=== PATIENT | female | born 1950 | race Caucasian/White ===

== ENCOUNTER 2023-04-21 10:52 | Outpatient (OUT) | payer MEDICARE, SELFPAY ==
[2023-04-21 11:40] LABS: Basophils Absolute Auto 0.1 10^3/uL (0.0-0.1); Basophils Percent Auto 0.9 % (0.2-2.0); Eosinophils Percent Auto 0.3 % (0.9-7.0); Hematocrit 45.6 % (36.0-48.0); Hemoglobin 14.9 g/dL (12.0-16.0); Immature Granulocytes Abs Auto 0.01 10^3/uL (0.00-0.03); Immature Granulocytes Pct Auto 0.2 % (0.0-0.5); Lymphocytes Absolute Auto 1.1 10^3/uL (1.2-3.8); Lymphocytes Percent Auto 16.6 % (20.5-60.0); Mean Corpuscular HGB Conc 32.7 g/dL (29.9-35.2); Mean Corpuscular Hemoglobin 32.7 pg (26.7-34.0); Mean Platelet Volume 10.1 fL (9.5-13.5); Monocytes Absolute Auto 0.4 10^3/uL (0.3-0.8); Monocytes Percent Auto 5.9 % (1.7-12.0); Neutrophils Absolute Auto 4.9 10^3/uL (1.4-6.5); Neutrophils Percent Auto 76.1 % (43.0-75.0); Platelet Count 236 10^3/uL (150-450); Red Blood Count 4.56 10^6/uL (4.20-5.40); Red Cell Distribution Width 12.4 % (11.0-15.0); White Blood Count 6.4 10^3/uL (4.0-11.0)
[2023-04-21 12:18] LABS: Alanine Aminotransferase 53 U/L (14-59); Albumin Globulin Ratio 0.9; Albumin Level 3.9 g/dL (3.4-5.0); Alkaline Phosphatase 296 U/L (46-116); Anion Gap 13.8; Aspartate Amino Transferase 33 U/L (15-37); Bilirubin Direct 0.2 mg/dL (0.0-0.2); Bilirubin Total 0.5 mg/dL (0.2-1.0); Carbon Dioxide 27.6 mmol/L (21.0-32.0); Chloride 101 mmol/L (98-107); Chol HDL Ratio 2.3; Cholesterol 239 mg/dL (<=200); Estimated GFR (African America >60 (>=60); Estimated GFR (Non-African Ame >60 (>=60); Globulin 4.5 g/dL; Glucose 111 mg/dL (74-106); HDL Cholesterol 105 mg/dL (40-60); Magnesium 1.8 mg/dL (1.8-2.4); Potassium 4.4 mmol/L (3.5-5.1); Sodium 138 mmol/L (136-145); Thyroid Stimulating Hormone 2.859 uIU/mL (0.358-3.740); Total Protein 8.4 g/dL (6.4-8.2); Triglycerides 101 mg/dL (<=150); VLDL CHOLESTEROL 20.2 mg/dL
== END 2023-04-21 10:53 | disposition home or self-care (01) ==
PROVIDERS: PCP Internal Medicine; Visit Provider Internal Medicine
DX: I50.32 Chronic diastolic (congestive) heart failure (principal); K76.9 Liver disease, unspecified; E78.5 Hyperlipidemia, unspecified; E55.9 Vitamin D deficiency, unspecified; Z79.899 Other long term (current) drug therapy
CPT/HCPCS: 36415; 80051; 80061; 80076; 82306; 82565; 82947; 83735; 83880; 84443; 84520; 85025

== ENCOUNTER 2023-09-14 03:42 | Emergency (ER) | payer MEDICARE, SELFPAY ==
[2023-09-14 03:46] VITALS: BP 238/140; PULSE 81; TEMP 36.6; O2SAT 97; BMI 15.5
--- OUTSIDE RECORDS SUMMARY | 2023-09-14 03:55 | XMS_ITS | CCD ---
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 Name Role Phone VIRAL ., DR HALEY Mallory Attending Unavailable VIRAL ., DR HALEY Mallory Admitting Unavailable VALONE, DR WILLIAM Primary Care Unavailable DAYANNA, DR MERRITT Carroll Consulting Unavailable STRATTON ., DR HALEY Mallory Consulting Unavailable ZIEBER, DR ANDREI Carroll Consulting Unavailable GUADALUPE, JERSEY Consulting Unavailable MORA, CARI Consulting Unavailable VALONE, DR WILLIAM Primary Care Unavailable VALONE, DR WILLIAM Admitting Unavailable VALONE, DR WILLIAM Attending Unavailable VALONE, DR WILLIAM Consulting Unavailable DAYANNA, DR MERRITT Carroll Consulting Unavailable DAYANNA, DR MERRITT Carroll Admitting Unavailable BRAYDON, DR WILLIAM Primary Care Unavailable DAYANNA, DR MERRITT Carroll Attending Unavailable Allergies Allergy Classification Reported Allergen(s) Allergy Type Date of Onset Reaction(s) Facility (1 source) Adhesive bandage Drug allergy (disorder) 5 [facility] Repository (1 source) Codeine Drug Allergy 5 [facility] (1 source) Dextroamphetamine Drug Allergy 5 [facility] Rep[facility] (1 source) Penicillins Drug allergy (disorder) 5 [facility] Problems Active Problems Problem Classification Problem Date Documented Date Episodic/Chronic Abdominal pain (4 sources) Unspecified abdominal pain; Translations: [UNSPECIFIED ABDOMINAL PAIN] Onset: 11-22-19 Episodic Anxiety disorders (1 source) Generalized anxiety disorder; Translations: [GENERALIZED ANXIETY DISORDER] Onset: 11-27-19 Chronic Chronic obstructive pulmonary disease and bronchiectasis (1 source) Chronic obstructive pulmonary disease, unspecified; Translations: [COPD UNSPECIFIED] Onset: 11-27-19 Chronic Disorders of lipid metabolism (1 source) Pure hypercholesterolemia, unspecified; Translations: [PURE HYPERCHOLESTEROLEMIA UNSPEC] Onset: 09-13-19 Chronic Esophageal disorders (1 source) Gastro-esophageal reflux disease without esophagitis; Translations: [GERD WITHOUT ESOPHAGITIS] Onset: 11-27-19 Chronic Nutritional deficiencies (1 source) Moderate protein-calorie malnutrition; Translations: [MODERATE PROTEIN-CALORIE MLNUTRIT] Onset: 11-27-19 Chronic Other aftercare (1 source) Other retirement (current) drug therapy; Translations: [OTH SHELTER CURRENT DRUG THERAPY] Onset: 09-13-19 Episodic Other gastrointestinal disorders (1 source) Irritable bowel syndrome without diarrhea; Translations: [IRRITABLE BOWEL SYND W/O DIARRHEA] Onset: 11-26-19 Chronic Other gastrointestinal disorders (1 source) Irritable bowel syndrome with constipation; Translations: [IRRITABLE BOWEL SYND W/CONSTIPATION] Onset: 11-27-19 Chronic Other lower respiratory disease (4 sources) Shortness of breath; Translations: [SHORTNESS OF BREATH] Onset: 09-10-19 Episodic Other nutritional; endocrine; and metabolic disorders (1 source) Abnormal weight loss; Translations: [ABNORMAL WEIGHT LOSS] Onset: 09-13-19 Episodic Substance-related disorders (1 source) Nicotine dependence, cigarettes, uncomplicated; Translations: [NICOTINE DEPEND CIGARETTES UNCOMP] Onset: 11-27-19 Chronic Unclassified (1 source) CONTACT W/AND (SUSP) EXPOS COVID-19; Translations: [CONTACT W/AND (SUSP) EXPOS COVID-19] Onset: 11-27-19 Past or Other Problems Problem Classification Problem Date Documented Da te Episodic/Chronic Nausea and vomiting (5 sources) Nausea with vomiting, unspecified; Translations: [NAUSEA WITH VOMITING UNSPECIFIED] Onset: 11-21-2021 Episodic Other nutritional; endocrine; and metabolic disorders (1 source) Anorexia; Translations: [ANOREXIA] Onset: 11-26-2021 Episodic Other nutritional; endocrine; and metabolic disorders (1 source) Body mass index (BMI) 19.9 or less, adult; Translations: [BODY MASS INDEX 19.9 OR LESS ADULT] Onset: 11-26-2021 Episodic Results Test Name Value Interpretation Reference Range Facility BNPon 09-09-2022 Natriuretic peptide B (Bld) [Mass/Vol] 87.0 pg/mL Normal <=900.0 [facility] Comment on above: Performed By: #### L IVER, BNP, CREA, ELEC, LIPID, GLUC, BUN, TSH #### [facility] [address] [place] [address] Dr. Reece Grover BUNon 09-09-2022 Urea nitrogen [Mass/Vol] 20.0 mg/dL Critically high 7.0-18.0 [facility] Comment on above: Performed By: #### L IVER, BNP, CREA, ELEC, LIPID, GLUC, BUN, TSH ####[facility] [address] [place], [place] [address]Dr. Reece Grover CBC AUTO DIFFon 09-09-2022 BASO # 0.1 103/ul Normal 0.0-0.1 [facility] Comment on above: Performed By: #### C BC #### [facility] [address] [address] [address] Reece Grvoer Basophils/100 WBC (Bld) 1.0 % Normal 0.2-2.0 [facility] Comment on above: Performed By: #### C BC #### [facility] [address] [address] [address] Reece Grover EO # 0.0 103/ul Normal 0.0-0.7 [facility] Comment on above: Performed By: #### C BC #### [facility] [address] [address] [address] Reece Grover Eosinophils/100 WBC (Bld) 0.8 % Critically low 0.9-7.0 [facility] Comment on above: Performed By: #### C BC #### [facility] [address] [address] [address] Reece Grover Erythrocyte distribution width (RBC) [Ratio] 13.0 % Normal 11.0-15.0 [facility] Comment on above: Performed By: #### C BC #### [facility] [address] [address] [address] Reece Grover Hematocrit (Bld) [Volume fraction] 42.9 % Normal 36.0-48.0 [facility] Comment on above: Performed By: #### C BC #### [facility] [address] [address] [address] Reece Grover Hemoglobin (Bld) [Mass/Vol] 13.9 g/dL Normal 12.0-16.0 [facility] Comment on above: Performed By: #### C BC #### [facility] [address] [place] [address] Dr. Reece Grover IG # 0.01 10e3/ul Normal 0.00-0.03 [facility] Comment on above: Performed By: #### C BC #### [facility] [address] [address] [address] Reece Grover IG % 0.2 % Normal 0.0-0.5 [facility] Comment on above: Performed By: #### C BC #### [facility] [address] [place] [address] Dr. Reece Grover LYMPH # 1.1 103/ul Critically low 1.2-3.8 [facility] Comment on above: Performed By: #### C BC #### [facility] [address] [place] [address] Dr. Reece Grover Lymphocytes/100 WBC (Bld) 22.1 % Normal 20.5-60.0 [facility] Comment on above: Performed By: #### C BC #### [facility] [address] [place] [address] Dr. Reece Grover MANUAL DIFF REQ NO Normal [facility] Comment on above: Performed By: #### C BC #### [facility] [address] [place] [address] Dr. Reece Grover MCH (RBC) [Entitic mass] 32.4 pg Normal 26.7-34.0 [facility] Comment on above: Performed By: #### C BC #### [facility] [address] [place] [address] Dr. Reece Grover MCHC (RBC) [Mass/Vol] 32.4 g/dL Normal 29.9-35.2 [facility] Comment on above: Performed By: #### C BC #### [facility] [address] [place] [address] Dr. Reece Grover MCV (RBC) [Entitic vol] 100.0 fL Critically high 81.0-99.0 [facility] Comment on above: Performed By: #### C BC #### [facility] [address] [address] [address] Reece Grover MONO # 0.3 103/ul Normal 0.3-0.8 [facility] Comment on above: Performed By: #### C BC #### [facility] [address] [address] [address] Reece Grover Monocytes/100 WBC (Bld) 5.6 % Normal 1.7-12.0 [facility] Comment on above: Performed By: #### C BC #### [facility] [address] [place] [address] Dr. Reece Grover NEUT # 3.5 103/ul Normal 1.4-6.5 [facility] Comment on above: Performed By: #### C BC #### [facility] [address] [place] [address] Dr. Reece Grover Neutrophils/100 WBC (Bld) 70.3 % Normal 43.0-75.0 [facility] Comment on above: Performed By: #### C BC #### [facility] [address] [place] [address] Dr. Reece Grover Platelet mean volume (Bld) [Entitic vol] 9.7 fL Normal 9.5-13.5 [facility] Comment on above: Performed By: #### C BC #### [facility] [address] [place] [address] Dr. Reece Grover PLT 190 103/ul Normal 150-450 [facility] Comment on above: Performed By: #### C BC #### [facility] [address] [place] [address] Dr. Reece Grover RBC 4.29 106/ul Normal 4.20-5.40 [facility] Comment on above: Performed By: #### C BC #### [facility] [address] [place] [address] Dr. Reece Grover WBC 5.0 103/ul Normal 4.0-11.0 [facility] Comment on above: Performed By: #### C BC #### [facility] [address] [address] [address] Reece Grover CREATININEon 09-09-2022 Creatinine [Mass/Vol] 0.81 mg/dL Normal 0.55-1.02 [facility] Comment on above: Performed By: #### L IVER, BNP, CREA, ELEC, LIPID, GLUC, BUN, TSH #### [facility] [address] [address] [address] Reece Grover EGFR-AF TRISTANIAN >60 Normal >=60 [facility] Comment on above: Performed By: #### L IVER, BNP, CREA, ELEC, LIPID, GLUC, BUN, TSH #### [facility] [address] [address] [address] Reece Grover EGFR-NON AF TRISTANIAN >60 Normal >=60 [facility] Comment on above: Performed By: #### L IVER, BNP, CREA, ELEC, LIPID, GLUC, BUN, TSH #### [facility] [address] [place] [address] Dr. Reece Grover ELECTROLYTESon 09-09-2022 Anion gap [Moles/Vol] 12.6 mmol/L Normal [facility] Comment on above: Performed By: #### L IVER, BNP, CREA, ELEC, LIPID, GLUC, BUN, TSH #### [facility] [address] [place] [address] Dr. Reece Grover Chloride [Moles/Vol] 105 mmol/L Normal 98-107 [facility] Comment on above: Performed By: #### L IVER, BNP, CREA, ELEC, LIPID, GLUC, BUN, TSH #### [facility] [address] [place] [address] Dr. Reece Grover CO2 [Moles/Vol] 28.6 mmol/L Normal 21.0-32.0 [facility] Comment on above: Performed By: #### L IVER, BNP, CREA, ELEC, LIPID, GLUC, BUN, TSH #### [facility] [address] [place] [address] Dr. Reece Grover Potassium [Moles/Vol] 4.2 mmol/L Normal 3.5-5.1 [facility] Comment on above: Performed By: #### L IVER, BNP, CREA, ELEC, LIPID, GLUC, BUN, TSH #### [facility] [address] [address] [address] Reece Grover Sodium [Moles/Vol] 142 mmol/L Normal 136-145 [facility] Comment on above: Performed By: #### L IVER, BNP, CREA, ELEC, LIPID, GLUC, BUN, TSH #### [facility] [address] [address] [address] Reece Grover GLUCOSE BLOODon 09-09-2022 Glucose [Mass/Vol] 105 mg/dL Normal 74-106 [facility] Comment on above: Performed By: #### L IVER, BNP, CREA, ELEC, LIPID, GLUC, BUN, TSH #### [facility] [address] [place] [address] Dr. Reece Grover LIPID PROFILEon 09-09-2022 CHOL-HDL RATIO NORM SEE BELOW Normal [facility] Comment on above: Result Comment: 3.3 - 4.4 LOW RISK 4.4 - 7.1 AVERAGE RISK 7.1 - 11.0 MODERATE RISK >11.0 HIGH RISK Performed By: #### L IVER, BNP, CREA, ELEC, LIPID, GLUC, BUN, TSH #### [facility] [address] [place] [address] Dr. Reece Grover Cholesterol [Mass/Vol] 249 mg/dL Critically high <=200 [facility] Comment on above: Performed By: #### L IVER, BNP, CREA, ELEC, LIPID, GLUC, BUN, TSH #### [facility] [address] [address] [address] Reece Grover Cholesterol in HDL [Mass/Vol] 93 mg/dL Critically high 40-60 [facility] Comment on above: Performed By: #### L IVER, BNP, CREA, ELEC, LIPID, GLUC, BUN, TSH #### [facility] [address] [address] [address] Reece Grover Cholesterol in LDL [Mass/Vol] 142.0 mg/dL Normal [facility] Comment on above: Performed By: #### L IVER, BNP, CREA, ELEC, LIPID, GLUC, BUN, TSH #### [facility] [address] [address] [address] Reece Grover Cholesterol.total/C holesterol in HDL [Mass ratio] 2.7 {ratio} Normal [facility] Comment on above: Performed By: #### L IVER, BNP, CREA, ELEC, LIPID, GLUC, BUN, TSH #### [facility] [address] [address] [address] Reece Grover HDL NORMAL > or = 60 mg/dl - LO W CARDIOVASCULAR RISK <40 mg/dl - HIGH CARDIOVASCULAR RISK Normal [facility] Comment on above: Performed By: #### L IVER, BNP, CREA, ELEC, LIPID, GLUC, BUN, TSH #### [facility] [address] [place] [address] Dr. Reece Grover LDL CALC NORMAL SEE BELOW Normal [facility] Comment on above: Result Comment: <100 mg/dl OPTIMAL 100 - 129 mg/dl NEAR OR ABOVE OPTIMAL 130 - 159 mg/dl BORDERLINE HIGH 160 - 189 mg/dl HIGH >190 mg/dl VERY HIGH Performed By: #### L IVER, BNP, CREA, ELEC, LIPID, GLUC, BUN, TSH #### [facility] [address] [address] [address] Reece Grover Triglyceride [Mass/Vol] 70 mg/dL Normal <=150 [facility] Comment on above: Performed By: #### L IVER, BNP, CREA, ELEC, LIPID, GLUC, BUN, TSH #### [facility] [address] [address] [address] Reece Grover VLDL CALC 14.0 mg/dL Normal [facility] Comment on above: Performed By: #### L IVER, BNP, CREA, ELEC, LIPID, GLUC, BUN, TSH #### [facility] [address] [address] [address] Reece Grover LIVER PROFILEon 09-09-2022 Albumin [Mass/Vol] 3.6 g/dL Normal 3.4-5.0 [facility] Comment on above: Performed By: #### L IVER, BNP, CREA, ELEC, LIPID, GLUC, BUN, TSH #### [facility] [address] [place] [address] Dr. Reece Grover Albumin/Globulin [Mass ratio] 0.8 {ratio} Normal [facility] Comment on above: Performed By: #### L IVER, BNP, CREA, ELEC, LIPID, GLUC, BUN, TSH #### [facility] [address] [place] [address] Dr. Reece Grover ALP [Catalytic activity/Vol] 324 U/L Critically high 46-116 [facility] Comment on above: Performed By: #### L IVER, BNP, CREA, ELEC, LIPID, GLUC, BUN, TSH #### [facility] [address] [place] [address] Dr. Reece Grover ALT [Catalytic activity/Vol] 61 U/L Critically high 14-59 [facility] Comment on above: Performed By: #### L IVER, BNP, CREA, ELEC, LIPID, GLUC, BUN, TSH #### [facility] [address] [place] [address] Dr. Reece Grover AST [Catalytic activity/Vol] 50 U/L Critically high 15-37 [facility] Comment on above: Performed By: #### L IVER, BNP, CREA, ELEC, LIPID, GLUC, BUN, TSH #### [facility] [address] [place] [address] Dr. Reece Grover BILI, CONJUGATED 0.1 mg/dL Normal 0.0-0.2 [facility] Comment on above: Performed By: #### L IVER, BNP, CREA, ELEC, LIPID, GLUC, BUN, TSH #### [facility] [address] [place] [address] Dr. Reece Grover Bilirubin [Mass/Vol] 0.3 mg/dL Normal 0.2-1.0 [facility] Comment on above: Performed By: #### L IVER, BNP, CREA, ELEC, LIPID, GLUC, BUN, TSH #### [facility] [address] [place] [address] Dr. Reece Grover Globulin (S) [Mass/Vol] 4.8 g/dL Normal [facility] Comment on above: Performed By: #### L IVER, BNP, CREA, ELEC, LIPID, GLUC, BUN, TSH #### [facility] [address] [address] [address] Reece Grover Protein [Mass/Vol] 8.4 g/dL Critically high 6.4-8.2 [facility] Comment on above: Performed By: #### L IVER, BNP, CREA, ELEC, LIPID, GLUC, BUN, TSH #### [facility] [address] [address] [address] Reece Grover TSHon 09-09-2022 TSH 1.698 uIU/mL Normal 0.358-3.740 [facility] Comment on above: Performed By: #### L IVER, BNP, CREA, ELEC, LIPID, GLUC, BUN, TSH ####[facility] [address] [address]Dr. Reece Grover AMYLASEon 11-21-2021 Amylase [Catalytic activity/Vol] 93 U/L Normal 25-115 [facility] Comment on above: Performed By: #### A MY, CMP, LIPA ####[facility] [address] [address]Dr. Reece Grover CBC AUTO DIFFon 11-21-2021 BASO # 0.0 103/ul Normal 0.0-0.1 [facility] Comment on above: Performed By: #### C BC ####[facility] [address] [address]Dr. Reece Grover Basophils/100 WBC (Bld) 0.4 % Normal 0.2-2.0 [facility] Comment on above: Performed By: #### C BC ####[facility] [address] [address]Dr. Reece Grover EO # 0.0 103/ul Normal 0.0-0.7 [facility] Comment on above: Performed By: #### C BC ####[facility] [address] [address]Dr. Reece Grover Eosinophils/100 WBC (Bld) 0.4 % Critically low 0.9-7.0 [facility] Comment on above: Performed By: #### C BC ####[facility] [address] [place], [place] [address]Dr. Reece Grover Erythrocyte distribution width (RBC) [Ratio] 12.7 % Normal 11.0-15.0 [facility] Comment on above: Performed By: #### C BC ####[facility] [address] [place], [place] [address]Dr. Reece Grover Hematocrit (Bld) [Volume fraction] 40.1 % Normal 36.0-48.0 [facility] Comment on above: Performed By: #### C BC ####[facility] [address] [place], [place] [address]Dr. Reece Grover Hemoglobin (Bld) [Mass/Vol] 13.7 g/dL Normal 12.0-16.0 [facility] Comment on above: Performed By: #### C BC ####[facility] [address] [place], [place] [address]Dr. Reece Grover IG # 0.03 10e3/ul Normal 0.00-0.03 [facility] Comment on above: Performed By: #### C BC ####[facility] [address] [place], [place] [address]Dr. Reece Grover IG % 0.4 % Normal 0.0-0.5 [facility] Comment on above: Performed By: #### C BC ####[facility] [address] [place], [place] [address]Dr. Reece Grover LYMPH # 0.9 103/ul Critically low 1.2-3.8 [facility] Comment on above: Performed By: #### C BC ####[facility] [address] [place], [place] [address]Dr. Reece Grover Lymphocytes/100 WBC (Bld) 10.9 % Critically low 20.5-60.0 [facility] Comment on above: Performed By: #### C BC ####[facility] [address] [id number]. Reece Grover MANUAL DIFF REQ NO Normal [facility] Comment on above: Performed By: #### C BC ####[facility] [address] [id number]. Reece Grover MCH (RBC) [Entitic mass] 33.4 pg Normal 26.7-34.0 [facility] Comment on above: Performed By: #### C BC ####[facility] [address] [id number]. Reece Grover MCHC (RBC) [Mass/Vol] 34.2 g/dL Normal 29.9-35.2 [facility] Comment on above: Performed By: #### C BC ####[facility] [address] [id number]. Reece Grover MCV (RBC) [Entitic vol] 97.8 fL Normal 81.0-99.0 [facility] Comment on above: Performed By: #### C BC ####[facility] [address] [address]Dr. Reece Grover MONO # 0.4 103/ul Normal 0.3-0.8 [facility] Comment on above: Performed By: #### C BC ####[facility] [address] [place], [place] [address]Dr. Reece Reilly Monocytes/100 WBC (Bld) 4.6 % Normal 1.7-12.0 [facility] Comment on above: Performed By: #### C BC ####[facility] [address] [address]Dr. Reece Grover NEUT # 7.0 103/ul Critically high 1.4-6.5 [facility] Comment on above: Performed By: #### C BC ####[facility] [address] [id number]. Darlingrich Grover Neutrophils/100 WBC (Bld) 83.3 % Critically high 43.0-75.0 [facility] Comment on above: Performed By: #### C BC ####[facility] [address] [id number]. Reece Grover Platelet mean volume (Bld) [Entitic vol] 10.0 fL Normal 9.5-13.5 [facility] Comment on above: Performed By: #### C BC ####[facility] [address] [id number]. Reece Grover PLT 236 103/ul Normal 150-450 [facility] Comment on above: Performed By: #### C BC ####[facility] [address] [id number]. Reece Grover RBC 4.10 106/ul Critically low 4.20-5.40 [facility] Comment on above: Performed By: #### C BC ####[facility] [address] [place], [place] [address]Dr. Reece Grover WBC 8.4 103/ul Normal 4.0-11.0 [facility] Comment on above: Performed By: #### C BC ####[facility] [address] [place], [place] [address]Dr. Reece Grover BASO # 0.1 103/ul Normal 0.0-0.1 [facility] Comment on above: Performed By: #### C BC ####[facility] [address] [place], [place] [address]Dr. Reece Grover Basophils/100 WBC (Bld) 1.0 % Normal 0.2-2.0 [facility] Comment on above: Performed By: #### C BC ####[facility] [address] [address]Dr. Reece Grover EO # 0.1 103/ul Normal 0.0-0.7 [facility] Comment on above: Performed By: #### C BC ####[facility] [address] [place], [place] [address]Dr. Reece Grover Eosinophils/100 WBC (Bld) 2.1 % Normal 0.9-7.0 [facility] Comment on above: Performed By: #### C BC ####[facility] [address] [place], [place] [address]Dr. Reece Grover Erythrocyte distribution width (RBC) [Ratio] 12.8 % Normal 11.0-15.0 [facility] Comment on above: Performed By: #### C BC ####[facility] [address] [place], [place] [address]Dr. Reece Grover Hematocrit (Bld) [Volume fraction] 40.6 % Normal 36.0-48.0 [facility] Comment on above: Performed By: #### C BC ####[facility] [address] [place], [place] [address]Dr. Reece Grover Hemoglobin (Bld) [Mass/Vol] 13.3 g/dL Normal 12.0-16.0 [facility] Comment on above: Performed By: #### C BC ####[facility] [address] [place], [place] [address]Dr. Reece Grover IG # 0.02 10e3/ul Normal 0.00-0.03 [facility] Comment on above: Performed By: #### C BC ####[facility] St[address] [place], [place] [address]Dr. Reece Grover IG % 0.4 % Normal 0.0-0.5 [facility] Comment on above: Performed By: #### C BC ####[facility] Fujnkopykc[address] [place], [place] [address]Dr. Darlingrich Grover LYMPH # 1.6 103/ul Normal 1.2-3.8 [facility] Comment on above: Performed By: #### C BC ####[facility] Jqkltolize[address] [place], [place] [address]Dr. Darlingrich Grover Lymphocytes/100 WBC (Bld) 31.6 % Normal 20.5-60.0 [facility] Comment on above: Performed By: #### C BC ####[facility] Tlccocamne[address] [place], [place] [address]Dr. Darlingrich Grover MANUAL DIFF REQ NO Normal The [facility] Comment on above: Performed By: #### C BC ####[facility] [address]eibqvhw[address] [place], [place] [address]Dr. Reece Grover MCH (RBC) [Entitic mass] 33.0 pg Normal 26.7-34.0 [facility] Comment on above: Performed By: #### C BC ####[facility] [address] [place] [address]Dr. Reece Grover MCHC (RBC) [Mass/Vol] 32.8 g/dL Normal 29.9-35.2 [facility] Comment on above: Performed By: #### C BC ####[facility] [address]ygmds[address] [place] [address]Dr. Reece Reilly MCV (RBC) [Entitic vol] 100.7 fL Critically high 81.0-99.0 [facility] Comment on above: Performed By: #### C BC ####[facility] Sdilfreqrj28[address] [place] [address]Dr. Reece Reilly MONO # 0.4 103/ul Normal 0.3-0.8 [facility] Comment on above: Performed By: #### C BC ####[facility] Xokhqiihec99[address] [place] [address]Dr. Reece Reilly Monocytes/100 WBC (Bld) 7.1 % Normal 1.7-12.0 [facility] Comment on above: Performed By: #### C BC ####[facility] [address] [place], [place] [address]Dr. Reece Grover NEUT # 3.0 103/ul Normal 1.4-6.5 [facility] Comment on above: Performed By: #### C BC ####[facility] [address]zzcxbf[address] [place] [address]Dr. Reece Reilly Neutrophils/100 WBC (Bld) 57.8 % Normal 43.0-75.0 [facility] Comment on above: Performed By: #### C BC ####[facility] Wxjayyllnv9[address] [place] [address]Dr. Reece Reilly Platelet mean volume (Bld) [Entitic vol] 9.7 fL Normal 9.5-13.5 [facility] Comment on above: Performed By: #### C BC ####[facility] Qylqktthys6093 [place], [place] [address]Pb. Reece Grover PLT 239 103/ul Normal 150-450 [facility] Comment on above: Performed By: #### C BC ####[facility] Plcpdklfxw3095 [place], [place] [address]Jl. Reece Grover RBC 4.03 106/ul Critically low 4.20-5.40 The [facility] Comment on above: Performed By: #### C BC ####[facility] F[address]zdcoqrq0665 [place], [place] [address]Qr. Reece Grover WBC 5.2 103/ul Normal 4.0-11.0 [facility] Comment on above: Performed By: #### C BC ####[facility] Rsiyeylkxz1687 [place], [place] [address]Ri. Reece Grover CT ABD/PELV W CONon 11-22-19 CT ABD/PELV W CON EXAMINATION: CT ABD/PELV W CON HISTORY: ABDOMINAL DISTENSION (GASEOUS) COMPARISON: 04/18/2018 TECHNIQUE: Helical CT of the abdomen and pelvis with intravenous contrast. Dose reduction techniques were achieved by using automated exposure control and/or adjustment of mA and/or kV according to patient size and/or use of iterative reconstruction technique. FINDINGS: TUBES AND IMPLANTS: None. LOWER CHEST: Unremarkable ABDOMEN and PELVIS ABDOMINAL WALL AND SOFT TISSUES: Unremarkable. BONES: No suspicious lesions. Osteopenia. Multilevel degenerative changes of the spine. ARTERIES: Moderate aortoiliac calcifications without aneurysm. VEINS: Unremarkable. LYMPH NODES: Unremarkable. PERITONEUM/ RETROPERITONEUM: Unremarkable. BOWEL: No obstruction. APPENDIX: Not identified. No inflammatory changes in its expected location. LIVER: Prominent periportal edema. GALLBLADDER: Unremarkable. BILE DUCTS: Not dilated SPLEEN: Unremarkable. PANCREAS: Unremarkable. ADRENALS: Unremarkable. KIDNEYS/ URETERS: Unremarkable. REPRODUCTIVE ORGANS: Uterus appears surgically absent URINARY BLADDER: Unremarkable. IMPRESSION: Prominent periportal edema. Nonspecific but can be seen in the setting of hepatitis. Electronically authenticated by: CARI MORA Date: 2021-11-21 02:42 Normal [facility]on SARS-CoV-2 (COVID-19) RNA THOM+probe Ql (Unsp spec) Not detected Normal NOT DETECTED [facility] Comment on above: Result Comment: When diagnostic testing is negative, the possibility of a false negative should be considered in the context of a patient's recent exposures and the presence of clinical signs and symptoms consistent with SARS-CoV-2. This test is not yet approved or cleared by the [place] FDA. When there are no FDA-approved or cleared tests available, and other criteria are met, FDA can make tests available under an emergency access mechanism called an Emergency Use Authorization (EUA). The EUA for this test is supported by the [place] of Health and Human Service's declaration that circumstances exist to justify the emergency use of in vitro diagnostics for the detection and/or diagnosis of the virus that causes COVID-19. This EUA will remain in effect for the duration of the COVID-19 declaration justifying emergency of IVDs, unless it is terminated or revoked by the FDA (after which the test may no longer be used). Performed By: #### C VDTBH ####[facility] S[address] [place], [place] [address]Dr. Reece Grover LIPASEon 11-21-2021 Lipase [Catalytic activity/Vol] 106.0 U/L Normal 73.0-393.0 [facility] Comment on above: Performed By: #### A MY, CMP, LIPA ####[facility] X[address]wqyi[address] [place], [place] [address]Dr. Reece Grover PROF 14(COMP METB)on 022 Albumin [Mass/Vol] 3.6 g/dL Normal 3.4-5.0 The [facility] Comment on above: Performed By: #### C MP ####[facility] Ncduvhgznl[address] [place], [place] [address]Dr. Reece Grover Albumin/Globulin [Mass ratio] 0.9 {ratio} Normal [facility] Comment on above: Performed By: #### C MP ####[facility] Lbqdrvedkk[address] [place], [place] [address]Dr. Reece Grover ALP [Catalytic activity/Vol] 299 U/L Critically high 46-116 [facility] Comment on above: Performed By: #### C MP ####[facility] Itfflchsmf[address] [place] [id number]. Reece Grover ALT [Catalytic activity/Vol] 53 U/L Normal 14-59 [facility] Comment on above: Performed By: #### C MP ####[facility] Haztdxrbkh5190 [place] [address]Dr. Reece Grover Anion gap [Moles/Vol] 12.2 mmol/L Normal [facility] Comment on above: Performed By: #### C MP ####[facility] Wtbkeyusop3236 [place] [address]Dr. Reece Grover AST [Catalytic activity/Vol] 41 U/L Critically high 15-37 [facility] Comment on above: Performed By: #### C MP ####[facility] Iwatiobauy[address] [place], [place] [address]Dr. Reece Grover Bilirubin [Mass/Vol] 0.8 mg/dL Normal 0.2-1.0 [facility] Comment on above: Performed By: #### C MP ####[facility] Ejhaixguxt[address] [place], [place] [address]Dr. Reece Grover Calcium [Mass/Vol] 9.6 mg/dL Normal 8.5-10.1 The [facility] Comment on above: Performed By: #### C MP ####[facility] Qmfvdzdnfx[address] [place], [place] [address]Dr. Reece Grover Chloride [Moles/Vol] 101 mmol/L Normal 98-107 [facility] Comment on above: Performed By: #### C MP ####[facility] Nhjhoydloj5276 [place] [address]Dr. Reece Grover CO2 [Moles/Vol] 26.3 mmol/L Normal 21.0-32.0 The [facility] Comment on above: Performed By: #### C MP ####[facility] Gytjyonzng[address] [place], [place] [address]Dr. Reece Grover Creatinine [Mass/Vol] 0.63 mg/dL Normal 0.55-1.02 [facility] Comment on above: Performed By: #### C MP ####[facility] Gfuqmanikd4[address] [place] [id number]. Reece Grover EGFR-AF TRISTANIAN >60 Normal >=60 [facility] Comment on above: Performed By: #### C MP ####[facility] Tw[address]mipwkp488[address] [place] [id number]. Reece Grover EGFR-NON AF TRISTANIAN >60 Normal >=60 [facility] Comment on above: Performed By: #### C MP ####[facility] Yp[address] [place], [place] [address]Dr. Reece Reilly Globulin (S) [Mass/Vol] 4.2 g/dL Normal [facility] Comment on above: Performed By: #### C MP ####[facility] In[address]jgw[address] [place], [place] [address]Dr. Reece Reilly Glucose [Mass/Vol] 120 mg/dL Critically high 74-106 T [facility] Comment on above: Performed By: #### C MP ####[facility] [address]qrlqkxlzq[address] [place], [place] [address]Dr. Reece Reilly Potassium [Moles/Vol] 4.5 mmol/L Normal 3.5-5.1 [facility] Comment on above: Performed By: #### C MP ####[facility] I[address]fpewzvi[address] [place], [place] [address]Dr. Reece Reilly Protein [Mass/Vol] 7.8 g/dL Normal 6.4-8.2 [facility] Comment on above: Performed By: #### C MP ####[facility] Wohblbgyed[address] [place], [place] [address]Dr. Reece Reilly Sodium [Moles/Vol] 135 mmol/L Critically low 136-145 Th [facility] Comment on above: Performed By: #### C MP ####[facility] St[address]zdcs[address] [place], [place] [address]Dr. Reece Grover Urea nitrogen [Mass/Vol] 19.0 mg/dL Critically high 7.0-18.0 [facility] Comment on above: Performed By: #### C MP ####[facility] Voprfewgek2[address] [place], [place] [address]Dr. Reece Grover Urea nitrogen/Creatinine [Mass ratio] 30.2 mg/mg Normal [facility] Comment on above: Performed By: #### C MP ####[facility] Og[address]twzal[address] [place] [address]Dr. Reece Grover Albumin [Mass/Vol] 3.2 g/dL Critically low 3.4-5.0 Th e [facility] Comment on above: Performed By: #### A MY, CMP, LIPA ####[facility] Bceeqxodlp[address] [place] [address]Dr. Reece Reilly Albumin/Globulin [Mass ratio] 0.8 {ratio} Normal [facility] Comment on above: Performed By: #### A MY, CMP, LIPA ####[facility] Cuguqbksss34[address] [place] [address]Dr. Darlingrich Grover ALP [Catalytic activity/Vol] 296 U/L Critically high 46-116 [facility] Comment on above: Performed By: #### A MY, CMP, LIPA ####[facility] Qp[address]omwly[address] [place], [place] [address]Dr. Reece Reilly ALT [Catalytic activity/Vol] 49 U/L Normal 14-59 [facility] Comment on above: Performed By: #### A MY, CMP, LIPA ####[facility] Pvebckdtmi5391 [place] [address]Dr. Reece Reilly Anion gap [Moles/Vol] 8.7 mmol/L Normal [facility] Comment on above: Performed By: #### A MY, CMP, LIPA ####[facility] Cqmamcucey75[address] [place] [address]Dr. Reece Reilly AST [Catalytic activity/Vol] 34 U/L Normal 15-37 [facility] Comment on above: Performed By: #### A MY, CMP, LIPA ####[facility] Itgtgffwew9257 [place] [address]Dr. Darlingrich Grover Bilirubin [Mass/Vol] 0.3 mg/dL Normal 0.2-1.0 [facility] Comment on above: Performed By: #### A MY, CMP, LIPA ####[facility] Huagixvqqt5240 [place] [address]Dr. Reece Grover Calcium [Mass/Vol] 9.2 mg/dL Normal 8.5-10.1 The [facility] Comment on above: Performed By: #### A MY, CMP, LIPA ####[facility] Sdkhvcidzl7422 [place] [address]Dr. Reece Grover Chloride [Moles/Vol] 105 mmol/L Normal 98-107 [facility] Comment on above: Performed By: #### A MY, CMP, LIPA ####[facility] Afs[address]laqpaf[address] [place], [place] [address]Dr. Reece Grover CO2 [Moles/Vol] 29.2 mmol/L Normal 21.0-32.0 The [facility] Comment on above: Performed By: #### A MY, CMP, LIPA ####[facility] [address]omrbttlk[address] [place], [place] [address]Dr. Reece Grover Creatinine [Mass/Vol] 0.84 mg/dL Normal 0.55-1.02 [facility] Comment on above: Performed By: #### A MY, CMP, LIPA ####[facility] Hzulaeueyn[address] [place], [place] [address]Dr. Reece Grover EGFR-AF TRISTANIAN >60 Normal >=60 The [facility] Comment on above: Performed By: #### A MY, CMP, LIPA ####[facility] [address]rrw[address]hd[address] [place], [place] [address]Dr. Reece Grover EGFR-NON AF TRISTANIAN >60 Normal >=60 [facility] Comment on above: Performed By: #### A MY, CMP, LIPA ####[facility] [address]ybgnw[address] [place], [place] [address]Dr. Reece Grover Globulin (S) [Mass/Vol] 4.0 g/dL Normal [facility] Comment on above: Performed By: #### A MY, CMP, LIPA ####[facility] [address]llogfqwr[address] [place], [place] [address]Dr. Reece Grover Glucose [Mass/Vol] 98 mg/dL Normal 74-106 The [facility] Comment on above: Performed By: #### A MY, CMP, LIPA ####[facility] B[address]juwvfln18[address] [place] [address]Dr. Reece Grover Potassium [Moles/Vol] 3.9 mmol/L Normal 3.5-5.1 [facility] Comment on above: Performed By: #### A MY, CMP, LIPA ####[facility] Rerlqmfcgp7852 [place] [address]Dr. Reece Grover Protein [Mass/Vol] 7.2 g/dL Normal 6.4-8.2 The [facility] Comment on above: Performed By: #### A MY, CMP, LIPA ####[facility] [address]slctiqnzx30[address] [place] [address]Dr. Reece Grover Sodium [Moles/Vol] 139 mmol/L Normal 136-145 The [facility] Comment on above: Performed By: #### A MY, CMP, LIPA ####[facility] Osuvpqtnrd3246 [place] [address]Dr. Reece Grover Urea nitrogen [Mass/Vol] 25.0 mg/dL Critically high 7.0-18.0 [facility] Comment on above: Performed By: #### A MY, CMP, LIPA ####[facility] F[address]qw[address] [place] [address]Dr. Reece Grover Urea nitrogen/Creatinine [Mass ratio] 29.8 mg/mg Normal [facility] Comment on above: Performed By: #### A MY, CMP, LIPA ####[facility] [address]xp[address] [place] [address]Dr. Reece Grover US SINGLE QUAD RT UPPERon US SINGLE QUAD RT UPPER EXAMINATION: US SINGLE QUAD RT UPPER HISTORY: ABDOMINAL DISTENSION (GASEOUS) ; disease of liver COMPARISON: CT abdomen pelvis 11/21/2021 TECHNIQUE: Transabdominal evaluation of the right upper quadrant. FINDINGS: LIVER: Normal size and echotexture. Color Doppler demonstrates patent hepatic veins. PORTAL VEIN: Duplex Doppler demonstrates normal hepatopetal flow pattern with flow velocity averaging 33 cm/s. GALLBLADDER: No visible gallstones, wall thickening, or pericholecystic free fluid. Negative sonographic Irizarry's sign. BILIARY: No abnormal dilation or stones. Common bile duct diameter is within normal limits. PANCREASE: No visible mass, abnormal atrophy, or duct dilation. KIDNEY: No hydronephrosis. No visible mass or stones. Size: 9.6 x 4.5 to 4.4 cm IMPRESSION: 1. Unremarkable liver on today's ultrasound study; no appreciable periportal edema or ascites. Normal liver echotexture and margins. Electronically authenticated by: ANDREI ESCOBAR Date: 2021-11-21 07:26 Normal [facility] XR ABD FLAT UP_PA Bautista 11-21 XR ABD FLAT UP_PA CH EXAM: XR ABD FLAT UP_PA CH HISTORY: ABDOMINAL DISTENSION (GASEOUS) COMPARISON: CT abdomen 11/21/2021 TECHNIQUE: Single frontal view chest x-ray, single frontal view, 2 images of abdominal x-rays FINDINGS: Well-expanded bilateral lungs with paraseptal emphysematous changes. No lobar lung consolidation, large pleural effusions, pneumothorax, or acute bony abnormality. Cardiac size unremarkable. Moderate amount of stool within the large bowel with air to seen to the sigmoid/rectal region. Overall nonobstructive bowel gas pattern. No dilated small bowel silhouettes seen. Renal and urinary collecting system demonstrating contrast material. No acute bony abnormality. No large free air underneath the diaphragm. No acute bony abnormality. IMPRESSION: Moderate amount of stool within the large bowel with air to seen to the sigmoid/rectal region. Overall nonobstructive bowel gas pattern. Well-expanded bilateral lungs, COPD. Electronically authenticated by: JERSEY GUADALUPE Date: 2021-11-21 04:56 Normal [facility] [place] 07-16-2020 L -- ---- Specimen: [id number] Received: 07/16/20 Status: BERNICE Bajwa Num: [id number] Spec Type: Surgical Subm Dr: Rayo Farmer Jr, DO Tissues: A Colon Biopsy (RANDOM COLON BX) Procedures: HE Stain/2, Gross/Micro L4 ---- Patient Age/Sex Location Account Attending Physician ---- Lay Wayne 70/F [id number] Rayo Farmer Jr, DO ---- SPEC NUM: [id number] RECD: 07/16/20-1235 STATUS: BERNICE BAJWA NUM: [id number] JUDITH: 07/16/20- SUBM DR: Rayo Farmer Jr, DO ENTERED: 07/16/20-[address] [facility] [address]: PARAM TYPE: Surgical DEPT: S ORDERED: HE Stain/2, Gross/Micro L4 ORDERED: HE Stain/2, Gross/Micro L4 Pathological Diagnosis Colon, random biopsy: - Colonic mucosa showing mild active colitis with ischemic-type injury - Detached necroinflammatory material, suggestive of ulcer bed Clinical Information Constipation, rectal pain, colitis Gross Description Received in formalin labeled with the patient's name, number and random colon rule out colitis are multiple bergeron tissue fragments aggregating 0.5 x 0.4 x 0.1 cm. Entirely submitted in one cassette labeled A1. (SM/JS) Microscopic Description Two glass slides with H E stained material have been examined. The microscopic findings support the above pathologic diagnosis. [id number] ---- ---- Specimen: [id number] Received: 07/16/20 Status: BERNICE Bajwa Num: [id number] Spec Type: Surgical Subm Dr: Rayo Farmer Jr, DO Tissues: A Colon Biopsy (RANDOM COLON BX) Procedures: HE Stain/2, Gross/Micro L4 ---- Patient: DongbretnellieHariniy Shady [id number] (Continued) ---- Signed (signature on file) Amy Allen MD 07/17/20 1604 [facility] COVID-19 Antigenon 1 COVID-19 Antigen Healthcare Worker?: N Karen Reference Karen Reference Negative SARS-CoV+SARS-CoV-2 (COVID-19) Ag [Presence] in Respiratory specimen by Rapid immunoassay Negative for SARS Antigen by THANIA COVID19 Blank Space Karen Disclaimer Negative results, from patients with symptom Karen Disclaimer onset beyond five days, should be treated as Karen Disclaimer presumptive and confirmation with a molecular Karen Disclaimer assay, if necessary, for patient management, Karen Disclaimer may be performed. Negative results do not rule Karen Disclaimer out COVID-19 and should not be used as the sole Karen Disclaimer basis for treatment or patient management Karen Disclaimer decisions, including infection control decisions. Karen Disclaimer Negative results should be considered in the Karen Disclaimer context of a patient's recent exposures, history Karen Disclaimer and the presence of clinical signs and symptoms Karen Disclaimer consistent with COVID-19. COVID19 Blank Space Karen Disclaimer The Karen SARS Antigen THANIA does not differentiate Karen Disclaimer between SARS-CoV and SARS-CoV-2. COVID19 Blank Space Karen Disclaimer This test was developed and its performance Karen Disclaimer characteristic determined by [employer] and Karen Disclaimer validated at [facility]. This Karen Disclaimer test has not been FDA cleared or approved. This Karen Disclaimer test has been authorized by FDA under an Emergency Use Karen Disclaimer Authorization (EUA). This test has been validated Karen Disclaimer in accordance with the FDA's Guidance Document (Policy Karen Disclaimer for Diagnostics Testing in Laboratories Certified to Karen Disclaimer Perform High Complexity Testing under CLIA prior to Karen Disclaimer Emergency Use Authorization for Coronavirus Karen Disclaimer iseas during the Public Health Emergency) Karen Disclaimer issued on August 17, 2019. This test is only authorized Karen Disclaimer for the duration of time the declaration that Karen Disclaimer circumstances exist justifying the authorization of Karen Disclaimer the emergency use of in vitro diagnostic tests for Karen Disclaimer detection of SARS-CoV-2 virus and/or diagnosis of Karen Disclaimer COVID-19 infection under section 564(b)(1) of the Karen Disclaimer Act, 21 U.S.C. 360bbb-3(b)(1), unless the Karen Disclaimer authorization is terminated or revoked sooner. PERFORMED BY: [place] [address] PATHOLOGIST MANAGER ACQUISITION AMY ALLEN M.D. Normal [facility] Comment on above: Performed By: #### S OFJOAQUINA COVID-19 KAREN #### [facility] [address] [place] [address] Karen Ag Negativeon 07-16-19 21 Karen Ag Negative Negative Normal Negative [facility] Comment on above: Result Comment: This is a duplicate test result based off of the Karen SARS Antigen (THANIA) test performed within the Microbiology department. PERFORMED BY: [place] [address] PATHOLOGIST MANAGER ACQUISITION AMY ALLEN M.D. Performed By: #### S OFIANEG, COVID-19 KAREN #### [facility] [address] [place] [address] [place] C-Reactive Proteinon 021 C-Reactive Protein 1.2 mg/dL High 0.0-1.0 [facility] Comment on above: Result Comment: PERF ORMED BY: [place] [address] PATHOLOGIST MANAGER ACQUISITION AMY ALLEN M.D. Performed By: #### C RP #### [address] abdomen pelvis w conon CT abdomen pelvis w con [facility] [place] [address] [place] [address] CT Scan Report Signed Patient: Lay Wayne MR#: [id number] : 1950 Acct:[id number] Age/Sex: 69 / F ADM Date: 06/10/20 Loc: ER Room: Type: [facility] ER Attending Dr: Ordering Provider: Clayton Wiggins MD Date of Service: 06/10/20 CT/CT abdomen pelvis w con: LLQ abd pain, hx of diverticulosis Copies to: Clayton Wiggins MD CT abdomen and pelvis withcontrast TECHNIQUE: Axial imaging with 2-D reconstruction.90 cc of Isovue-300.. The CT exam was performed using one or more the following dose reduction techniques: Automated exposure control, adjustment of the MA and/or Kv according to patient size, or use of the iterative reconstruction technique. COMPARISON:None History: LEFT lower quadrant pain worsening today. Nausea and vomiting. Lung bases are unremarkable. No hepatic mass or intrahepatic biliary ductal dilatation identified. Normal density of the liver parenchyma identified. No gallbladder abnormality identified. No extrahepatic biliary ductal dilatation identified. There is no splenomegaly or splenic mass identified. No pancreatic mass or ductal dilatation identified. The adrenal glands are unremarkable. No nephrolithiasis or obstructive uropathy is identified. No abdominal aortic aneurysm identified. No significant retroperitoneal abnormalities identified. Atherosclerosis identified. Small bowel loops are mildly distended and may represent mild ileus. There is no transition point to suggest obstruction. The appendix is normal. There is wall thickening involving the distal portion sigmoid colon portion of the rectum. This may represent underdistention. May consider infectious or inflammatory changes. No abscess identif ied. Urinary bladder is unremarkable. The uterus is absent. No free intraperitoneal air or fluid is identified. The bony structures are unremarkable. No subcutaneous soft tissue abnormality identified. CT/CT abdomen pelvis w con IMPRESSION: There is wall thickening of the distal portion of sigmoid colon and proximal portion of the rectum. This may be mill representative of inflammatory or infectious etiology. This also may represent component of underdistention. No abscess. Impression dictated by: Antoine Dutta M.D.06/10/2020 6:40 PM Dictation Location: [place] [address] Transcribed By: [facility] 06/10/201839 Dictated By: Antoine Dutta DO 06/10/20 183 Signed By: 06/10/201839 Normal [facility] Complete Blood Count Auto Di ffon 06-10-2020 Basophils (Bld) [#/Vol] 0.0 10*3/uL Normal 0.0-0.2 [facility] Comment on above: Result Comment: PERF ORMED BY: [place] [address] PATHOLOGIST MANAGER ACQUISITION AMY ALLEN M.D. Performed By: #### C MP, LIPASE, TROP, CBC #### [address] Basophils/100 WBC (Bld) 0.8 % Normal . [facility] Comment on above: Performed By: #### C MP, LIPASE, TROP, CBC #### [facility] [address] [place] [address] Eosinophils (Bld) [#/Vol] 0.0 10*3/uL Normal 0.0-0.45 [facility] Comment on above: Performed By: #### C MP, LIPASE, TROP, CBC #### [facility] [address] [place] [address] [place] Eosinophils/100 WBC (Bld) 0.2 % Normal . [facility] Comment on above: Performed By: #### C MP, LIPASE, TROP, CBC #### [address] Erythrocyte distribution width (RBC) [Ratio] 12.8 % Normal 11.9-15.3 [facility] Comment on above: Performed By: #### C MP, LIPASE, TROP, CBC #### [address] Hematocrit (Bld) [Volume fraction] 45.1 % Normal 34.0-46.4 [facility] Comment on above: Performed By: #### C MP, LIPASE, TROP, CBC #### [address] Hemoglobin (Bld) [Mass/Vol] 15.7 g/dL High 11.8-15.4 [facility] Comment on above: Performed By: #### C MP, LIPASE, TROP, CBC #### [address] Lymphocytes (Bld) [#/Vol] 1.5 10*3/uL Normal 1.00-4.8 [facility] Comment on above: Performed By: #### C MP, LIPASE, TROP, CBC #### [address] Lymphocytes/100 WBC (Bld) 25.2 % Normal . [facility] Comment on above: Performed By: #### C MP, LIPASE, TROP, CBC #### [address] MCH (RBC) [Entitic mass] 33.5 pg Normal 24.7-34.3 [facility] Comment on above: Performed By: #### C MP, LIPASE, TROP, CBC #### [address] MCV (RBC) [Entitic vol] 96.6 fL Normal 80-100 [facility] Comment on above: Performed By: #### C MP, LIPASE, TROP, CBC #### [address] Mean Corpuscular HGB Conc 34.7 g/dL Normal 32.0-35.0 [facility] Comment on above: Performed By: #### C MP, LIPASE, TROP, CBC #### [place] [id number] [place] Monocytes (Bld) [#/Vol] 0.3 10*3/uL Normal 0.0-0.8 [facility] Comment on above: Performed By: #### C MP, LIPASE, TROP, CBC #### [facility] [address] Monocytes/100 WBC (Bld) 5.6 % Normal . [facility] Comment on above: Performed By: #### C MP, LIPASE, TROP, CBC #### [address] Neutrophils (Bld) [#/Vol] 4.2 10*3/uL Normal 1.8-7.7 [facility] Comment on above: Performed By: #### C MP, LIPASE, TROP, CBC #### [address] Neutrophils/100 WBC (Bld) 68.2 % Normal . [facility] Comment on above: Performed By: #### C MP, LIPASE, TROP, CBC #### [address] Nucleated RBC/100 WBC (Bld) [Ratio] 0.1 % Normal 0-0.5 [facility] Comment on above: Performed By: #### C MP, LIPASE, TROP, CBC #### [address] Platelet mean volume (Bld) [Entitic vol] 7.8 fL Normal 6.3-10.7 [facility] Comment on above: Performed By: #### C MP, LIPASE, TROP, CBC #### [place] [address] [place] Platelets (Bld) [#/Vol] 268 10*3/uL Normal 150-450 [facility] Comment on above: Performed By: #### C MP, LIPASE, TROP, CBC #### [address] RBC (Bld) [#/Vol] 4.67 10*6/uL Normal 3.60-5.00 [facility] Comment on above: Performed By: #### C MP, LIPASE, TROP, CBC #### [address] WBC (Bld) [#/Vol] 6.1 10*3/uL Normal 4.5-11.0 [facility] Comment on above: Performed By: #### C MP, LIPASE, TROP, CBC #### [address] Comprehensive Metabolic Pane duane 06-10-2020 Albumin [Mass/Vol] 3.9 g/dL Normal 3.2-5.5 [facility] Comment on above: Performed By: #### C MP, LIPASE, TROP, CBC #### [address] Albumin/Globulin [Mass ratio] 1.0 {ratio} Normal [facility] Comment on above: Performed By: #### C MP, LIPASE, TROP, CBC #### [address] ALP [Catalytic activity/Vol] 302 U/L High 32-92 [facility] Comment on above: Performed By: #### C MP, LIPASE, TROP, CBC #### [address] ALT [Catalytic activity/Vol] 43 U/L Normal 10-60 [facility] Comment on above: Performed By: #### C MP, LIPASE, TROP, CBC #### [address] AST [Catalytic activity/Vol] 36 U/L Normal 10-42 [facility] Comment on above: Performed By: #### C MP, LIPASE, TROP, CBC #### [address] Bilirubin [Mass/Vol] 0.8 mg/dL Normal 0.3-1.2 [facility] Comment on above: Performed By: #### C MP, LIPASE, TROP, CBC #### [address] Calcium [Mass/Vol] 9.5 mg/dL Normal 8.2-10.2 [facility] Comment on above: Performed By: #### C MP, LIPASE, TROP, CBC #### [address] Chloride [Moles/Vol] 103 mmol/L Normal 95-114 [facility] Comment on above: Performed By: #### C MP, LIPASE, TROP, CBC #### [address] CO2 [Moles/Vol] 22.4 mmol/L Normal 22.0-30.0 [facility] Comment on above: Performed By: #### C MP, LIPASE, TROP, CBC #### [address] Creatinine [Mass/Vol] 0.77 mg/dL Normal 0.44-1.03 [facility] Comment on above: Performed By: #### C MP, LIPASE, TROP, CBC #### [address] Creatinine Clr Calc Pharmacy 44.82 [facility] Comment on above: Performed By: #### C MP, LIPASE, TROP, CBC #### [address] Estimated GFR ( Xochitl > 60 [facility] Comment on above: Result Comment: GFR estimated reference range: According to KDOQI guidelines, <60 ml/min/1.73m2 is sufficient to diagnose a patient with chronic kidney disease. Performed By: #### C MP, LIPASE, TROP, CBC #### [address] Estimated GFR (Non- Am > 60 [facility] Comment on above: Performed By: #### C MP, LIPASE, TROP, CBC #### [address] Globulin (S) [Mass/Vol] 4.1 g/dL [facility] Comment on above: Performed By: #### C MP, LIPASE, TROP, CBC #### [address] [place] [address] [place] Glucose [Mass/Vol] 99 mg/dL Normal 70-100 [facility] Comment on above: Result Comment: [place] Glucose Reference Range is dependent on time and content of last meal. Glucose of more than 200 mg/dL in a nonstressed, ambulatory subject supports the diagnosis of Diabetes Mellitus. ADA recommended reference range Performed By: #### C MP, LIPASE, TROP, CBC #### [address] Potassium [Moles/Vol] 3.7 mmol/L Normal 3.5-5.1 [facility] Comment on above: Performed By: #### C MP, LIPASE, TROP, CBC #### [address] Protein [Mass/Vol] 8.0 g/dL High 6.1-7.9 [facility] Comment on above: Performed By: #### C MP, LIPASE, TROP, CBC #### [address] Sodium [Moles/Vol] 137 mmol/L Normal 136-146 [facility] Comment on above: Performed By: #### C MP, LIPASE, TROP, CBC #### [address] Urea nitrogen [Mass/Vol] 13 mg/dL Normal 9-23 [facility] Comment on above: Performed By: #### C MP, LIPASE, TROP, CBC #### [address] Dipstick and Microscopicon 0 06-10-2020 Appearance (U) Clear Normal Clear [facility] Comment on above: Order Comment: Name Collection Type:: Clean-Voided Midstream Performed By: #### A DDONUAPLUS #### [address] Bacteria,Urine Rare High None Seen [facility] Comment on above: Order Comment: Name Collection Type:: Clean-Voided Midstream Performed By: #### A DDONUAPLUS #### [address] [place] [address] [place] Bilirubin,Urine Negative Normal Negative [facility] Comment on above: Order Comment: Name Collection Type:: Clean-Voided Midstream Performed By: #### A DDONUAPLUS #### [address] Color (U) Yellow Normal Yellow [facility] Comment on above: Order Comment: Name Collection Type:: Clean-Voided Midstream Performed By: #### A DDONUAPLUS #### [place] [address] [place] Glucose Ql (U) Normal Normal Normal [facility] Comment on above: Order Comment: Name Collection Type:: Clean-Voided Midstream Performed By: #### A DDONUAPLUS #### [place] [address] [place] Ketones Ql (U) 2+ High Negative [facility] Comment on above: Order Comment: Name Collection Type:: Clean-Voided Midstream Performed By: #### A DDONUAPLUS #### [place] [address] [place] Leukocyte esterase Test strip Ql (U) 1+ High Negative [facility] Comment on above: Order Comment: Name Collection Type:: Clean-Voided Midstream Performed By: #### A DDONUAPLUS #### [facility] [address] [place] [address] [place] Mucus,Urine 3+ Critically abnormal [facility] Comment on above: Order Comment: Name Collection Type:: Clean-Voided Midstream Result Comment: PERF ORMED BY: [place] [address] PATHOLOGIST MANAGER ACQUISITION AMY ALLEN M.D. Performed By: #### A DDONUAPLUS #### [facility] [address] [place] [address] [place] Nitrite,Urine Negative Normal Negative [facility] Comment on above: Order Comment: Name Collection Type:: Clean-Voided Midstream Performed By: #### A DDONUAPLUS #### [place] [address] [place] Occult Blood,Urine Trace High Negative [facility] Comment on above: Order Comment: Name Collection Type:: Clean-Voided Midstream Result Comment: PERF ORMED BY: [place] [address] PATHOLOGIST MANAGER ACQUISITION AMY ALLEN M.D. Performed By: #### A DDONUAPLUS #### [address] pH (U) 5.5 [pH] Normal 5.0-9.0 [facility] Comment on above: Order Comment: Name Collection Type:: Clean-Voided Midstream Performed By: #### A DDONUAPLUS #### [address] Protein (U) [Mass/Vol] 30 mg/dL High Negative [facility] Comment on above: Order Comment: Name Collection Type:: Clean-Voided Midstream Performed By: #### A DDONUAPLUS #### [address] RBC LM.HPF (Urine sed) [#/Area] 0 /[HPF] Normal 0-4 [facility] Comment on above: Order Comment: Name Collection Type:: Clean-Voided Midstream Performed By: #### A DDONUAPLUS #### [address] Specificy [place],Urine 1.021 Normal 1.001-1.030 [facility] Comment on above: Order Comment: Name Collection Type:: Clean-Voided Midstream Performed By: #### A DDONUAPLUS #### [place] [address] [place] Squamous Epithelial Cell,Urine 0-1 Normal 0-2 [facility] Comment on above: Order Comment: Name Collection Type:: Clean-Voided Midstream Performed By: #### A DDONUAPLUS #### [address] Urobilinogen,Urine Normal Normal Normal [facility] Comment on above: Order Comment: Name Collection Type:: Clean-Voided Midstream Performed By: #### A DDONUAPLUS #### [address] WBC,Urine 3-4 Normal 0-4 [facility] Comment on above: Order Comment: Name Collection Type:: Clean-Voided Midstream Performed By: #### A DDONUAPLUS #### [address] Lipaseon 06-10-2020 Lipase [Catalytic activity/Vol] 30.0 U/L Normal 22-51 [facility] Comment on above: Result Comment: PERF ORMED BY: [place] [address] PATHOLOGIST MANAGER ACQUISITION AMY ALLEN M.D. Performed By: #### C MP, LIPASE, TROP, CBC #### [address] Troponin I(TnI)on 06-10-2020 Troponin I.cardiac [Mass/Vol] 0.02 ng/mL Normal 0-0.02 [facility] Comment on above: Result Comment: [place] Cut off value > or equal to 0.03 ng/mL in conjunction with clinical conditions of myocardial infarction. (www.escardio.org/guidelines) PERFORMED BY: [place] [address] PATHOLOGIST MANAGER ACQUISITION AMY ALLEN M.D. Performed By: #### C MP, LIPASE, TROP, CBC #### [address] Urine Cultureon 06-10-2020 Bacteria identified Cx Nom (U) 25,000 colonies/ml mixed bacterial skin contaminants 2 Days PERFORMED BY: [place] [address] PATHOLOGIST MANAGER ACQUISITION AMY ALLEN M.D. Normal [facility] Comment on above: Performed By: #### C UU #### [address] Encounters Encounter Date Encounter Type Care Provider Facility Start: 09-09-2022 End: 09-10-[address] NATALIIA BRYSON Facility:[facility] Start: 11-21-2021 End: 11-21-[address] MERRITT ALAN Facility:[facility] Start: 11-21-2021 End: 11-21-[address] HALEY STRATTON . Facility:[facility] Payers Date Payer Category Payer Unknown [id number] 1950 Unknown [id number] 1950 Unknown [id number] 1950 Unknown [id number] Summary Purpose Family History No Family History Records FoundNo Family History Records Found Advance Directives No Advanced Directives Records FoundNo Advanced Directives Records Found Additional Source Comments INFORMATION SOURCE (unrecogn ized section and content) DATE CREATED AUTHOR 06/10/2021 [facility] DATE CREATED AUTHOR AUTHOR'S MICHAELIZ ATION 09/12/2022 [facility] FOR RECORDS PERTAINING TO PATIENTS WHO ARE OR HAVE BEEN ENROLLED IN A CHEMICAL DEPENDENCY/SUBSTANCEABUSE PROGRAM, SOME INFORMATION MAY BE OMITTED. This clinical summary was aggregated from multiple sources. Caution should be exercised in using it in the provision of clinical care. This summary normalizes information from multiple sources, and as a consequence, information in this document may materially change the coding, format and clinical context of patient data. In addition, data may be omitted in some cases. CLINICAL DECISIONS SHOULD BE BASED ON THE PRIMARY CLINICAL RECORDS. [facility] [employer] provides no warranty or guarantee of the accuracy or completeness of information in this document.
--- NOTE | 2023-09-14 04:11 | CT_ITS ---
The [address] [address] Patient Name: LAY WAYNE MRN: [id number] date: 1950 Sex: F Assigned Patient Location: ER Current Patient Location: Accession/Order Number: [id number] Exam Date: 09/14/2023 05:50 Report Date: 09/14/2023 06:30 At the request of: STEVIE GOODMAN Procedure: CT abdomen pelvis w con EXAM: CT abdomen pelvis w con HISTORY: Acute lower abdominal pain with urinary frequency for one day. COMPARISON: CT abdomen pelvis, 12/03/2021. TECHNIQUE: IV contrast enhanced CT imaging the abdomen and pelvis was performed using 100 mL of Omnipaque 300 intravenous contrast. Sagittal and coronal reconstructions are provided. Dose reduction techniques were achieved by using automated exposure control and/or adjustment of mA and/or kV according to patient size and/or use of iterative reconstruction technique. FINDINGS: CT ABDOMEN: The lung bases are clear. The imaged heart is unremarkable. The liver, gallbladder, pancreas, spleen, adrenal glands, and kidneys are unremarkable. There is nonspecific wall thickening in the distal gastric body and antrum. The stomach and small bowel are otherwise unremarkable. There are prominent aortic calcifications without aneurysm. The IVC appears normal. CT PELVIS: Prior hysterectomy is noted. The ovaries and appendix are not seen and may have been removed as well. The pelvic small bowel loops and urinary bladder appear normal. There is moderate stool throughout the colon. No inflammatory fat stranding, free fluid, loculated fluid or free air is seen in the abdomen or pelvis. No acute osseous abnormality or suspicious bony lesion is seen. CT/CT abdomen pelvis w con IMPRESSION: Nonspecific wall thickening in the distal gastric body and antrum is new since the prior exam. This could reflect muscular contraction versus focal gastritis, peptic ulcer disease, or possible mass. No discrete ulcer is identified. If indicated, EGD could further evaluate. No other potential acute findings are seen in the abdomen or pelvis. Electronically authenticated by: OJ TALBOT Date: 09/14/2023 06:30
[2023-09-14 04:12] LABS: Bilirubin Urine NEGATIVE (NEGATIVE); Blood Urine NEGATIVE (NEGATIVE); Clarity Urine CLEAR (CLEAR); Color Urine YELLOW (YELLOW); Glucose Urine UA NEGATIVE (NEGATIVE); Ketones Urine NEGATIVE (NEGATIVE); Leukocyte Esterase Urine NEGATIVE (NEGATIVE); Nitrite Urine NEGATIVE (NEGATIVE); Protein Urine NEGATIVE (NEG/TRACE); Urobilinogen Urine 0.2 EU/dL (0.2-1.0); pH Urine 7.5 (5.0-9.0)
[2023-09-14 04:13] LABS: Urine Microscopic Indicated NO
[2023-09-14 04:26] LABS: Basophils Absolute Auto 0.1 10^3/uL (0.0-0.1); Basophils Percent Auto 1.2 % (0.2-2.0); Eosinophils Absolute Auto 0.1 10^3/uL (0.0-0.7); Hematocrit 43.1 % (36.0-48.0); Hemoglobin 14.5 g/dL (12.0-16.0); Immature Granulocytes Abs Auto 0.01 10^3/uL (0.00-0.03); Immature Granulocytes Pct Auto 0.2 % (0.0-0.5); Lymphocytes Absolute Auto 1.4 10^3/uL (1.2-3.8); Lymphocytes Percent Auto 26.8 % (20.5-60.0); Mean Corpuscular HGB Conc 33.6 g/dL (29.9-35.2); Mean Corpuscular Hemoglobin 33.5 pg (26.7-34.0); Mean Corpuscular Volume 99.5 fL (81.0-99.0); Mean Platelet Volume 9.6 fL (9.5-13.5); Monocytes Absolute Auto 0.3 10^3/uL (0.3-0.8); Monocytes Percent Auto 6.7 % (1.7-12.0); Neutrophils Absolute Auto 3.2 10^3/uL (1.4-6.5); Neutrophils Percent Auto 63.1 % (43.0-75.0); Platelet Count 243 10^3/uL (150-450); Red Blood Count 4.33 10^6/uL (4.20-5.40); Red Cell Distribution Width 12.1 % (11.0-15.0); White Blood Count 5.1 10^3/uL (4.0-11.0)
[2023-09-14 04:35] LABS: BUN Creatinine Ratio 23.9; Calcium 9.9 mg/dL (8.5-10.1); Carbon Dioxide 28.5 mmol/L (21.0-32.0); Chloride 101 mmol/L (98-107); Estimated GFR (African America >60 (>=60); Estimated GFR (Non-African Ame >60 (>=60); Glucose 97 mg/dL (74-106); Potassium 3.5 mmol/L (3.5-5.1); Sodium 139 mmol/L (136-145)
[2023-09-14] MEDS: HYDROMORPHONE HCL 0.5 MG/0.5 ML SYRINGE IV (04:43)
[2023-09-14] MEDS: ONDANSETRON PF 4 MG/2 ML VIAL IV (04:43)
--- NOTE | 2023-09-14 05:33 | ED_ITS ---
HPI HPI - General Adult General Chief complaint: Urogenital-Female Stated complaint: POSS UTI Time Seen by Provider: 09/14/23 03:43 Source: patient Mode of arrival: walk-in Limitations: no limitations History of Present Illness HPI narrative: 73-year-old female to the emergency department with chief complaint abdominal pain. Patient reports that she feels like she has urinary tract infection. She reports lower abdominal pain. She reports nausea without vomiting. She denies any fever, sweats, chills. Her reports she complains of this all the time and is nothing new. She denies any chest pain or shortness of breath. Related Data Allergies Allergy/AdvReac Type Severity Reaction Status Date / Time morphine Allergy Unknown Verified 09/14/23 03:58 Penicillins Allergy Unknown Verified 09/14/23 03:58 Opioid HPI Opioid Management Most Recent Opioid Data: No Data to Display Review of Systems ROS Status of ROS 10 or more systems reviewed and unremark able except as noted in history and below Exam Narrative Exam Narrative: VITALS: I have reviewed the triage vital signs. GENERAL: Thin elderly female holding left lower quadrant, crying NEURO: Alert and oriented. Moves all extremities. Face is symmetric and expr essive. EYES: PERRL. No scleral icterus or conjunctival injection. No discharge. HENT: Normocephalic, atraumatic. Hearing is grossly intact. Nares grossly patent and without discharge. Mucous membranes moist. NECK: No JVD. Patient moves neck without restriction. CARDIO: Rhythm regular. Normal rate. No murmur, rub, or gallop. Pulses equal bilaterally in the upper and lower extremity. No lower extremity edema. PULM: Lungs clear to auscultation in all charles. No wheezes, rales, or rhonchi. No conversational dyspnea. No splinting, stridor, or accessory muscle use. GI/: Abdomen is soft. Left lower quadrant tenderness. Normoactive bowel sounds. EXTREMITIES: Symmetric muscle bulk. No joint swelling. No clubbing, cyanosis, or deformity. SKIN: Warm and dry. Normal turgor. No rash or lesions appreciated. PSYCH: Flat affect Constitutional Vital Signs, click to edit/add: Last Vital Signs Temp 97.9 F 09/14/23 03:46 Pulse 81 09/14/23 03:46 Resp 24 H 09/14/23 03:46 BP 198/110 H 09/14/23 05:44 Pulse Ox 97 09/14/23 03:46 O2 Del Method Room Air 09/14/23 03:46 Course Vital Signs Vital signs: Vital Signs Temperature 97.9 F 09/14/23 03:46 Pulse Rate 81 09/14/23 03:46 Respiratory Rate 24 H 09/14/23 03:46 Blood Pressure 238/140 H 09/14/23 03:46 Pulse Oximetry 97 09/14/23 03:46 Oxygen Delivery Method Room Air 09/14/23 03:46 Temperature 97.9 F 09/14/23 03:46 Pulse Rate 81 09/14/23 03:46 Respiratory Rate 24 H 09/14/23 03:46 Blood Pressure 198/110 H 09/14/23 05:44 Pulse Oximetry 97 09/14/23 03:46 Oxygen Delivery Method Room Air 09/14/23 03:46 Medical Decision Making MDM Narrative Medical decision making narrative: 73-year-old female to the emergency department with chief complaint of abdominal pain. Vital stable, the patient is afebrile. She is hypertensive. Pain and nausea medicine is ordered for her symptoms. CT scan is ordered to Evaluate for potential causes of her severe pain. Urinalysis ordered. The patient and her Agree with this plan. Lab work is unremarkable. Urinalysis without evidence of infection. Her blood pressure did decrease throughout her stay. CT scan is without evidence of acute process in the abdomen. By my review there is some constipation. Discussed findings with the patient and her . Continues to look like she is in discomfort. reports this is baseline for her. He reports that they are ready to be discharged. He should agrees. They'll follow up with PCP. They will get her back on her blood pressure medication. Return precautions were discussed. All questions were answered. The patient was discharged home. Medical Records Medical records reviewed: Yes I reviewed the patient's medical records Lab Data Lab results reviewed: Yes I reviewed the patient's lab results Labs: Lab Results 09/14/23 09/14/23 Range/Units 03:50 04:15 WBC 5.1 (4.0-11.0) 10^3/uL RBC 4.33 (4.20-5.40) 10^6/uL Hgb 14.5 (12.0-16.0) g/dL Hct 43.1 (36.0-48.0) % MCV 99.5 H (81.0-99.0) fL MCH 33.5 (26.7-34.0) pg MCHC 33.6 (29.9-35.2) g/dL RDW 12.1 (11.0-15.0) % Plt Count 243 (150-450) 10^3/uL MPV 9.6 (9.5-13.5) fL Neut % (Auto) 63.1 (43.0-75.0) % Lymph % (Auto) 26.8 (20.5-60.0) % [place] % (Auto) 6.7 (1.7-12.0) % Eos % (Auto) 2.0 (0.9-7.0) % Baso % (Auto) 1.2 (0.2-2.0) % Neut # (Auto) 3.2 (1.4-6.5) 10^3/uL Lymph # (Auto) 1.4 (1.2-3.8) 10^3/uL [place] # (Auto) 0.3 (0.3-0.8) 10^3/uL Eos # (Auto) 0.1 (0.0-0.7) 10^3/uL Baso # (Auto) 0.1 (0.0-0.1) 10^3/uL Abs Immat Gran (auto) 0.01 (0.00-0.03) 10^3/uL Imm/Tot Granulo (auto) 0.2 (0.0-0.5) % Sodium 139 (136-145) mmol/L Potassium 3.5 (3.5-5.1) mmol/L Chloride 101 (98-107) mmol/L Carbon Dioxide 28.5 (21.0-32.0) mmol/L Anion Gap 13.0 BUN 16.0 (7.0-18.0) mg/dL Creatinine 0.67 (0.55-1.02) mg/dL Est GFR ( Amer) >60 (>=60) Est GFR (Non-Af Amer) >60 (>=60) BUN/Creatinine Ratio 23.9 Glucose 97 (74-106) mg/dL Lactate 1.0 (0.4-2.0) mmol/L Calcium 9.9 (8.5-10.1) mg/dL Urine Color Yellow (YELLOW) Urine Clarity Clear (CLEAR) Urine pH 7.5 (5.0-9.0) Ur Specific [place] 1.020 (1.005-1.025) Urine Protein Negative (NEG/TRACE) mg/dL Urine Glucose (UA) Negative (NEGATIVE) mg/dL Urine Ketones Negative (NEGATIVE) mg/dL Urine Occult Blood Negative (NEGATIVE) Urine Nitrite Negative (NEGATIVE) Urine Bilirubin Negative (NEGATIVE) Urine Urobilinogen 0.2 (0.2-1.0) EU/dL Ur Leukocyte Esterase Negative (NEGATIVE) Imaging Data CT scan - abdomen: Radiologist's impression: ITS Impressions Abdomen/Pelvis CT 09/14/23 04:11 IMPRESSION: Nonspecific wall thickening in the distal gastric body and antrum is new since the prior exam. This could reflect muscular contraction versus focal gastritis, peptic ulcer disease, or possible mass. No discrete ulcer is identified. If indicated, EGD could further evaluate. No other potential acute findings are seen in the abdomen or pelvis. Electronically authenticated by: OJ TALBOT Date: 09/14/2023 06:30 Discharge Plan Discharge Stand Alone Forms: Portal Instructions Chief Complaint: Urogenital-Female Clinical Impression: Asymptomatic hypertension, Abdominal pain, Constipation Patient Disposition: Home, Self-Care Time of Disposition Decision: 06:53 Condition: Good Mode of Transportation: Private Vehicle Print Language: Latvian Instructions: Constipation (ED), Abdominal Pain (ED), Hypertension (ED) Additional Instructions: Call the office with her primary care doctor to arrange for follow-up today. Take a half capful of MiraLAX every day for the next three days. Talked her primary care doctor about your elevated blood pressure. Return to the emergency department with new or worsening symptoms. Referrals: NATALIIA BRYSON MD [Primary Care Provider] - 1 week
[2023-09-14 05:44] VITALS: BP 198/110
[2023-09-14 07:13] VITALS: BP 180/110; PULSE 85; O2SAT 96
== END 2023-09-14 07:14 | disposition home or self-care (01) ==
PROVIDERS: Emergency Provider Student in an Organized Health Care Education/Training Program; PCP Internal Medicine
DX: R10.9 Unspecified abdominal pain (principal); K59.00 Constipation, unspecified; I10 Essential (primary) hypertension
CPT/HCPCS: 36415; 74177; 80048; 81003; 83605; 85025; 96374; 96375; 99284; J1170; Q9967

== ENCOUNTER 2024-04-14 01:29 | Observation (INO) | payer MEDICARE, SELFPAY ==
[2024-04-14] VITALS (46 sets, daily range): BP systolic 150–192; BP diastolic 53–82; PULSE 61–90; TEMP 36.7–36.8; O2SAT 93–99; BMI 17.0; BMI 18.3
--- OUTSIDE RECORDS SUMMARY | 2024-04-14 01:43 | XMS_ITS | CCD ---
Author Organization [facility] Care Team Providers Care Affiliate Marketing Manager Name Role Phone VIRAL ., DR HALEY Mallory Attending Unavailable STRATTON ., DR HALEY Mallory Admitting Unavailable VALONE, [...] Unavailable DAYANNA, DR MERRITT Carroll Admitting Unavailable VALONE, DR WILLIAM Primary Care Unavailable DAYANNA, DR MERRITT Carroll Attending Unavailable Allergies Allergy Classification Reported Allergen(s) Allergy Type Date of Onset Reaction(s) Facility (1 source) Adhesive bandage Drug allergy (disorder) 5 [facility] (1 source) Codeine Drug Allergy 5 [facility] (1 source) Dextroamphetamine Drug Allergy 5 [facility] (1 source) Penicillins Drug allergy (disorder) 5 [facility] Problems Active Problems Problem Classification [...] 11-27-19 Chronic Other aftercare (1 source) 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 Reece Grover BUNon 09-09-2022 Urea nitrogen [Mass/Vol] 20.0 mg/dL Critically high 7.0-18.0 [facility] Comment on above: Performed By: #### L IVER, BNP, CREA, ELEC, LIPID, GLUC, BUN, TSH ####[facility] [address] [address]Dr. Reece Grover CBC AUTO DIFFon 09-09-2022 BASO # 0.1 103/ul Normal 0.0-0.1 [facility] Comment on above: Performed By: #### C BC #### [facility] [address] [place] [address] Dr. Reece Grover Basophils/100 WBC (Bld) 1.0 % Normal 0.2-2.0 [facility] Comment on above: Performed By: #### C BC #### [facility] [address] [place] [address] Dr. Reece Grover EO # 0.0 103/ul Normal 0.0-0.7 [facility] Comment on above: Performed By: #### C BC #### [facility] [address] [place] [address] Dr. Reece Grover Eosinophils/100 WBC (Bld) 0.8 % Critically low 0.9-7.0 [facility] Comment on above: Performed By: #### C BC #### [facility] [address] [place] [address] Dr. Reece Grover Erythrocyte distribution width (RBC) [Ratio] 13.0 % Normal 11.0-15.0 [facility] Comment on above: Performed By: #### C BC #### [facility] [address] [place] [address] Dr. Reece Grover Hematocrit (Bld) [Volume fraction] 42.9 % Normal 36.0-48.0 [facility] Comment on above: Performed By: #### C BC #### [facility] [address] [place] [address] Dr. Reece Grover Hemoglobin (Bld) [Mass/Vol] 13.9 g/dL Normal 12.0-16.0 [facility] Comment on above: Performed By: #### C BC #### [facility] [address] [place] [address] Dr. Reece Grover IG # 0.01 10e3/ul Normal 0.00-0.03 [facility] Comment on above: Performed By: #### C BC #### [facility] [address] [place] [address] Dr. Reece Grover IG % 0.2 % Normal 0.0-0.5 [facility] Comment on above: Performed By: #### C BC #### [facility] [address] [place] [address] Dr. Reece Grover LYMPH # 1.1 103/ul Critically low 1.2-3.8 [facility] Comment on above: Performed By: #### C BC #### [facility] [address] [place] [address] Dr. Reece Grover Lymphocytes/100 WBC (Bld) 22.1 % Normal 20.5-60.0 [facility] Comment on above: Performed By: #### C BC #### [facility] [address] [place] [address] Dr. Reece Grover MANUAL DIFF REQ NO Normal [facility] Comment on above: Performed By: #### C BC #### [facility] [address] [place] [address] Dr. Reece Grover MCH (RBC) [Entitic mass] 32.4 pg Normal 26.7-34.0 [facility] Comment on above: Performed By: #### C BC #### [facility] [address] [place] [address] Dr. Reece Grover MCHC (RBC) [Mass/Vol] 32.4 g/dL Normal 29.9-35.2 [facility] Comment on above: Performed By: #### C BC #### [facility] [address] [place] [address] Dr. Reece Grover MCV (RBC) [Entitic vol] 100.0 fL Critically high 81.0-99.0 [facility] Comment on above: Performed By: #### C BC #### [facility] [address] [place] [address] Dr. Reece Grover MONO # 0.3 103/ul Normal 0.3-0.8 [facility] Comment on above: Performed By: #### C BC #### [facility] [address] [place] [address] Dr. Reece Grover Monocytes/100 WBC (Bld) 5.6 % Normal 1.7-12.0 [facility] Comment on above: Performed By: #### C BC #### [facility] [address] [place] [address] Dr. Reece Grover NEUT # 3.5 103/ul Normal 1.4-6.5 [facility] Comment on above: Performed By: #### C BC #### [facility] [address] [place] [address] Dr. Reece Grover Neutrophils/100 WBC (Bld) 70.3 % Normal 43.0-75.0 [facility] Comment on above: Performed By: #### C BC #### [facility] [address] [place] [address] Dr. Reece Grover Platelet mean volume (Bld) [Entitic vol] 9.7 fL Normal 9.5-13.5 [facility] Comment on above: Performed By: #### C BC #### [facility] [address] [place] [address] Dr. Reece Grover PLT 190 103/ul Normal 150-450 [facility] Comment on above: Performed By: #### C BC #### [facility] [address] [place] [address] Dr. Reece Grover RBC 4.29 106/ul Normal 4.20-5.40 [facility] Comment on above: Performed By: #### C BC #### [facility] [address] [place] [address] Dr. Reece Grover WBC 5.0 103/ul Normal 4.0-11.0 [facility] Comment on above: Performed By: #### C BC #### [facility] [address] [place] [address] Dr. Reece Grover CREATININEon 09-09-2022 Creatinine [Mass/Vol] 0.81 mg/dL Normal 0.55-1.02 [facility] Comment on above: Performed By: #### L IVER, BNP, CREA, ELEC, LIPID, GLUC, BUN, TSH #### [facility] [address] [place] [address] Dr. Reece Grover EGFR-AF AUSTRALIAN >60 Normal >=60 [facility] Comment on above: Performed By: #### L IVER, BNP, CREA, ELEC, LIPID, GLUC, BUN, TSH #### [facility] [address] [place] [address] Dr. Reece Grover EGFR-NON AF AUSTRALIAN >60 Normal >=60 [facility] Comment on above: Performed By: #### L IVER, BNP, CREA, ELEC, LIPID, GLUC, BUN, TSH #### [facility] [address] [place] [address] Dr. Reece Grover ELECTROLYTESon 09-09-2022 Anion gap [Moles/Vol] 12.6 mmol/L Normal [facility] Comment on above: Performed By: #### L IVER, BNP, CREA, ELEC, LIPID, GLUC, BUN, TSH #### [facility] [address] [place] [address] Dr. Reece Grover Chloride [Moles/Vol] 105 mmol/L Normal 98-107 [facility] Comment on above: Performed By: #### L IVER, BNP, CREA, ELEC, LIPID, GLUC, BUN, TSH #### [facility] [address] [place] [address] Dr. Reece Grover CO2 [Moles/Vol] 28.6 mmol/L Normal 21.0-32.0 [facility] Comment on above: Performed By: #### L IVER, BNP, CREA, ELEC, LIPID, GLUC, BUN, TSH #### [facility] [address] [place] [address] Dr. Reece Grover Potassium [Moles/Vol] 4.2 mmol/L Normal 3.5-5.1 [facility] Comment on above: Performed By: #### L IVER, BNP, CREA, ELEC, LIPID, GLUC, BUN, TSH #### [facility] [address] [address] [address] Reece Grover Sodium [Moles/Vol] 142 mmol/L Normal 136-145 [facility] Comment on above: Performed By: #### L IVER, BNP, CREA, ELEC, LIPID, GLUC, BUN, TSH #### [facility] [address] [address] [address] Reece Grover GLUCOSE BLOODon 09-09-2022 Glucose [Mass/Vol] 105 mg/dL Normal 74-106 [facility] Comment on above: Performed By: #### L IVER, BNP, CREA, ELEC, LIPID, GLUC, BUN, TSH #### [facility] [address] [place] [address] Dr. Reece Grover LIPID PROFILEon 09-09-2022 CHOL-HDL RATIO NORM SEE BELOW Normal [facility] Comment on above: Result Comment: 3.3 - 4.4 LOW RISK 4.4 - 7.1 AVERAGE RISK 7.1 - 11.0 MODERATE RISK >11.0 HIGH RISK Performed By: #### L IVER, BNP, CREA, ELEC, LIPID, GLUC, BUN, TSH #### [facility] [address] [place] [address] Dr. Reece Grover Cholesterol [Mass/Vol] 249 mg/dL Critically high <=200 [facility] Comment on above: Performed By: #### L IVER, BNP, CREA, ELEC, LIPID, GLUC, BUN, TSH #### [facility] [address] [address] [address] Reece Grover Cholesterol in HDL [Mass/Vol] 93 mg/dL Critically high 40-60 [facility] Comment on above: Performed By: #### L IVER, BNP, CREA, ELEC, LIPID, GLUC, BUN, TSH #### [facility] [address] [address] [address] Reece Grover Cholesterol in LDL [Mass/Vol] 142.0 mg/dL Normal [facility] Comment on above: Performed By: #### L IVER, BNP, CREA, ELEC, LIPID, GLUC, BUN, TSH #### [facility] [address] [address] [address] Reece Grover Cholesterol.total/C holesterol in HDL [Mass ratio] 2.7 {ratio} Normal [facility] Comment on above: Performed By: #### L IVER, BNP, CREA, ELEC, LIPID, GLUC, BUN, TSH #### [facility] [address] [address] [address] Reece Grover HDL NORMAL > or = 60 mg/dl - LO W CARDIOVASCULAR RISK <40 mg/dl - HIGH CARDIOVASCULAR RISK Normal [facility] Comment on above: Performed By: #### L IVER, BNP, CREA, ELEC, LIPID, GLUC, BUN, TSH #### [facility] [address] [place] [address] Dr. Reece Grover LDL CALC NORMAL SEE BELOW Normal [facility] Comment on above: Result Comment: <100 mg/dl OPTIMAL 100 - 129 mg/dl NEAR OR ABOVE OPTIMAL 130 - 159 mg/dl BORDERLINE HIGH 160 - 189 mg/dl HIGH >190 mg/dl VERY HIGH Performed By: #### L IVER, BNP, CREA, ELEC, LIPID, GLUC, BUN, TSH #### [facility] [address] [place] [address] Dr. Reece Grover Triglyceride [Mass/Vol] 70 mg/dL Normal <=150 [facility] Comment on above: Performed By: #### L IVER, BNP, CREA, ELEC, LIPID, GLUC, BUN, TSH #### [facility] [address] [address] [address] Reece Grover VLDL CALC 14.0 mg/dL Normal [facility] Comment on above: Performed By: #### L IVER, BNP, CREA, ELEC, LIPID, GLUC, BUN, TSH #### [facility] [address] [address] [address] Reece Grover LIVER PROFILEon 09-09-2022 Albumin [Mass/Vol] 3.6 g/dL Normal 3.4-5.0 [facility] Comment on above: Performed By: #### L IVER, BNP, CREA, ELEC, LIPID, GLUC, BUN, TSH #### [facility] [address] [place] [address] Dr. Reece Grover Albumin/Globulin [Mass ratio] 0.8 {ratio} Normal [facility] Comment on above: Performed By: #### L IVER, BNP, CREA, ELEC, LIPID, GLUC, BUN, TSH #### [facility] [address] [place] [address] Dr. Reece Grover ALP [Catalytic activity/Vol] 324 U/L Critically high 46-116 [facility] Comment on above: Performed By: #### L IVER, BNP, CREA, ELEC, LIPID, GLUC, BUN, TSH #### [facility] [address] [place] [address] Dr. Reece Grover ALT [Catalytic activity/Vol] 61 U/L Critically high 14-59 [facility] Comment on above: Performed By: #### L IVER, BNP, CREA, ELEC, LIPID, GLUC, BUN, TSH #### [facility] [address] [place] [address] Dr. Reece Grover AST [Catalytic activity/Vol] 50 U/L Critically high 15-37 [facility] Comment on above: Performed By: #### L IVER, BNP, CREA, ELEC, LIPID, GLUC, BUN, TSH #### [facility] [address] [place] [address] Dr. Reece Grover BILI, CONJUGATED 0.1 mg/dL Normal 0.0-0.[address] [facility] Comment on above: Performed By: #### L IVER, BNP, CREA, ELEC, LIPID, GLUC, BUN, TSH #### [facility] [address] [place] [address] Dr. Reece Grover Bilirubin [Mass/Vol] 0.3 mg/dL Normal 0.2-1.0 [facility] Comment on above: Performed By: #### L IVER, BNP, CREA, ELEC, LIPID, GLUC, BUN, TSH #### [facility] [address] [address] [address] Reece Grover Globulin (S) [Mass/Vol] 4.8 g/dL Normal [facility] Comment on above: Performed By: #### L IVER, BNP, CREA, ELEC, LIPID, GLUC, BUN, TSH #### [facility] [address] [address] [address] Reece Grover Protein [Mass/Vol] 8.4 g/dL Critically high 6.4-8.2 [facility] Comment on above: Performed By: #### L IVER, BNP, CREA, ELEC, LIPID, GLUC, BUN, TSH #### [facility] [address] [address] [address] Reece Grover TSHon 09-09-2022 TSH 1.698 uIU/mL Normal 0.358-3.740 [facility] Comment on above: Performed By: #### L IVER, BNP, CREA, ELEC, LIPID, GLUC, BUN, TSH ####[facility] [address] [address]Dr. Reece Grover AMYLASEon 11-21-2021 Amylase [Catalytic activity/Vol] 93 U/L Normal 25-115 [facility] Comment on above: Performed By: #### A MY, CMP, LIPA ####[facility] [address] [address]Dr. Reece Grover CBC AUTO DIFFon 11-21-2021 BASO # 0.0 103/ul Normal 0.0-0.1 [facility] Comment on above: Performed By: #### C BC ####[facility] [address] [address]Dr. Reece Grover Basophils/100 WBC (Bld) 0.4 % Normal 0.2-2.0 [facility] Comment on above: Performed By: #### C BC ####[facility] [address] [address]Dr. Reece Grover EO # 0.0 103/ul Normal 0.0-0.7 [facility] Comment on above: Performed By: #### C BC ####[facility] [address] [id number]. Reece Grover Eosinophils/100 WBC (Bld) 0.4 % Critically low 0.9-7.0 [facility] Comment on above: Performed By: #### C BC ####[facility] [address] [id number]. Reece Grover Erythrocyte distribution width (RBC) [Ratio] 12.7 % Normal 11.0-15.0 [facility] Comment on above: Performed By: #### C BC ####[facility] [address] [id number]. Reece Grover Hematocrit (Bld) [Volume fraction] 40.1 % Normal 36.0-48.0 [facility] Comment on above: Performed By: #### C BC ####[facility] [address] [place], [place] [address]Dr. Reece Grover Hemoglobin (Bld) [Mass/Vol] 13.7 g/dL Normal 12.0-16.0 [facility] Comment on above: Performed By: #### C BC ####[facility] [address] [place], [place] [address]Dr. Reece Grover IG # 0.03 10e3/ul Normal 0.00-0.03 [facility] Comment on above: Performed By: #### C BC ####[facility] [address] [place], [place] [address]Dr. Reece Grover IG % 0.4 % Normal 0.0-0.5 [facility] Comment on above: Performed By: #### C BC ####[facility] [address] [address]Dr. eRece Grover LYMPH # 0.9 103/ul Critically low 1.2-3.8 [facility] Comment on above: Performed By: #### C BC ####[facility] [address] [id number]. Reece Grover Lymphocytes/100 WBC (Bld) 10.9 % Critically low 20.5-60.0 [facility] Comment on above: Performed By: #### C BC ####[facility] [address] [id number]. Reece Grover MANUAL DIFF REQ NO Normal [facility] Comment on above: Performed By: #### C BC ####[facility] [address] [id number]. Reece Grover MCH (RBC) [Entitic mass] 33.4 pg Normal 26.7-34.0 [facility] Comment on above: Performed By: #### C BC ####[facility] [address] [place], [place] [id number]. Reece Grover MCHC (RBC) [Mass/Vol] 34.2 g/dL Normal 29.9-35.2 [facility] Comment on above: Performed By: #### C BC ####[facility] [address] [place], [place] [address]Dr. Reece Grover MCV (RBC) [Entitic vol] 97.8 fL Normal 81.0-99.0 [facility] Comment on above: Performed By: #### C BC ####[facility] [address] [place], [place] [address]Dr. Reece Reilly MONO # 0.4 103/ul Normal 0.3-0.8 [facility] Comment on above: Performed By: #### C BC ####[facility] [address] [place], [place] [address]Dr. Reece Grover Monocytes/100 WBC (Bld) 4.6 % Normal 1.7-12.0 [facility] Comment on above: Performed By: #### C BC ####[facility] [address] [place], [place] [address]Dr. Darlingrich Grover NEUT # 7.0 103/ul Critically high 1.4-6.5 [facility] Comment on above: Performed By: #### C BC ####[facility] [address] [place], [place] [address]Dr. Reece Grover Neutrophils/100 WBC (Bld) 83.3 % Critically high 43.0-75.0 [facility] Comment on above: Performed By: #### C BC ####[facility] [address] [address]Dr. Reece Grover Platelet mean volume (Bld) [Entitic vol] 10.0 fL Normal 9.5-13.5 [facility] Comment on above: Performed By: #### C BC ####[facility] [address] [address]Dr. Reece Grover PLT 236 103/ul Normal 150-450 [facility] Comment on above: Performed By: #### C BC ####[facility] [address] [place], [place] [address]Dr. Reece Grover RBC 4.10 106/ul Critically low 4.20-5.40 [facility] Comment on above: Performed By: #### C BC ####[facility] [address] [place], [place] [address]Dr. Reece Grover WBC 8.4 103/ul Normal 4.0-11.0 [facility] Comment on above: Performed By: #### C BC ####[facility] [address] [place], [place] [address]Dr. Reece Grover BASO # 0.1 103/ul Normal 0.0-0.1 [facility] Comment on above: Performed By: #### C BC ####[facility] [address] [place], [place] [address]Dr. Reece Grover Basophils/100 WBC (Bld) 1.0 % Normal 0.2-2.0 [facility] Comment on above: Performed By: #### C BC ####[facility] [address] [place], [place] [address]Dr. Reece Grover EO # 0.1 103/ul Normal 0.0-0.7 [facility] Comment on above: Performed By: #### C BC ####[facility] [address] [place], [place] [address]Dr. Reece Grover Eosinophils/100 WBC (Bld) 2.1 % Normal 0.9-7.0 [facility] Comment on above: Performed By: #### C BC ####[facility] [address] [id number]. Reece Grover Erythrocyte distribution width (RBC) [Ratio] 12.8 % Normal 11.0-15.0 [facility] Comment on above: Performed By: #### C BC ####[facility] [address] [address]Dr. Reece Grover Hematocrit (Bld) [Volume fraction] 40.6 % Normal 36.0-48.0 [facility] Comment on above: Performed By: #### C BC ####[facility] [address] [place], [place] [address]Dr. Reece Grover Hemoglobin (Bld) [Mass/Vol] 13.3 g/dL Normal 12.0-16.0 [facility] Comment on above: Performed By: #### C BC ####[facility] [address] [place], [place] [address]Dr. Reece Grover IG # 0.02 10e3/ul Normal 0.00-0.03 [facility] Comment on above: Performed By: #### C BC ####[facility] [address] [place], [place] [address]Dr. Reece Grover IG % 0.4 % Normal 0.0-0.5 [facility] Comment on above: Performed By: #### C BC ####[facility] [address] [place], [place] [address]Dr. Reece Grover LYMPH # 1.6 103/ul Normal 1.2-3.8 [facility] Comment on above: Performed By: #### C BC ####[facility] [address] [place], [place] [address]Dr. Reece Grover Lymphocytes/100 WBC (Bld) 31.6 % Normal 20.5-60.0 [facility] Comment on above: Performed By: #### C BC ####[facility] [address] [place], [place] [address]Dr. Reece Grover MANUAL DIFF REQ NO Normal [facility] Comment on above: Performed By: #### C BC ####[facility] [address] [address]Dr. Reece Grover MCH (RBC) [Entitic mass] 33.0 pg Normal 26.7-34.0 [facility] Comment on above: Performed By: #### C BC ####[facility] [address] [address]Dr. Reece Grover MCHC (RBC) [Mass/Vol] 32.8 g/dL Normal 29.9-35.2 [facility] Comment on above: Performed By: #### C BC ####[facility] [address] [place], [place] [address]Dr. Reece Grover MCV (RBC) [Entitic vol] 100.7 fL Critically high 81.0-99.0 [facility] Comment on above: Performed By: #### C BC ####[facility] [address] [place], [place] [address]Dr. Reece Reilly MONO # 0.4 103/ul Normal 0.3-0.8 [facility] Comment on above: Performed By: #### C BC ####[facility] [address] [place], [place] [address]Dr. Reece Reilly Monocytes/100 WBC (Bld) 7.1 % Normal 1.7-12.0 [facility] Comment on above: Performed By: #### C BC ####[facility] [address] [place], [place] [address]Dr. Reece Grover NEUT # 3.0 103/ul Normal 1.4-6.5 [facility] Comment on above: Performed By: #### C BC ####[facility] [address] [place], [place] [address]Dr. Reece Reilly Neutrophils/100 WBC (Bld) 57.8 % Normal 43.0-75.0 [facility] Comment on above: Performed By: #### C BC ####[facility] [address] [place], [place] [address]Dr. Reece Reilly Platelet mean volume (Bld) [Entitic vol] 9.7 fL Normal 9.5-13.5 [facility] Comment on above: Performed By: #### C BC ####[facility] [address] [place], [place] [address]Jw. Reece Grover PLT 239 103/ul Normal 150-450 [facility] Comment on above: Performed By: #### C BC ####[facility] [address] [place], [place] [address]Js. Reece Grover RBC 4.03 106/ul Critically low 4.20-5.40 [facility] Comment on above: Performed By: #### C BC ####[facility] [address] [place], [place] [address]Ay. Reece Grover WBC 5.2 103/ul Normal 4.0-11.0 [facility] Comment on above: Performed By: #### C BC ####[facility] [address] [place], [place] [address]Iy. Reece Grover CT ABD/PELV W CONon 11-22-19 [...] CARI MORA Date: 2021-11-21 02:42 Normal [facility] SARS-CoV-2 (COVID-19) RNA THOM+probe Ql (Unsp spec) Not detected Normal NOT DETECTED [facility] Comment on above: Result Comment: When [...] for this test is supported by the [employer] of Health and Human Service's declaration that [...] be used). Performed By: #### C VDTBH ####[facility] Espbhtht[address] [place], [place] [address]Dr. Reece Grover LIPASEon 11-21-2021 Lipase [Catalytic activity/Vol] 106.0 U/L Normal 73.0-393.0 [facility] Comment on above: Performed By: #### A MY, CMP, LIPA ####[facility] Atgflsj[address] [place], [place] [address]DrDari Grover PROF 14(COMP METB)on 022 Albumin [Mass/Vol] 3.6 g/dL Normal 3.4-5.0 [facility] Comment on above: Performed By: #### C MP ####[facility] Tccriffbix[address] [place], [place] [address]Dr. Reece Grover Albumin/Globulin [Mass ratio] 0.9 {ratio} Normal [facility] Comment on above: Performed By: #### C MP ####[facility] [address] [place], [place] [address]DrDari Grover ALP [Catalytic activity/Vol] 299 U/L Critically high 46-116 [facility] Comment on above: Performed By: #### C MP ####[facility] Prjjknprxp4[address] [place], [place] [address]Hz. Reece Grover ALT [Catalytic activity/Vol] 53 U/L Normal 14-59 [facility] Comment on above: Performed By: #### C MP ####[facility] Cztv[address]yg[address]xe1457 [place], [place] [address]Yl. Reece Grover Anion gap [Moles/Vol] 12.2 mmol/L Normal [facility] Comment on above: Performed By: #### C MP ####[facility] Keoypzfsav37[address] [place] [id number]. Reece Grover AST [Catalytic activity/Vol] 41 U/L Critically high 15-37 [facility] Comment on above: Performed By: #### C MP ####[facility] Ropzicyxxd8352 [place] [address]Dr. Reece Grover Bilirubin [Mass/Vol] 0.8 mg/dL Normal 0.2-1.0 [facility] Comment on above: Performed By: #### C MP ####[facility] Ocwsxsyqcb5207 [place] [address]Dr. Reece Grover Calcium [Mass/Vol] 9.6 mg/dL Normal 8.5-10.1 [facility] Comment on above: Performed By: #### C MP ####[facility] Rwqhtdusiv0343 [place] [address]Dr. Reece Grover Chloride [Moles/Vol] 101 mmol/L Normal 98-107 [facility] Comment on above: Performed By: #### C MP ####[facility] Wvdnbmpmqk0205 [place] [address]Dr. Reece Grover CO2 [Moles/Vol] 26.3 mmol/L Normal 21.0-32.0 [facility] Comment on above: Performed By: #### C MP ####[facility] Jbjiqvddyu[address] [place] [id number]. Reece Grover Creatinine [Mass/Vol] 0.63 mg/dL Normal 0.55-1.02 [facility] Comment on above: Performed By: #### C MP ####[facility] Bfwiqjvmpx[address] [place] [id number]. Reece Grover EGFR-AF AUSTRALIAN >60 Normal >=[address] [facility] Comment on above: Performed By: #### C MP ####[facility] [address] [place] [address]Dr. Reece Grover EGFR-NON AF AUSTRALIAN >60 Normal >=60 [facility] Comment on above: Performed By: #### C MP ####[facility] Xozuopcqyr[address] [place] [address]Dr. Reece Reilly Globulin (S) [Mass/Vol] 4.2 g/dL Normal [facility] Comment on above: Performed By: #### C MP ####[facility] Pq[address]nc[address]qv[address] [place] [address]Dr. Reece Reilly Glucose [Mass/Vol] 120 mg/dL Critically high 74-106 [facility] Comment on above: Performed By: #### C MP ####[facility] Wcsqxxcwup9[address] [place] [address]Dr. Reece Reilly Potassium [Moles/Vol] 4.5 mmol/L Normal 3.5-5.1 [facility] Comment on above: Performed By: #### C MP ####[facility] Nxj[address]stcux[address] [place], [place] [address]Dr. Reece Reilly Protein [Mass/Vol] 7.8 g/dL Normal 6.4-8.2 [facility] Comment on above: Performed By: #### C MP ####[facility] F[address]izcgindl4[address] [place] [address]Dr. Reece Reilly Sodium [Moles/Vol] 135 mmol/L Critically low 136-145 Th [facility] Comment on above: Performed By: #### C MP ####[facility] Royrdhmmyj[address] [place], [place] [address]Dr. Darlingrich Reilly Urea nitrogen [Mass/Vol] 19.0 mg/dL Critically high 7.0-18.0 [facility] Comment on above: Performed By: #### C MP ####[facility] Dtmomozpbc[address] [place], [place] [address]Dr. Reece Grover Urea nitrogen/Creatinine [Mass ratio] 30.2 mg/mg Normal [facility] Comment on above: Performed By: #### C MP ####[facility] Sndekptokd[address] [place] [address]Dr. Reece Grover Albumin [Mass/Vol] 3.2 g/dL Critically low 3.4-5.0 Th [facility] Comment on above: Performed By: #### A MY, CMP, LIPA ####[facility] V[address]bxrbqeq[address] [place] [address]Dr. Reece Grover Albumin/Globulin [Mass ratio] 0.8 {ratio} Normal [facility] Comment on above: Performed By: #### A MY, CMP, LIPA ####[facility] Etxsqlmesu60[address] [place] [address]Dr. Reece Grover ALP [Catalytic activity/Vol] 296 U/L Critically high 46-116 [facility] Comment on above: Performed By: #### A MY, CMP, LIPA ####[facility] Qtewaewyat[address] [place], [place] [address]Dr. Reece Grover ALT [Catalytic activity/Vol] 49 U/L Normal 14-59 [facility] Comment on above: Performed By: #### A MY, CMP, LIPA ####[facility] Fnueyzlpri260[address] [place] [address]Dr. Reece Grover Anion gap [Moles/Vol] 8.7 mmol/L Normal [facility] Comment on above: Performed By: #### A MY, CMP, LIPA ####[facility] Sv[address]pefjnu[address] [place] [address]Dr. Reece Grover AST [Catalytic activity/Vol] 34 U/L Normal 15-37 [facility] Comment on above: Performed By: #### A MY, CMP, LIPA ####[facility] Zswfdloxrr15[address] [place] [address]Dr. Reece Grover Bilirubin [Mass/Vol] 0.3 mg/dL Normal 0.2-1.0 [facility] Comment on above: Performed By: #### A MY, CMP, LIPA ####[facility] Qlbckzlgye4268 [place] [phone]. Reece Grover Calcium [Mass/Vol] 9.2 mg/dL Normal 8.5-10.1 [facility] Comment on above: Performed By: #### A MY, CMP, LIPA ####[facility] Ssiamnfiwx[address] [place] [address]Dr. Reece Grover Chloride [Moles/Vol] 105 mmol/L Normal 98-107 [facility] Comment on above: Performed By: #### A MY, CMP, LIPA ####[facility] Hhmvpnrmma[address] [place] [address]Dr. Reece Grover CO2 [Moles/Vol] 29.2 mmol/L Normal 21.0-32.0 [facility] Comment on above: Performed By: #### A MY, CMP, LIPA ####[facility] [address]vhojoafxj[address] [place], [place] [address]Dr. Reece Grover Creatinine [Mass/Vol] 0.84 mg/dL Normal 0.55-1.02 [facility] Comment on above: Performed By: #### A MY, CMP, LIPA ####[facility] Tmflyexoyb[address] [place], [place] [address]Dr. Reece Grover EGFR-AF AUSTRALIAN >60 Normal >=60 [facility] Comment on above: Performed By: #### A MY, CMP, LIPA ####[facility] [address]ee[address]ijwn[address] [place], [place] [address]Dr. Reece Grover EGFR-NON AF AUSTRALIAN >60 Normal >=60 [facility] Comment on above: Performed By: #### A MY, CMP, LIPA ####[facility] Xqexzvitvo[address] [place] [address]Dr. Reece Grover Globulin (S) [Mass/Vol] 4.0 g/dL Normal [facility] Comment on above: Performed By: #### A MY, CMP, LIPA ####[facility] Potijymlck2772 [place] [address]Dr. Reece Grover Glucose [Mass/Vol] 98 mg/dL Normal 74-106 [facility] Comment on above: Performed By: #### A MY, CMP, LIPA ####[facility] Ytdaqdhqls[address] [place] [address]Dr. Reece Grover Potassium [Moles/Vol] 3.9 mmol/L Normal 3.5-5.1 [facility] Comment on above: Performed By: #### A MY, CMP, LIPA ####[facility] Oh[address]uoazew[address] [place] [address]Dr. Reece Grover Protein [Mass/Vol] 7.2 g/dL Normal 6.4-8.2 [facility] Comment on above: Performed By: #### A MY, CMP, LIPA ####[facility] Zevrmdxbxj[address] [place] [address]Dr. Reece Grover Sodium [Moles/Vol] 139 mmol/L Normal 136-145 [facility] Comment on above: Performed By: #### A MY, CMP, LIPA ####[facility] [address]cchpsfbsd78[address] [place] [address]Dr. Reece Grover Urea nitrogen [Mass/Vol] 25.0 mg/dL Critically high 7.0-18.0 [facility] Comment on above: Performed By: #### A MY, CMP, LIPA ####[facility] Gtxckvtwoo34[address] [place] [address]Dr. Reece Grover Urea nitrogen/Creatinine [Mass ratio] 29.8 mg/mg Normal [facility] Comment on above: Performed By: #### A MY, CMP, LIPA ####[facility] Yorjfmtckj[address] [place] [address]Dr. Reece Grover US SINGLE QUAD RT UPPERon [...] by: ANDREI ESCOBAR Date: 2021-11-21 07:26 Normal [facility] XR ABD FLAT UP_PA Bautista 11-21 XR [...] by: JERSEY GUADALUPE Date: 2021-11-21 04:56 Normal [facility] [place] 07-16-2020 L -- ---- Specimen: [id number] Received: 07/16/20 Status: BERNICE Bajwa Num: [id number] Spec Type: Surgical Subm Dr: Rayo Farmer Jr, DO Tissues: A Colon Biopsy (RANDOM COLON BX) Procedures: HE Stain/2, Gross/Micro L4 ---- Patient Age/Sex Location Account Attending Physician ---- Lay Wayne 70/F [id number] Rayo Farmer Jr DO ---- SPEC NUM: [id number] RECD: 07/16/20-1235 STATUS: BERNICE BAJWA NUM: [id number] JUDITH: 07/16/20- SUBM DR: Rayo Farmer Jr, DO ENTERED: 07/16/20-1252 [facility] DR: PARAM TYPE: Surgical DEPT: S ORDERED: [...] Entirely submitted in one cassette labeled A1. (LATOYA/JS) Microscopic Description Two glass slides with H E stained material have been examined. The microscopic findings support the above pathologic diagnosis. [id number] ---- ---- Specimen: [id number] Received: 07/16/20 Status: BERNICE Patelbladimir Num: [id number] Spec Type: Surgical Subm Dr: Rayo Farmer Jr, DO Tissues: A Colon Biopsy (RANDOM COLON BX) Procedures: HE Stain/2, Gross/Micro L4 ---- Patient: DongbretnellieLay [id number] (Continued) ---- Signed (signature on file) Amy Allen MD 07/17/20 1604 [facility] COVID-19 Antigenon 1 COVID-19 Antigen Healthcare Worker?: [...] its performance Karen Disclaimer characteristic determined by [employer] and Karen Disclaimer validated at [facility]. This Karen Disclaimer test has not [...] is terminated or revoked sooner. PERFORMED BY: [place] [address] PATHOLOGIST RIDING TEACHER AMY ALLEN M.D. Normal [facility] Comment on above: Performed By: #### S LUCY COVID-19 KAREN #### [facility] [address] [place] [address] Karen Ag Negativeon 07-16-19 21 Karen Ag Negative Negative Normal Negative [facility] Comment on above: Result Comment: This is a duplicate test result based off of the Karen SARS Antigen (THANIA) test performed within the Microbiology department. PERFORMED BY: [place] [address] PATHOLOGIST RIDING TEACHER AMY ALLEN M.D. Performed By: #### S OFJOAQUINA COVID-19 KAREN #### [facility] [address] [place], [place] [id number] [facility] C-Reactive Proteinon 021 C-Reactive Protein 1.2 mg/dL High 0.0-1.0 [facility] Comment on above: Result Comment: PERF ORMED BY: [place] [address] PATHOLOGIST RIDING TEACHER AMY ALLEN M.D. Performed By: #### C RP #### [address] abdomen pelvis w conon CT abdomen pelvis w con [facility] [place] [address] [place] [address] CT Scan Report Signed Patient: Lay Wayne MR#: [id number] : 1950 Acct:[id number] Age/Sex: 69 / F ADM Date: 06/10/20 Loc: ER Room: Type: [facility] ER Attending Dr: Ordering Provider: Clayton Wiggins [...] portion of the rectum. This may be sales solutions representative of inflammatory or infectious etiology. This also may represent component of underdistention. No abscess. Impression dictated by: Antoine Dutta M.D.06/10/2020 6:40 PM Dictation Location: [place] [address] Transcribed By: [facility] 06/10/201839 Dictated By: Antoine Dutta DO 06/10/201831 Signed By: 06/10/201839 Normal [facility] Complete Blood Count Auto Di ffon 06-10-2020 Basophils (Bld) [#/Vol] 0.0 10*3/uL Normal 0.0-0.2 [facility] Comment on above: Result Comment: PERF ORMED BY: [place] [address] PATHOLOGIST RIDING TEACHER AMY ALLEN M.D. Performed By: #### C MP, LIPASE, TROP, CBC #### [address] Basophils/100 WBC (Bld) 0.8 % Normal . [facility] Comment on above: Performed By: #### C MP, LIPASE, TROP, CBC #### [address] Eosinophils (Bld) [#/Vol] 0.0 10*3/uL Normal 0.0-0.45 [facility] Comment on above: Performed By: #### C MP, LIPASE, TROP, CBC #### [address] Eosinophils/100 WBC (Bld) 0.2 % Normal . [facility] Comment on above: Performed By: #### C MP, LIPASE, TROP, CBC #### [address] Erythrocyte distribution width (RBC) [Ratio] 12.8 % Normal 11.9-15.3 [facility] Comment on above: Performed By: #### C MP, LIPASE, TROP, CBC #### [address] Hematocrit (Bld) [Volume fraction] 45.1 % Normal 34.0-46.4 [facility] Comment on above: Performed By: #### C MP, LIPASE, TROP, CBC #### [address] Hemoglobin (Bld) [Mass/Vol] 15.7 g/dL High 11.8-15.4 [facility] Comment on above: Performed By: #### C MP, LIPASE, TROP, CBC #### [address] Lymphocytes (Bld) [#/Vol] 1.5 10*3/uL Normal 1.00-4.8 [facility] Comment on above: Performed By: #### C MP, LIPASE, TROP, CBC #### [address] Lymphocytes/100 WBC (Bld) 25.2 % Normal . [facility] Comment on above: Performed By: #### C MP, LIPASE, TROP, CBC #### [address] MCH (RBC) [Entitic mass] 33.5 pg Normal 24.7-34.3 [facility] Comment on above: Performed By: #### C MP, LIPASE, TROP, CBC #### [address] MCV (RBC) [Entitic vol] 96.6 fL Normal 80-100 [facility] Comment on above: Performed By: #### C MP, LIPASE, TROP, CBC #### [address] Mean Corpuscular HGB Conc 34.7 g/dL Normal 32.0-35.0 [facility] Comment on above: Performed By: #### C MP, LIPASE, TROP, CBC #### [address] [place] [address] [place] Monocytes (Bld) [#/Vol] 0.3 10*3/uL Normal 0.0-0.8 [facility] Comment on above: Performed By: #### C MP, LIPASE, TROP, CBC #### [facility] [address] Monocytes/100 WBC (Bld) 5.6 % Normal . [facility] Comment on above: Performed By: #### C MP, LIPASE, TROP, CBC #### [address] Neutrophils (Bld) [#/Vol] 4.2 10*3/uL Normal 1.8-7.7 [facility] Comment on above: Performed By: #### C MP, LIPASE, TROP, CBC #### [address] Neutrophils/100 WBC (Bld) 68.2 % Normal . [facility] Comment on above: Performed By: #### C MP, LIPASE, TROP, CBC #### [place] [address] [place] Nucleated RBC/100 WBC (Bld) [Ratio] 0.1 % Normal 0-0.5 [facility] Comment on above: Performed By: #### C MP, LIPASE, TROP, CBC #### [place] [address] [place] Platelet mean volume (Bld) [Entitic vol] 7.8 fL Normal 6.3-10.7 [facility] Comment on above: Performed By: #### C MP, LIPASE, TROP, CBC #### [place] [address] [place] Platelets (Bld) [#/Vol] 268 10*3/uL Normal 150-450 [facility] Comment on above: Performed By: #### C MP, LIPASE, TROP, CBC #### [place] [address] [place] RBC (Bld) [#/Vol] 4.67 10*6/uL Normal 3.60-5.00 [facility] Comment on above: Performed By: #### C MP, LIPASE, TROP, CBC #### [address] WBC (Bld) [#/Vol] 6.1 10*3/uL Normal 4.5-11.0 [facility] Comment on above: Performed By: #### C MP, LIPASE, TROP, CBC #### [address] Comprehensive Metabolic Pane duane 06-10-2020 Albumin [Mass/Vol] 3.9 g/dL Normal 3.2-5.5 [facility] Comment on above: Performed By: #### C MP, LIPASE, TROP, CBC #### [address] Albumin/Globulin [Mass ratio] 1.0 {ratio} Normal [facility] Comment on above: Performed By: #### C MP, LIPASE, TROP, CBC #### [address] ALP [Catalytic activity/Vol] 302 U/L High 32-92 [facility] Comment on above: Performed By: #### C MP, LIPASE, TROP, CBC #### [address] ALT [Catalytic activity/Vol] 43 U/L Normal 10-60 [facility] Comment on above: Performed By: #### C MP, LIPASE, TROP, CBC #### [address] AST [Catalytic activity/Vol] 36 U/L Normal 10-42 [facility] Comment on above: Performed By: #### C MP, LIPASE, TROP, CBC #### [address] Bilirubin [Mass/Vol] 0.8 mg/dL Normal 0.3-1.2 [facility] Comment on above: Performed By: #### C MP, LIPASE, TROP, CBC #### [address] Calcium [Mass/Vol] 9.5 mg/dL Normal 8.2-10.2 [facility] Comment on above: Performed By: #### C MP, LIPASE, TROP, CBC #### [facility] [address] Chloride [Moles/Vol] 103 mmol/L Normal 95-114 [facility] Comment on above: Performed By: #### C MP, LIPASE, TROP, CBC #### [address] CO2 [Moles/Vol] 22.4 mmol/L Normal 22.0-30.0 [facility] Comment on above: Performed By: #### C MP, LIPASE, TROP, CBC #### [address] Creatinine [Mass/Vol] 0.77 mg/dL Normal 0.44-1.03 [facility] Comment on above: Performed By: #### C MP, LIPASE, TROP, CBC #### [address] Creatinine Clr Calc Pharmacy 44.82 [facility] Comment on above: Performed By: #### C MP, LIPASE, TROP, CBC #### [address] Estimated GFR ( Xochitl > 60 [facility] Comment on above: Result Comment: GFR estimated reference range: According to KDOQI guidelines, <60 ml/min/1.73m2 is sufficient to diagnose a patient with chronic kidney disease. Performed By: #### C MP, LIPASE, TROP, CBC #### [address] Estimated GFR (Non- Am > 60 [facility] Comment on above: Performed By: #### C MP, LIPASE, TROP, CBC #### [address] Globulin (S) [Mass/Vol] 4.1 g/dL [facility] Comment on above: Performed By: #### C MP, LIPASE, TROP, CBC #### [address] Glucose [Mass/Vol] 99 mg/dL Normal 70-100 [facility] Comment on above: Result Comment: [facility] Glucose Reference Range is dependent on time and content of last meal. Glucose of more than 200 mg/dL in a nonstressed, ambulatory subject supports the diagnosis of Diabetes Mellitus. ADA recommended reference range Performed By: #### C MP, LIPASE, TROP, CBC #### [address] Potassium [Moles/Vol] 3.7 mmol/L Normal 3.5-5.1 [facility] Comment on above: Performed By: #### C MP, LIPASE, TROP, CBC #### [address] Protein [Mass/Vol] 8.0 g/dL High 6.1-7.9 [facility] Comment on above: Performed By: #### C MP, LIPASE, TROP, CBC #### [address] Sodium [Moles/Vol] 137 mmol/L Normal 136-146 [facility] Comment on above: Performed By: #### C MP, LIPASE, TROP, CBC #### [address] Urea nitrogen [Mass/Vol] 13 mg/dL Normal 9-23 [facility] Comment on above: Performed By: #### C MP, LIPASE, TROP, CBC #### [place] [address] [place] Dipstick and Microscopicon 0 06-10-2020 Appearance (U) Clear Normal Clear [facility] Comment on above: Order Comment: Name Collection Type:: Clean-Voided Midstream Performed By: #### A DDONUAPLUS #### [place] [address] [place] Bacteria,Urine Rare High None Seen [facility] Comment on above: Order Comment: Name Collection Type:: Clean-Voided Midstream Performed By: #### A DDONUAPLUS #### [facility] [address] [place] [address] [place] Bilirubin,Urine Negative Normal Negative [facility] Comment on above: Order Comment: Name Collection Type:: Clean-Voided Midstream Performed By: #### A DDONUAPLUS #### [facility] [address] [place] [address] [place] Color (U) Yellow Normal Yellow [facility] Comment on above: Order Comment: Name Collection Type:: Clean-Voided Midstream Performed By: #### A DDONUAPLUS #### [place] [address] [place] Glucose Ql (U) Normal Normal Normal [facility] Comment on above: Order Comment: Name Collection Type:: Clean-Voided Midstream Performed By: #### A DDONUAPLUS #### [place] [address] [place] Ketones Ql (U) 2+ High Negative [facility] Comment on above: Order Comment: Name Collection Type:: Clean-Voided Midstream Performed By: #### A DDONUAPLUS #### [facility] [address] [place] [address] [place] Leukocyte esterase Test strip Ql (U) 1+ High Negative [facility] Comment on above: Order Comment: Name Collection Type:: Clean-Voided Midstream Performed By: #### A DDONUAPLUS #### [facility] [address] [place] [address] [place] Mucus,Urine 3+ Critically abnormal [facility] Comment on above: Order Comment: Name Collection Type:: Clean-Voided Midstream Result Comment: PERF ORMED BY: [place] [address] PATHOLOGIST RIDING TEACHER AMY ALLEN M.D. Performed By: #### A DDONUAPLUS #### [facility] [address] [place] [address] [place] Nitrite,Urine Negative Normal Negative [facility] Comment on above: Order Comment: Name Collection Type:: Clean-Voided Midstream Performed By: #### A DDONUAPLUS #### [address] Occult Blood,Urine Trace High Negative [facility] Comment on above: Order Comment: Name Collection Type:: Clean-Voided Midstream Result Comment: PERF ORMED BY: [place] [address] PATHOLOGIST RIDING TEACHER AMY ALLEN M.D. Performed By: #### A DDONUAPLUS #### [address] pH (U) 5.5 [pH] Normal 5.0-9.0 [facility] Comment on above: Order Comment: Name Collection Type:: Clean-Voided Midstream Performed By: #### A DDONUAPLUS #### [address] Protein (U) [Mass/Vol] 30 mg/dL High Negative [facility] Comment on above: Order Comment: Name Collection Type:: Clean-Voided Midstream Performed By: #### A DDONUAPLUS #### [address] RBC LM.HPF (Urine sed) [#/Area] 0 /[HPF] Normal 0-4 [facility] Comment on above: Order Comment: Name Collection Type:: Clean-Voided Midstream Performed By: #### A DDONUAPLUS #### [address] Specificy [place],Urine 1.021 Normal 1.001-1.030 [facility] Comment on above: Order Comment: Name Collection Type:: Clean-Voided Midstream Performed By: #### A DDONUAPLUS #### [address] Squamous Epithelial Cell,Urine 0-1 Normal 0-2 [facility] Comment on above: Order Comment: Name Collection Type:: Clean-Voided Midstream Performed By: #### A DDONUAPLUS #### [address] Urobilinogen,Urine Normal Normal Normal [facility] Comment on above: Order Comment: Name Collection Type:: Clean-Voided Midstream Performed By: #### A DDONUAPLUS #### [address] WBC,Urine 3-4 Normal 0-4 [facility] Comment on above: Order Comment: Name Collection Type:: Clean-Voided Midstream Performed By: #### A DDONUAPLUS #### [address] Lipaseon 06-10-2020 Lipase [Catalytic activity/Vol] 30.0 U/L Normal 22-51 [facility] Comment on above: Result Comment: PERF ORMED BY: [place] [address] PATHOLOGIST RIDING TEACHER AMY ALLEN M.D. Performed By: #### C MP, LIPASE, TROP, CBC #### [address] Troponin I(TnI)on 06-10-2020 Troponin I.cardiac [Mass/Vol] 0.02 ng/mL Normal 0-0.02 [facility] Comment on above: Result Comment: TYLER AL Cut off value > or equal to 0.03 ng/mL in conjunction with clinical conditions of myocardial infarction. (www.escardio.org/guidelines) PERFORMED BY: [place] [address] PATHOLOGIST RIDING TEACHER AMY ALLEN M.D. Performed By: #### C MP, LIPASE, TROP, CBC #### [address] Urine Cultureon 06-10-2020 Bacteria identified Cx Nom (U) 25,000 colonies/ml mixed bacterial skin contaminants 2 Days PERFORMED BY: [place] [address] PATHOLOGIST RIDING TEACHER AMY ALLEN M.D. Normal [facility] Comment on above: Performed By: #### C UU #### [facility] [address] [place] [address] [place] Encounters Encounter Date Encounter Type Care Provider Facility Start: 09-09-2022 End: 09-10-[address] NATALIIA BRYSON Facility:[facility] Start: 11-21-2021 End: 11-21-[address] MERRITT ALAN Facility:[facility] Start: 11-21-2021 End: 11-21-[address] HALEY STRATTON . Facility:[facility] Payers Date Payer Category Payer Unknown [id number] 1950 Unknown [id number] 1950 Unknown [id number] [id number] 1950 Unknown [id number] [id number] Summary Purpose Family History No Family History Records FoundNo Family History Records Found Advance Directives No Advanced Directives Records FoundNo Advanced Directives Records Found Additional Source Comments INFORMATION SOURCE (unrecogn ized section and content) DATE CREATED AUTHOR 06/10/2021 [facility] DATE CREATED AUTHOR AUTHOR'S ORGANIZ ATION 09/12/2022 [facility] FOR RECORDS PERTAINING TO PATIENTS WHO [...] BE BASED ON THE PRIMARY CLINICAL RECORDS. [facility] [employer] provides no warranty or guarantee of the accuracy or completeness of information in this document.
[2024-04-14 01:57] LABS: Basophils Absolute Auto 0.1 10^3/uL (0.0-0.1); Basophils Percent Auto 1.1 % (0.2-2.0); Eosinophils Absolute Auto 0.1 10^3/uL (0.0-0.7); Eosinophils Percent Auto 2.2 % (0.9-7.0); Hemoglobin 11.6 g/dL (12.0-16.0); Immature Granulocytes Abs Auto 0.01 10^3/uL (0.00-0.03); Immature Granulocytes Pct Auto 0.2 % (0.0-0.5); Lymphocytes Absolute Auto 1.5 10^3/uL (1.2-3.8); Lymphocytes Percent Auto 32.2 % (20.5-60.0); Mean Corpuscular HGB Conc 32.2 g/dL (29.9-35.2); Mean Corpuscular Hemoglobin 32.9 pg (26.7-34.0); Mean Platelet Volume 10.2 fL (9.5-13.5); Monocytes Absolute Auto 0.5 10^3/uL (0.3-0.8); Monocytes Percent Auto 10.4 % (1.7-12.0); Neutrophils Absolute Auto 2.5 10^3/uL (1.4-6.5); Neutrophils Percent Auto 53.9 % (43.0-75.0); Platelet Count 215 10^3/uL (150-450); Red Blood Count 3.53 10^6/uL (4.20-5.40); White Blood Count 4.5 10^3/uL (4.0-11.0)
--- NOTE | 2024-04-14 02:00 | ED_ITS ---
HPI - Chest Pain General Chief Complaint: Chest Pain Stated Complaint: CHEST PAIN Time Seen by Provider: 04/14/24 01:34 Mode of arrival: walk-in Limitations: no limitations History of Present Illness HPI narrative: This 73-year-old female, former smoker with a history of hypertension presents for evaluation of burning chest pain and heaviness in both arms. The patient also has some nausea. She denies any shortness of breath dizziness or diaphoresis. The symptoms started several hours ago. She took a Nexium without significant improvement. The patient and her had Thanksgiving dinner at the [facility] earlier today. She has not had any vomiting but is nauseated. She has no cr abdominal pain or back pain. She has no lower extremity pain or swelling. She has a history of tobacco use and states she quit smoking last July. Related Data Home Medications ?Medication ?Instructions ?Recorded ?Confirmed aripiprazole 10 mg tablet 10 mg PO .HS 04/14/24 04/14/24 doxazosin 1 mg tablet 1 mg PO BID 04/14/24 04/14/24 ezetimibe 10 mg tablet 10 mg PO DAILY 04/14/24 04/14/24 hydralazine 25 mg tablet 50 mg PO DAILY 04/14/24 04/14/24 losartan 50 mg tablet 50 mg PO BID 04/14/24 04/14/24 olmesartan 40 mg tablet 40 mg PO DAILY 04/14/24 04/14/24 rosuvastatin 20 mg tablet 20 mg PO .hS 04/14/24 04/14/24 trazodone 50 mg tablet 50 mg PO .HS 04/14/24 04/14/24 Allergies Allergy/AdvReac Type Severity Reaction Status Date / Time Penicillins Allergy Unknown Hives Verified 04/14/24 01:39 morphine AdvReac Unknown Nausea Verified 04/14/24 01:39 Review of Systems ROS Status of ROS 10 or more systems reviewed and unremark able except as noted in history and below [facility] Medical History (Updated 04/14/24 @ 06:32 by Bekah Dobbins MD) High cholesterol ?E78.00 - Pure hypercholesterolemia, unspecified (ICD-10) Social History Little interest or pleasure in doing things: not at all Feeling down, depressed, or hopeless: not at all Exam Narrative Exam Narrative: Vital signs and Nursing Notes reviewed: Patient is afebrile with a normal pulse, blood pressure is elevated at 192/80, she is not hypoxic with pulse ox of 99% on room air General: Awake, alert, oriented, no acute distress, lying comfortably on the stretcher HEENT: Normocephalic atraumatic, mucous membranes are moist and pink, eyes are clear, normal conjunctiva, vision is grossly intact Neck: Supple, no JVD Chest: Lungs are clear to auscultation with good air entry, there is no wheezing rhonchi or rales appreciated no accessory muscle use, patient is speaking in complete sentences-no chest wall tenderness to palpation CVS: Regular rate and rhythm S1-S2, no murmurs rubs or gallops, pulses are brisk and equal bilaterally ABD: Soft, nondistended, nontender, no rebound guarding or rigidity, bowel sounds are normal, no pulsatile masses appreciated Extremities: Moving all extremities, no lower extremity tenderness or swelling noted, negative Homans' sign, pulses are brisk and equal bilaterally Skin: Normal in appearance without rash,pallor, petechiae or purpura Neuro: No focal deficits Constitutional Vital Signs, click to edit/add: Last Vital Signs Temp 98.1 F 04/14/24 01:33 Pulse 77 04/14/24 02:44 Resp 21 H 04/14/24 02:44 BP 152/68 H 04/14/24 02:44 Pulse Ox 97 04/14/24 02:44 O2 Del Method Room Air 04/14/24 01:33 Course Vital Signs Vital signs: Vital Signs Temperature 98.1 F 04/14/24 01:33 Pulse Rate 82 04/14/24 01:33 Respiratory Rate 22 H 04/14/24 01:33 Blood Pressure 192/80 H 04/14/24 01:33 Pulse Oximetry 99 04/14/24 01:33 Oxygen Delivery Method Room Air 04/14/24 01:33 Temperature 98.1 F 04/14/24 01:33 Pulse Rate 77 04/14/24 02:44 Respiratory Rate 21 H 04/14/24 02:44 Blood Pressure 152/68 H 04/14/24 02:44 Pulse Oximetry 97 04/14/24 02:44 Oxygen Delivery Method Room Air 04/14/24 01:33 MDM - Chest Pain MDM Narrative Medical decision making narrative: This 73-year-old female with a history of COPD and who states she is a former smoker presents for evaluation of burning in her chest and arm weakness associated with nausea. The symptoms started after she went to bed. She did not vomit. She admits that she and her had a Thanksgiving buffet at [facility] for Thanksgiving dinner earlier in the night. She denies any radiation of her pain into her arm, back or jaw. She denies any increase in her difficulty breathing. She denies any dizziness or diaphoresis. An EKG done upon arrival was a sinus rhythm at 77 bpm. She was medicated with aspirin, Pepcid and Zofran but had ongoing complaints of discomfort in her chest and abdomen and was given 4 mg of morphine. Cardiac workup was ordered. She has a normal troponin and delta troponin. Her D-dimer was mildly elevated. She has an elevated AST, ALT and alkaline phosphatase. She has a normal bilirubin. Her alkaline phosphatase has been elevated in the past but in 2022 her AST and ALT were normal. Due to the elevated D-dimer and elevation in her LFTs a CTA of the chest and CT scan of the abdomen pelvis was ordered. CTA of the chest shows no pulmonary embolism with apical pleural scarring and scattered calcified granulomas with emphysematous changes and a few new small patchy nodular opacities scattered within the lungs. There was a 2.4 cm mass noted within the posterior inferior aspect of the right thyroid gland. The liver was normal. Gallbladder showed a 3 mm stone within the noninflamed gallbladder. Pancreas spleen adrenal glands kidneys bowels retroperitoneum lymph nodes bladder and pelvic organs were all normal. While awaiting her CT scan results she became nauseated and had an additional episode of vomiting. The results of the CT scan were discussed with the patient and her . I suggested to her that she be admitted for further evaluation and treatment. She and her are considering this at this time. I explained to her that I do not think her symptoms are likely cardiac in nature but more likely GI related. She may benefit from a right upper quadrant ultrasound and surgical consultation. The patient flatly refused admission initially but then after becoming nauseated and having an additional episode of vomiting she was agreeable to admission. She will be remedicated with Reglan and Benadryl and I will speak to the hospitalist about admission. Case was discussed with the hospitalist and patient is excepted for admission to [facility], observation status Medical Records Data Medical records narrative: The [address] [address] [address] Scan Report Signed Patient: LAY WAYNE MR#: [id number] : 1950 Acct:[id number] Age/Sex: 73 / F ADM Date: 04/14/24 Loc: ER Attending Dr: Ordering Physician: Bekah Dobbins Date of Service: 04/14/24 Procedure(s): CT abdomen pelvis w con Accession Number(s): [id number] cc: NATALIIA BRYSON D.O.~ The [address] [address] Patient Name: LAY WAYNE MRN: [id number] date: 1950 Sex: F Assigned Patient Location: ER Current Patient Location: ER Accession/Order Number: [id number] Exam Date: 04/14/2024 02:52 Report Date: 04/14/2024 05:18 At the request of: BEKAH DOBBINS Procedure: CT abdomen pelvis w con EXAMINATION: CT angio chest, CT abdomen pelvis w con HISTORY: CP, elevated ddimer COMPARISON: CT chest 11/08/2018, CT abdomen pelvis 09/14/2023 TECHNIQUE: After obtaining the patient's consent, CT images of the chest, abdomen and pelvis were obtained with non-ionic intravenous contrast material. Axial, Coronal, and Sagittal images. Multi-planar reformatted/3-D images were created to optimize visualization of vascular anatomy. Dose reduction techniques were achieved by using automated exposure control and/or adjustment of mA and/or kV according to patient size and/or use of iterative reconstruction technique. FINDINGS: PULM VASC: No pulmonary embolism or abnormal opacity. LUNGS: Stable right apical pleural scarring and a few scattered calcified granulomas. Minimal emphysematous changes. A few new small patchy says nodular opacities scattered within the lungs. PLEURA: No mass, effusion, or pneumothorax. ZAINAB: No mass or adenopathy. MEDIASTINUM: No mass or adenopathy. CARDIAC: Trace amount of pericardial fluid. CHEST WALL: 2.4 cm mass within posterior inferior aspect of right thyroid lobe. LIVER: No enlargement, atrophy, abnormal density, or significant focal lesion. BILIARY: 3 mm stone within noninflamed gallbladder. PANCREAS: No lesion, fluid collection, ductal dilatation, or atrophy. SPLEEN: No enlargement or focal lesion. ADRENALS: No mass or enlargement. KIDNEYS: No mass, obstruction, or calcification. BOWEL/MESENTERY: No visible mass, obstruction, or bowel wall thickening. AORTA: Moderate-marked atherosclerotic disease of distal abdominal aorta. No aneurysm or dissection. RETROPERITONEUM: No mass or adenopathy. LYMPHNODES: No pelvic lymphadenopathy. BLADDER: No stones or focal wall thickening. PELVIC ORGANS: Appropriate for age. ABDOMINAL WALL: No mass or hernia. BONES: No bony lesion or fracture. OTHER: Negative. CT/CT abdomen pelvis w con IMPRESSION: 1. No pulmonary embolism. 2. A few new scattered small patchy and nodular opacities; possibly mild infiltrates. 3. Tiny pericardial effusion. 4. New 2.4 cm right thyroid lobe mass. Consider nonemergent follow-up ultrasound of the thyroid gland. 5. Cholelithiasis. 6. No acute abdominal or pelvic findings. Electronically authenticated by: ANDREI ESCOBAR Date: 04/14/2024 05:18 Lab Data Attestation: I reviewed the patient's lab results. Labs: Lab Results 04/14/24 04/14/24 Range/Units 01:45 04:30 WBC 4.5 (4.0-11.0) 10^3/uL RBC 3.53 L (4.20-5.40) 10^6/uL Hgb 11.6 L (12.0-16.0) g/dL Hct 36.0 (36.0-48.0) % MCV 102.0 H (81.0-99.0) fL MCH 32.9 (26.7-34.0) pg MCHC 32.2 (29.9-35.2) g/dL RDW 13.0 (11.0-15.0) % Plt Count 215 (150-450) 10^3/uL MPV 10.2 (9.5-13.5) fL Neut % (Auto) 53.9 (43.0-75.0) % Lymph % (Auto) 32.2 (20.5-60.0) % Lagrange % (Auto) 10.4 (1.7-12.0) % Eos % (Auto) 2.2 (0.9-7.0) % Baso % (Auto) 1.1 (0.2-2.0) % Neut # (Auto) 2.5 (1.4-6.5) 10^3/uL Lymph # (Auto) 1.5 (1.2-3.8) 10^3/uL Lagrange # (Auto) 0.5 (0.3-0.8) 10^3/uL Eos # (Auto) 0.1 (0.0-0.7) 10^3/uL Baso # (Auto) 0.1 (0.0-0.1) 10^3/uL Abs Immat Gran (auto) 0.01 (0.00-0.03) 10^3/uL Imm/Tot Granulo (auto) 0.2 (0.0-0.5) % D-Dimer 0.60 H (<=0.59) mg/L FEU Sodium 143 (136-145) mmol/L Potassium 3.6 (3.5-5.1) mmol/L Chloride 108 H (98-107) mmol/L Carbon Dioxide 26.7 (21.0-32.0) mmol/L Anion Gap 11.9 BUN 19.0 H (7.0-18.0) mg/dL Creatinine 0.86 (0.55-1.02) mg/dL Est GFR ( Amer) >60 (>=60 mL/min/1.73m^2) Est GFR (Non-Af Amer) >60 (>=60 mL/min/1.73m^2) BUN/Creatinine Ratio 22.1 Glucose 102 (74-106) mg/dL Calcium 8.3 L (8.5-10.1) mg/dL Total Bilirubin 0.4 (0.2-1.0) mg/dL AST 156 H (15-37) U/L ALT 218 H (14-59) U/L Alkaline Phosphatase 841 H (46-116) U/L Troponin I High Sens 9.4 8.4 (4.0-51.3) pg/mL Total Protein 7.2 (6.4-8.2) g/dL Albumin 2.8 L (3.4-5.0) g/dL Globulin 4.4 g/dL Albumin/Globulin Ratio 0.6 Lipase 30.0 (16.0-77.0) U/L ECG Data Attestation: I personally reviewed and interpreted this ECG as follows: (Sinus rhythm at 77 bpm, normal axis, normal intervals, no acute ST segment elevation or T wave inversion) Heart Score History: Slightly/Non-Suspicious ECG: Normal Age: >65 years Risk Factors: 1 or 2 Risk Factors Troponin: <Normal Limit Total Heart Score Recommendations & Risks:: 3 Discharge Plan Discharge Chief Complaint: Chest Pain Clinical Impression: Atypical chest pain, Cholelithiasis, Elevated liver function tests, Nausea & vomiting Patient Disposition: Admitted as Observation Time of Disposition Decision: 06:04 Condition: Good
--- NOTE | 2024-04-14 02:01 | ECG_ITS ---
The [facility] Test Date: 2024-04-14 Pat Name: LAY WAYNE Department: Room: - Gender: Female [employer]: : 1950 Requested By: NATALIIA BRYSON Order Number: [id number] Reading MD: BRADEN ROUSSEAU Measurements Intervals Lindsay Rate: 77 P: 90 MO: 170 QRS: 87 QRSD: 78 T: 81 QT: 406 QTc: 438 Interpretive Statements 1100 Sinus rhythm 9110 normal ECG No previous ECG available for comparison Electronically Signed On 04-14-2024 7:00:05 EST by BRADEN ROUSSEAU
[2024-04-14] MEDS: ASPIRIN 81 MG TAB.CHEW 324 MG PO (02:04)
[2024-04-14] MEDS: FAMOTIDINE/PF 20 MG/2 ML VIAL IV (02:05)
[2024-04-14] MEDS: ONDANSETRON PF 4 MG/2 ML VIAL IV ×3 (02:05→19:43)
[2024-04-14 02:13] LABS: Alanine Aminotransferase 218 U/L (14-59); Albumin Globulin Ratio 0.6; Albumin Level 2.8 g/dL (3.4-5.0); Alkaline Phosphatase 841 U/L (46-116); Anion Gap 11.9; Aspartate Amino Transferase 156 U/L (15-37); BUN Creatinine Ratio 22.1; Bilirubin Total 0.4 mg/dL (0.2-1.0); Calcium 8.3 mg/dL (8.5-10.1); Carbon Dioxide 26.7 mmol/L (21.0-32.0); Chloride 108 mmol/L (98-107); Estimated GFR (African America >60 (>=60 mL/min/1.73m^2); Estimated GFR (Non-African Ame >60 (>=60 mL/min/1.73m^2); Globulin 4.4 g/dL; Glucose 102 mg/dL (74-106); Potassium 3.6 mmol/L (3.5-5.1); Sodium 143 mmol/L (136-145); Total Protein 7.2 g/dL (6.4-8.2)
[2024-04-14 02:16] LABS: Troponin I High Sensitivity 9.4 pg/mL (4.0-51.3)
--- NOTE | 2024-04-14 02:34 | CT_ITS ---
[address] [address] Patient Name: LAY WAYNE MRN: [id number] date: 1950 Sex: F Assigned Patient Location: ER Current Patient Location: Accession/Order Number: [id number] Exam Date: 04/14/2024 02:55 Report Date: 04/14/2024 05:18 At the request of: UMA MARKER Procedure: CT angio chest EXAMINATION: CT angio chest, CT abdomen pelvis w con HISTORY: CP, elevated ddimer COMPARISON: CT chest 11/08/2018, CT abdomen pelvis 09/14/2023 TECHNIQUE: After obtaining the patient's consent, CT images of the chest, abdomen and pelvis were obtained with non-ionic intravenous contrast material. Axial, Coronal, and Sagittal images. Multi-planar reformatted/3-D images were created to optimize visualization of vascular anatomy. Dose reduction techniques were achieved by using automated exposure control and/or adjustment of mA and/or kV according to patient size and/or use of iterative reconstruction technique. FINDINGS: PULM VASC: No pulmonary embolism or abnormal opacity. LUNGS: Stable right apical pleural scarring and a few scattered calcified granulomas. Minimal emphysematous changes. A few new small patchy says nodular opacities scattered within the lungs. PLEURA: No mass, effusion, or pneumothorax. ZAINAB: No mass or adenopathy. MEDIASTINUM: No mass or adenopathy. CARDIAC: Trace amount of pericardial fluid. CHEST WALL: 2.4 cm mass within posterior inferior aspect of right thyroid lobe. LIVER: No enlargement, atrophy, abnormal density, or significant focal lesion. BILIARY: 3 mm stone within noninflamed gallbladder. PANCREAS: No lesion, fluid collection, ductal dilatation, or atrophy. SPLEEN: No enlargement or focal lesion. ADRENALS: No mass or enlargement. KIDNEYS: No mass, obstruction, or calcification. BOWEL/MESENTERY: No visible mass, obstruction, or bowel wall thickening. AORTA: Moderate-marked atherosclerotic disease of distal abdominal aorta. No aneurysm or dissection. RETROPERITONEUM: No mass or adenopathy. LYMPHNODES: No pelvic lymphadenopathy. BLADDER: No stones or focal wall thickening. PELVIC ORGANS: Appropriate for age. ABDOMINAL WALL: No mass or hernia. BONES: No bony lesion or fracture. OTHER: Negative. CT/CT angio chest IMPRESSION: 1. No pulmonary embolism. 2. A few new scattered small patchy and nodular opacities; possibly mild infiltrates. 3. Tiny pericardial effusion. 4. New 2.4 cm right thyroid lobe mass. Consider nonemergent follow-up ultrasound of the thyroid gland. 5. Cholelithiasis. 6. No acute abdominal or pelvic findings. Electronically authenticated by: ANDREI ESCOBAR Date: 04/14/2024 05:18
--- NOTE | 2024-04-14 02:34 | CT_ITS ---
[address] [address] Patient Name: LAY WAYNE MRN: [id number] date: 1950 Sex: F Assigned Patient Location: ER Current Patient Location: Accession/Order Number: [id number] Exam Date: 04/14/2024 02:52 Report Date: 04/14/2024 05:18 At the request of: UMA MARKER Procedure: CT abdomen pelvis w con EXAMINATION: CT angio chest, CT abdomen pelvis w con HISTORY: CP, elevated ddimer COMPARISON: CT chest 11/08/2018, CT abdomen pelvis 09/14/2023 TECHNIQUE: After obtaining the patient's consent, CT images of the chest, abdomen and pelvis were obtained with non-ionic intravenous contrast material. Axial, Coronal, and Sagittal images. Multi-planar reformatted/3-D images were created to optimize visualization of vascular anatomy. Dose reduction techniques were achieved by using automated exposure control and/or adjustment of mA and/or kV according to patient size and/or use of iterative reconstruction technique. FINDINGS: PULM VASC: No pulmonary embolism or abnormal opacity. LUNGS: Stable right apical pleural scarring and a few scattered calcified granulomas. Minimal emphysematous changes. A few new small patchy says nodular opacities scattered within the lungs. PLEURA: No mass, effusion, or pneumothorax. ZAINAB: No mass or adenopathy. MEDIASTINUM: No mass or adenopathy. CARDIAC: Trace amount of pericardial fluid. CHEST WALL: 2.4 cm mass within posterior inferior aspect of right thyroid lobe. LIVER: No enlargement, atrophy, abnormal density, or significant focal lesion. BILIARY: 3 mm stone within noninflamed gallbladder. PANCREAS: No lesion, fluid collection, ductal dilatation, or atrophy. SPLEEN: No enlargement or focal lesion. ADRENALS: No mass or enlargement. KIDNEYS: No mass, obstruction, or calcification. BOWEL/MESENTERY: No visible mass, obstruction, or bowel wall thickening. AORTA: Moderate-marked atherosclerotic disease of distal abdominal aorta. No aneurysm or dissection. RETROPERITONEUM: No mass or adenopathy. LYMPHNODES: No pelvic lymphadenopathy. BLADDER: No stones or focal wall thickening. PELVIC ORGANS: Appropriate for age. ABDOMINAL WALL: No mass or hernia. BONES: No bony lesion or fracture. OTHER: Negative. CT/CT abdomen pelvis w con IMPRESSION: 1. No pulmonary embolism. 2. A few new scattered small patchy and nodular opacities; possibly mild infiltrates. 3. Tiny pericardial effusion. 4. New 2.4 cm right thyroid lobe mass. Consider nonemergent follow-up ultrasound of the thyroid gland. 5. Cholelithiasis. 6. No acute abdominal or pelvic findings. Electronically authenticated by: ANDREI ESCOBAR Date: 04/14/2024 05:18
[2024-04-14] MEDS: MORPHINE SULFATE 4 MG/ML VIAL IV (02:40)
[2024-04-14 04:53] LABS: Troponin I High Sensitivity 8.4 pg/mL (4.0-51.3)
[2024-04-14] MEDS: DIPHENHYDRAMINE HCL 50 MG/ML VIAL 12.5 MG IV (06:33)
[2024-04-14] MEDS: METOCLOPRAMIDE HCL 10 MG/2 ML VIAL IVP (06:34)
--- NOTE | 2024-04-14 07:52 | US_ITS ---
The [address] [address] Patient Name: LAY WAYNE MRN: [id number] date: 1950 Sex: F Assigned Patient Location: Current Patient Location: Accession/Order Number: [id number] Exam Date: 04/14/2024 11:30 Report Date: 04/14/2024 12:47 At the request of: SHAIKH DUANE Procedure: US right upper quadrant EXAMINATION: US right upper quadrant HISTORY: Abnormal liver enzymes, cholelithiasis ; right upper quadrant pain COMPARISON: CT abdomen pelvis 04/14/2024 TECHNIQUE: Transabdominal evaluation of the right upper quadrant. FINDINGS: LIVER: Normal size and echotexture. Color Doppler demonstrates patent hepatic veins. PORTAL VEIN: Duplex Doppler demonstrates normal hepatopetal flow pattern with flow velocity averaging 36 cm/s. GALLBLADDER: A few tiny echogenic foci within the hernandez, likely cholesterol crystals. The tiny calcification seen within the gallbladder on the CT study from earlier today could not be identified, and may have passed. BILIARY: No abnormal dilation or stones. Common bile duct diameter is within normal limits. PANCREAS: No visible mass, abnormal atrophy, or duct dilation. KIDNEY: No hydronephrosis. No visible mass or stones. Size: 10.1 x 5.7 x 5.8 cm US/US right upper quadrant IMPRESSION: 1. No appreciable stones within the gallbladder or evidence of acute cholecystitis. Previously seen tiny stone may have passed. 2. No abnormal duct dilation. Electronically authenticated by: ANDREI ESCOBAR Date: 04/14/2024 12:47
--- OUTSIDE RECORDS SUMMARY | 2024-04-14 08:29 | XMS_ITS | CCD ---
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 Reece Grover BUNon 09-09-2022 Urea nitrogen [Mass/Vol] 20.0 mg/dL Critically high 7.0-18.0 [facility] Comment on above: Performed By: #### L IVER, BNP, CREA, ELEC, LIPID, GLUC, BUN, TSH ####[facility] [address] [address]Dr. Reece Grover CBC AUTO DIFFon 09-09-2022 BASO # 0.1 103/ul Normal 0.0-0.1 [facility] Comment on above: Performed By: #### C BC #### [facility] [address] [place] [address] Dr. Reece Grover Basophils/100 WBC (Bld) 1.0 % Normal 0.2-2.0 [facility] Comment on above: Performed By: #### C BC #### [facility] [address] [place] [address] Dr. Reece Grover EO # 0.0 103/ul Normal 0.0-0.7 [facility] Comment on above: Performed By: #### C BC #### [facility] [address] [place] [address] Dr. Reece Grover Eosinophils/100 WBC (Bld) 0.8 % Critically low 0.9-7.0 [facility] Comment on above: Performed By: #### C BC #### [facility] [address] [place] [address] Dr. Reece Grover Erythrocyte distribution width (RBC) [Ratio] 13.0 % Normal 11.0-15.0 [facility] Comment on above: Performed By: #### C BC #### [facility] [address] [place] [address] Dr. Reece Grover Hematocrit (Bld) [Volume fraction] 42.9 % Normal 36.0-48.0 [facility] Comment on above: Performed By: #### C BC #### [facility] [address] [place] [address] Dr. Reece Grover Hemoglobin (Bld) [Mass/Vol] 13.9 g/dL Normal 12.0-16.0 [facility] Comment on above: Performed By: #### C BC #### [facility] [address] [place] [address] Dr. Reece Grover IG # 0.01 10e3/ul Normal 0.00-0.03 [facility] Comment on above: Performed By: #### C BC #### [facility] [address] [place] [address] Dr. Reece Grover IG % 0.2 % Normal 0.0-0.5 [facility] Comment on above: Performed By: #### C BC #### [facility] [address] [place] [address] Dr. Reece Grover LYMPH # 1.1 103/ul Critically low 1.2-3.8 [facility] Comment on above: Performed By: #### C BC #### [facility] [address] [place] [address] Dr. Reece Grover Lymphocytes/100 WBC (Bld) 22.1 % Normal 20.5-60.0 [facility] Comment on above: Performed By: #### C BC #### [facility] [address] [place] [address] Dr. Reece Grover MANUAL DIFF REQ NO Normal [facility] Comment on above: Performed By: #### C BC #### [facility] [address] [place] [address] Dr. Reece Grover MCH (RBC) [Entitic mass] 32.4 pg Normal 26.7-34.0 [facility] Comment on above: Performed By: #### C BC #### [facility] [address] [place] [address] Dr. Reece Grover MCHC (RBC) [Mass/Vol] 32.4 g/dL Normal 29.9-35.2 [facility] Comment on above: Performed By: #### C BC #### [facility] [address] [place] [address] Dr. Reece Grover MCV (RBC) [Entitic vol] 100.0 fL Critically high 81.0-99.0 [facility] Comment on above: Performed By: #### C BC #### [facility] [address] [place] [address] Dr. Reece Grover MONO # 0.3 103/ul Normal 0.3-0.8 [facility] Comment on above: Performed By: #### C BC #### [facility] [address] [place] [address] Dr. Reece Grover Monocytes/100 WBC (Bld) 5.6 % Normal 1.7-12.0 [facility] Comment on above: Performed By: #### C BC #### [facility] [address] [place] [address] Dr. Reece Grover NEUT # 3.5 103/ul Normal 1.4-6.5 [facility] Comment on above: Performed By: #### C BC #### [facility] [address] [place] [address] Dr. Reece Grover Neutrophils/100 WBC (Bld) 70.3 % Normal 43.0-75.0 [facility] Comment on above: Performed By: #### C BC #### [facility] [address] [place] [address] Dr. Reece Grover Platelet mean volume (Bld) [Entitic vol] 9.7 fL Normal 9.5-13.5 [facility] Comment on above: Performed By: #### C BC #### [facility] [address] [place] [address] Dr. Reece Grover PLT 190 103/ul Normal 150-450 [facility] Comment on above: Performed By: #### C BC #### [facility] [address] [place] [address] Dr. Reece Grover RBC 4.29 106/ul Normal 4.20-5.40 [facility] Comment on above: Performed By: #### C BC #### [facility] [address] [place] [address] Dr. Reece Grover WBC 5.0 103/ul Normal 4.0-11.0 [facility] Comment on above: Performed By: #### C BC #### [facility] [address] [place] [address] Dr. Reece Grover CREATININEon 09-09-2022 Creatinine [Mass/Vol] 0.81 mg/dL Normal 0.55-1.02 [facility] Comment on above: Performed By: #### L IVER, BNP, CREA, ELEC, LIPID, GLUC, BUN, TSH #### [facility] [address] [place] [address] Dr. Reece Grover EGFR-AF HAITIAN >60 Normal >=60 [facility] Comment on above: Performed By: #### L IVER, BNP, CREA, ELEC, LIPID, GLUC, BUN, TSH #### [facility] [address] [place] [address] Dr. Reece Grover EGFR-NON AF HAITIAN >60 Normal >=60 [facility] Comment on above: Performed By: #### L IVER, BNP, CREA, ELEC, LIPID, GLUC, BUN, TSH #### [facility] [address] [place] [address] Dr. eRece Grover ELECTROLYTESon 09-09-2022 Anion gap [Moles/Vol] 12.6 mmol/L Normal [facility] Comment on above: Performed By: #### L IVER, BNP, CREA, ELEC, LIPID, GLUC, BUN, TSH #### [facility] [address] [place] [address] Dr. Reece Grover Chloride [Moles/Vol] 105 mmol/L Normal 98-107 [facility] Comment on above: Performed By: #### L IVER, BNP, CREA, ELEC, LIPID, GLUC, BUN, TSH #### [facility] [address] [place] [address] Dr. Reece Grover CO2 [Moles/Vol] 28.6 mmol/L Normal 21.0-32.0 [facility] Comment on above: Performed By: #### L IVER, BNP, CREA, ELEC, LIPID, GLUC, BUN, TSH #### [facility] [address] [place] [address] Dr. Reece Grover Potassium [Moles/Vol] 4.2 mmol/L Normal 3.5-5.1 [facility] Comment on above: Performed By: #### L IVER, BNP, CREA, ELEC, LIPID, GLUC, BUN, TSH #### [facility] [address] [address] [address] Reece Grover Sodium [Moles/Vol] 142 mmol/L Normal 136-145 [facility] Comment on above: Performed By: #### L IVER, BNP, CREA, ELEC, LIPID, GLUC, BUN, TSH #### [facility] [address] [address] [address] Reece Grover GLUCOSE BLOODon 09-09-2022 Glucose [Mass/Vol] 105 mg/dL Normal 74-106 [facility] Comment on above: Performed By: #### L IVER, BNP, CREA, ELEC, LIPID, GLUC, BUN, TSH #### [facility] [address] [place] [address] Dr. Reece Grover LIPID PROFILEon 09-09-2022 CHOL-HDL RATIO NORM SEE BELOW Normal [facility] Comment on above: Result Comment: 3.3 - 4.4 LOW RISK 4.4 - 7.1 AVERAGE RISK 7.1 - 11.0 MODERATE RISK >11.0 HIGH RISK Performed By: #### L IVER, BNP, CREA, ELEC, LIPID, GLUC, BUN, TSH #### [facility] [address] [place] [address] Dr. Reece Grover Cholesterol [Mass/Vol] 249 mg/dL Critically high <=200 [facility] Comment on above: Performed By: #### L IVER, BNP, CREA, ELEC, LIPID, GLUC, BUN, TSH #### [facility] [address] [address] [address] Reece Grover Cholesterol in HDL [Mass/Vol] 93 mg/dL Critically high 40-60 [facility] Comment on above: Performed By: #### L IVER, BNP, CREA, ELEC, LIPID, GLUC, BUN, TSH #### [facility] [address] [address] [address] Reece Grover Cholesterol in LDL [Mass/Vol] 142.0 mg/dL Normal [facility] Comment on above: Performed By: #### L IVER, BNP, CREA, ELEC, LIPID, GLUC, BUN, TSH #### [facility] [address] [address] [address] Reece Grover Cholesterol.total/C holesterol in HDL [Mass ratio] 2.7 {ratio} Normal [facility] Comment on above: Performed By: #### L IVER, BNP, CREA, ELEC, LIPID, GLUC, BUN, TSH #### [facility] [address] [address] [address] Reece Grover HDL NORMAL > or = 60 mg/dl - LO W CARDIOVASCULAR RISK <40 mg/dl - HIGH CARDIOVASCULAR RISK Normal [facility] Comment on above: Performed By: #### L IVER, BNP, CREA, ELEC, LIPID, GLUC, BUN, TSH #### [facility] [address] [place] [address] Dr. Reece Grover LDL CALC NORMAL SEE BELOW Normal [facility] Comment on above: Result Comment: <100 mg/dl OPTIMAL 100 - 129 mg/dl NEAR OR ABOVE OPTIMAL 130 - 159 mg/dl BORDERLINE HIGH 160 - 189 mg/dl HIGH >190 mg/dl VERY HIGH Performed By: #### L IVER, BNP, CREA, ELEC, LIPID, GLUC, BUN, TSH #### [facility] [address] [place] [address] Dr. Reece Grover Triglyceride [Mass/Vol] 70 mg/dL Normal <=150 [facility] Comment on above: Performed By: #### L IVER, BNP, CREA, ELEC, LIPID, GLUC, BUN, TSH #### [facility] [address] [address] [address] Reece Grover VLDL CALC 14.0 mg/dL Normal [facility] Comment on above: Performed By: #### L IVER, BNP, CREA, ELEC, LIPID, GLUC, BUN, TSH #### [facility] [address] [address] [address] Reece Grover LIVER PROFILEon 09-09-2022 Albumin [Mass/Vol] 3.6 g/dL Normal 3.4-5.0 [facility] Comment on above: Performed By: #### L IVER, BNP, CREA, ELEC, LIPID, GLUC, BUN, TSH #### [facility] [address] [place] [address] Dr. Reece Grover Albumin/Globulin [Mass ratio] 0.8 {ratio} Normal [facility] Comment on above: Performed By: #### L IVER, BNP, CREA, ELEC, LIPID, GLUC, BUN, TSH #### [facility] [address] [place] [address] Dr. Reece Grover ALP [Catalytic activity/Vol] 324 U/L Critically high 46-116 [facility] Comment on above: Performed By: #### L IVER, BNP, CREA, ELEC, LIPID, GLUC, BUN, TSH #### [facility] [address] [place] [address] Dr. Reece Grover ALT [Catalytic activity/Vol] 61 U/L Critically high 14-59 [facility] Comment on above: Performed By: #### L IVER, BNP, CREA, ELEC, LIPID, GLUC, BUN, TSH #### [facility] [address] [place] [address] Dr. Reece Grover AST [Catalytic activity/Vol] 50 U/L Critically high 15-37 [facility] Comment on above: Performed By: #### L IVER, BNP, CREA, ELEC, LIPID, GLUC, BUN, TSH #### [facility] [address] [place] [address] Dr. Reece Grover BILI, CONJUGATED 0.1 mg/dL Normal 0.0-0.2 [facility] Comment on above: Performed By: #### L IVER, BNP, CREA, ELEC, LIPID, GLUC, BUN, TSH #### [facility] [address] [place] [address] Dr. Reece Grover Bilirubin [Mass/Vol] 0.3 mg/dL Normal 0.2-1.0 [facility] Comment on above: Performed By: #### L IVER, BNP, CREA, ELEC, LIPID, GLUC, BUN, TSH #### [facility] [address] [address] [address] Reece Grover Globulin (S) [Mass/Vol] 4.8 g/dL Normal [facility] Comment on above: Performed By: #### L IVER, BNP, CREA, ELEC, LIPID, GLUC, BUN, TSH #### [facility] [address] [address] [address] Reece Grover Protein [Mass/Vol] 8.4 g/dL Critically high 6.4-8.2 [facility] Comment on above: Performed By: #### L IVER, BNP, CREA, ELEC, LIPID, GLUC, BUN, TSH #### [facility] [address] [address] [address] Reece Grover TSHon 09-09-2022 TSH 1.698 uIU/mL Normal 0.358-3.740 [facility] Comment on above: Performed By: #### L IVER, BNP, CREA, ELEC, LIPID, GLUC, BUN, TSH ####[facility] [address] [address]Dr. Reece Grover AMYLASEon 11-21-2021 Amylase [Catalytic activity/Vol] 93 U/L Normal 25-115 [facility] Comment on above: Performed By: #### A MY, CMP, LIPA ####[facility] [address] [address]Dr. Reece Grover CBC AUTO DIFFon 11-21-2021 BASO # 0.0 103/ul Normal 0.0-0.1 [facility] Comment on above: Performed By: #### C BC ####[facility] [address] [address]Dr. Reece Grover Basophils/100 WBC (Bld) 0.4 % Normal 0.2-2.0 [facility] Comment on above: Performed By: #### C BC ####[facility] [address] [address]Dr. Reece Grover EO # 0.0 103/ul Normal 0.0-0.7 [facility] Comment on above: Performed By: #### C BC ####[facility] [address] [id number]. Reece Grover Eosinophils/100 WBC (Bld) 0.4 % Critically low 0.9-7.0 [facility] Comment on above: Performed By: #### C BC ####[facility] [address] [id number]. Reece Grover Erythrocyte distribution width (RBC) [Ratio] 12.7 % Normal 11.0-15.0 [facility] Comment on above: Performed By: #### C BC ####[facility] [address] [id number]. Reece Grover Hematocrit (Bld) [Volume fraction] 40.1 % Normal 36.0-48.0 [facility] Comment on above: Performed By: #### C BC ####[facility] [address] [place], [place] [address]Dr. Reece Grover Hemoglobin (Bld) [Mass/Vol] 13.7 g/dL Normal 12.0-16.0 [facility] Comment on above: Performed By: #### C BC ####[facility] [address] [place], [place] [address]Dr. Reece Grover IG # 0.03 10e3/ul Normal 0.00-0.03 [facility] Comment on above: Performed By: #### C BC ####[facility] [address] [place], [place] [address]Dr. Reece Grover IG % 0.4 % Normal 0.0-0.5 [facility] Comment on above: Performed By: #### C BC ####[facility] [address] [id number]. Reece Grover LYMPH # 0.9 103/ul Critically low 1.2-3.[address] [facility] Comment on above: Performed By: #### C BC ####[facility] [address] [id number]. Reece Grover Lymphocytes/100 WBC (Bld) 10.9 % Critically low 20.5-60.0 [facility] Comment on above: Performed By: #### C BC ####[facility] [address] [id number]. Reece Grover MANUAL DIFF REQ NO Normal [facility] Comment on above: Performed By: #### C BC ####[facility] [address] [id number]. Reece Grover MCH (RBC) [Entitic mass] 33.4 pg Normal 26.7-34.0 [facility] Comment on above: Performed By: #### C BC ####[facility] [address] [place], [place] [address]Dr. Reece Grover MCHC (RBC) [Mass/Vol] 34.2 g/dL Normal 29.9-35.2 [facility] Comment on above: Performed By: #### C BC ####[facility] [address] [place], [place] [address]Dr. Reece Grover MCV (RBC) [Entitic vol] 97.8 fL Normal 81.0-99.0 [facility] Comment on above: Performed By: #### C BC ####[facility] [address] [place], [place] [address]Dr. Reece Reilly MONO # 0.4 103/ul Normal 0.3-0.8 [facility] Comment on above: Performed By: #### C BC ####[facility] [address] [place], [place] [address]Dr. Reece Grover Monocytes/100 WBC (Bld) 4.6 % Normal 1.7-12.0 [facility] Comment on above: Performed By: #### C BC ####[facility] [address] [place], [place] [address]Dr. Darlingrich Grover NEUT # 7.0 103/ul Critically high 1.4-6.5 [facility] Comment on above: Performed By: #### C BC ####[facility] [address] [place], [place] [address]Dr. Reece Grover Neutrophils/100 WBC (Bld) 83.3 % Critically high 43.0-75.0 [facility] Comment on above: Performed By: #### C BC ####[facility] [address] [address]Dr. Reece Grover Platelet mean volume (Bld) [Entitic vol] 10.0 fL Normal 9.5-13.5 [facility] Comment on above: Performed By: #### C BC ####[facility] [address] [address]Dr. Reece Grover PLT 236 103/ul Normal 150-450 [facility] Comment on above: Performed By: #### C BC ####[facility] [address] [place], [place] [address]Dr. Reece Grover RBC 4.10 106/ul Critically low 4.20-5.40 [facility] Comment on above: Performed By: #### C BC ####[facility] [address] [place], [place] [address]Dr. Reece Grover WBC 8.4 103/ul Normal 4.0-11.0 [facility] Comment on above: Performed By: #### C BC ####[facility] [address] [place], [place] [address]Dr. Reece Grover BASO # 0.1 103/ul Normal 0.0-0.1 [facility] Comment on above: Performed By: #### C BC ####[facility] [address] [place], [place] [address]Dr. Reece Grover Basophils/100 WBC (Bld) 1.0 % Normal 0.2-2.0 [facility] Comment on above: Performed By: #### C BC ####[facility] [address] [place], [place] [address]Dr. Reece Grover EO # 0.1 103/ul Normal 0.0-0.7 [facility] Comment on above: Performed By: #### C BC ####[facility] [address] [place], [place] [address]Dr. Reece Grover Eosinophils/100 WBC (Bld) 2.1 % Normal 0.9-7.0 [facility] Comment on above: Performed By: #### C BC ####[facility] [address] [id number]. Reece Grover Erythrocyte distribution width (RBC) [Ratio] 12.8 % Normal 11.0-15.0 [facility] Comment on above: Performed By: #### C BC ####[facility] [address] [address]Dr. Reece Grover Hematocrit (Bld) [Volume fraction] 40.6 % Normal 36.0-48.0 [facility] Comment on above: Performed By: #### C BC ####[facility] [address] [place], [place] [address]Dr. Reece Grover Hemoglobin (Bld) [Mass/Vol] 13.3 g/dL Normal 12.0-16.0 [facility] Comment on above: Performed By: #### C BC ####[facility] [address] [place], [place] [address]Dr. Reece Grover IG # 0.02 10e3/ul Normal 0.00-0.03 [facility] Comment on above: Performed By: #### C BC ####[facility] [address] [place], [place] [address]Dr. Reece Grover IG % 0.4 % Normal 0.0-0.5 [facility] Comment on above: Performed By: #### C BC ####[facility] [address] [place], [place] [address]Dr. Reece Grover LYMPH # 1.6 103/ul Normal 1.2-3.8 [facility] Comment on above: Performed By: #### C BC ####[facility] [address] [place], [place] [address]Dr. Reece Grover Lymphocytes/100 WBC (Bld) 31.6 % Normal 20.5-60.0 [facility] Comment on above: Performed By: #### C BC ####[facility] [address] [place], [place] [address]Dr. Reece Grover MANUAL DIFF REQ NO Normal [facility] Comment on above: Performed By: #### C BC ####[facility] [address] [address]Dr. Reece Grover MCH (RBC) [Entitic mass] 33.0 pg Normal 26.7-34.0 [facility] Comment on above: Performed By: #### C BC ####[facility] [address] [address]Dr. Reece Grover MCHC (RBC) [Mass/Vol] 32.8 g/dL Normal 29.9-35.2 [facility] Comment on above: Performed By: #### C BC ####[facility] [address] [place], [place] [address]Dr. Reece Grover MCV (RBC) [Entitic vol] 100.7 fL Critically high 81.0-99.0 [facility] Comment on above: Performed By: #### C BC ####[facility] [address] [place], [place] [address]Dr. Reece Reilly MONO # 0.4 103/ul Normal 0.3-0.8 [facility] Comment on above: Performed By: #### C BC ####[facility] [address] [place], [place] [address]Dr. Reece Reilly Monocytes/100 WBC (Bld) 7.1 % Normal 1.7-12.0 [facility] Comment on above: Performed By: #### C BC ####[facility] [address] [place], [place] [address]Dr. Reece Grover NEUT # 3.0 103/ul Normal 1.4-6.5 [facility] Comment on above: Performed By: #### C BC ####[facility] [address] [place], [place] [address]Dr. Reece Reilly Neutrophils/100 WBC (Bld) 57.8 % Normal 43.0-75.0 [facility] Comment on above: Performed By: #### C BC ####[facility] [address] [place], [place] [address]Dr. Reece Reilly Platelet mean volume (Bld) [Entitic vol] 9.7 fL Normal 9.5-13.5 [facility] Comment on above: Performed By: #### C BC ####[facility] [address] [place], [place] [address]Ae. Reece Grover PLT 239 103/ul Normal 150-450 [facility] Comment on above: Performed By: #### C BC ####[facility] [address] [place], [place] [address]Hb. Reece Grover RBC 4.03 106/ul Critically low 4.20-5.40 [facility] Comment on above: Performed By: #### C BC ####[facility] [address] [place], [place] [address]Yn. Reece Grover WBC 5.2 103/ul Normal 4.0-11.0 [facility] Comment on above: Performed By: #### C BC ####[facility] [address] [place], [place] [address]Vs. Reece Grover CT ABD/PELV W CONon 11-22-19 [...] CARI MORA Date: 2021-11-21 02:42 Normal [facility]on SARS-CoV-2 (COVID-19) RNA THOM+probe Ql (Unsp spec) Not detected Normal NOT DETECTED [facility] Comment on above: Result Comment: When diagnostic [...] for this test is supported by the [employer] of Health and Human Service's declaration that [...] be used). Performed By: #### C VDTBH ####[facility] [address] [place], [place] [address]Dr. Reece Grover LIPASEon 11-21-2021 Lipase [Catalytic activity/Vol] 106.0 U/L Normal 73.0-393.0 [facility] Comment on above: Performed By: #### A MY, CMP, LIPA ####[facility] [address] [place], [place] [address]DrDari Grover PROF 14(COMP METB)on 022 Albumin [Mass/Vol] 3.6 g/dL Normal 3.4-5.0 [facility] Comment on above: Performed By: #### C MP ####[facility] [address] [place], [place] [address]Dr. Reece Grover Albumin/Globulin [Mass ratio] 0.9 {ratio} Normal [facility] Comment on above: Performed By: #### C MP ####[facility] [address] [place], [place] [address]DrDari Grover ALP [Catalytic activity/Vol] 299 U/L Critically high 46-116 [facility] Comment on above: Performed By: #### C MP ####[facility] [address] [place], [place] [address]Uu. Reece Grover ALT [Catalytic activity/Vol] 53 U/L Normal 14-59 [facility] Comment on above: Performed By: #### C MP ####[facility] [address] [place], [place] [address]Tv. Reece Grover Anion gap [Moles/Vol] 12.2 mmol/L Normal [facility] Comment on above: Performed By: #### C MP ####[facility] [address] [place] [id number]. Reece Grover AST [Catalytic activity/Vol] 41 U/L Critically high 15-37 [facility] Comment on above: Performed By: #### C MP ####[facility] [address] [place] [id number]. Reece Grover Bilirubin [Mass/Vol] 0.8 mg/dL Normal 0.2-1.0 [facility] Comment on above: Performed By: #### C MP ####[facility] [address] [place] [id number]. Reece Grover Calcium [Mass/Vol] 9.6 mg/dL Normal 8.5-10.1 [facility] Comment on above: Performed By: #### C MP ####[facility] Mtlaxvmicg8784 [place] [id number]. Reece Grover Chloride [Moles/Vol] 101 mmol/L Normal 98-107 [facility] Comment on above: Performed By: #### C MP ####[facility] Pibhtnnymy[address]175 [place] [id number]. Reece Grover CO2 [Moles/Vol] 26.3 mmol/L Normal 21.0-32.0 [facility] Comment on above: Performed By: #### C MP ####[facility] Rmtmevdcpo4308 [place] [id number]. Reece Grover Creatinine [Mass/Vol] 0.63 mg/dL Normal 0.55-1.02 [facility] Comment on above: Performed By: #### C MP ####[facility] Taodxjmrch0846 [place] [id number]. Reece Grover EGFR-AF HAITIAN >60 Normal >=60 [facility] Comment on above: Performed By: #### C MP ####[facility] Oewxipuwnf[address] [place] [address]Dr. Reece Grover EGFR-NON AF HAITIAN >60 Normal >=60 [facility] Comment on above: Performed By: #### C MP ####[facility] Dylnnkolcd8[address] [place] [address]Dr. Reece Reilly Globulin (S) [Mass/Vol] 4.2 g/dL Normal [facility] Comment on above: Performed By: #### C MP ####[facility] Yyshmoymdp0679 [place] [address]Dr. Reece Reilly Glucose [Mass/Vol] 120 mg/dL Critically high 74-106 T [facility] Comment on above: Performed By: #### C MP ####[facility] Rwlsdfbuon7856 [place] [address]Dr. Reece Reilly Potassium [Moles/Vol] 4.5 mmol/L Normal 3.5-5.1 [facility] Comment on above: Performed By: #### C MP ####[facility] [address]wdydalqw[address] [place], [place] [address]Dr. Reece Reilly Protein [Mass/Vol] 7.8 g/dL Normal 6.4-8.2 [facility] Comment on above: Performed By: #### C MP ####[facility] Adrepnkaoe39[address] [place] [address]Dr. Reece Reilly Sodium [Moles/Vol] 135 mmol/L Critically low 136-145 Th [facility] Comment on above: Performed By: #### C MP ####[facility] Kqwlbydmne[address] [place], [place] [address]Dr. Darlingrich Reilly Urea nitrogen [Mass/Vol] 19.0 mg/dL Critically high 7.0-18.0 [facility] Comment on above: Performed By: #### C MP ####[facility] Ossc[address]vnb[address] [place], [place] [address]Dr. Reece Grover Urea nitrogen/Creatinine [Mass ratio] 30.2 mg/mg Normal [facility] Comment on above: Performed By: #### C MP ####[facility] Nzcllkedql2505 [place] [address]Dr. Reece Grover Albumin [Mass/Vol] 3.2 g/dL Critically low 3.4-5.0 [facility] Comment on above: Performed By: #### A MY, CMP, LIPA ####[facility] Scqkmqwzpm64[address] [place] [address]Dr. Reece Grover Albumin/Globulin [Mass ratio] 0.8 {ratio} Normal [facility] Comment on above: Performed By: #### A MY, CMP, LIPA ####[facility] Bxquritmhi20[address] [place] [address]Dr. Reece Grover ALP [Catalytic activity/Vol] 296 U/L Critically high 46-116 [facility] Comment on above: Performed By: #### A MY, CMP, LIPA ####[facility] Dxvkgxlxsj[address] [place], [place] [address]Dr. Reece Grover ALT [Catalytic activity/Vol] 49 U/L Normal 14-59 [facility] Comment on above: Performed By: #### A MY, CMP, LIPA ####[facility] Abyguzoydp8689 [place] [address]Dr. Reece Grover Anion gap [Moles/Vol] 8.7 mmol/L Normal [facility] Comment on above: Performed By: #### A MY, CMP, LIPA ####[facility] Aeaygblfck6353 [place] [address]Dr. Reece Grover AST [Catalytic activity/Vol] 34 U/L Normal 15-37 [facility] Comment on above: Performed By: #### A MY, CMP, LIPA ####[facility] Mpfzdujunj6363 [place] [address]Dr. Reece Grover Bilirubin [Mass/Vol] 0.3 mg/dL Normal 0.2-1.0 [facility] Comment on above: Performed By: #### A MY, CMP, LIPA ####[facility] Nsduuxmkno4037 [place] [id number]. Reece Grover Calcium [Mass/Vol] 9.2 mg/dL Normal 8.5-10.1 The [facility] Comment on above: Performed By: #### A MY, CMP, LIPA ####[facility] Zsmtsenjze1493 [place] [address]Dr. Reece Grover Chloride [Moles/Vol] 105 mmol/L Normal 98-107 [facility] Comment on above: Performed By: #### A MY, CMP, LIPA ####[facility] Robpiligwq9[address] [place] [address]Dr. Reece Grover CO2 [Moles/Vol] 29.2 mmol/L Normal 21.0-32.0 [facility] Comment on above: Performed By: #### A MY, CMP, LIPA ####[facility] [address]yemscgut[address] [place], [place] [address]Dr. Reece Grover Creatinine [Mass/Vol] 0.84 mg/dL Normal 0.55-1.02 [facility] Comment on above: Performed By: #### A MY, CMP, LIPA ####[facility] [address]uxwdvktmd[address] [place], [place] [address]Dr. Reece Grover EGFR-AF HAITIAN >60 Normal >=60 [facility] Comment on above: Performed By: #### A MY, CMP, LIPA ####[facility] Ynfovhysfl[address] [place], [place] [address]Dr. Reece Grover EGFR-NON AF HAITIAN >60 Normal >=60 [facility] Comment on above: Performed By: #### A MY, CMP, LIPA ####[facility] Fjqvfcjlzk6567 [place] [address]Dr. Reece Grover Globulin (S) [Mass/Vol] 4.0 g/dL Normal [facility] Comment on above: Performed By: #### A MY, CMP, LIPA ####[facility] Lpiujauonp1649 [place] [address]Dr. Reece Grover Glucose [Mass/Vol] 98 mg/dL Normal 74-106 [facility] Comment on above: Performed By: #### A MY, CMP, LIPA ####[facility] Fnnffpasqx8434 [place] [address]Dr. Reece Grover Potassium [Moles/Vol] 3.9 mmol/L Normal 3.5-5.1 [facility] Comment on above: Performed By: #### A MY, CMP, LIPA ####[facility] Mjedibhdbm7256 [place] [address]Dr. Reece Grover Protein [Mass/Vol] 7.2 g/dL Normal 6.4-8.2 [facility] Comment on above: Performed By: #### A MY, CMP, LIPA ####[facility] Byrhyexuup5132 [place] [address]Dr. Reece Grover Sodium [Moles/Vol] 139 mmol/L Normal 136-145 [facility] Comment on above: Performed By: #### A MY, CMP, LIPA ####[facility] Ptuctmttmq0085 [place] [address]Dr. Reece Grover Urea nitrogen [Mass/Vol] 25.0 mg/dL Critically high 7.0-18.0 [facility] Comment on above: Performed By: #### A MY, CMP, LIPA ####[facility] Hdsyqohary0095 [place] [address]Dr. Reece Grover Urea nitrogen/Creatinine [Mass ratio] 29.8 mg/mg Normal [facility] Comment on above: Performed By: #### A MY, CMP, LIPA ####[facility] Okkhcuinxt84[address] [place] [address]Dr. Reece Grover US SINGLE QUAD RT UPPERon [...] by: ANDREI ESCOBAR Date: 2021-11-21 07:26 Normal [facility] XR ABD FLAT UP_PA Bautista 11-21 XR [...] by: JERSEY GUADALUPE Date: 2021-11-21 04:56 Normal [facility] [place] 07-16-2020 L -- ---- Specimen: [id number] Received: 07/16/20 Status: BERNICE Bajwa Num: [id number] Spec Type: Surgical Subm Dr: Rayo Farmer Jr, DO Tissues: A Colon Biopsy (RANDOM COLON BX) Procedures: HE Stain/2, Gross/Micro L4 ---- Patient Age/Sex Location Account Attending Physician ---- Lay Wayne 70/F [id number] Rayo Farmer Jr DO ---- SPEC NUM: [id number] RECD: 07/16/20-1235 STATUS: BERNICE BAJWA NUM: [id number] JUDITH: 07/16/20- SUBM DR: Rayo Farmer Jr, DO ENTERED: 07/16/20-1252 [facility] DR: PARAM TYPE: Surgical DEPT: S ORDERED: [...] microscopic findings support the above pathologic diagnosis. [id number] ---- ---- Specimen: [id number] Received: 07/16/20 Status: BERNICE Patelbladimir Num: [id number] Spec Type: Surgical Subm Dr: Rayo Farmer Jr, DO Tissues: A Colon Biopsy (RANDOM COLON BX) Procedures: HE Stain/2, Gross/Micro L4 ---- Patient: DongbretnellieLay [id number] (Continued) ---- Signed (signature on file) Amy Allen MD 07/17/20 1604 [facility] COVID-19 Antigenon 1 COVID-19 Antigen Healthcare Worker?: [...] its performance Karen Disclaimer characteristic determined by [employer] and Karen Disclaimer validated at [facility]. This Karen Disclaimer test has not [...] is terminated or revoked sooner. PERFORMED BY: [place] [address] PATHOLOGIST INSOLE ROUNDER AMY ALLEN M.D. Normal [facility] Comment on above: Performed By: #### S LUCY COVID-19 KAREN #### [facility] [address] [place] [address] Karen Ag Negativeon 07-16-19 21 Karen Ag Negative Negative Normal Negative [facility] Comment on above: Result Comment: This is a duplicate test result based off of the Karen SARS Antigen (THANIA) test performed within the Microbiology department. PERFORMED BY: [place] [address] PATHOLOGIST INSOLE ROUNDER AMY ALLEN M.D. Performed By: #### S OFJOAQUINA COVID-19 KAREN #### [facility] [address] [place], [place] [id number] [facility] C-Reactive Proteinon 021 C-Reactive Protein 1.2 mg/dL High 0.0-1.0 [facility] Comment on above: Result Comment: PERF ORMED BY: [place] [address] PATHOLOGIST INSOLE ROUNDER AMY ALLEN M.D. Performed By: #### C RP #### [address] abdomen pelvis w conon CT abdomen pelvis w con [facility] Main [place] [address] [place] [address] CT Scan Report Signed Patient: Lay Wayne MR#: [id number] : 1950 Acct:[id number] Age/Sex: 69 / F ADM Date: 06/10/20 Loc: ER Room: Type: [facility] ER Attending Dr: Ordering Provider: Clayton Wiggins [...] portion of the rectum. This may be passenger service representative of inflammatory or infectious etiology. This also may represent component of underdistention. No abscess. Impression dictated by: Antoine Dutta M.D.06/10/2020 6:40 PM Dictation Location: [place] [address] Transcribed By: [facility] 06/10/201839 Dictated By: Antoine Dutta DO 06/10/201831 Signed By: 06/10/201839 Normal [facility] Complete Blood Count Auto Di ffon 06-10-2020 Basophils (Bld) [#/Vol] 0.0 10*3/uL Normal 0.0-0.2 [facility] Comment on above: Result Comment: PERF ORMED BY: [place] [address] PATHOLOGIST INSOLE ROUNDER AMY ALLEN M.D. Performed By: #### C MP, LIPASE, TROP, CBC #### [address] Basophils/100 WBC (Bld) 0.8 % Normal . [facility] Comment on above: Performed By: #### C MP, LIPASE, TROP, CBC #### [address] Eosinophils (Bld) [#/Vol] 0.0 10*3/uL Normal 0.0-0.45 [facility] Comment on above: Performed By: #### C MP, LIPASE, TROP, CBC #### [address] Eosinophils/100 WBC (Bld) 0.2 % Normal . [facility] Comment on above: Performed By: #### C MP, LIPASE, TROP, CBC #### [address] Erythrocyte distribution width (RBC) [Ratio] 12.8 % Normal 11.9-15.3 [facility] Comment on above: Performed By: #### C MP, LIPASE, TROP, CBC #### [address] Hematocrit (Bld) [Volume fraction] 45.1 % Normal 34.0-46.4 [facility] Comment on above: Performed By: #### C MP, LIPASE, TROP, CBC #### [address] Hemoglobin (Bld) [Mass/Vol] 15.7 g/dL High 11.8-15.4 [facility] Comment on above: Performed By: #### C MP, LIPASE, TROP, CBC #### [address] Lymphocytes (Bld) [#/Vol] 1.5 10*3/uL Normal 1.00-4.8 [facility] Comment on above: Performed By: #### C MP, LIPASE, TROP, CBC #### [address] Lymphocytes/100 WBC (Bld) 25.2 % Normal . [facility] Comment on above: Performed By: #### C MP, LIPASE, TROP, CBC #### [address] MCH (RBC) [Entitic mass] 33.5 pg Normal 24.7-34.3 [facility] Comment on above: Performed By: #### C MP, LIPASE, TROP, CBC #### [address] MCV (RBC) [Entitic vol] 96.6 fL Normal 80-100 [facility] Comment on above: Performed By: #### C MP, LIPASE, TROP, CBC #### [address] Mean Corpuscular HGB Conc 34.7 g/dL Normal 32.0-35.0 [facility] Comment on above: Performed By: #### C MP, LIPASE, TROP, CBC #### [address] [place] [address] [place] Monocytes (Bld) [#/Vol] 0.3 10*3/uL Normal 0.0-0.8 [facility] Comment on above: Performed By: #### C MP, LIPASE, TROP, CBC #### [facility] [address] Monocytes/100 WBC (Bld) 5.6 % Normal . [facility] Comment on above: Performed By: #### C MP, LIPASE, TROP, CBC #### [address] Neutrophils (Bld) [#/Vol] 4.2 10*3/uL Normal 1.8-7.7 [facility] Comment on above: Performed By: #### C MP, LIPASE, TROP, CBC #### [address] Neutrophils/100 WBC (Bld) 68.2 % Normal . [facility] Comment on above: Performed By: #### C MP, LIPASE, TROP, CBC #### [place] [address] [place] Nucleated RBC/100 WBC (Bld) [Ratio] 0.1 % Normal 0-0.5 [facility] Comment on above: Performed By: #### C MP, LIPASE, TROP, CBC #### [place] [address] [place] Platelet mean volume (Bld) [Entitic vol] 7.8 fL Normal 6.3-10.7 [facility] Comment on above: Performed By: #### C MP, LIPASE, TROP, CBC #### [place] [address] [place] Platelets (Bld) [#/Vol] 268 10*3/uL Normal 150-450 [facility] Comment on above: Performed By: #### C MP, LIPASE, TROP, CBC #### [place] [address] [place] RBC (Bld) [#/Vol] 4.67 10*6/uL Normal 3.60-5.00 [facility] Comment on above: Performed By: #### C MP, LIPASE, TROP, CBC #### [address] WBC (Bld) [#/Vol] 6.1 10*3/uL Normal 4.5-11.0 [facility] Comment on above: Performed By: #### C MP, LIPASE, TROP, CBC #### [address] Comprehensive Metabolic Pane [place] 06-10-2020 Albumin [Mass/Vol] 3.9 g/dL Normal 3.2-5.5 [facility] Comment on above: Performed By: #### C MP, LIPASE, TROP, CBC #### [address] Albumin/Globulin [Mass ratio] 1.0 {ratio} Normal [facility] Comment on above: Performed By: #### C MP, LIPASE, TROP, CBC #### [address] ALP [Catalytic activity/Vol] 302 U/L High 32-92 [facility] Comment on above: Performed By: #### C MP, LIPASE, TROP, CBC #### [address] ALT [Catalytic activity/Vol] 43 U/L Normal 10-60 [facility] Comment on above: Performed By: #### C MP, LIPASE, TROP, CBC #### [address] AST [Catalytic activity/Vol] 36 U/L Normal 10-42 [facility] Comment on above: Performed By: #### C MP, LIPASE, TROP, CBC #### [address] Bilirubin [Mass/Vol] 0.8 mg/dL Normal 0.3-1.2 [facility] Comment on above: Performed By: #### C MP, LIPASE, TROP, CBC #### [address] Calcium [Mass/Vol] 9.5 mg/dL Normal 8.2-10.2 [facility] Comment on above: Performed By: #### C MP, LIPASE, TROP, CBC #### [facility] [address] Chloride [Moles/Vol] 103 mmol/L Normal 95-114 [facility] Comment on above: Performed By: #### C MP, LIPASE, TROP, CBC #### [address] CO2 [Moles/Vol] 22.4 mmol/L Normal 22.0-30.0 [facility] Comment on above: Performed By: #### C MP, LIPASE, TROP, CBC #### [address] Creatinine [Mass/Vol] 0.77 mg/dL Normal 0.44-1.03 [facility] Comment on above: Performed By: #### C MP, LIPASE, TROP, CBC #### [address] Creatinine Clr Calc Pharmacy 44.82 [facility] Comment on above: Performed By: #### C MP, LIPASE, TROP, CBC #### [address] Estimated GFR ( Xochitl > 60 [facility] Comment on above: Result Comment: GFR estimated reference range: According to KDOQI guidelines, <60 ml/min/1.73m2 is sufficient to diagnose a patient with chronic kidney disease. Performed By: #### C MP, LIPASE, TROP, CBC #### [address] Estimated GFR (Non- Am > 60 [facility] Comment on above: Performed By: #### C MP, LIPASE, TROP, CBC #### [address] Globulin (S) [Mass/Vol] 4.1 g/dL [facility] Comment on above: Performed By: #### C MP, LIPASE, TROP, CBC #### [address] Glucose [Mass/Vol] 99 mg/dL Normal 70-100 [facility] Comment on above: Result Comment: [facility] Glucose Reference Range is dependent on time and content of last meal. Glucose of more than 200 mg/dL in a nonstressed, ambulatory subject supports the diagnosis of Diabetes Mellitus. ADA recommended reference range Performed By: #### C MP, LIPASE, TROP, CBC #### [address] Potassium [Moles/Vol] 3.7 mmol/L Normal 3.5-5.1 [facility] Comment on above: Performed By: #### C MP, LIPASE, TROP, CBC #### [address] Protein [Mass/Vol] 8.0 g/dL High 6.1-7.9 [facility] Comment on above: Performed By: #### C MP, LIPASE, TROP, CBC #### [address] Sodium [Moles/Vol] 137 mmol/L Normal 136-146 [facility] Comment on above: Performed By: #### C MP, LIPASE, TROP, CBC #### [address] Urea nitrogen [Mass/Vol] 13 mg/dL Normal 9-23 [facility] Comment on above: Performed By: #### C MP, LIPASE, TROP, CBC #### [place] [address] [place] Dipstick and Microscopicon 0 06-10-2020 Appearance (U) Clear Normal Clear [facility] Comment on above: Order Comment: Name Collection Type:: Clean-Voided Midstream Performed By: #### A DDONUAPLUS #### [place] [address] [place] Bacteria,Urine Rare High None Seen [facility] Comment on above: Order Comment: Name Collection Type:: Clean-Voided Midstream Performed By: #### A DDONUAPLUS #### [facility] [address] [place] [address] [place] Bilirubin,Urine Negative Normal Negative [facility] Comment on above: Order Comment: Name Collection Type:: Clean-Voided Midstream Performed By: #### A DDONUAPLUS #### [facility] [address] [place] [address] [place] Color (U) Yellow Normal Yellow [facility] Comment on above: Order Comment: Name Collection Type:: Clean-Voided Midstream Performed By: #### A DDONUAPLUS #### [place] [address] [place] Glucose Ql (U) Normal Normal Normal [facility] Comment on above: Order Comment: Name Collection Type:: Clean-Voided Midstream Performed By: #### A DDONUAPLUS #### [place] [address] [place] Ketones Ql (U) 2+ High Negative [facility] Comment on above: Order Comment: Name Collection Type:: Clean-Voided Midstream Performed By: #### A DDONUAPLUS #### [facility] [address] [place] [address] [place] Leukocyte esterase Test strip Ql (U) 1+ High Negative [facility] Comment on above: Order Comment: Name Collection Type:: Clean-Voided Midstream Performed By: #### A DDONUAPLUS #### [facility] [address] [place] [address] [place] Mucus,Urine 3+ Critically abnormal [facility] Comment on above: Order Comment: Name Collection Type:: Clean-Voided Midstream Result Comment: PERF ORMED BY: [place] [address] PATHOLOGIST INSOLE ROUNDER AMY ALLEN M.D. Performed By: #### A DDONUAPLUS #### [facility] [address] [place] [address] [place] Nitrite,Urine Negative Normal Negative [facility] Comment on above: Order Comment: Name Collection Type:: Clean-Voided Midstream Performed By: #### A DDONUAPLUS #### [address] Occult Blood,Urine Trace High Negative [facility] Comment on above: Order Comment: Name Collection Type:: Clean-Voided Midstream Result Comment: PERF ORMED BY: [place] [address] PATHOLOGIST INSOLE ROUNDER AMY ALLEN M.D. Performed By: #### A DDONUAPLUS #### [address] pH (U) 5.5 [pH] Normal 5.0-9.0 [facility] Comment on above: Order Comment: Name Collection Type:: Clean-Voided Midstream Performed By: #### A DDONUAPLUS #### [address] Protein (U) [Mass/Vol] 30 mg/dL High Negative [facility] Comment on above: Order Comment: Name Collection Type:: Clean-Voided Midstream Performed By: #### A DDONUAPLUS #### [address] RBC LM.HPF (Urine sed) [#/Area] 0 /[HPF] Normal 0-4 [facility] Comment on above: Order Comment: Name Collection Type:: Clean-Voided Midstream Performed By: #### A DDONUAPLUS #### [address] Specificy [place],Urine 1.021 Normal 1.001-1.030 [facility] Comment on above: Order Comment: Name Collection Type:: Clean-Voided Midstream Performed By: #### A DDONUAPLUS #### [address] Squamous Epithelial Cell,Urine 0-1 Normal 0-2 [facility] Comment on above: Order Comment: Name Collection Type:: Clean-Voided Midstream Performed By: #### A DDONUAPLUS #### [address] Urobilinogen,Urine Normal Normal Normal [facility] Comment on above: Order Comment: Name Collection Type:: Clean-Voided Midstream Performed By: #### A DDONUAPLUS #### [address] WBC,Urine 3-4 Normal 0-4 [facility] Comment on above: Order Comment: Name Collection Type:: Clean-Voided Midstream Performed By: #### A DDONUAPLUS #### [address] Lipaseon 06-10-2020 Lipase [Catalytic activity/Vol] 30.0 U/L Normal 22-51 [facility] Comment on above: Result Comment: PERF ORMED BY: [place] [address] PATHOLOGIST INSOLE ROUNDER AMY ALLEN M.D. Performed By: #### C MP, LIPASE, TROP, CBC #### [address] Troponin I(TnI)on 06-10-2020 Troponin I.cardiac [Mass/Vol] 0.02 ng/mL Normal 0-0.02 [facility] Comment on above: Result Comment: [place] Cut off value > or equal to 0.03 ng/mL in conjunction with clinical conditions of myocardial infarction. (www.escardio.org/guidelines) PERFORMED BY: [place] [address] PATHOLOGIST INSOLE ROUNDER AMY ALLEN M.D. Performed By: #### C MP, LIPASE, TROP, CBC #### [address] Urine Cultureon 06-10-2020 Bacteria identified Cx Nom (U) 25,000 colonies/ml mixed bacterial skin contaminants 2 Days PERFORMED BY: [place] [address] PATHOLOGIST INSOLE ROUNDER AMY ALLEN M.D. Normal [facility] Comment on above: Performed By: #### C UU #### [facility] [address] [place] [address] [place] Encounters Encounter Date Encounter Type Care Provider Facility Start: 09-09-2022 End: 09-10-[address] NATALIIA BRYSON Facility:[facility] Start: 11-21-2021 End: 11-21-[address] MERRITT ALAN Facility:[facility] Start: 11-21-2021 End: 11-21-[address] HALEY STRATTON . Facility:[facility] Payers Date Payer Category Payer Unknown [id number] 1950 Unknown [id number] [id number] [id number] 1950 Unknown [id number] [id number] [id number] 1950 Unknown [id number] [id number] [id number] Summary Purpose Family History No Family History Records FoundNo Family History Records Found Advance Directives No Advanced Directives Records FoundNo Advanced Directives Records Found Additional Source Comments INFORMATION SOURCE (unrecogn ized section and content) DATE CREATED AUTHOR 06/10/2021 [facility] DATE CREATED AUTHOR AUTHOR'S ORGANIZ ATION 09/12/2022 [facility] FOR RECORDS PERTAINING TO PATIENTS WHO [...] BE BASED ON THE PRIMARY CLINICAL RECORDS. [facility] [email or web address] provides no warranty or guarantee of the accuracy or completeness of information in this document.
--- NOTE | 2024-04-14 08:36 | P.GSCN_ITS ---
History of Present Illness Consult details Consult date: 04/14/24 Reason for consult: gallstones Requesting physician: Shaikh Diana Narrative: Janiya Dupree is a 73-year-old female presented to the ED early this morning with complaints of chest pain and was worked up by the ED physician with a CTA showing no evidence of a pulmonary embolism and a CT of the abdomen and pelvis due to elevated LFTs. Alkaline phosphatase was elevated at 841 but total bilirubin was normal and other LFTs were elevated as well. Patient states that she has a burning pain in the mid abdomen but denies any back pain jaundice abe colored stools fever chills. She was eating at the [facility] for Thanksgiving dinner yesterday at noon. She became ill with nausea and vomiting and pain at 11 PM last night. She had nausea and vomiting in the ED. Her pain is better. She denies any history of indigestion or GERD. She has an ex tobacco user. She smokes tobacco up until July of this year when she quit on her own after smoking tobacco for 40 years. She has a history of hypertension. CT scan of the abdomen showed a 3 mm gallstone without evidence of cholecystitis in the gallbladder. She is also found to have a mass on her thyroid 2.4 cm for which the recommended outpatient workup. She also has changes compatible with COPD in the lungs. She denies any hematochezia melena or unusual weight loss. She is constantly rubbing her left lower abdominal wall because it hurts there as well. Denies any history of diverticular disease and states that she has had several colonoscopies. She denies any alcohol use. Review of Systems ROS Status of ROS 10 or more systems reviewed and unremark able except as noted in history and below [facility] Medical History (Updated 04/14/24 @ 06:50 by Brielle Resendiz RN) Depression ?F32.A - Depression, unspecified (ICD-10) Chronic obstructive pulmonary disease ?J44.9 - Chronic obstructive pulmonary disease, unspecified (ICD-10) Hypertension ?I10 - Essential (primary) hypertension (ICD-10) High cholesterol ?E78.00 - Pure hypercholesterolemia, unspecified (ICD-10) Surgical History History of hysterectomy ?Z90.710 - Acquired absence of both cervix and uterus (ICD-10) Family History (Updated 04/14/24 @ 08:38 by Carmen José) Father Family history of COPD (chronic obstructive pulmonary disease) Family history of hypertension Family history of myocardial infarction Mother Family history of COPD (chronic obstructive pulmonary disease) Family history of hypertension Family history of stroke Social History (Updated 04/14/24 @ 08:41 by Carmen José) Within the past year, how often did you have a drink containing alcohol: never Score interpretation: A score less than 3 is consistent with normal alcohol consumption. Smoking status: Former smoker Non-prescribed substance use: denies use Previous occupational history: retired Highest level of school completed/degree received: 10th grade Are you now , , , , never or living with a partner: In a typical week, how many times do you talk on the telephone with family, friends, or neighbors: 3 or more times per week How often do you get together with friends or relatives: 3 or more times per week How often do you attend denominational or temple services: never Do you belong to any clubs or organizations such as denominational groups unions, [employer] or athletic groups, or school groups: no Total score: 2 Score interpretation: A score of greater than or equal to 2 indicates the lowest level of social isolation. Little interest or pleasure in doing things: not at all Feeling down, depressed, or hopeless: not at all Feel stressed/tense/nervous/anxious/difficulty sleeping: not at all Meds Home Medications and Allergies Home Medications ?Medication ?Instructions ?Recorded ?Confirmed ?Type aripiprazole 10 mg tablet 10 mg PO . 04/14/24 04/14/24 History doxazosin 1 mg tablet 1 mg PO BID 04/14/24 04/14/24 History ezetimibe 10 mg tablet 10 mg PO DAILY 04/14/24 04/14/24 History hydralazine 25 mg tablet 50 mg PO DAILY 04/14/24 04/14/24 History losartan 50 mg tablet 50 mg PO BID 04/14/24 04/14/24 History olmesartan 40 mg tablet 40 mg PO DAILY 04/14/24 04/14/24 History rosuvastatin 20 mg tablet 20 mg PO . 04/14/24 04/14/24 History trazodone 50 mg tablet 50 mg PO .HS 04/14/24 04/14/24 History Allergies Allergy/AdvReac Type Severity Reaction Status Date / Time codeine Allergy Severe Hives Verified 04/14/24 06:49 Penicillins Allergy Unknown Hives Verified 04/14/24 01:39 Exam Constitutional Vital Signs, click to edit/add: Last Vital Signs Temp 98.1 F 04/14/24 01:33 Pulse 71 04/14/24 07:00 Resp 18 04/14/24 07:00 BP 161/53 H 04/14/24 06:39 Pulse Ox 96 04/14/24 07:00 O2 Del Method Room Air 04/14/24 01:33 Documenting provider has reviewed patient's vital signs: yes Common normals: no apparent distress, oriented x3 and alert General appearance: frail appearing and appears older than stated age Nutritional appearance: cachectic Eye Common normals: no scleral icterus GI Common normals: Normal to inspection, nondistended, normoactive bowel sounds present and soft to palpation Palpation: soft and tender Details: LLQ and RUQ Neuro Common normals: oriented x3, CN's II-XII intact bilaterally, moves all extremities, no focal motor deficits and no sensory deficits noted Results Labs Labs: Abnormal lab results 04/14/24 Range/Units 01:45 RBC 3.53 L (4.20-5.40) 10^6/uL Hgb 11.6 L (12.0-16.0) g/dL MCV 102.0 H (81.0-99.0) fL D-Dimer 0.60 H (<=0.59) mg/L FEU Chloride 108 H (98-107) mmol/L BUN 19.0 H (7.0-18.0) mg/dL Calcium 8.3 L (8.5-10.1) mg/dL AST 156 H (15-37) U/L ALT 218 H (14-59) U/L Alkaline Phosphatase 841 H (46-116) U/L Albumin 2.8 L (3.4-5.0) g/dL Diabetes panel 04/14/24 Range/Units 01:45 Sodium 143 (136-145) mmol/L Potassium 3.6 (3.5-5.1) mmol/L Chloride 108 H (98-107) mmol/L Carbon Dioxide 26.7 (21.0-32.0) mmol/L BUN 19.0 H (7.0-18.0) mg/dL Creatinine 0.86 (0.55-1.02) mg/dL Glucose 102 (74-106) mg/dL Calcium 8.3 L (8.5-10.1) mg/dL AST 156 H (15-37) U/L ALT 218 H (14-59) U/L Alkaline Phosphatase 841 H (46-116) U/L Total Protein 7.2 (6.4-8.2) g/dL Albumin 2.8 L (3.4-5.0) g/dL Calcium panel 04/14/24 Range/Units 01:45 Calcium 8.3 L (8.5-10.1) mg/dL Albumin 2.8 L (3.4-5.0) g/dL Pituitary panel 04/14/24 Range/Units 01:45 Sodium 143 (136-145) mmol/L Potassium 3.6 (3.5-5.1) mmol/L Chloride 108 H (98-107) mmol/L Carbon Dioxide 26.7 (21.0-32.0) mmol/L BUN 19.0 H (7.0-18.0) mg/dL Creatinine 0.86 (0.55-1.02) mg/dL Glucose 102 (74-106) mg/dL Calcium 8.3 L (8.5-10.1) mg/dL Adrenal panel 04/14/24 Range/Units 01:45 Sodium 143 (136-145) mmol/L Potassium 3.6 (3.5-5.1) mmol/L Chloride 108 H (98-107) mmol/L Carbon Dioxide 26.7 (21.0-32.0) mmol/L BUN 19.0 H (7.0-18.0) mg/dL Creatinine 0.86 (0.55-1.02) mg/dL Glucose 102 (74-106) mg/dL Calcium 8.3 L (8.5-10.1) mg/dL Total Bilirubin 0.4 (0.2-1.0) mg/dL AST 156 H (15-37) U/L ALT 218 H (14-59) U/L Alkaline Phosphatase 841 H (46-116) U/L Total Protein 7.2 (6.4-8.2) g/dL Albumin 2.8 L (3.4-5.0) g/dL All other labs normal. Imaging Abdomen CT scan report/results: report reviewed CT scan - chest: report reviewed CT scan - pelvis: report reviewed Abdominal ultrasound report/results: report reviewed Assessment and Plan Assessment and Plan (1) Nausea & vomiting: (2) Elevated liver function tests: (3) Cholelithiasis: (4) Atypical chest pain: (5) Abdominal pain: (6) Hypertension: (7) Chronic obstructive pulmonary disease: (8) Depression: (9) High cholesterol: (10) History of hysterectomy: Plan Would recommend intravenous antibiotics until ultrasound of the gallbladder was obtained; she could have cholecystitis since she is slightly tender in the right upper quadrant and has nausea and vomiting with [address] shows no evidence of cholecystitis therefore we will await results of ultrasound of the gallbladder prior to making any decisions about possible surgical intervention if needed. If ultrasound is negative then would recommend hepatitis profile. She denies any history of IV drug abuse needlesticks or blood transfusions or travel outside the country recently.
[2024-04-14] MEDS: LACTATED RINGER'S SOLUTION 1,000 ML 100 ML IV ×2 (08:53→19:37)
[2024-04-14] MEDS: DOXAZOSIN MESYLATE 2 MG TABLET 1 MG PO ×2 (08:53→21:40)
[2024-04-14] MEDS: HYDRALAZINE HCL 25 MG TABLET 50 MG PO ×2 (08:53→21:39)
[2024-04-14] MEDS: PANTOPRAZOLE SODIUM 40 MG VIAL IV (08:53)
[2024-04-14] MEDS: LOSARTAN POTASSIUM 25 MG TABLET 75 MG PO (08:55)
[2024-04-14] MEDS: CEFTRIAXONE 1,000 MG in 0.9 % SODIUM CHLORIDE 50 ML 100 MG IV (11:02)
[2024-04-14] MEDS: METRONIDAZOLE/SODIUM CHLORIDE 500 MG/100 ML PREMIX 100 MG IV ×2 (11:02→19:33)
--- NOTE | 2024-04-14 11:17 | CM.NOTE ---
Rounds made with Dr. Ortzi. Dr. Ortiz discussed lab and CT scan results and need for GB US and surgery consult. Janiya verbalized understanding. No plan for discharge today.
--- NOTE | 2024-04-14 13:08 | SWNOTE1 ---
Medicare Outpatient Observation Notice reviewed and discussed with patient. Pt. verbalized understanding and signed the form. Original given to patient and copy placed in patient?s chart.
--- NOTE | 2024-04-14 13:08 | SWNOTE1 ---
SW met with pt to discuss dc needs. Pt lives at home with her . She did not use any DME at home. Pt and help care for each other and still do the grocery shopping, cleaning, cooking, laundry, etc. Pt does have any services coming in at this time. Pt denies having any discharge needs. SW to follow as needed.
--- NOTE | 2024-04-14 13:16 | P.HP_ITS ---
HPI H&P: HPI History of Present Illness Chief complaint: CHEST PAIN, ELEVATED LIVER ENZYMES Narrative: 73-year-old female presented to ER with burning chest discomfort, epigastric pain along with nausea and vomiting. According to the patient, she was in her usual state of health until yesterday when she thinks that she over ate at lunch buffet. She did not eat her dinner last night and then around 11 at night, she started to experience burning chest discomfort, nausea and epigastric and right upper quadrant abdominal pain. Patient came to ER earlier this morning for evaluation. Patient had no acute finding on EKG and her troponin x 2 were negative. Patient had 2-3 episodes of vomiting in ER also and at the time of my evaluation, she was still quite nauseous and was complaining of epigastric abdominal discomfort. Workup in ER revealed transaminitis with considerable elevation in alk phos along with cholelithiasis without evidence of biliary obstruction or cholecystitis. Patient also had an elevated D-dimer for which a CTA chest was performed that did not reveal evidence of pulmonary embolism. Patient was evaluated by general surgery who recommended IV antibiotics for suspected cholecystitis, monitoring of her liver enzymes and ultrasound of right upper quadrant. Right upper quadrant ultrasound revealed that the previously noted gallstone is not visible now and there was no evidence of cholecystitis. It is quite possible that patient passed the stone resulting in her symptoms and abnormal liver enzymes. I have reassessed her after ultrasound and initial treatment with IV antibiotics. She is still feeling nauseous but has not thrown up since this mor sebastian. Her pain is 5 out of 10 and has improved a little bit Opioid HPI Opioid Management Most Recent Pain and Opioid Data: Last Pain Scale 8 04/14/24 02:40 04/14/24 Last Pain Assessment 04/14/24 12:21 Last MAR Pain Assessment 04/14/24 02:40 Last ORT Total Score 1 04/14/24 08:42 04/14/24 Last ORT Risk Category Low Risk 04/14/24 08:42 04/14/24 Review of Systems ROS Status of ROS 10 or more systems reviewed and unremark able except as noted in history and below [facility] Medical History (Updated 04/14/24 @ 13:18 by Shaikh Diana MD) Bipolar depression ?F31.9 - Bipolar disorder, unspecified (ICD-10) HLD (hyperlipidemia) ?E78.5 - Hyperlipidemia, unspecified (ICD-10) Depression ?F32.A - Depression, unspecified (ICD-10) Chronic obstructive pulmonary disease ?J44.9 - Chronic obstructive pulmonary disease, unspecified (ICD-10) Hypertension ?I10 - Essential (primary) hypertension (ICD-10) High cholesterol ?E78.00 - Pure hypercholesterolemia, unspecified (ICD-10) Surgical History History of hysterectomy ?Z90.710 - Acquired absence of both cervix and uterus (ICD-10) Family History (Updated 04/14/24 @ 08:38 by Carmen José) Father Family history of COPD (chronic obstructive pulmonary disease) Family history of hypertension Family history of myocardial infarction Mother Family history of COPD (chronic obstructive pulmonary disease) Family history of hypertension Family history of stroke Social History (Updated 04/14/24 @ 08:41 by Carmen José) Within the past year, how often did you have a drink containing alcohol: never Score interpretation: A score less than 3 is consistent with normal alcohol consumption. Smoking status: Former smoker Non-prescribed substance use: denies use Previous occupational history: retired Highest level of school completed/degree received: 10th grade Are you now , , , , never or living with a partner: In a typical week, how many times do you talk on the telephone with family, friends, or neighbors: 3 or more times per week How often do you get together with friends or relatives: 3 or more times per w [place] How often do you attend mu-ism or gnosticism services: never Do you belong to any clubs or organizations such as mu-ism groups unions, [employer] or athletic groups, or school groups: no Total score: 2 Score interpretation: A score of greater than or equal to 2 indicates the lowest level of social isolation. Little interest or pleasure in doing things: not at all Feeling down, depressed, or hopeless: not at all Feel stressed/tense/nervous/anxious/difficulty sleeping: not at all Meds Home Medications and Allergies Home Medications ?Medication ?Instructions ?Recorded ?Confirmed ?Type aripiprazole 10 mg tablet 10 mg PO .HS 04/14/24 04/14/24 History doxazosin 1 mg tablet 1 mg PO BID 04/14/24 04/14/24 History ezetimibe 10 mg tablet 10 mg PO DAILY 04/14/24 04/14/24 History hydralazine 25 mg tablet 50 mg PO DAILY 04/14/24 04/14/24 History losartan 50 mg tablet 50 mg PO BID 04/14/24 04/14/24 History olmesartan 40 mg tablet 40 mg PO DAILY 04/14/24 04/14/24 History rosuvastatin 20 mg tablet 20 mg PO .hS 04/14/24 04/14/24 History trazodone 50 mg tablet 50 mg PO .HS 04/14/24 04/14/24 History Allergies Allergy/AdvReac Type Severity Reaction Status Date / Time codeine Allergy Severe Hives Verified 04/14/24 06:49 Penicillins Allergy Unknown Hives Verified 04/14/24 01:39 Exam Constitutional Vital Signs, click to edit/add: Last Vital Signs Temp 98.2 F 04/14/24 08:42 Pulse 70 04/14/24 08:42 Resp 18 04/14/24 08:42 BP 176/78 H 04/14/24 08:42 Pulse Ox 97 04/14/24 11:01 O2 Del Method Room Air 04/14/24 11:01 Documenting provider has reviewed patient's vital signs: yes Common normals: oriented x3 General appearance: cooperative, ill appearing and frail appearing Nutritional appearance: underweight HENMT Common normals: normocephalic and head/scalp atraumatic Head and scalp: normocephalic and atraumatic Eye Common normals: conjunctivae normal and no scleral icterus Conjunctiva: conjunctiva(e) normal Respiratory Common normals: normal respiratory effort and clear to auscultation bilaterally Effort & inspection: able to speak in complete sentences Auscultation: clear to auscultation bilaterally Cardio Common normals: regular rate, S1 normal heart sound and S2 normal heart sound Rate: regular rate Heart sounds: S1 normal and S2 normal GI Common normals: Normal to inspection, nondistended, normoactive bowel sounds present, soft to palpation and no hepatosplenomegaly Palpation: soft, tender Details: epigastric and RUQ and no hepatosplenomegaly Extremity Common normals: no clubbing, cyanosis or edema Neuro Common normals: oriented x3, moves all extremities and no focal motor deficits Psych Common normals: mental status grossly normal, denies hallucinations, denies homicidal ideation and denies suicidal ideation Results Labs Labs: Short CBC 04/14/24 Range/Units 01:45 WBC 4.5 (4.0-11.0) 10^3/uL Hgb 11.6 L (12.0-16.0) g/dL Hct 36.0 (36.0-48.0) % Plt Count 215 (150-450) 10^3/uL BMP 04/14/24 01:45 Sodium 143 Potassium 3.6 Chloride 108 H Carbon Dioxide 26.7 BUN 19.0 H Creatinine 0.86 Glucose 102 Calcium 8.3 L Liver Function 04/14/24 Range/Units 01:45 Total Bilirubin 0.4 (0.2-1.0) mg/dL AST 156 H (15-37) U/L ALT 218 H (14-59) U/L Alkaline Phosphatase 841 H (46-116) U/L Albumin 2.8 L (3.4-5.0) g/dL Assessment and Plan Assessment and Plan (1) Cholelithiasis: Assessment and Plan: No evidence of cholecystitis on ultrasound. Patient was being empirically treated with IV Rocephin and Flagyl. It is quite possible that patient passed the stone resulting in acute symptoms/elevation in AST ALT and alk phos. Continue with supportive care with IV fluids, antiemetics and pain control. Continue with IV antibiotic for now. Started on clear liquid diet. Advance diet as tolerated. Observe overnight to follow-up on her liver enzymes and ensure clinical improvement with resolution/improvement in her nausea and abdominal pain Qualifiers: Cholelithiasis location: gallbladder Cholecystitis presence: without cholecystitis Biliary obstruction: without biliary obstruction Qualified Code(s): K80.20 - Calculus of gallbladder without cholecystitis without obstruction (2) Nausea & vomiting: Assessment and Plan: Likely due to biliary colic. Still nauseous but no vomiting. Zofran as needed. Started on clear liquid diet. Qualifiers: Vomiting type: unspecified Qualified Code(s): R11.2 - Nausea with vomiting, unspecified (3) Elevated liver function tests: Assessment and Plan: Likely due to cholelithiasis with stone passing through CBD. Monitor liver enzymes. Hold Crestor and ezetimibe. (4) Atypical chest pain: Assessment and Plan: Patient initially presented with chest pain. Her symptoms were likely of GI etiology. Cardiac enzymes x 2 negative. Monitor. (5) Abdominal pain: Assessment and Plan: Epigastric and right upper quadrant pain. Likely due to symptomatic cholelithiasis and possibly GERD. On IV Protonix. Empirically treated for cholecystitis with IV Rocephin and Flagyl Qualifiers: Abdominal location: epigastric Qualified Code(s): R10.13 - Epigastric pain (6) Hypertension: Assessment and Plan: Continue with home medication. IV hydralazine as needed. Qualifiers: Hypertension type: primary hypertension Qualified Code(s): I10 - Essential (primary) hypertension (7) Chronic obstructive pulmonary disease: Assessment and Plan: No active wheezing. Albuterol as needed. Qualifiers: COPD type: unspecified COPD Qualified Code(s): J44.9 - Chronic obstr uctive pulmonary disease, unspecified (8) Bipolar depression: Assessment and Plan: no Suicidal ideation or homicidal ideation. Continue home medications. (9) HLD (hyperlipidemia): Assessment and Plan: Crestor and ezetimibe due to abnormal liver function. Qualifiers: Hyperlipidemia type: unspecified Qualified Code(s): E78.5 - Hyperlipidemia, unspecified
[2024-04-14] MEDS: ENOXAPARIN SODIUM 30 MG/0.3 ML SYRINGE SUBQ (13:53)
[2024-04-14] MEDS: IBUPROFEN 600 MG TABLET PO (18:23)
[2024-04-14] MEDS: ARIPIPRAZOLE 5 MG TABLET 10 MG PO (21:40)
[2024-04-14] MEDS: TRAZODONE HCL 50 MG TABLET PO (21:40)
[2024-04-15] MEDS: METRONIDAZOLE/SODIUM CHLORIDE 500 MG/100 ML PREMIX 100 MG IV (03:43)
[2024-04-15 03:47] VITALS: BP 156/70; PULSE 74; TEMP 36.8; O2SAT 92
[2024-04-15] MEDS: ONDANSETRON PF 4 MG/2 ML VIAL IV ×2 (03:52→09:40)
[2024-04-15] MEDS: OXYCODONE HCL 5 MG TABLET PO (03:56)
[2024-04-15 04:49] VITALS: O2SAT 92
[2024-04-15 06:08] LABS: Basophils Absolute Auto 0.1 10^3/uL (0.0-0.1); Basophils Percent Auto 1.4 % (0.2-2.0); Eosinophils Percent Auto 1.1 % (0.9-7.0); Hematocrit 31.6 % (36.0-48.0); Hemoglobin 10.1 g/dL (12.0-16.0); Immature Granulocytes Abs Auto 0.01 10^3/uL (0.00-0.03); Immature Granulocytes Pct Auto 0.3 % (0.0-0.5); Lymphocytes Absolute Auto 0.7 10^3/uL (1.2-3.8); Lymphocytes Percent Auto 20.4 % (20.5-60.0); Mean Corpuscular Hemoglobin 32.6 pg (26.7-34.0); Mean Corpuscular Volume 101.9 fL (81.0-99.0); Mean Platelet Volume 10.3 fL (9.5-13.5); Monocytes Absolute Auto 0.3 10^3/uL (0.3-0.8); Neutrophils Absolute Auto 2.4 10^3/uL (1.4-6.5); Neutrophils Percent Auto 67.8 % (43.0-75.0); Platelet Count 165 10^3/uL (150-450); Red Cell Distribution Width 13.1 % (11.0-15.0); White Blood Count 3.6 10^3/uL (4.0-11.0)
[2024-04-15 06:33] LABS: Alanine Aminotransferase 129 U/L (14-59); Albumin Globulin Ratio 0.6; Albumin Level 2.3 g/dL (3.4-5.0); Alkaline Phosphatase 629 U/L (46-116); Anion Gap 12.5; Aspartate Amino Transferase 55 U/L (15-37); BUN Creatinine Ratio 12.9; Bilirubin Total 0.5 mg/dL (0.2-1.0); Calcium 7.5 mg/dL (8.5-10.1); Chloride 107 mmol/L (98-107); Estimated GFR (African America >60 (>=60 mL/min/1.73m^2); Estimated GFR (Non-African Ame >60 (>=60 mL/min/1.73m^2); Globulin 3.7 g/dL; Glucose 90 mg/dL (74-106); Potassium 3.5 mmol/L (3.5-5.1); Sodium 140 mmol/L (136-145)
[2024-04-15] MEDS: LACTATED RINGER'S SOLUTION 1,000 ML 100 ML IV (07:45)
[2024-04-15] MEDS: MORPHINE SULFATE 2 MG/ML SYRINGE IV (07:53)
[2024-04-15] MEDS: PANTOPRAZOLE SODIUM 40 MG VIAL IV (08:56)
[2024-04-15] MEDS: HYDRALAZINE HCL 25 MG TABLET 50 MG PO (08:56)
[2024-04-15] MEDS: DOXAZOSIN MESYLATE 2 MG TABLET 1 MG PO (08:56)
[2024-04-15] MEDS: LOSARTAN POTASSIUM 25 MG TABLET 75 MG PO (08:56)
[2024-04-15 11:00] VITALS: BP 147/68; PULSE 80; TEMP 36.7; O2SAT 96
[2024-04-15] MEDS: CEFTRIAXONE 1,000 MG in 0.9 % SODIUM CHLORIDE 50 ML 100 MG IV (11:20)
[2024-04-15 11:36] VITALS: O2SAT 95
--- NOTE | 2024-04-15 13:34 | PM.DS1 ---
DS: Providers Provider Date of admission: 04/14/24 08:18 Primary care physician: NATALIIA BRYSON DO Admitting clinician: Shaikh Diana Attending physician on admission: Shaikh Diana Consults: 04/14/24 07:52 Consult to General Surgeon Routine Consulting Provider: Neftaly Mack Reason for consultation: Cholelithiasis Attending physician on discharge: Shaikh Diana Discharging clinician: Shaikh Diana Anticipated date of discharge: 04/15/24 DS: Diagnosis Discharge Diagnosis (1) Cholelithiasis: Qualifiers: Biliary obstruction: without biliary obstruction Cholecystitis presence: without cholecystitis Cholelithiasis location: gallbladder Qualified Code(s): K80.20 - Calculus of gallbladder without cholecystitis without obstruction (2) Nausea & vomiting: Qualifiers: Vomiting type: unspecified Qualified Code(s): R11.2 - Nausea with vomiting, unspecified (3) Elevated liver function tests: (4) Atypical chest pain: (5) Abdominal pain: Qualifiers: Abdominal location: epigastric Qualified Code(s): R10.13 - Epigastric pain (6) Hypertension: Qualifiers: Hypertension type: primary hypertension Qualified Code(s): I10 - Essential (primary) hypertension (7) Chronic obstructive pulmonary disease: Qualifiers: COPD type: unspecified COPD Qualified Code(s): J44.9 - Chronic obstructive pulmonary disease, unspecified (8) Bipolar depression: (9) HLD (hyperlipidemia): Qualifiers: Hyperlipidemia type: unspecified Qualified Code(s): E78.5 - Hyperlipidemia, unspecified DS: Summary Hospital Course Hospital Course: 73-year-old female presented to ER with burning chest discomfort, epigastric pain along with nausea and vomiting. According to the patient, she was in her usual state of health until 11 pm the night before admission. She thinks that she over ate at lunch buffet. She did not eat her dinner that night and then around 11 pm , she started to experience burning chest discomfort, nausea and epigastric and right upper quadrant abdominal pain. Patient came to ER in the morning for evaluation. Patient had no acute finding on EKG and her troponin x 2 were negative. Patient had 2-3 episodes of vomiting in ER also. Workup in ER revealed transaminitis with considerable elevation in alk phos along with cholelithiasis without evidence of biliary obstruction or cholecystitis. Patient also had an elevated D-dimer for which a CTA chest was performed that did not reveal evidence of pulmonary embolism. Patient was evaluated by general surgery who recommended IV antibiotics for suspected cholecystitis, monitoring of her liver enzymes and ultrasound of right upper quadrant. Right upper quadrant ultrasound revealed that the previously noted gallstone was not visible there was no evidence of cholecystitis. It is quite possible that patient passed the stone. She was started on clear liquid. She received IVF overnight and was also treated with rocephin/flagyl. Patient's liver enzymes improved on morning labs but still not normal. She is subjectively feeling well. She is medically stable for discharge on oral Levaquin/flagyl along with zofran as needed. Patient was instructed to hold crestor and have her LFTs rechecked in 3-4 days and f/u with her PCP in one week. She will also benefit from outpatient eval by General surgery. Status at Discharge Functional status at discharge: independent ambulation Overall status at discharge: patient is back to baseline Time Spent with Patient Time attestation: Total time spent providing and/or coordinating discharge services: Time spent: greater than 30 minutes Exam Constitutional Vital Signs, click to edit/add: Last Vital Signs Temp 98.0 F 04/15/24 11:00 Pulse 80 04/15/24 11:00 Resp 18 04/15/24 11:00 BP 147/68 H 04/15/24 11:00 Pulse Ox 95 04/15/24 11:36 O2 Del Method Room Air 04/15/24 11:36 Documenting provider has reviewed patient's vital signs: yes Common normals: oriented x3 General appearance: cooperative and frail appearing Nutritional appearance: underweight Respiratory Common normals: normal respiratory effort and clear to auscultation bilaterally Effort & inspection: able to speak in complete sentences Auscultation: clear to auscultation bilaterally Cardio Common normals: regular rate, S1 normal heart sound and S2 normal heart sound Rate: regular rate Heart sounds: S1 normal and S2 normal GI Common normals: Normal to inspection, nondistended, normoactive bowel sounds present, soft to palpation and no hepatosplenomegaly Palpation: soft, tender Details: epigastric and RUQ and no hepatosplenomegaly Extremity Common normals: no clubbing, cyanosis or edema Neuro Common normals: oriented x3, moves all extremities and no focal motor deficits Psych Common normals: mental status grossly normal, denies hallucinations, denies homicidal ideation and denies suicidal ideation DS: Data Data Completed and Pending Labs on day of discharge: Labs from last 24 hours 04/15/24 05:46 WBC 3.6 L RBC 3.10 L Hgb 10.1 L Hct 31.6 L MCV 101.9 H MCH 32.6 MCHC 32.0 RDW 13.1 Plt Count 165 MPV 10.3 Neut % (Auto) 67.8 Lymph % (Auto) 20.4 L [place] % (Auto) 9.0 Eos % (Auto) 1.1 Baso % (Auto) 1.4 Neut # (Auto) 2.4 Lymph # (Auto) 0.7 L [place] # (Auto) 0.3 Eos # (Auto) 0.0 Baso # (Auto) 0.1 Abs Immat Gran (auto) 0.01 Imm/Tot Granulo (auto) 0.3 Sodium 140 Potassium 3.5 Chloride 107 Carbon Dioxide 24.0 Anion Gap 12.5 BUN 9.0 Creatinine 0.70 Est GFR ( Amer) >60 Est GFR (Non-Af Amer) >60 BUN/Creatinine Ratio 12.9 Glucose 90 Calcium 7.5 L Total Bilirubin 0.5 AST 55 H ALT 129 H Alkaline Phosphatase 629 H Total Protein 6.0 L Albumin 2.3 L Globulin 3.7 Albumin/Globulin Ratio 0.6 Discharge Plan Discharge Disposition: Home, Self-Care Condition: Good Discharge Medications: New ondansetron 4 mg tablet,disintegrating 4 mg PO Q8H 3 Days Qty: 9 0RF levofloxacin 500 mg tablet 500 mg PO DAILY 5 Days Qty: 5 0RF metronidazole 500 mg tablet 500 mg PO Q12H Qty: 10 0RF Continued aripiprazole 10 mg tablet 10 mg PO .HS doxazosin 1 mg tablet 1 mg PO BID hydralazine 25 mg tablet 50 mg PO DAILY losartan 50 mg tablet 50 mg PO BID Rx Instructions: Hold if B/P is below 110 trazodone 50 mg tablet 50 mg PO .HS Held ezetimibe 10 mg tablet 10 mg PO DAILY Hold Instructions: Resume on 04/22/24. until seen by PCP rosuvastatin 20 mg tablet 20 mg PO .hS Hold Instructions: Resume on 04/22/24. UNTIL SEEN BY PCP Discontinued olmesartan 40 mg tablet 40 mg PO DAILY Rx Instructions: Before meal Activity: increase activity as tolerated Diet: low fat, low cholesterol Print Language: Frisian Forms: Portal Instructions Follow Up Appointments: f/u with PCP in one week Fu with Dr Mack in 2 weeks
== END 2024-04-15 14:08 | disposition home or self-care (01) ==
LOC: ER 06:06 → MS 08:27
PROVIDERS: Admitting Provider Internal Medicine; Emergency Provider Emergency Medicine; PCP Internal Medicine; Visit Provider Internal Medicine
DX: K80.20 Calculus of gallbladder without cholecystitis without obstruction (principal); R79.89 Other specified abnormal findings of blood chemistry; R07.89 Other chest pain; R10.13 Epigastric pain; I10 Essential (primary) hypertension; J44.9 Chronic obstructive pulmonary disease, unspecified; F31.9 Bipolar disorder, unspecified; E78.5 Hyperlipidemia, unspecified; E07.9 Disorder of thyroid, unspecified; R11.2 Nausea with vomiting, unspecified; R79.1 Abnormal coagulation profile; Z87.891 Personal history of nicotine dependence; Z79.899 Other long term (current) drug therapy; Z90.710 Acquired absence of both cervix and uterus
CPT/HCPCS: 36415; 71275; 74177; 76705; 80053; 83690; 84484; 85025; 85378; 93005; 94761; 96361; 96365; 96366; 96367; 96368; 96372; 96375; 96376; 99285; G0378; J0696; J1200; J1650; J1836; J2270; J2405; J2765; Q9967

== ENCOUNTER 2024-07-26 21:32 | Emergency (ER) | payer MEDICARE, SELFPAY ==
[2024-07-26 21:38] VITALS: BP 177/84; PULSE 72; TEMP 37.1; O2SAT 98; BMI 17.6
--- OUTSIDE RECORDS SUMMARY | 2024-07-26 21:40 | XMS_ITS | CCD ---
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 Reece Grover BUNon 09-09-2022 Urea nitrogen [Mass/Vol] 20.0 mg/dL Critically high 7.0-18.0 [facility] Comment on above: Performed By: #### L IVER, BNP, CREA, ELEC, LIPID, GLUC, BUN, TSH ####[facility] [address] [address]Dr. Reece Grover CBC AUTO DIFFon 09-09-2022 BASO # 0.1 103/ul Normal 0.0-0.1 [facility] Comment on above: Performed By: #### C BC #### [facility] [address] [place] [address] Dr. Reece Grover Basophils/100 WBC (Bld) 1.0 % Normal 0.2-2.0 [facility] Comment on above: Performed By: #### C BC #### [facility] [address] [place] [address] Dr. Reece Grover EO # 0.0 103/ul Normal 0.0-0.7 [facility] Comment on above: Performed By: #### C BC #### [facility] [address] [place] [address] Dr. Reece Grover Eosinophils/100 WBC (Bld) 0.8 % Critically low 0.9-7.0 [facility] Comment on above: Performed By: #### C BC #### [facility] [address] [place] [address] Dr. Reece Grover Erythrocyte distribution width (RBC) [Ratio] 13.0 % Normal 11.0-15.0 [facility] Comment on above: Performed By: #### C BC #### [facility] [address] [place] [address] Dr. Reece Grover Hematocrit (Bld) [Volume fraction] 42.9 % Normal 36.0-48.0 [facility] Comment on above: Performed By: #### C BC #### [facility] [address] [place] [address] Dr. Reece Grover Hemoglobin (Bld) [Mass/Vol] 13.9 g/dL Normal 12.0-16.0 [facility] Comment on above: Performed By: #### C BC #### [facility] [address] [place] [address] Dr. Reece Grover IG # 0.01 10e3/ul Normal 0.00-0.03 [facility] Comment on above: Performed By: #### C BC #### [facility] [address] [place] [address] Dr. Reece Grover IG % 0.2 % Normal 0.0-0.5 [facility] Comment on above: Performed By: #### C BC #### [facility] [address] [place] [address] Dr. Reece Grover LYMPH # 1.1 103/ul Critically low 1.2-3.8 [facility] Comment on above: Performed By: #### C BC #### [facility] [address] [place] [address] Dr. Reece Grover Lymphocytes/100 WBC (Bld) 22.1 % Normal 20.5-60.0 [facility] Comment on above: Performed By: #### C BC #### [facility] [address] [place] [address] Dr. Reece Grover MANUAL DIFF REQ NO Normal [facility] Comment on above: Performed By: #### C BC #### [facility] [address] [place] [address] Dr. Reece Grover MCH (RBC) [Entitic mass] 32.4 pg Normal 26.7-34.0 [facility] Comment on above: Performed By: #### C BC #### [facility] [address] [place] [address] Dr. Reece Grover MCHC (RBC) [Mass/Vol] 32.4 g/dL Normal 29.9-35.2 [facility] Comment on above: Performed By: #### C BC #### [facility] [address] [place] [address] Dr. Reece Grover MCV (RBC) [Entitic vol] 100.0 fL Critically high 81.0-99.0 [facility] Comment on above: Performed By: #### C BC #### [facility] [address] [place] [address] Dr. Reece Grover MONO # 0.3 103/ul Normal 0.3-0.8 [facility] Comment on above: Performed By: #### C BC #### [facility] [address] [place] [address] Dr. Reece Grover Monocytes/100 WBC (Bld) 5.6 % Normal 1.7-12.0 [facility] Comment on above: Performed By: #### C BC #### [facility] [address] [place] [address] Dr. Reece Grover NEUT # 3.5 103/ul Normal 1.4-6.5 [facility] Comment on above: Performed By: #### C BC #### [facility] [address] [place] [address] Dr. Reece Grover Neutrophils/100 WBC (Bld) 70.3 % Normal 43.0-75.0 [facility] Comment on above: Performed By: #### C BC #### [facility] [address] [place] [address] Dr. Reece Grover Platelet mean volume (Bld) [Entitic vol] 9.7 fL Normal 9.5-13.5 [facility] Comment on above: Performed By: #### C BC #### [facility] [address] [place] [address] Dr. Reece Grover PLT 190 103/ul Normal 150-450 [facility] Comment on above: Performed By: #### C BC #### [facility] [address] [place] [address] Dr. Reece Grover RBC 4.29 106/ul Normal 4.20-5.40 [facility] Comment on above: Performed By: #### C BC #### [facility] [address] [place] [address] Dr. Reece Grover WBC 5.0 103/ul Normal 4.0-11.0 [facility] Comment on above: Performed By: #### C BC #### [facility] [address] [place] [address] Dr. Reece Grover CREATININEon 09-09-2022 Creatinine [Mass/Vol] 0.81 mg/dL Normal 0.55-1.02 [facility] Comment on above: Performed By: #### L IVER, BNP, CREA, ELEC, LIPID, GLUC, BUN, TSH #### [facility] [address] [place] [address] Dr. Reece Grover EGFR-AF GUATEMALAN >60 Normal >=60 [facility] Comment on above: Performed By: #### L IVER, BNP, CREA, ELEC, LIPID, GLUC, BUN, TSH #### [facility] [address] [place] [address] Dr. Reece Grover EGFR-NON AF GUATEMALAN >60 Normal >=60 [facility] Comment on above: Performed By: #### L IVER, BNP, CREA, ELEC, LIPID, GLUC, BUN, TSH #### [facility] [address] [place] [address] Dr. Reece Grover ELECTROLYTESon 09-09-2022 Anion gap [Moles/Vol] 12.6 mmol/L Normal [facility] Comment on above: Performed By: #### L IVER, BNP, CREA, ELEC, LIPID, GLUC, BUN, TSH #### [facility] [address] [place] [address] Dr. Reece Grover Chloride [Moles/Vol] 105 mmol/L Normal 98-107 [facility] Comment on above: Performed By: #### L IVER, BNP, CREA, ELEC, LIPID, GLUC, BUN, TSH #### [facility] [address] [place] [address] Dr. Reece Grover CO2 [Moles/Vol] 28.6 mmol/L Normal 21.0-32.0 [facility] Comment on above: Performed By: #### L IVER, BNP, CREA, ELEC, LIPID, GLUC, BUN, TSH #### [facility] [address] [place] [address] Dr. Reece Grover Potassium [Moles/Vol] 4.2 mmol/L Normal 3.5-5.1 [facility] Comment on above: Performed By: #### L IVER, BNP, CREA, ELEC, LIPID, GLUC, BUN, TSH #### [facility] [address] [address] [address] Reece Grover Sodium [Moles/Vol] 142 mmol/L Normal 136-145 [facility] Comment on above: Performed By: #### L IVER, BNP, CREA, ELEC, LIPID, GLUC, BUN, TSH #### [facility] [address] [address] [address] Reece Grover GLUCOSE BLOODon 09-09-2022 Glucose [Mass/Vol] 105 mg/dL Normal 74-106 [facility] Comment on above: Performed By: #### L IVER, BNP, CREA, ELEC, LIPID, GLUC, BUN, TSH #### [facility] [address] [place] [address] Dr. Reece Grover LIPID PROFILEon 09-09-2022 CHOL-HDL RATIO NORM SEE BELOW Normal [facility] Comment on above: Result Comment: 3.3 - 4.4 LOW RISK 4.4 - 7.1 AVERAGE RISK 7.1 - 11.0 MODERATE RISK >11.0 HIGH RISK Performed By: #### L IVER, BNP, CREA, ELEC, LIPID, GLUC, BUN, TSH #### [facility] [address] [place] [address] Dr. Reece Grover Cholesterol [Mass/Vol] 249 mg/dL Critically high <=200 [facility] Comment on above: Performed By: #### L IVER, BNP, CREA, ELEC, LIPID, GLUC, BUN, TSH #### [facility] [address] [address] [address] Reece Grover Cholesterol in HDL [Mass/Vol] 93 mg/dL Critically high 40-60 [facility] Comment on above: Performed By: #### L IVER, BNP, CREA, ELEC, LIPID, GLUC, BUN, TSH #### [facility] [address] [address] [address] Reece Grover Cholesterol in LDL [Mass/Vol] 142.0 mg/dL Normal [facility] Comment on above: Performed By: #### L IVER, BNP, CREA, ELEC, LIPID, GLUC, BUN, TSH #### [facility] [address] [address] [address] Reece Grover Cholesterol.total/C holesterol in HDL [Mass ratio] 2.7 {ratio} Normal [facility] Comment on above: Performed By: #### L IVER, BNP, CREA, ELEC, LIPID, GLUC, BUN, TSH #### [facility] [address] [address] [address] Reece Grover HDL NORMAL > or = 60 mg/dl - LO W CARDIOVASCULAR RISK <40 mg/dl - HIGH CARDIOVASCULAR RISK Normal [facility] Comment on above: Performed By: #### L IVER, BNP, CREA, ELEC, LIPID, GLUC, BUN, TSH #### [facility] [address] [place] [address] Dr. Reece Grover LDL CALC NORMAL SEE BELOW Normal [facility] Comment on above: Result Comment: <100 mg/dl OPTIMAL 100 - 129 mg/dl NEAR OR ABOVE OPTIMAL 130 - 159 mg/dl BORDERLINE HIGH 160 - 189 mg/dl HIGH >190 mg/dl VERY HIGH Performed By: #### L IVER, BNP, CREA, ELEC, LIPID, GLUC, BUN, TSH #### [facility] [address] [place] [address] Dr. Reece Grover Triglyceride [Mass/Vol] 70 mg/dL Normal <=150 [facility] Comment on above: Performed By: #### L IVER, BNP, CREA, ELEC, LIPID, GLUC, BUN, TSH #### [facility] [address] [address] [address] Reece Grover VLDL CALC 14.0 mg/dL Normal [facility] Comment on above: Performed By: #### L IVER, BNP, CREA, ELEC, LIPID, GLUC, BUN, TSH #### [facility] [address] [address] [address] Reece Grover LIVER PROFILEon 09-09-2022 Albumin [Mass/Vol] 3.6 g/dL Normal 3.4-5.0 [facility] Comment on above: Performed By: #### L IVER, BNP, CREA, ELEC, LIPID, GLUC, BUN, TSH #### [facility] [address] [place] [address] Dr. Reece Grover Albumin/Globulin [Mass ratio] 0.8 {ratio} Normal [facility] Comment on above: Performed By: #### L IVER, BNP, CREA, ELEC, LIPID, GLUC, BUN, TSH #### [facility] [address] [place] [address] Dr. Reece Grover ALP [Catalytic activity/Vol] 324 U/L Critically high 46-116 [facility] Comment on above: Performed By: #### L IVER, BNP, CREA, ELEC, LIPID, GLUC, BUN, TSH #### [facility] [address] [place] [address] Dr. Reece Grover ALT [Catalytic activity/Vol] 61 U/L Critically high 14-59 [facility] Comment on above: Performed By: #### L IVER, BNP, CREA, ELEC, LIPID, GLUC, BUN, TSH #### [facility] [address] [place] [address] Dr. Reece Grover AST [Catalytic activity/Vol] 50 U/L Critically high 15-37 [facility] Comment on above: Performed By: #### L IVER, BNP, CREA, ELEC, LIPID, GLUC, BUN, TSH #### [facility] [address] [place] [address] Dr. Reece Grover BILI, CONJUGATED 0.1 mg/dL Normal 0.0-0.[address] [facility] Comment on above: Performed By: #### L IVER, BNP, CREA, ELEC, LIPID, GLUC, BUN, TSH #### [facility] [address] [place] [address] Dr. Reece Grover Bilirubin [Mass/Vol] 0.3 mg/dL Normal 0.2-1.0 [facility] Comment on above: Performed By: #### L IVER, BNP, CREA, ELEC, LIPID, GLUC, BUN, TSH #### [facility] [address] [address] [address] Reece Grover Globulin (S) [Mass/Vol] 4.8 g/dL Normal [facility] Comment on above: Performed By: #### L IVER, BNP, CREA, ELEC, LIPID, GLUC, BUN, TSH #### [facility] [address] [address] [address] Reece Grover Protein [Mass/Vol] 8.4 g/dL Critically high 6.4-8.2 [facility] Comment on above: Performed By: #### L IVER, BNP, CREA, ELEC, LIPID, GLUC, BUN, TSH #### [facility] [address] [address] [address] Reece Grover TSHon 09-09-2022 TSH 1.698 uIU/mL Normal 0.358-3.740 [facility] Comment on above: Performed By: #### L IVER, BNP, CREA, ELEC, LIPID, GLUC, BUN, TSH ####[facility] [address] [address]Dr. Reece Grover AMYLASEon 11-21-2021 Amylase [Catalytic activity/Vol] 93 U/L Normal 25-115 [facility] Comment on above: Performed By: #### A MY, CMP, LIPA ####[facility] [address] [address]Dr. Reece Grover CBC AUTO DIFFon 11-21-2021 BASO # 0.0 103/ul Normal 0.0-0.1 [facility] Comment on above: Performed By: #### C BC ####[facility] [address] [address]Dr. Reece Grover Basophils/100 WBC (Bld) 0.4 % Normal 0.2-2.0 [facility] Comment on above: Performed By: #### C BC ####[facility] [address] [address]Dr. Reece Grover EO # 0.0 103/ul Normal 0.0-0.7 [facility] Comment on above: Performed By: #### C BC ####[facility] [address] [address]Dr. Reece Grover Eosinophils/100 WBC (Bld) 0.4 % Critically low 0.9-7.0 [facility] Comment on above: Performed By: #### C BC ####[facility] [address] [address]Dr. Reece Grover Erythrocyte distribution width (RBC) [Ratio] 12.7 % Normal 11.0-15.0 [facility] Comment on above: Performed By: #### C BC ####[facility] [address] [address]Dr. Reece Grover Hematocrit (Bld) [Volume fraction] 40.1 % Normal 36.0-48.0 [facility] Comment on above: Performed By: #### C BC ####[facility] [address] [place], [place] [address]Dr. Reece Grover Hemoglobin (Bld) [Mass/Vol] 13.7 g/dL Normal 12.0-16.0 [facility] Comment on above: Performed By: #### C BC ####[facility] [address] [place], [place] [address]Dr. Reece Grover IG # 0.03 10e3/ul Normal 0.00-0.03 [facility] Comment on above: Performed By: #### C BC ####[facility] [address] [place], [place] [address]Dr. Reece Grover IG % 0.4 % Normal 0.0-0.5 [facility] Comment on above: Performed By: #### C BC ####[facility] [address] [address]Dr. Reece Grover LYMPH # 0.9 103/ul Critically low 1.2-3.8 [facility] Comment on above: Performed By: #### C BC ####[facility] [address] [address]Dr. Reece Grover Lymphocytes/100 WBC (Bld) 10.9 % Critically low 20.5-60.0 [facility] Comment on above: Performed By: #### C BC ####[facility] [address] [address]Dr. Reece Grover MANUAL DIFF REQ NO Normal [facility] Comment on above: Performed By: #### C BC ####[facility] [address] [address]Dr. Reece Grover MCH (RBC) [Entitic mass] 33.4 pg Normal 26.7-34.0 [facility] Comment on above: Performed By: #### C BC ####[facility] [address] [place], [place] [address]Dr. Reece Grover MCHC (RBC) [Mass/Vol] 34.2 g/dL Normal 29.9-35.2 [facility] Comment on above: Performed By: #### C BC ####[facility] [address] [place], [place] [address]Dr. Reece Grover MCV (RBC) [Entitic vol] 97.8 fL Normal 81.0-99.0 [facility] Comment on above: Performed By: #### C BC ####[facility] [address] [place], [place] [address]Dr. Reece Reilly MONO # 0.4 103/ul Normal 0.3-0.8 [facility] Comment on above: Performed By: #### C BC ####[facility] [address] [place], [place] [address]Dr. Reece Grover Monocytes/100 WBC (Bld) 4.6 % Normal 1.7-12.0 [facility] Comment on above: Performed By: #### C BC ####[facility] [address] [place], [place] [address]Dr. Darlingrich Grover NEUT # 7.0 103/ul Critically high 1.4-6.5 [facility] Comment on above: Performed By: #### C BC ####[facility] [address] [place], [place] [address]Dr. Reece Grover Neutrophils/100 WBC (Bld) 83.3 % Critically high 43.0-75.0 [facility] Comment on above: Performed By: #### C BC ####[facility] [address] [address]Dr. Reece Grover Platelet mean volume (Bld) [Entitic vol] 10.0 fL Normal 9.5-13.5 [facility] Comment on above: Performed By: #### C BC ####[facility] [address] [address]Dr. Reece Grover PLT 236 103/ul Normal 150-450 [facility] Comment on above: Performed By: #### C BC ####[facility] [address] [place], [place] [address]Dr. Reece Grover RBC 4.10 106/ul Critically low 4.20-5.40 [facility] Comment on above: Performed By: #### C BC ####[facility] [address] [place], [place] [address]Dr. Reece Grover WBC 8.4 103/ul Normal 4.0-11.0 [facility] Comment on above: Performed By: #### C BC ####[facility] [address] [place], [place] [address]Dr. Reece Grover BASO # 0.1 103/ul Normal 0.0-0.1 [facility] Comment on above: Performed By: #### C BC ####[facility] [address] [place], [place] [address]Dr. Reece Grover Basophils/100 WBC (Bld) 1.0 % Normal 0.2-2.0 [facility] Comment on above: Performed By: #### C BC ####[facility] [address] [place], [place] [address]Dr. Reece Grover EO # 0.1 103/ul Normal 0.0-0.7 [facility] Comment on above: Performed By: #### C BC ####[facility] [address] [place], [place] [address]Dr. Reece Grover Eosinophils/100 WBC (Bld) 2.1 % Normal 0.9-7.0 [facility] Comment on above: Performed By: #### C BC ####[facility] [address] [address]Dr. Reece Grover Erythrocyte distribution width (RBC) [Ratio] 12.8 % Normal 11.0-15.0 [facility] Comment on above: Performed By: #### C BC ####[facility] [address] [address]Dr. Reece Grover Hematocrit (Bld) [Volume fraction] 40.6 % Normal 36.0-48.0 [facility] Comment on above: Performed By: #### C BC ####[facility] [address] [place], [place] [address]Dr. Reece Grover Hemoglobin (Bld) [Mass/Vol] 13.3 g/dL Normal 12.0-16.0 [facility] Comment on above: Performed By: #### C BC ####[facility] [address] [place], [place] [address]Dr. Reece Grover IG # 0.02 10e3/ul Normal 0.00-0.03 [facility] Comment on above: Performed By: #### C BC ####[facility] [address] [place], [place] [address]Dr. Reece Grover IG % 0.4 % Normal 0.0-0.5 [facility] Comment on above: Performed By: #### C BC ####[facility] [address] [place], [place] [address]Dr. Reece Grover LYMPH # 1.6 103/ul Normal 1.2-3.8 [facility] Comment on above: Performed By: #### C BC ####[facility] [address] [place], [place] [address]Dr. Reece Grover Lymphocytes/100 WBC (Bld) 31.6 % Normal 20.5-60.0 [facility] Comment on above: Performed By: #### C BC ####[facility] [address] [place], [place] [address]Dr. Reece Grover MANUAL DIFF REQ NO Normal [facility] Comment on above: Performed By: #### C BC ####[facility] [address] [address]Dr. Reece Grover MCH (RBC) [Entitic mass] 33.0 pg Normal 26.7-34.0 [facility] Comment on above: Performed By: #### C BC ####[facility] [address] [address]Dr. Reece Grover MCHC (RBC) [Mass/Vol] 32.8 g/dL Normal 29.9-35.2 [facility] Comment on above: Performed By: #### C BC ####[facility] [address] [place], [place] [address]Dr. Reece Grover MCV (RBC) [Entitic vol] 100.7 fL Critically high 81.0-99.0 [facility] Comment on above: Performed By: #### C BC ####[facility] [address] [place], [place] [address]Dr. Reece Reilly MONO # 0.4 103/ul Normal 0.3-0.8 [facility] Comment on above: Performed By: #### C BC ####[facility] [address] [place], [place] [address]Dr. Reece Reilly Monocytes/100 WBC (Bld) 7.1 % Normal 1.7-12.0 [facility] Comment on above: Performed By: #### C BC ####[facility] [address] [place], [place] [address]Dr. Reece Grover NEUT # 3.0 103/ul Normal 1.4-6.5 [facility] Comment on above: Performed By: #### C BC ####[facility] [address] [place], [place] [address]Dr. Reece Reilly Neutrophils/100 WBC (Bld) 57.8 % Normal 43.0-75.0 [facility] Comment on above: Performed By: #### C BC ####[facility] [address] [place], [place] [address]Dr. Reece Reilly Platelet mean volume (Bld) [Entitic vol] 9.7 fL Normal 9.5-13.5 [facility] Comment on above: Performed By: #### C BC ####[facility] [address] [place], [place] [address]Km. Reece Grover PLT 239 103/ul Normal 150-450 [facility] Comment on above: Performed By: #### C BC ####[facility] [address] [place], [place] [address]Mu. Reece Grover RBC 4.03 106/ul Critically low 4.20-5.40 [facility] Comment on above: Performed By: #### C BC ####[facility] [address] [place], [place] [address]Bv. Reece Grover WBC 5.2 103/ul Normal 4.0-11.0 [facility] Comment on above: Performed By: #### C BC ####[facility] [address] [place], [place] [address] ABD/PELV W CONon 11-22-19 [...] CARI MORA Date: 2021-11-21 02:42 Normal [facility]on SARS-CoV-2 (COVID-19) RNA THOM+probe Ql (Unsp spec) Not detected Normal NOT DETECTED [facility] Comment on above: Result Comment: When [...] for this test is supported by the [employer] and [employer]'s declaration [...] be used). Performed By: #### C VDTBH ####[facility] [address] [place], [place] [address]Dr. Reece Grover LIPASEon 11-21-2021 Lipase [Catalytic activity/Vol] 106.0 U/L Normal 73.0-393.0 [facility] Comment on above: Performed By: #### A MY, CMP, LIPA ####[facility] [address] [place], [place] [address]DrDari Grover PROF 14(COMP METB)on 022 Albumin [Mass/Vol] 3.6 g/dL Normal 3.4-5.0 [facility] Comment on above: Performed By: #### C MP ####[facility] [address] [place], [place] [address]Dr. Reece Grover Albumin/Globulin [Mass ratio] 0.9 {ratio} Normal [facility] Comment on above: Performed By: #### C MP ####[facility] [address] [place], [place] [address]DrDari Grover ALP [Catalytic activity/Vol] 299 U/L Critically high 46-116 [facility] Comment on above: Performed By: #### C MP ####[facility] [address] [place], [place] [address]Vy. Reece Grover ALT [Catalytic activity/Vol] 53 U/L Normal 14-59 [facility] Comment on above: Performed By: #### C MP ####[facility] [address] [place], [place] [address]Kl. Reece Grover Anion gap [Moles/Vol] 12.2 mmol/L Normal [facility] Comment on above: Performed By: #### C MP ####[facility] [address] [address]Dr. Reece Grover AST [Catalytic activity/Vol] 41 U/L Critically high 15-37 [facility] Comment on above: Performed By: #### C MP ####[facility] [address] [address]Dr. Reece Grover Bilirubin [Mass/Vol] 0.8 mg/dL Normal 0.2-1.0 [facility] Comment on above: Performed By: #### C MP ####[facility] [address] [address]Dr. Reece Grover Calcium [Mass/Vol] 9.6 mg/dL Normal 8.5-10.1 [facility] Comment on above: Performed By: #### C MP ####[facility] [address] [address]Dr. Reece Grover Chloride [Moles/Vol] 101 mmol/L Normal 98-107 [facility] Comment on above: Performed By: #### C MP ####[facility] [address] [address]Dr. Reece Grover CO2 [Moles/Vol] 26.3 mmol/L Normal 21.0-32.0 [facility] Comment on above: Performed By: #### C MP ####[facility] [address] [address]Dr. Reece Grover Creatinine [Mass/Vol] 0.63 mg/dL Normal 0.55-1.02 [facility] Comment on above: Performed By: #### C MP ####[facility] [address] [address]Dr. Reece Grover EGFR-AF GUATEMALAN >60 Normal >=[address] [facility] Comment on above: Performed By: #### C MP ####[facility] [address] [address]Dr. Reece Grover EGFR-NON AF GUATEMALAN >60 Normal >=60 [facility] Comment on above: Performed By: #### C MP ####[facility] Hyuofmqcpj89[address] [place] [address]Dr. Reece Reilly Globulin (S) [Mass/Vol] 4.2 g/dL Normal [facility] Comment on above: Performed By: #### C MP ####[facility] Keokarlrpd[address] [place] [address]Dr. Reece Reilly Glucose [Mass/Vol] 120 mg/dL Critically high 74-106 T [facility] Comment on above: Performed By: #### C MP ####[facility] Jsszggumfi0366 [place] [address]Dr. Reece Reilly Potassium [Moles/Vol] 4.5 mmol/L Normal 3.5-5.1 [facility] Comment on above: Performed By: #### C MP ####[facility] [address] [place], [place] [address]Dr. Reece Reilly Protein [Mass/Vol] 7.8 g/dL Normal 6.4-8.2 [facility] Comment on above: Performed By: #### C MP ####[facility] Unmcoaqunp95[address] [place] [address]Dr. Reece Reilly Sodium [Moles/Vol] 135 mmol/L Critically low 136-145 Th [facility] Comment on above: Performed By: #### C MP ####[facility] [address]fevaq[address] [place], [place] [address]Dr. Darlingrich Reilly Urea nitrogen [Mass/Vol] 19.0 mg/dL Critically high 7.0-18.0 [facility] Comment on above: Performed By: #### C MP ####[facility] [address]cc[address]baq[address] [place], [place] [address]Dr. Reece Grover Urea nitrogen/Creatinine [Mass ratio] 30.2 mg/mg Normal [facility] Comment on above: Performed By: #### C MP ####[facility] Duviwnptuu[address] [place] [address]Dr. Reece Grover Albumin [Mass/Vol] 3.2 g/dL Critically low 3.4-5.0 [facility] Comment on above: Performed By: #### A MY, CMP, LIPA ####[facility] Pshvajkwzx8[address] [place] [address]Dr. Reece Grover Albumin/Globulin [Mass ratio] 0.8 {ratio} Normal [facility] Comment on above: Performed By: #### A MY, CMP, LIPA ####[facility] Cseixpfpsa[address] [place] [address]Dr. Reece Grover ALP [Catalytic activity/Vol] 296 U/L Critically high 46-116 [facility] Comment on above: Performed By: #### A MY, CMP, LIPA ####[facility] [address] [place], [place] [address]Dr. Reece Grover ALT [Catalytic activity/Vol] 49 U/L Normal 14-59 [facility] Comment on above: Performed By: #### A MY, CMP, LIPA ####[facility] Bvisgvgrfv20[address] [place] [address]Dr. Reece Grover Anion gap [Moles/Vol] 8.7 mmol/L Normal [facility] Comment on above: Performed By: #### A MY, CMP, LIPA ####[facility] Gqpukzdywt6223 [place] [address]Dr. Reece Grover AST [Catalytic activity/Vol] 34 U/L Normal 15-37 [facility] Comment on above: Performed By: #### A MY, CMP, LIPA ####[facility] Mvicxxpgxf0218 [place] [address]Dr. Reece Grover Bilirubin [Mass/Vol] 0.3 mg/dL Normal 0.2-1.0 [facility] Comment on above: Performed By: #### A MY, CMP, LIPA ####[facility] Pgpkpoufys[address] [place] [address]Dr. Reece Grover Calcium [Mass/Vol] 9.2 mg/dL Normal 8.5-10.1 The [facility] Comment on above: Performed By: #### A MY, CMP, LIPA ####[facility] Xekuoanemd3441 [place] [address]Dr. Reece Grover Chloride [Moles/Vol] 105 mmol/L Normal 98-107 [facility] Comment on above: Performed By: #### A MY, CMP, LIPA ####[facility] Kvaswphulo4247 [place] [address]Dr. Reece Grover CO2 [Moles/Vol] 29.2 mmol/L Normal 21.0-32.0 The [facility] Comment on above: Performed By: #### A MY, CMP, LIPA ####[facility] [address] [place], [place] [address]Dr. Reece Grover Creatinine [Mass/Vol] 0.84 mg/dL Normal 0.55-1.02 [facility] Comment on above: Performed By: #### A MY, CMP, LIPA ####[facility] [address] [place], [place] [address]Dr. Reece Grover EGFR-AF GUATEMALAN >60 Normal >=60 [facility] Comment on above: Performed By: #### A MY, CMP, LIPA ####[facility] [address]bg[address] [place], [place] [address]Dr. Reece Grover EGFR-NON AF GUATEMALAN >60 Normal >=60 [facility] Comment on above: Performed By: #### A MY, CMP, LIPA ####[facility] Heufyvxjjr28[address] [place] [address]Dr. Reece Grover Globulin (S) [Mass/Vol] 4.0 g/dL Normal [facility] Comment on above: Performed By: #### A MY, CMP, LIPA ####[facility] Ilxtyapbcp8844 [place] [address]Dr. Reece Grover Glucose [Mass/Vol] 98 mg/dL Normal 74-106 The [facility] Comment on above: Performed By: #### A MY, CMP, LIPA ####[facility] Ugzhzhnyyp0694 [place] [address]Dr. Reece Grover Potassium [Moles/Vol] 3.9 mmol/L Normal 3.5-5.1 [facility] Comment on above: Performed By: #### A MY, CMP, LIPA ####[facility] Echvlhtxlg1890 [place] [address]Dr. Reece Grover Protein [Mass/Vol] 7.2 g/dL Normal 6.4-8.2 The [facility] Comment on above: Performed By: #### A MY, CMP, LIPA ####[facility] Hnruirauwm1547 [place] [address]Dr. Reece Grover Sodium [Moles/Vol] 139 mmol/L Normal 136-145 The [facility] Comment on above: Performed By: #### A MY, CMP, LIPA ####[facility] Euwttpgmuc3153 [place] [address]Dr. Reece Grover Urea nitrogen [Mass/Vol] 25.0 mg/dL Critically high 7.0-18.0 [facility] Comment on above: Performed By: #### A MY, CMP, LIPA ####[facility] Vmepcljytx7042 [place] [address]Dr. Reece Grover Urea nitrogen/Creatinine [Mass ratio] 29.8 mg/mg Normal [facility] Comment on above: Performed By: #### A MY, CMP, LIPA ####[facility] Mejckzuows[address] [place] [address]Dr. Reece Grover US SINGLE QUAD RT UPPERon [...] by: ANDREI ESCOBAR Date: 2021-11-21 07:26 Normal [facility] XR ABD FLAT UP_PA Bautista 11-21 [...] by: JERSEY GUADALUPE Date: 2021-11-21 04:56 Normal [facility] Duane 07-16-2020 L -- ---- Specimen: [id number] Received: 07/16/20 Status: BERNICE Bajwa Num: [id number] Spec Type: Surgical Subm Dr: Rayo Farmer Jr, DO Tissues: A Colon Biopsy (RANDOM COLON BX) Procedures: HE Stain/2, Gross/Micro L4 ---- Patient Age/Sex Location Account Attending Physician ---- Lay Wayne 70/F [id number] Rayo Farmer Jr DO ---- SPEC NUM: [id number] RECD: 07/16/20-1235 STATUS: BERNICE BAJWA NUM: [id number] JUDITH: 07/16/20- SUBM DR: Rayo Farmer Jr, DO ENTERED: 07/16/20-[address] [facility] [address]: PARAM TYPE: Surgical DEPT: S [...] microscopic findings support the above pathologic diagnosis. [address] ---- ---- Specimen: [id number] Received: 07/16/20 Status: BERNICE Patelbladimir Num: [id number] Spec Type: Surgical Subm Dr: Rayo Farmer Jr, DO Tissues: A Colon Biopsy (RANDOM COLON BX) Procedures: HE Stain/2, Gross/Micro L4 ---- Patient: DongbretnellieLay [id number] (Continued) ---- Signed (signature on file) Amy Allen MD 07/17/20 1604 [facility] COVID-19 Antigenon 1 COVID-19 Antigen [...] its performance Karen Disclaimer characteristic determined by [employer] and Karen Disclaimer validated at [facility]. This Karen Disclaimer test has not [...] is terminated or revoked sooner. PERFORMED BY: [place] [address] PATHOLOGIST TUBE BENDING MACHINE OPERATOR AMY ALLEN M.D. Normal [facility] Comment on above: Performed By: #### S LUCY COVID-19 KAREN #### [facility] [address] [place] [address] Karen Ag Negativeon 07-16-19 21 Karen Ag Negative Negative Normal Negative [facility] Comment on above: Result Comment: This is a duplicate test result based off of the Karen SARS Antigen (THANIA) test performed within the Microbiology department. PERFORMED BY: [place] [address] PATHOLOGIST TUBE BENDING MACHINE OPERATOR AMY ALLEN M.D. Performed By: #### S OFJOAQUINA COVID-19 KAREN #### [facility] [address] [place], [place] [id number] [facility] C-Reactive Proteinon 021 C-Reactive Protein 1.2 mg/dL High 0.0-1.0 [facility] Comment on above: Result Comment: PERF ORMED BY: [place] [address] PATHOLOGIST TUBE BENDING MACHINE OPERATOR AMY ALLEN M.D. Performed By: #### C RP #### [address] abdomen pelvis w conon CT abdomen pelvis w con [facility] [place] [address] [place] [address] CT Scan Report Signed Patient: Lay Wayne MR#: [id number] : 1950 Acct:[id number] Age/Sex: 69 / F ADM Date: 06/10/20 Loc: ER Room: Type: [facility] ER Attending Dr: Ordering Provider: Clayton [...] portion of the rectum. This may be indirect sales representative of inflammatory or infectious etiology. This also may represent component of underdistention. No abscess. Impression dictated by: Antoine Dutta M.D.06/10/2020 6:40 PM Dictation Location: [place] [address] Transcribed By: [facility] 06/10/201839 Dictated By: Antoine Dutta DO 06/10/201831 Signed By: 06/10/[address] [facility] Complete Blood Count Auto Di ffon 06-10-2020 Basophils (Bld) [#/Vol] 0.0 10*3/uL Normal 0.0-0.2 [facility] Comment on above: Result Comment: PERF ORMED BY: [place] [address] PATHOLOGIST TUBE BENDING MACHINE OPERATOR AMY ALLEN M.D. Performed By: #### C MP, LIPASE, TROP, CBC #### [address] Basophils/100 WBC (Bld) 0.8 % Normal . [facility] Comment on above: Performed By: #### C MP, LIPASE, TROP, CBC #### [address] Eosinophils (Bld) [#/Vol] 0.0 10*3/uL Normal 0.0-0.45 [facility] Comment on above: Performed By: #### C MP, LIPASE, TROP, CBC #### [address] Eosinophils/100 WBC (Bld) 0.2 % Normal . [facility] Comment on above: Performed By: #### C MP, LIPASE, TROP, CBC #### [address] Erythrocyte distribution width (RBC) [Ratio] 12.8 % Normal 11.9-15.3 [facility] Comment on above: Performed By: #### C MP, LIPASE, TROP, CBC #### [address] Hematocrit (Bld) [Volume fraction] 45.1 % Normal 34.0-46.4 [facility] Comment on above: Performed By: #### C MP, LIPASE, TROP, CBC #### [address] Hemoglobin (Bld) [Mass/Vol] 15.7 g/dL High 11.8-15.4 [facility] Comment on above: Performed By: #### C MP, LIPASE, TROP, CBC #### [address] Lymphocytes (Bld) [#/Vol] 1.5 10*3/uL Normal 1.00-4.8 [facility] Comment on above: Performed By: #### C MP, LIPASE, TROP, CBC #### [address] Lymphocytes/100 WBC (Bld) 25.2 % Normal . [facility] Comment on above: Performed By: #### C MP, LIPASE, TROP, CBC #### [address] MCH (RBC) [Entitic mass] 33.5 pg Normal 24.7-34.3 [facility] Comment on above: Performed By: #### C MP, LIPASE, TROP, CBC #### [address] MCV (RBC) [Entitic vol] 96.6 fL Normal 80-100 [facility] Comment on above: Performed By: #### C MP, LIPASE, TROP, CBC #### [address] Mean Corpuscular HGB Conc 34.7 g/dL Normal 32.0-35.0 [facility] Comment on above: Performed By: #### C MP, LIPASE, TROP, CBC #### [address] [place] [address] [place] Monocytes (Bld) [#/Vol] 0.3 10*3/uL Normal 0.0-0.8 [facility] Comment on above: Performed By: #### C MP, LIPASE, TROP, CBC #### [facility] [address] Monocytes/100 WBC (Bld) 5.6 % Normal . [facility] Comment on above: Performed By: #### C MP, LIPASE, TROP, CBC #### [address] Neutrophils (Bld) [#/Vol] 4.2 10*3/uL Normal 1.8-7.7 [facility] Comment on above: Performed By: #### C MP, LIPASE, TROP, CBC #### [address] Neutrophils/100 WBC (Bld) 68.2 % Normal . [facility] Comment on above: Performed By: #### C MP, LIPASE, TROP, CBC #### [place] [address] [place] Nucleated RBC/100 WBC (Bld) [Ratio] 0.1 % Normal 0-0.5 [facility] Comment on above: Performed By: #### C MP, LIPASE, TROP, CBC #### [place] [address] [place] Platelet mean volume (Bld) [Entitic vol] 7.8 fL Normal 6.3-10.7 [facility] Comment on above: Performed By: #### C MP, LIPASE, TROP, CBC #### [place] [address] [place] Platelets (Bld) [#/Vol] 268 10*3/uL Normal 150-450 [facility] Comment on above: Performed By: #### C MP, LIPASE, TROP, CBC #### [place] [address] [place] RBC (Bld) [#/Vol] 4.67 10*6/uL Normal 3.60-5.00 [facility] Comment on above: Performed By: #### C MP, LIPASE, TROP, CBC #### [address] WBC (Bld) [#/Vol] 6.1 10*3/uL Normal 4.5-11.0 [facility] Comment on above: Performed By: #### C MP, LIPASE, TROP, CBC #### [address] Comprehensive Metabolic Pane duane 06-10-2020 Albumin [Mass/Vol] 3.9 g/dL Normal 3.2-5.5 [facility] Comment on above: Performed By: #### C MP, LIPASE, TROP, CBC #### [address] Albumin/Globulin [Mass ratio] 1.0 {ratio} Normal [facility] Comment on above: Performed By: #### C MP, LIPASE, TROP, CBC #### [address] ALP [Catalytic activity/Vol] 302 U/L High 32-92 [facility] Comment on above: Performed By: #### C MP, LIPASE, TROP, CBC #### [address] ALT [Catalytic activity/Vol] 43 U/L Normal 10-60 [facility] Comment on above: Performed By: #### C MP, LIPASE, TROP, CBC #### [address] AST [Catalytic activity/Vol] 36 U/L Normal 10-42 [facility] Comment on above: Performed By: #### C MP, LIPASE, TROP, CBC #### [address] Bilirubin [Mass/Vol] 0.8 mg/dL Normal 0.3-1.2 [facility] Comment on above: Performed By: #### C MP, LIPASE, TROP, CBC #### [address] Calcium [Mass/Vol] 9.5 mg/dL Normal 8.2-10.2 [facility] Comment on above: Performed By: #### C MP, LIPASE, TROP, CBC #### [facility] [address] Chloride [Moles/Vol] 103 mmol/L Normal 95-114 [facility] Comment on above: Performed By: #### C MP, LIPASE, TROP, CBC #### [address] CO2 [Moles/Vol] 22.4 mmol/L Normal 22.0-30.0 [facility] Comment on above: Performed By: #### C MP, LIPASE, TROP, CBC #### [address] Creatinine [Mass/Vol] 0.77 mg/dL Normal 0.44-1.03 [facility] Comment on above: Performed By: #### C MP, LIPASE, TROP, CBC #### [address] Creatinine Clr Calc Pharmacy 44.82 [facility] Comment on above: Performed By: #### C MP, LIPASE, TROP, CBC #### [address] Estimated GFR ( Xochitl > 60 [facility] Comment on above: Result Comment: GFR estimated reference range: According to KDOQI guidelines, <60 ml/min/1.73m2 is sufficient to diagnose a patient with chronic kidney disease. Performed By: #### C MP, LIPASE, TROP, CBC #### [address] Estimated GFR (Non- Am > 60 [facility] Comment on above: Performed By: #### C MP, LIPASE, TROP, CBC #### [address] Globulin (S) [Mass/Vol] 4.1 g/dL [facility] Comment on above: Performed By: #### C MP, LIPASE, TROP, CBC #### [address] Glucose [Mass/Vol] 99 mg/dL Normal 70-100 [facility] Comment on above: Result Comment: [facility] Glucose Reference Range is dependent on time and content of last meal. Glucose of more than 200 mg/dL in a nonstressed, ambulatory subject supports the diagnosis of Diabetes Mellitus. ADA recommended reference range Performed By: #### C MP, LIPASE, TROP, CBC #### [address] Potassium [Moles/Vol] 3.7 mmol/L Normal 3.5-5.1 [facility] Comment on above: Performed By: #### C MP, LIPASE, TROP, CBC #### [address] Protein [Mass/Vol] 8.0 g/dL High 6.1-7.9 [facility] Comment on above: Performed By: #### C MP, LIPASE, TROP, CBC #### [address] Sodium [Moles/Vol] 137 mmol/L Normal 136-146 [facility] Comment on above: Performed By: #### C MP, LIPASE, TROP, CBC #### [address] Urea nitrogen [Mass/Vol] 13 mg/dL Normal 9-23 [facility] Comment on above: Performed By: #### C MP, LIPASE, TROP, CBC #### [place] [address] [place] Dipstick and Microscopicon 0 06-10-2020 Appearance (U) Clear Normal Clear [facility] Comment on above: Order Comment: Name Collection Type:: Clean-Voided Midstream Performed By: #### A DDONUAPLUS #### [place] [address] [place] Bacteria,Urine Rare High None Seen [facility] Comment on above: Order Comment: Name Collection Type:: Clean-Voided Midstream Performed By: #### A DDONUAPLUS #### [facility] [address] [place] [address] [place] Bilirubin,Urine Negative Normal Negative [facility] Comment on above: Order Comment: Name Collection Type:: Clean-Voided Midstream Performed By: #### A DDONUAPLUS #### [facility] [address] [place] [address] [place] Color (U) Yellow Normal Yellow [facility] Comment on above: Order Comment: Name Collection Type:: Clean-Voided Midstream Performed By: #### A DDONUAPLUS #### [place] [address] [place] Glucose Ql (U) Normal Normal Normal [facility] Comment on above: Order Comment: Name Collection Type:: Clean-Voided Midstream Performed By: #### A DDONUAPLUS #### [place] [address] [place] Ketones Ql (U) 2+ High Negative [facility] Comment on above: Order Comment: Name Collection Type:: Clean-Voided Midstream Performed By: #### A DDONUAPLUS #### [facility] [address] [place] [address] [place] Leukocyte esterase Test strip Ql (U) 1+ High Negative [facility] Comment on above: Order Comment: Name Collection Type:: Clean-Voided Midstream Performed By: #### A DDONUAPLUS #### [facility] [address] [place] [address] [place] Mucus,Urine 3+ Critically abnormal [facility] Comment on above: Order Comment: Name Collection Type:: Clean-Voided Midstream Result Comment: PERF ORMED BY: [place] [address] PATHOLOGIST TUBE BENDING MACHINE OPERATOR AMY ALLEN M.D. Performed By: #### A DDONUAPLUS #### [facility] [address] [place] [address] [place] Nitrite,Urine Negative Normal Negative [facility] Comment on above: Order Comment: Name Collection Type:: Clean-Voided Midstream Performed By: #### A DDONUAPLUS #### [address] Occult Blood,Urine Trace High Negative [facility] Comment on above: Order Comment: Name Collection Type:: Clean-Voided Midstream Result Comment: PERF ORMED BY: [place] [address] PATHOLOGIST TUBE BENDING MACHINE OPERATOR AMY ALLEN M.D. Performed By: #### A DDONUAPLUS #### [address] pH (U) 5.5 [pH] Normal 5.0-9.0 [facility] Comment on above: Order Comment: Name Collection Type:: Clean-Voided Midstream Performed By: #### A DDONUAPLUS #### [address] Protein (U) [Mass/Vol] 30 mg/dL High Negative [facility] Comment on above: Order Comment: Name Collection Type:: Clean-Voided Midstream Performed By: #### A DDONUAPLUS #### [address] RBC LM.HPF (Urine sed) [#/Area] 0 /[HPF] Normal 0-4 [facility] Comment on above: Order Comment: Name Collection Type:: Clean-Voided Midstream Performed By: #### A DDONUAPLUS #### [address] Specificy [place],Urine 1.021 Normal 1.001-1.030 [facility] Comment on above: Order Comment: Name Collection Type:: Clean-Voided Midstream Performed By: #### A DDONUAPLUS #### [address] Squamous Epithelial Cell,Urine 0-1 Normal 0-2 [facility] Comment on above: Order Comment: Name Collection Type:: Clean-Voided Midstream Performed By: #### A DDONUAPLUS #### [address] Urobilinogen,Urine Normal Normal [facility] Comment on above: Order Comment: Name Collection Type:: Clean-Voided Midstream Performed By: #### A DDONUAPLUS #### [address] WBC,Urine 3-4 Normal 0-4 [facility] Comment on above: Order Comment: Name Collection Type:: Clean-Voided Midstream Performed By: #### A DDONUAPLUS #### [address] Lipaseon 06-10-2020 Lipase [Catalytic activity/Vol] 30.0 U/L Normal 22-51 [facility] Comment on above: Result Comment: PERF ORMED BY: [place] [address] PATHOLOGIST TUBE BENDING MACHINE OPERATOR AMY ALLEN M.D. Performed By: #### C MP, LIPASE, TROP, CBC #### [address] Troponin I(TnI)on 06-10-2020 Troponin I.cardiac [Mass/Vol] 0.02 ng/mL Normal 0-0.02 [facility] Comment on above: Result Comment: [facility] CT Cut off value > or equal to 0.03 ng/mL in conjunction with clinical conditions of myocardial infarction. (www.escardio.org/guidelines) PERFORMED BY: [place] [address] PATHOLOGIST TUBE BENDING MACHINE OPERATOR AMY ALLEN M.D. Performed By: #### C MP, LIPASE, TROP, CBC #### [address] Urine Cultureon 06-10-2020 Bacteria identified Cx Nom (U) 25,000 colonies/ml mixed bacterial skin contaminants 2 Days PERFORMED BY: [place] [address] PATHOLOGIST TUBE BENDING MACHINE OPERATOR AMY ALLEN M.D. Normal [facility] Comment on above: Performed By: #### C UU #### [facility] [address] [place] [address] [place] Encounters Encounter Date Encounter Type Care Provider Facility Start: 09-09-2022 End: 09-10-[address] NATALIIA BRYSON Facility:[facility] Start: 11-21-2021 End: 11-21-[address] MERRITT ALAN Facility:[facility] Start: 11-21-2021 End: 11-21-[address] HALEY STRATTON . Facility:[facility] Payers Date Payer Category Payer Unknown [id number] 1950 Unknown [id number] [id number] 1950 Unknown [id number] [id number] 1950 Unknown [id number] [id number] Summary Purpose Family History No Family History Records FoundNo Family History Records Found Advance Directives No Advanced Directives Records FoundNo Advanced Directives Records Found Additional Source Comments INFORMATION SOURCE (unrecogn ized section and content) DATE CREATED AUTHOR 06/10/[address] [facility] DATE CREATED AUTHOR AUTHOR'S ORGANIZ ATION 09/12/2022 The [facility] FOR RECORDS PERTAINING TO PATIENTS WHO ARE [...] BE BASED ON THE PRIMARY CLINICAL RECORDS. [facility] [employer] provides no warranty or guarantee of the accuracy or completeness of information in this document.
[2024-07-26 22:03] LABS: Bilirubin Urine NEGATIVE (NEGATIVE); Blood Urine NEGATIVE (NEGATIVE); Clarity Urine CLEAR (CLEAR); Color Urine LT. YELLOW (YELLOW); Glucose Urine UA NEGATIVE (NEGATIVE); Ketones Urine NEGATIVE (NEGATIVE); Leukocyte Esterase Urine NEGATIVE (NEGATIVE); Nitrite Urine NEGATIVE (NEGATIVE); Protein Urine NEGATIVE (NEG/TRACE); Urine Microscopic Indicated NO; Urobilinogen Urine 0.2 EU/dL (0.2-1.0)
[2024-07-26 23:25] LABS: Basophils Percent Auto 0.7 % (0.2-2.0); Eosinophils Percent Auto 0.7 % (0.9-7.0); Hematocrit 40.9 % (36.0-48.0); Hemoglobin 13.8 g/dL (12.0-16.0); Immature Granulocytes Abs Auto 0.01 10^3/uL (0.00-0.03); Immature Granulocytes Pct Auto 0.2 % (0.0-0.5); Mean Corpuscular HGB Conc 33.7 g/dL (29.9-35.2); Mean Corpuscular Hemoglobin 33.2 pg (26.7-34.0); Mean Corpuscular Volume 98.3 fL (81.0-99.0); Mean Platelet Volume 10.4 fL (9.5-13.5); Monocytes Absolute Auto 0.4 10^3/uL (0.3-0.8); Monocytes Percent Auto 8.8 % (1.7-12.0); Neutrophils Absolute Auto 2.8 10^3/uL (1.4-6.5); Neutrophils Percent Auto 65.6 % (43.0-75.0); Platelet Count 201 10^3/uL (150-450); Red Blood Count 4.16 10^6/uL (4.20-5.40); Red Cell Distribution Width 13.2 % (11.0-15.0); White Blood Count 4.2 10^3/uL (4.0-11.0)
[2024-07-26 23:42] LABS: BUN Creatinine Ratio 21.5; Calcium 9.1 mg/dL (8.5-10.1); Carbon Dioxide 23.6 mmol/L (21.0-32.0); Chloride 101 mmol/L (98-107); Estimated GFR (African America >60 (>=60 mL/min/1.73m^2); Estimated GFR (Non-African Ame >60 (>=60 mL/min/1.73m^2); Glucose 103 mg/dL (74-106); Potassium 3.6 mmol/L (3.5-5.1); Sodium 135 mmol/L (136-145)
--- NOTE | 2024-07-27 01:06 | ED.GENADUL1 ---
HPI HPI - General Adult General Chief complaint: Urogenital-Female Stated complaint: CANNOT URINATE Time Seen by Provider: 07/26/24 21:48 Source: patient Mode of arrival: walk-in History of Present Illness HPI narrative: The patient is a 74-year-old female who presents to the emergency department complaining of the inability to urinate. Patient states she has had trouble urinating for the last couple of days. Patient states that she has urgency and frequency but nothing comes out. She denies any dysuria. She has pain in the left lower quadrant of her abdomen. No known history of kidney stones. No flank pain. No nausea or vomiting. No diarrhea or constipation. No recent black, bloody, tarry stools. No fever or chills. No sick contacts or recent travel. Pain is moderate in severity. Unknown what makes it worse. Nothing makes it better. No radiation of the pain. Related Data Home Medications ?Medication ?Instructions ?Recorded ?Confirmed aripiprazole 10 mg tablet 10 mg PO .HS 04/14/24 04/14/24 doxazosin 1 mg tablet 1 mg PO BID 04/14/24 04/14/24 ezetimibe 10 mg tablet 10 mg PO DAILY 04/14/24 04/14/24 hydralazine 25 mg tablet 50 mg PO DAILY 04/14/24 04/14/24 losartan 50 mg tablet 50 mg PO BID 04/14/24 04/14/24 rosuvastatin 20 mg tablet 20 mg PO .hS 04/14/24 04/14/24 trazodone 50 mg tablet 50 mg PO .HS 04/14/24 04/14/24 Previous Rx's ?Medication ?Instructions ?Recorded levofloxacin 500 mg tablet 500 mg PO DAILY 5 days #5 tabs 04/15/24 metronidazole 500 mg tablet 500 mg PO Q12H #10 tabs 04/15/24 ondansetron 4 mg disintegrating 4 mg PO Q8H 3 days #9 tabs 04/15/24 tablet ciprofloxacin HCl 500 mg tablet 500 mg PO Q12H #14 tabs 07/27/24 metronidazole 500 mg tablet 500 mg PO TID #21 tabs 07/27/24 Allergies Allergy/AdvReac Type Severity Reaction Status Date / Time codeine Allergy Severe Hives Verified 04/14/24 06:49 Penicillins Allergy Unknown Hives Verified 04/14/24 01:39 Opioid HPI Opioid Management Most Recent Opioid Data: Last Pain Scale 5 04/15/24 09:00 04/15/24 Last ORT Total Score 1 04/14/24 08:42 04/14/24 Last ORT Risk Category Low Risk 04/14/24 08:42 04/14/24 Review of Systems ROS Status of ROS 10 or more systems reviewed and unremarkable except as noted in history and below [facility] PFS Medical History Elevated liver function tests ?R79.89 - Other specified abnormal findings of blood chemistry (ICD-10) Cholelithiasis ?K80.20 - Calculus of gallbladder without cholecystitis without obstruction (ICD-10) Bipolar depression ?F31.9 - Bipolar disorder, unspecified (ICD-10) HLD (hyperlipidemia) ?E78.5 - Hyperlipidemia, unspecified (ICD-10) Depression ?F32.A - Depression, unspecified (ICD-10) Chronic obstructive pulmonary disease ?J44.9 - Chronic obstructive pulmonary disease, unspecified (ICD-10) Hypertension ?I10 - Essential (primary) hypertension (ICD-10) High cholesterol ?E78.00 - Pure hypercholesterolemia, unspecified (ICD-10) Surgical History History of hysterectomy ?Z90.710 - Acquired absence of both cervix and uterus (ICD-10) Family History Father Family history of COPD (chronic obstructive pulmonary disease) Family history of hypertension Family history of myocardial infarction Mother Family history of COPD (chronic obstructive pulmonary disease) Family history of hypertension Family history of stroke Social History Within the past year, how often did you have a drink containing alcohol: never Score interpretation: A score less than 3 is consistent with normal alcohol consumption. Smoking status: Former smoker Non-prescribed substance use: denies use Previous occupational history: retired Highest level of school completed/degree received: 10th grade Are you now , , , , never or living with a partner: In a typical week, how many times do you talk on the telephone with family, friends, or neighbors: 3 or more times per week How often do you get together with friends or relatives: 3 or more times per week How often do you attend adventist or episcopalian services: never Do you belong to any clubs or organizations such as adventist groups unions, fraternal or athletic groups, or school groups: no Total score: 2 Score interpretation: A score of greater than or equal to 2 indicates the lowest level of social isolation. Little interest or pleasure in doing things: not at all Feeling down, depressed, or hopeless: not at all Feel stressed/tense/nervous/anxious/difficulty sleeping: not at all Exam Narrative Exam Narrative: Prior to examining the patient, I have washed with hospital approved and provided Antiseptic Hand Public Housing Manager and have also applied gloves.? Prior to touching the patient, I asked for consent to examine the patient.? General: Alert and oriented, well nourished, mild distress. Eye: PERRL, EOMI, normal conjunctiva. HENT: Normocephalic, normal hearing, moist oral mucosa, no scleral icterus, no sinus tenderness. Neck: Supple, non-tender, no carotid bruits, no JVD, no lymphadenopathy. Lungs: Clear to auscultation and percussion, non-labored respiration. Heart: Normal rate, regular rhythm, no murmur, gallop or edema. Abdomen: Soft, left lower quadrant tenderness without any guarding or rebound, non-distended, normal bowel sounds, no masses. Musculoskeletal: Normal range of motion and strength, no tenderness or swelling. Skin: Skin is warm, dry and pink, no rashes or lesions. Neurologic: Awake, alert, and oriented X3, CN II-XII intact. Psychiatric: Cooperative, appropriate mood and affect.? Following the conclusion of the examination, I have washed my hands thoroughly after removing examination gloves. Constitutional Vital Signs, click to edit/add: Last Vital Signs Temp 98.8 F 07/26/24 21:38 Pulse 72 07/26/24 21:38 Resp 22 H 07/26/24 21:38 BP 162/82 H 07/27/24 01:33 Pulse Ox 98 07/26/24 21:38 O2 Del Method Room Air 07/26/24 21:38 Course Course Hospital Course: Patient is a very pleasant 74-year-old female who presents to the emergency department secondary to having trouble urinate. There was no evidence of any urinary tract infection or obstructive uropathy present. The patient rather does have evidence of colitis in her sigmoid colon which is likely irritating her bladder. Patient was started on antibiotic therapy in the emergency department. She has stable vital signs. She appears nontoxic and in no acute distress. At this time I get the patient could have her symptoms as an outpatient. If her is worse or change in quality will bring her for further evaluation and care. No evidence of sepsis upon discharge. Reevaluation(s) Reevaluation #1: Patient was able to ambulate with a stable and upright gait. She understands the diagnosis. at bedside also understands a diagnosis. Vital Signs Vital signs: Vital Signs Temperature 98.8 F 07/26/24 21:38 Pulse Rate 72 07/26/24 21:38 Respiratory Rate 22 H 07/26/24 21:38 Blood Pressure 177/84 H 07/26/24 21:38 Pulse Oximetry 98 07/26/24 21:38 Oxygen Delivery Method Room Air 07/26/24 21:38 Temperature 98.8 F 07/26/24 21:38 Pulse Rate 72 07/26/24 21:38 Respiratory Rate 22 H 07/26/24 21:38 Blood Pressure 162/82 H 07/27/24 01:33 Pulse Oximetry 98 07/26/24 21:38 Oxygen Delivery Method Room Air 07/26/24 21:38 Medical Decision Making Differential Diagnosis Differential Diagnosis: UTI, pyelonephritis, kidney stone, colitis, diverticulitis Medical Records Medical records reviewed: Yes I reviewed the patient's medical records Lab Data Lab results reviewed: Yes I reviewed the patient's lab results Labs: Lab Results 07/26/24 07/26/24 Range/Units 21:47 23:08 WBC 4.2 (4.0-11.0) 10^3/uL RBC 4.16 L (4.20-5.40) 10^6/uL Hgb 13.8 (12.0-16.0) g/dL Hct 40.9 (36.0-48.0) % MCV 98.3 (81.0-99.0) fL MCH 33.2 (26.7-34.0) pg MCHC 33.7 (29.9-35.2) g/dL RDW 13.2 (11.0-15.0) % Plt Count 201 (150-450) 10^3/uL MPV 10.4 (9.5-13.5) fL Neut % (Auto) 65.6 (43.0-75.0) % Lymph % (Auto) 24.0 (20.5-60.0) % [place] % (Auto) 8.8 (1.7-12.0) % Eos % (Auto) 0.7 L (0.9-7.0) % Baso % (Auto) 0.7 (0.2-2.0) % Neut # (Auto) 2.8 (1.4-6.5) 10^3/uL Lymph # (Auto) 1.0 L (1.2-3.8) 10^3/uL [place] # (Auto) 0.4 (0.3-0.8) 10^3/uL Eos # (Auto) 0.0 (0.0-0.7) 10^3/uL Baso # (Auto) 0.0 (0.0-0.1) 10^3/uL Abs Immat Gran (auto) 0.01 (0.00-0.03) 10^3/uL Imm/Tot Granulo (auto) 0.2 (0.0-0.5) % Sodium 135 L (136-145) mmol/L Potassium 3.6 (3.5-5.1) mmol/L Chloride 101 (98-107) mmol/L Carbon Dioxide 23.6 (21.0-32.0) mmol/L Anion Gap 14.0 BUN 14.0 (7.0-18.0) mg/dL Creatinine 0.65 (0.55-1.02) mg/dL Est GFR ( Amer) >60 (>=60 mL/min/1.73m^2) Est GFR (Non-Af Amer) >60 (>=60 mL/min/1.73m^2) BUN/Creatinine Ratio 21.5 Glucose 103 (74-106) mg/dL Calcium 9.1 (8.5-10.1) mg/dL Urine Color Lt. yellow (YELLOW) Urine Clarity Clear (CLEAR) Urine pH 6.0 (5.0-9.0) Ur Specific [place] 1.010 (1.005-1.025) Urine Protein Negative (NEG/TRACE) mg/dL Urine Glucose (UA) Negative (NEGATIVE) mg/dL Urine Ketones Negative (NEGATIVE) mg/dL Urine Occult Blood Negative (NEGATIVE) Urine Nitrite Negative (NEGATIVE) Urine Bilirubin Negative (NEGATIVE) Urine Urobilinogen 0.2 (0.2-1.0) EU/dL Ur Leukocyte Esterase Negative (NEGATIVE) Imaging Data CT scan - abdomen: Attestation: I have reviewed the pertinent imaging results. Radiologist's impression: Impression: 1. Mild colitis involving the rectosigmoid colon junction with mild adjacent stranding in the lower posterior pelvic fat 2. No pneumatosis or features of bowel obstruction 3. No free fluid or free air. 4. No abscess or hematoma. 5. Hysterectomy. 6. No features of acute appendicitis. 7. Mild constipation involving the right colon. 8. Small size hiatal hernia. 9. Minimal mural calcification associated with the gallbladder wall. 10. calcified plaque at the common iliac arteries a 60% stenosis on the right side and 20% stenosis on the left side Discharge Plan Discharge Chief Complaint: Urogenital-Female Clinical Impression: Colitis, Calcified atheromatous plaque Patient Disposition: Home, Self-Care Time of Disposition Decision: 01:10 Condition: Good Mode of Transportation: Private Vehicle Prescriptions / Home Meds: New ciprofloxacin HCl 500 mg tablet 500 mg PO Q12H Qty: 14 0RF metronidazole 500 mg tablet 500 mg PO TID Qty: 21 0RF No Action aripiprazole 10 mg tablet 10 mg PO .HS doxazosin 1 mg tablet 1 mg PO BID ezetimibe 10 mg tablet 10 mg PO DAILY hydralazine 25 mg tablet 50 mg PO DAILY losartan 50 mg tablet 50 mg PO BID Rx Instructions: Hold if B/P is below 110 rosuvastatin 20 mg tablet 20 mg PO .hS trazodone 50 mg tablet 50 mg PO .HS ondansetron 4 mg tablet,disintegrating 4 mg PO Q8H 3 Days Qty: 9 0RF levofloxacin 500 mg tablet 500 mg PO DAILY 5 Days Qty: 5 0RF metronidazole 500 mg tablet 500 mg PO Q12H Qty: 10 0RF Print Language: Sudanese Instructions: Colitis (ED) Additional Instructions: You have colitis or inflammation of the colon on the CT scan. It was also noted that you also have some calcified plaques within the common iliac arteries. The plaque is hardening of the arteries or calcifications from cholesterol that keep the blood from flowing well through the arteries in the legs. Please make sure you follow-up with your doctor regarding this. It was nice to meet you. I hope you are feeling better soon. Referrals: NATALIIA BRYSON DO [Primary Care Provider] - 1 week Discharge Date/Time: 07/27/24 01:40
[2024-07-27] MEDS: CIPROFLOXACIN HCL 500 MG TABLET PO (01:31)
[2024-07-27] MEDS: METRONIDAZOLE 250 MG TABLET 500 MG PO (01:31)
[2024-07-27 01:33] VITALS: BP 162/82
== END 2024-07-27 01:40 | disposition home or self-care (01) ==
PROVIDERS: Emergency Provider Emergency Medicine; PCP Internal Medicine
DX: K52.9 Noninfective gastroenteritis and colitis, unspecified (principal); R10.32 Left lower quadrant pain; Z90.710 Acquired absence of both cervix and uterus; Z87.891 Personal history of nicotine dependence; K44.9 Diaphragmatic hernia without obstruction or gangrene; I70.8 Atherosclerosis of other arteries
CPT/HCPCS: 36415; 51798; 74177; 80048; 81003; 85025; 99285; Q9967

== ENCOUNTER 2025-03-13 13:31 | Outpatient (OUT) | payer MEDICARE, SELFPAY ==
--- OUTSIDE RECORDS SUMMARY | 2025-03-13 13:39 | XMS_ITS | Clinical Summary ---
Author Organization [facility] tem Address [id number] [address] [place] [address] Care Team Providers Care Bridge Design Engineer Name Role Phone Arsalan Sutton DO, Charles L Primary Care Provider Allergies Active AllergyReactionsCriticalityNoted HnctHfinisquAppuhvgHhfkaice11/02/2020 HcsushbvvppBvnea18/02/2020 Medications MedicationSigDispense QuantityRefillsLast FilledStart DateEnd DateStatus amitriptyline (ELAVIL) 25 mg tablet Take 25 mg by mouth nightly.02/29/2020Active PARoxetine (PAXIL) 20 mg tablet Take 20 mg by mouth daily.02/29/2020Active traZODone (DESYREL) 50 mg tablet Take 50 mg by mouth nightly.12/25/2019Active rosuvastatin (CRESTOR) 20 mg tablet Take 20 mg by mouth daily.Active docusate sodium (COLACE) 100 mg capsule Take 100 mg by mouth 2 (two) times a day.Active melatonin 10 mg capsule Take 10 mg by mouth nightly.Active Active Problems No known active problems Family History Medical HistoryRelationNameCommentsHeart diseaseFatherStrokeMotherRelationName StatusCommentsFatherDeceasedMotherDeceased Social History Tobacco UseTypesPacks/DayYears UsedDateSmoking Tobacco: Every HlzHuuhkghtao878.8 Started: 05/17/1974Smokeless Tobacco: NeverAlcohol UseStandard Drinks/Week CommentsNever0 (1 standard drink = 0.6 oz pure alcohol)AUDIT-CAnswerDate RecordedQ1: How often do you have a drink containing alcohol?Never03/18/2020 Average Number of DrinksNot on file03/18/2020Frequency of Binge DrinkingNot on file03/18/2020ChildcareAnswerDate IgrbfqqnWbfntofyuExoqzyv75/12/2019Employment AnswerDate LfqhxjviJyrzebsjxyNfemufc95/12/2019Purpose - LifeAnswerDate Recorded Purpose and direction in adeuGqtyado79/11/2021CommentsUnknownSex and Gender InformationValueDate RecordedSex Assigned at BirthNot on fileLegal Sex Xwnajx1912/20/2014 11:33 AM EDTGender IdentityNot on fileSexual OrientationNot on file Last Filed Vital Signs Vital SignReadingTime TakenCommentsBlood Ccmjhpvj503/8803/18/2020 1:58 PM EST Pulse--Hjogiltbpwy14.7 ??C (98 ??F)03/18/2020 1:58 PM ESTRespiratory Rate-- Oxygen Saturation--Inhaled Oxygen Concentration--Kgrolp92.9 kg (99 lb)03/18/2020 1:58 PM PPOXmtamv006.9 cm (5' 1 )03/18/2020 1:58 PM ESTBody Mass Index18.71 03/18/2020 1:58 PM EST Plan of Treatment Health MaintenanceDue DateLast DoneCommentsDepression Cjoqtvzyb93/29/1964Tobacco Alofkvwap08/29/1964Adult BMI Sqjhjbxbw42/29/1970DTaP,Tdap and Td Vaccines (1 - Tdap)1970Zoster (Shingles) Vaccine (1 of 2)2001Fall Risk Screening 2016Influenza Feniyhh6701/15/2025 Medical Devices Not on file Insurance Care Teams Team MemberRelationshipSpecialtyStart DateEnd Date Keaton Arriaza Jr., DO [facility] [place] [address] PCP - GeneralInternal Iggtajsc68/5/20
--- OUTSIDE RECORDS SUMMARY | 2025-03-13 13:39 | XMS_ITS | Clinical Summary ---
Author Organization [facility] Address [address] [place], [place] [address] Care Team Providers Care Customs And Border Protection Officer Name Role Phone Arsalan Sutton DO, Charles Lewis Primary Care Provi madan Darian Sutton DO, David L Unavailable [phone] Social History Tobacco UseTypesPacks/DayYears UsedDateSmoking Tobacco: Never Assessed CommentsUnknownSex and Gender InformationValueDate RecordedSex Assigned at Not on fileLegal GvuIzamfh69/28/2020 8:06 AM ESTGender IdentityNot on fileSexual OrientationNot on file Plan of Treatment Health MaintenanceDue DateLast DoneCommentsAnxiety Lkfbqfocy23/29/1970Depression Shiqehchh19/29/1970Hepatitis C Pvihmsgqx58/29/1970DTaP,Tdap,Td Vaccine (1 - Tdap)1970Mammogram Glnbihjii23/29/1992CT Bibmahbvzfdr95/29/1997Cologuard (FIT-DNA)06/14/19961898Iarbkzcefaj93/29/1997Colorectal Cancer Gihgfqwop42/29/1997 Diabetes Qzbpgwqqq25/29/1997Fecal Occult Blood1996Lipid Screening 06/14/19965355Hyaixlgsiwfkt30/29/1997Pneumococcal Vaccine: 50+ (1 of 1 - PCV) 2001Shingrix Vaccine (1 of 2)2001Bone Density Pddsrdeqc62/29/2017 Advance Directive Kttiigvgkl50/01/2025ovid-19 Vaccine (1 - 2024-26 season) 2025Influenza Vaccine (#1)2025RSV Vaccine (1 - 1-dose 75+ series) 2026 Insurance Care Teams Team MemberRelationshipSpecialtyStart DateEnd Date Keaton Arriaza Jr., DO [address] [place] [address] PCP - GeneralInternal Fnaccavo78/1/21 Rayo Farmer Jr., DO [address] [address] WghvbvvhzHnghybmzrzrjalqv29/1/21
--- OUTSIDE RECORDS SUMMARY | 2025-03-13 13:43 | XMS_ITS | CCD ---
Author Organization [facility] Care Team Providers Care Sand Filler Name Role Phone VIRAL ., DR HALEY [...] Unavailable DAYANNA, DR MERRITT Carroll Admitting Unavailable VALKEVIN, DR WILLIAM Primary Care Unavailable DAYANNA, DR MERRITT Carroll Attending Unavailable Allergies Allergy ClassificationReported Allergen(s)Allergy TypeDate of OnsetReaction(s) Facility (1 source)Adhesive bandageDrug allergy (disorder)29-06-6419Eyu [facility] Repository (1 source)CodeineDrug Xjbhede17-63-2721Kul [facility] Repository (1 source)DextroamphetamineDrug Cmpjmhj22-84-1941Nbe [facility] Repository (1 source)PenicillinsDrug allergy (disorder)71-68-3233Ohh [facility] Repository Problems Active Problems Problem ClassificationProblemDateDocumented DateEpisodic/ChronicAbdominal pain (4 sources)Unspecified abdominal pain; Translations: [UNSPECIFIED ABDOMINAL PAIN]Onset: 41-74-8057ExgccgmiXkgkhom disorders (1 source)Generalized anxiety disorder; Translations: [GENERALIZED ANXIETY DISORDER]Onset: 68-50-8057LoprjiuYpyityv obstructive pulmonary disease and bronchiectasis (1 source)Chronic obstructive pulmonary disease, unspecified; Translations: [COPD UNSPECIFIED]Onset: 65-21-8741EozjwkaAptlpxrfl of lipid metabolism (1 source)Pure hypercholesterolemia, unspecified; Translations: [PURE HYPERCHOLESTEROLEMIA UNSPEC]Onset: 81-91-3684PjfudvnFtrksqavsr disorders (1 source)Gastro-esophageal reflux disease without esophagitis; Translations: [GERD WITHOUT ESOPHAGITIS]Onset: 01-34-9748OxkoeruNcndmrjxbmc deficiencies (1 source)Moderate protein-calorie malnutrition; Translations: [MODERATE PROTEIN-CALORIE MLNUTRIT]Onset: 10-27-8462PcxwbxxVrqdn aftercare (1 source)Other residential (current) drug therapy; Translations: [OTH RETIREMENT CURRENT DRUG THERAPY]Onset: 58-62-1375OwodwpkoCadsd gastrointestinal disorders (1 source)Irritable bowel syndrome without diarrhea; Translations: [IRRITABLE BOWEL SYND W/O DIARRHEA]Onset: 91-87-3126WtvyvrhRbned gastrointestinal disorders (1 source)Irritable bowel syndrome with constipation; Translations: [IRRITABLE BOWEL SYND W/CONSTIPATION]Onset: 48-16-1464GtmcixrSsubv lower respiratory disease (4 sources)Shortness of breath; Translations: [SHORTNESS OF BREATH]Onset: 67-49-7798WnajvdtmXoipc nutritional; endocrine; and metabolic disorders (1 source)Abnormal weight loss; Translations: [ABNORMAL WEIGHT LOSS]Onset: 56-43-6105KufzquuuXedwwxoxs-related disorders (1 source)Nicotine dependence, cigarettes, uncomplicated; Translations: [NICOTINE DEPEND CIGARETTES UNCOMP]Onset: 39-94-0375IvmmqopFdqmtdxynlem (1 source)CONTACT W/AND (SUSP) EXPOS COVID-19; Translations: [CONTACT W/AND (SUSP) EXPOS COVID-19]Onset: 11-26-2021 Past or Other Problems Problem ClassificationProblemDateDocumented DateEpisodic/ChronicNausea and vomiting (5 sources)Nausea with vomiting, unspecified; Translations: [NAUSEA WITH VOMITING UNSPECIFIED]Onset: 71-73-8458AepdydmhHtlsv nutritional; endocrine; and metabolic disorders (1 source)Anorexia; Translations: [ANOREXIA]Onset: 42-46-5943RvnhpmvnQozio nutritional; endocrine; and metabolic disorders (1 source)Body mass index (BMI) 19.9 or less, adult; Translations: [BODY MASS INDEX 19.9 OR LESS ADULT]Onset: 88-38-1811Wvxzsgxt Results Test NameValueInterpretationReference RangeFacilityBNPon 80-70-7726Rdwhugxdhwc peptide B (Bld) [Mass/Vol]87.0 pg/mLNormal<=900.0The [facility]Comment on above:Performed By: #### LIVER, BNP, CREA, ELEC, LIPID, GLUC, BUN, TSH #### [facility] [address] [address] [address] Reece Edouard 74-22-7990Uloy nitrogen [Mass/Vol]20.0 mg/dLCritically high 7.0-18.0The [facility] EastComment on above:Performed By: #### LIVER, BNP, CREA, ELEC, LIPID, GLUC, BUN, TSH ####[facility] [address] [address]Dr. Reece Sheppard AUTO DIFFon 94-23-8558ZSEI #0.1 103/ulNormal0.0-0.1The [facility] EastComment on above:Performed By: #### CBC #### [facility] [address] [place] [address] Dr. Reece GroverBasophils/100 WBC (Bld)1.0 %Normal0.2-2.0The [facility] Comment on above:Performed By: #### CBC #### [facility] [address] [place] [address] Dr. Reece Cortez #0.0 103/ulNormal0.0-0.7The [facility] EastComment on above: Performed By: #### CBC #### [facility] [address] [place] [address] Dr. Reece Juneosinophils/100 WBC (Bld)0.8 %Critically low0.9-7.0The [facility] EastComment on above:Performed By: #### CBC #### [facility] [address] [place] [address] Dr. Reece Junerythrocyte distribution width (RBC) [Ratio]13.0 %Hooqlh46.0-15.0 The [facility] EastComment on above:Performed By: #### CBC #### [facility] [address] [place] [address] Dr. Reece GroverHematocrit (Bld) [Volume fraction]42.9 %Ylhwrr95.0-48.0The [facility] EastComment on above:Performed By: #### CBC #### [facility] [address] [place] [address] Dr. Reece Hongoglobin (Bld) [Mass/Vol]13.9 g/nUYqtyui62.0-16.0The [facility] EastComment on above:Performed By: #### CBC #### [facility] [address] [place] [address] Dr. Reece GroverIG #0.01 10e3/ulNormal0.00-0.03The [facility] EastComment on above:Performed By: #### CBC #### [facility] [address] [place] [address] Dr. Reece Caldera %0.2 %Normal0.0-0.5The [facility] EastComment on above: Performed By: #### CBC #### [facility] [address] [place] [address] Dr. Reece Saul #1.1 103/ulCritically low1.2-3.8The [facility] Comment on above:Performed By: #### CBC #### [facility] [address] [place] [address] Dr. Reece Montañomphocytes/100 WBC (Bld)22.1 %Snkpww44.5-60.0The [facility] EastComment on above:Performed By: #### CBC #### [facility] [address] [place] [address] Dr. Reece JimenezUAL DIFF REQNONormalThe [facility] EastComment on above: Performed By: #### CBC #### [facility] [address] [place] [address] Dr. Reece Otero (RBC) [Entitic mass]32.4 scKeqegn80.7-34.0The [facility] EastComment on above:Performed By: #### CBC #### [facility] [address] [place] [address] Dr. Reece Otero (RBC) [Mass/Vol]32.4 g/wVVwdygw03.9-35.2The [facility] EastComment on above:Performed By: #### CBC #### [facility] [address] [place] [address] Dr. Reece OteroV (RBC) [Entitic vol]100.0 fLCritically high81.0-99.0The [facility] EastComment on above:Performed By: #### CBC #### [facility] [address] [place] [address] Dr. Reece Clark #0.3 103/ulNormal0.3-0.8The [facility] EastComment on above:Performed By: #### CBC #### [facility] [address] [place] [address] Dr. Reece Perezocytes/100 WBC (Bld)5.6 %Normal1.7-12.0The [facility] Comment on above:Performed By: #### CBC #### [facility] [address] [place] [address] Dr. Reece Rivas #3.5 103/ulNormal1.4-6.5The [facility] EastComment on above:Performed By: #### CBC #### [facility] [address] [place] [address] Dr. Reece Pradhanutrophils/100 WBC (Bld)70.3 %Tosqqm97.0-75.0The [facility] EastComment on above:Performed By: #### CBC #### [facility] [address] [place] [address] Dr. Reece Herringlet mean volume (Bld) [Entitic vol]9.7 fLNormal9.5-13.5The [facility] EastComment on above:Performed By: #### CBC #### [facility] [address] [place] [address] Dr. Reece GroverPLT190 103/gaNljtvb488-309Ulx [facility] EastComment on above: Performed By: #### CBC #### [facility] [address] [place] [address] Dr. Reece GroverRBC4.29 106/ulNormal4.20-5.40The [facility] Hospitalment on above:Performed By: #### CBC #### [facility] [address] [place] [address] Dr. Reece GroverWBC5.0 103/ulNormal4.0-11.0The [facility] on above: Performed By: #### CBC #### [facility] [address] [place] [address] Dr. Reece GroverCREATININEon 96-54-2349Qrjmocmlhx [Mass/Vol]0.81 mg/dLNormal 0.55-1.02The [facility] EastComment on above:Performed By: #### LIVER, BNP, CREA, ELEC, LIPID, GLUC, BUN, TSH #### [facility] [address] [place] [address] Dr. Reece JuneGFR-AF LITHUANIAN>60Normal>=60The [facility] EastComment on above:Performed By: #### LIVER, BNP, CREA, ELEC, LIPID, GLUC, BUN, TSH #### [facility] [address] [place] [address] Dr. Reece JuneGFR-NON AF LITHUANIAN>60Normal>=60The [facility] Hospitalment on above:Performed By: #### LIVER, BNP, CREA, ELEC, LIPID, GLUC, BUN, TSH #### [facility] [address] [place] [address] Dr. Reece JuneLECTROLYTESon 70-48-7917Iuoln gap [Moles/Vol]12.6 mmol/LNormal The [facility]Comselect [facility] hospital on above:Performed By: #### LIVER, BNP, CREA, ELEC, LIPID, GLUC, BUN, TSH #### [facility] [address] [place] [address] Dr. Reece GroverChloride [Moles/Vol]105 mmol/PZtaemy68-849Lie [facility] Comment on above:Performed By: #### LIVER, BNP, CREA, ELEC, LIPID, GLUC, BUN, TSH #### [facility] [address] [place] [address] Dr. Reece GroverCO2 [Moles/Vol]28.6 mmol/JSwymtd47.0-32.0[facility] Comment on above:Performed By: #### LIVER, BNP, CREA, ELEC, LIPID, GLUC, BUN, TSH #### [facility] [address] [place] [address] Dr. Reece GroverPotassium [Moles/Vol]4.2 mmol/LNormal3.5-5.1[facility] Comment on above:Performed By: #### LIVER, BNP, CREA, ELEC, LIPID, GLUC, BUN, TSH #### [facility] [address] [place] [address] Dr. Reece GroverSodium [Moles/Vol]142 mmol/KFmmspg018-930HtmSelect Medical Specialty [facility] [place] Comment on above:Performed By: #### LIVER, BNP, CREA, ELEC, LIPID, GLUC, BUN, TSH #### [facility] [address] [place] [address] Dr. Reece GroverGLUCOSE BLOODon 44-07-1503Gcaeitu [Mass/Vol]105 mg/iQAlhiwh91-933 [facility]stownComment on above:Performed By: #### LIVER, BNP, CREA, ELEC, LIPID, GLUC, BUN, TSH #### [facility] [address] [place] [address] Dr. Reece GroverLIPID PROFILEon 75-25-7250EAVB-HDL RATIO NORMSBlanchard Valley Health System Bluffton HospitalComment on above:Result Comment: 3.3 - 4.4 LOW RISK 4.4 - 7.1 AVERAGE RISK 7.1 - 11.0 MODERATE RISK >11.0 HIGH RISKPerformed By: #### LIVER, BNP, CREA, ELEC, LIPID, GLUC, BUN, TSH #### [facility] [address] [place] [address] Dr. Reece GroverCholesterol [Mass/Vol]249 mg/dLCritically high<=200The [facility] EastComment on above:Performed By: #### LIVER, BNP, CREA, ELEC, LIPID, GLUC, BUN, TSH #### [facility] [address] [place] [address] Dr. Reece Valenciaesterol in HDL [Mass/Vol]93 mg/dLCritically ewmr10-64FjmAkron [facility] on above:Performed By: #### LIVER, BNP, CREA, ELEC, LIPID, GLUC, BUN, TSH #### [facility] [address] [place] [address] Dr. Reece Valenciaesterol in LDL [Mass/Vol]142.0 mg/dLNoProMedica Memorial HospitalComment on above:Performed By: #### LIVER, BNP, CREA, ELEC, LIPID, GLUC, BUN, TSH #### [facility] [address] [place] [address] Dr. Reece Correa.total/Cholesterol in HDL [Mass ratio]2.7 {ratio} NormalSelect Medical Specialty Hospital - YoungstownComselect specialty hospital on above:Performed By: #### LIVER, BNP, CREA, ELEC, LIPID, GLUC, BUN, TSH #### [facility] [address] [place] [address] Dr. Reece GroverHDTammy NORMAL> or = 60 mg/dl - LOW CARDIOVASCULAR RISK <40 mg/dl - HIGH CARDIOVASCULAR RISKAdena Health SystemComment on above:Performed By: #### LIVER, BNP, CREA, ELEC, LIPID, GLUC, BUN, TSH #### [facility] [address] [place] [address] Dr. Reece GroverLDL CALC NORMALSEE BELOWNoProMedica Memorial HospitalComment on above:Result Comment: <100 mg/dl OPTIMAL 100 - 129 mg/dl NEAR OR ABOVE OPTIMAL 130 - 159 mg/dl BORDERLINE HIGH 160 - 189 mg/dl HIGH >190 mg/dl VERY HIGH Performed By: #### LIVER, BNP, CREA, ELEC, LIPID, GLUC, BUN, TSH #### [facility] [address] [place] [address] Dr. Reece GroverTriglyceride [Mass/Vol]70 mg/dLNormal<=150[facility] Comment on above:Performed By: #### LIVER, BNP, CREA, ELEC, LIPID, GLUC, BUN, TSH #### [facility] [address] [place] [address] Dr. Reece IrwinLDL CALC14.0 mg/dLNormalThe [facility] on above: Performed By: #### LIVER, BNP, CREA, ELEC, LIPID, GLUC, BUN, TSH #### [facility] [address] [place] [address] Dr. Reece Noland PROFILEon 28-78-5919Wcwiudo [Mass/Vol]3.6 g/dLNormal3.4-5.0 The [facility] on above:Performed By: #### LIVER, BNP, CREA, ELEC, LIPID, GLUC, BUN, TSH #### [facility] [address] [place] [address] Dr. Reece GroverAlbumin/Globulin [Mass ratio]0.8 {ratio}NormalThe [facility] on above:Performed By: #### LIVER, BNP, CREA, ELEC, LIPID, GLUC, BUN, TSH #### [facility] [address] [place] [address] Dr. Reece Gallardo [Catalytic activity/Vol]324 U/LCritically phva16-219Qjl [facility] on above:Performed By: #### LIVER, BNP, CREA, ELEC, LIPID, GLUC, BUN, TSH #### [facility] [address] [place] [address] Dr. Reece Patel [Catalytic activity/Vol]61 U/LCritically uiff92-24Ypg [facility] on above:Performed By: #### LIVER, BNP, CREA, ELEC, LIPID, GLUC, BUN, TSH #### [facility] [address] [place] [address] Dr. Reece Thomas [Catalytic activity/Vol]50 U/LCritically msly18-41Zbx [facility] on above:Performed By: #### LIVER, BNP, CREA, ELEC, LIPID, GLUC, BUN, TSH #### [facility] [address] [place] [address] Dr. Reece Bateman, CONJUGATED0.1 mg/dLNormal0.0-0.2The [facility] Comment on above:Performed By: #### LIVER, BNP, CREA, ELEC, LIPID, GLUC, BUN, TSH #### [facility] [address] [place] [address] Dr. Reece GroverBilirubin [Mass/Vol]0.3 mg/dLNormal0.2-1.0The [facility] Comment on above:Performed By: #### LIVER, BNP, CREA, ELEC, LIPID, GLUC, BUN, TSH #### [facility] [address] [place] [address] Dr. Reece GroverGlobulin (S) [Mass/Vol]4.8 g/dLNormalThe [facility] EastComment on above:Performed By: #### LIVER, BNP, CREA, ELEC, LIPID, GLUC, BUN, TSH #### [facility] [address] [place] [address] Dr. Reece GroverProtein [Mass/Vol]8.4 g/dLCritically high6.4-8.2The [facility] EastComment on above:Performed By: #### LIVER, BNP, CREA, ELEC, LIPID, GLUC, BUN, TSH #### [facility] [address] [place] [address] Dr. Reece RedmondHojohny 90-63-0764IDI5.698 uIU/mLNormal0.358-3.740The [facility] EastComment on above:Performed By: #### LIVER, BNP, CREA, ELEC, LIPID, GLUC, BUN, TSH ####[facility] [address] [address]Dr. Reece GroverAMYLASEon 17-09-2270Uwgsnsn [Catalytic activity/Vol]93 U/L Zpwhvm10-336Tfi [facility] EastComment on above:Performed By: #### KAREN, CMP, LIPA ####[facility] [address] [address]Dr. Reece MosleyC AUTO DIFFon 11-78-2544SJES #0.0 103/ulNormal0.0-0.1The [facility] EastComment on above:Performed By: #### CBC ####[facility] [address] [place], [place] [address]Dr.Yilan ChangBasophils/100 WBC (Bld)0.4 %Normal0.2-2.0The [facility] EastComment on above:Performed By: #### CBC ####[facility] [address] [place], [place] [address]Dr.Yilan ChangEO #0.0 103/ulNormal0.0-0.7The [facility] EastComment on above:Performed By: #### CBC ####[facility] [address]xy[address] [place], [place] [address]Dr.Yilan ChangEosinophils/100 WBC (Bld)0.4 %Critically low0.9-7.0The [facility] EastComment on above:Performed By: #### CBC ####[facility] Nayzvivqps[address] [place], [place] [address]Dr. Yilan ChangErythrocyte distribution width (RBC) [Ratio]12.7 %Fnjvro73.0-15.0The [facility] EastComment on above:Performed By: #### CBC ####[facility] Hbkqgzwpco[address] [place], [place] [address]Dr.Reece ChangHematocrit (Bld) [Volume fraction]40.1 %Lxdlsd96.0-48.0The [facility] EastComment on above:Performed By: #### CBC ####[facility] [address] [place], [place] [address]Dr.Yilan ChangHemoglobin (Bld) [Mass/Vol]13.7 g/dL Udqutz61.0-16.0The [facility] EastComment on above:Performed By: #### CBC ####[facility] [address] [place], [place] [address]Dr. Yilan ChangIG #0.03 10e3/ulNormal0.00-0.03The [facility] EastComment on above: Performed By: #### CBC ####[facility] [address]fc[address] [place], [place] [address]Dr.Yilan ChangIG %0.4 %Normal0.0-0.5The [facility] EastComment on above:Performed By: #### CBC ####[facility] [address] [place], [place] [address]Dr.Reece GroverMPH #0.9 103/ulCritically low1.2-3.8The [facility] EastComment on above:Performed By: #### CBC ####[facility] [address] [place], [place] [address]Dr.Reece GroverLymphocytes/100 WBC (Bld)10.9 %Critically low20.5-60.0The [facility] EastComment on above:Performed By: #### CBC ####[facility] [address] [place], [place] [address]Dr.Reece GroverMANUAL DIFF REQ NONormalThe [facility] EastComment on above:Performed By: #### CBC ####[facility] [address]vr[address] [place], [place] [address]Dr. Reece GroverCAYUGA [facility] (RBC) [Entitic mass]33.4 tbAnndfn52.7-34.0The [facility] Comment on above:Performed By: #### CBC ####[facility] [address] [place], [place] [address]Dr.Reece GroverF [facility] (RBC) [Mass/Vol]34.2 g/dL Lalwzt57.9-35.2The [facility] EastComment on above:Performed By: #### CBC ####[facility] [address]zn[address] [place], [place] [address]Dr. Reece GroverV (RBC) [Entitic vol]97.8 qNDvvxff88.0-99.0The [facility] Comment on above:Performed By: #### CBC ####[facility] [address]trtipzba[address] [place], [place] [address]Dr.Reece GroverPERSHING MEMORIAL HOSPITALO #0.4 103/ulNormal0.3-0.8 The [facility] EastComment on above:Performed By: #### CBC ####[facility] [address]rat[address] [place], [place] [address]Dr.Reece Grover Monocytes/100 WBC (Bld)4.6 %Normal1.7-12.0The [facility] EastComment on above: Performed By: #### CBC ####[facility] [address] [address]Dr.Reece GroverNEUT #7.0 103/ulCritically high1.4-6.5 The [facility] EastComment on above:Performed By: #### CBC ####[facility] [address] [address]Dr.Reece Grover Neutrophils/100 WBC (Bld)83.3 %Critically high43.0-75.0The [facility] Comment on above:Performed By: #### CBC ####[facility] [address] [address]Dr.Reece GroverPlatelet mean volume (Bld) [Entitic vol]10.0 fLNormal9.5-13.5The [facility] EastComment on above: Performed By: #### CBC ####[facility] [address] [address]Dr.Reece DatseGJC446 103/rgEmgnnt211-319Hvp [facility] EastComment on above:Performed By: #### CBC ####[facility] [address]fe[address] [place], [place] [address]Dr.Reece ChangRBC4.10 106/ul Critically low4.20-5.40The [facility] EastComment on above:Performed By: #### CBC ####[facility] [address] [address]Dr. Reece ChangWBC8.4 103/ulNormal4.0-11.0The [facility] EastComment on above: Performed By: #### CBC ####[facility] [address] [place], [place] [address]Dr.Reece ChangBASO #0.1 103/ulNormal0.0-0.1The [facility] EastComment on above:Performed By: #### CBC ####[facility] [address] [place], [place] [address]Dr.Yilan ChangBasophils/100 WBC (Bld)1.0 %Normal0.2-2.0The [facility] EastComment on above:Performed By: #### CBC ####[facility] [address] [place], [place] [address]Dr.Yilan ChangEO #0.1 103/ulNormal0.0-0.7The [facility] EastComment on above:Performed By: #### CBC ####[facility] [address]zt[address] [place], [place] [address]Dr.Yilan ChangEosinophils/100 WBC (Bld)2.1 %Normal 0.9-7.0The [facility] EastComment on above:Performed By: #### CBC ####[facility] [address] [place], [place] [address]Dr.Darlingrich Grover Erythrocyte distribution width (RBC) [Ratio]12.8 %Cbikhr56.0-15.0The [facility] EastComment on above:Performed By: #### CBC ####[facility] [address] [place], [place] [address]Dr.Reece ChangHematocrit (Bld) [Volume fraction]40.6 %Vjezrd30.0-48.0The [facility] EastComment on above:Performed By: #### CBC ####[facility] [address]wrxwxz[address] [place], [place] [address]Dr.Reece ChangHemoglobin (Bld) [Mass/Vol]13.3 g/dL Jcpgzp91.0-16.0The [facility] EastComment on above:Performed By: #### CBC ####[facility] [address]ex[address] [place], [place] [address]Dr. Yilan ChangIG #0.02 10e3/ulNormal0.00-0.03The [facility] EastComment on above: Performed By: #### CBC ####[facility] [address] [address] [place], [place] [address]Dr.Yilan ChangIG %0.4 %Normal0.0-0.5The [facility] Hospital Cleveland EastComment on above:Performed By: #### CBC ####[facility] Q[address]zxpiide[address] [place] [address]Dr.Reece GroverLYMPH #1.6 103/ulNormal1.2-3.8The [facility] EastComment on above:Performed By: #### CBC ####[facility] Yohrbcpoao[address] [place] [address]Dr. Reece GroverLymphocytes/100 WBC (Bld)31.6 %Snrobh47.5-60.0The [facility] Comment on above:Performed By: #### CBC ####[facility] Vetnhajdmp[address] [place], [place] [address]Dr.Reece GroverMANUAL DIFF REQNONormalThe [facility] Hospital [facility] EastComment on above:Performed By: #### CBC ####[facility] Vkaeyuqvru[address] [place], [place] [address]Dr.Darlingrich GroverMCH (RBC) [Entitic mass]33.0 iiOkezxs77.7-34.0The [facility] EastComment on above: Performed By: #### CBC ####[facility] Qydbwbwjti[address] [place], [place] [address]Dr.Reece GroverMCHC (RBC) [Mass/Vol]32.8 g/dLNormal 29.9-35.2The [facility] EastComment on above:Performed By: #### CBC ####[facility] Ixergnnxuh54[address] [place], [place] [address]Dr. Darlingrich GroverMCV (RBC) [Entitic vol]100.7 fLCritically high81.0-99.0The [facility] EastComment on above:Performed By: #### CBC ####[facility] Velekchixf[address] [place], [place] [address]Dr.Reece GroverMONO #0.4 103/ulNormal0.3-0.8The [facility] EastComment on above:Performed By: #### CBC ####[facility] Esuzhqshhv[address] [place], [place] [address]Dr. Reece ChangMonocytes/100 WBC (Bld)7.1 %Normal1.7-12.0The [facility] Comment on above:Performed By: #### CBC ####[facility] [address]otshnein[address] [place] [address]Dr.Reece GroverNEUT #3.0 103/ulNormal1.4-6.5 The [facility] EastComment on above:Performed By: #### CBC ####[facility] Pkvkfautot87[address] [place] [address]Dr.Reece Grover Neutrophils/100 WBC (Bld)57.8 %Gbpcze50.0-75.0The [facility] EastComment on above:Performed By: #### CBC ####[facility] Xmmtcoqevx[address] [place], [place] [address]Dr.Reece GroverPlatelet mean volume (Bld) [Entitic vol] 9.7 fLNormal9.5-13.5The [facility] EastComment on above:Performed By: #### CBC ####[facility] Stfclvnsgr[address] [place], [place] [address]Dr. Reece GroverPLT239 103/dyBgqtcj416-513Ejv [facility] EastComment on above: Performed By: #### CBC ####[facility] Yfgheknikp[address] [place], [place] [address]Dr.Reece GroverRBC4.03 106/ulCritically low4.20-5.40The [facility] EastComment on above:Performed By: #### CBC ####[facility] Hgzrawfzda[address] [place], [place] [address]Dr.Reece ReillyWBC5.2 103/ul Normal4.0-11.0The [facility] EastComment on above:Performed By: #### CBC ####[facility] Zstqlterbv7713[address] [place], [place] [address]Dr. Darlingrich GroverCT ABD/PELV W CONon 31-82-4130WU ABD/PELV W CONEXAMINATION: CT ABD/PELV W CON HISTORY: ABDOMINAL DISTENSION [...] Electronically authenticated by: CARI MORA Date: 2021-11-21 02:42NoProMedica Memorial HospitalCovid-19 PCR (CVDTBH)on 51-50-3088NASY-CoV-2 (COVID-19) RNA THOM+probe Ql (Unsp spec)Not detectedNormalNOT DETECTEDThe [facility] Comment on above:Result Comment: When diagnostic testing is negative, the [...] for this test is supported by the [place] of Health and Human Service's declaration that circumstances exist to justify the emergency use of in vitro diagnostics for the detection and/or diagnosis of the virus that causes COVID-19. This EUA will remain in effect for the duration of the COVID-19 declaration justifying emergency of IVDs, unless it is terminated or revoked by the FDA (after which the test may no longer be used).Performed By: #### CVDTBH ####[facility] [address] [place], [place] [address]Mp. Yilan ChangLIPASEon 77-29-1017Jyljqo [Catalytic activity/Vol]106.0 U/L Awluvy35.0-393.0The [facility] EastComment on above:Performed By: #### KAREN, CMP, LIPA ####[facility] Iraicvrikn[address] [place], [place] [address]Dr. Yilan ChangPROF 14(COMP METB)on 05-51-4550Hxpqytx [Mass/Vol]3.6 g/dL Normal3.4-5.0The [facility] EastComment on above:Performed By: #### CMP ####[facility] Uvokipwhzg[address] [place], [place] [address]Dr. Yilan ChangAlbumin/Globulin [Mass ratio]0.9 {ratio}NormalThe [facility] Comment on above:Performed By: #### CMP ####[facility] Chjzkubygz[address] [place], [place] [address]Dr.Yilan ChangALP [Catalytic activity/Vol] 299 U/LCritically ovxp88-004Dwk [facility] EastComment on above:Performed By: #### CMP ####[facility] Htttswecpj55[address] [place], [place] [address]Dr.Yilan ChangALT [Catalytic activity/Vol]53 U/LNjaxmy19-44Lma [facility] EastComment on above:Performed By: #### CMP ####[facility] Chdlatxfhw9[address] [place], [place] [address]Dr.Yilan ChangAnion gap [Moles/Vol]12.2 mmol/LNormalThe [facility] EastComment on above:Performed By: #### CMP ####[facility] Byayhqzodf9[address] [place], [place] [address]Dr.Yilan ChangAST [Catalytic activity/Vol]41 U/LCritically bmim38-04Ojl [facility] EastComment on above:Performed By: #### CMP ####[facility] Lwybdnsrea194[address] [place], [place] [address]Dr.Yilan ChangBilirubin [Mass/Vol]0.8 mg/dLNormal0.2-1.0The [facility] EastComment on above:Performed By: #### CMP ####[facility] Cbmzrzikpu[address] [place], [place] [address]Dr.Yilan ChangCalcium [Mass/Vol]9.6 mg/dLNormal8.5-10.1The [facility] EastComment on above:Performed By: #### CMP ####[facility] Yylapdjgyp[address] [place], [place] [address]Dr.Yilan ChangChloride [Moles/Vol]101 mmol/FJalbey02-263Cbx [facility] EastComment on above:Performed By: #### CMP ####[facility] Cckavjvmwu7[address] [place], [place] [address]Dr.Yilan ChangCO2 [Moles/Vol]26.3 mmol/EUbnhmx89.0-32.0The [facility] EastComment on above:Performed By: #### CMP ####[facility] Ymyohoobyx[address] [place], [place] [address]Dr.Yilan ChangCreatinine [Mass/Vol]0.63 mg/dLNormal0.55-1.02The [facility] EastComment on above: Performed By: #### CMP ####[facility] Kfdrvvbaar7[address] [place], [place] [address]Dr.Yilan ChangEGFR-AF LITHUANIAN>60Normal>=60The [facility] EastComment on above:Performed By: #### CMP ####[facility] Zrqkpfchlq50[address] [place], [place] [address]Dr.Yilan ChangEGFR-NON AF LITHUANIAN>60Normal>=60The [facility] EastComment on above:Performed By: #### CMP ####[facility] Uxdhzkyygn[address] [place], [place] [address]Dr. Yilan ChangGlobulin (S) [Mass/Vol]4.2 g/dLNormalThe [facility] EastComment on above:Performed By: #### CMP ####[facility] Fuexefvtuq415[address] [place], [place] [address]Dr.Yilan ChangGlucose [Mass/Vol]120 mg/dLCritically rxtx29-664Ryw [facility] EastComment on above:Performed By: #### CMP ####[facility] Hrnwxmlvtm1074[address] [place], [place] [address]Dr. Yilan ChangPotassium [Moles/Vol]4.5 mmol/LNormal3.5-5.1The [facility] Comment on above:Performed By: #### CMP ####[facility] Wkyboqycya4[address] [place], [place] [address]Dr.Reece ChangProtein [Mass/Vol]7.8 g/dL Normal6.4-8.2The [facility] EastComment on above:Performed By: #### CMP ####[facility] Efbskiobsy64[address] [place], [place] [address]Dr. Yilan ChangSodium [Moles/Vol]135 mmol/LCritically sad126-207Vug [facility] EastComment on above:Performed By: #### CMP ####[facility] Wkloobuogd20[address] [place], [place] [address]Dr.Yilan ChangUrea nitrogen [Mass/Vol]19.0 mg/dLCritically high7.0-18.0The [facility] EastComment on above:Performed By: #### CMP ####[facility] Bcixzjnpno64[address] [place], [place] [address]Dr.Yilan ChangUrea nitrogen/Creatinine [Mass ratio] 30.2 mg/mgNormalThe [facility] EastComment on above:Performed By: #### CMP ####[facility] Tpxgzigvlg[address] [place], [place] [address]Dr. Yirich ChangAlbumin [Mass/Vol]3.2 g/dLCritically low3.4-5.0The [facility] Comment on above:Performed By: #### KAREN, CMP, LIPA ####[facility] Iwxbesrqdn[address] [place], [place] [address]Dr. Darlinglan Grover Albumin/Globulin [Mass ratio]0.8 {ratio}NormalThe [facility] EastComment on above:Performed By: #### KAREN, CMP, LIPA ####[facility] Hyiylirnwd[address] [place], [place] [address]Dr. Darlinglan ChangALP [Catalytic activity/Vol] 296 U/LCritically hzpd04-887Huk [facility] EastComment on above:Performed By: #### KAREN, CMP, LIPA ####[facility] [address]whnc[address] [place] [address]Dr. Yilan ChangALT [Catalytic activity/Vol]49 U/L Nesbqs51-30Czh [facility] EastComment on above:Performed By: #### KAREN, CMP, LIPA ####[facility] [address]ualzyjjey[address] [place] [address]Dr. Yilan ChangAnion gap [Moles/Vol]8.7 mmol/LNormalThe [facility] Comment on above:Performed By: #### KAREN, CMP, LIPA ####[facility] Rlkirknibv[address] [place] [address]Dr. Yilan ChangAST [Catalytic activity/Vol]34 U/ZGpblcd79-47Xms [facility] EastComment on above:Performed By: #### KAREN, CMP, LIPA ####[facility] Wpxquixmgz[address] [place] [address]Dr. Yilan ChangBilirubin [Mass/Vol]0.3 mg/dLNormal 0.2-1.0The [facility] EastComment on above:Performed By: #### KAREN, CMP, LIPA ####[facility] [address]xhlgqdixr[address] [place] [address]Dr. Yilan ChangCalcium [Mass/Vol]9.2 mg/dLNormal8.5-10.1The [facility] EastComment on above:Performed By: #### KAREN, CMP, LIPA ####[facility] [address]horwzfw[address] [place] [address]Dr. Yilan ChangChloride [Moles/Vol]105 mmol/OVpavbg15-594Twz [facility] EastComment on above:Performed By: #### KAREN, CMP, LIPA ####[facility] Roiscpcnqz[address] [place] [address]Dr. Yilan ChangCO2 [Moles/Vol]29.2 mmol/OPfcksm51.0-32.0The [facility] EastComment on above:Performed By: #### KAREN, CMP, LIPA ####[facility] Qfflnnqdcg96[address] [place], [place] [address]Dr. Yilan ChangCreatinine [Mass/Vol]0.84 mg/dLNormal0.55-1.02The [facility] EastComment on above: Performed By: #### KAREN, CMP, LIPA ####[facility] [address]qvpilbzrl[address] [place] [address]Dr. Yilan ChangEGFR-AF LITHUANIAN>60Normal>=60The [facility] EastComment on above:Performed By: #### KAREN, CMP, LIPA ####[facility] [address]frfwfyfa[address] [place] [address]Dr. Yilan Grover EGFR-NON AF LITHUANIAN>60Normal>=60The [facility] EastComment on above:Performed By: #### KAREN, CMP, LIPA ####[facility] Rhkjmixwvh[address] [place], [place] [address]Dr. Yilan ChangGlobulin (S) [Mass/Vol]4.0 g/dLNormal The [facility] EastComment on above:Performed By: #### KAREN, CMP, LIPA ####[facility] Ruulflvxuj7[address] [place], [place] [address]Dr. Yilan ChangGlucose [Mass/Vol]98 mg/aULhvioj48-112Pxw [facility] EastComment on above:Performed By: #### KAREN, CMP, LIPA ####[facility] Maxjftuqav7[address] [place], [place] [address]Dr. Yilan ChangPotassium [Moles/Vol]3.9 mmol/LNormal3.5-5.1The [facility] EastComment on above:Performed By: #### KAREN, CMP, LIPA ####[facility] Lzvnsqwkgd[address] [place], [place] [address]Dr. Yilan ChangProtein [Mass/Vol]7.2 g/dLNormal6.4-8.2The [facility] Comment on above:Performed By: #### KAREN, CMP, LIPA ####[facility] Ghulqbiber52[address] [place], [place] [address]Dr. Yilan ChangSodium [Moles/Vol]139 mmol/VQrmkyx215-168Txx [facility] EastComment on above: Performed By: #### KAREN, CMP, LIPA ####[facility] [address] [place], [place] [address]Wi. Reece ChangUrea nitrogen [Mass/Vol]25.0 mg/dL Critically high7.0-18.0The [facility] EastComment on above:Performed By: #### KAREN, CMP, LIPA ####[facility] [address] [place], [place] [address]Qw. Reece ChangUrea nitrogen/Creatinine [Mass ratio]29.8 mg/mgNormal The [facility] EastComment on above:Performed By: #### KAREN, CMP, LIPA ####[facility] [address]idezmpvt[address] [place], [place] [address]Ew. Reece GroverUS SINGLE QUAD RT UPPERon 18-82-8808QF SINGLE QUAD RT UPPER EXAMINATION: US SINGLE [...] Electronically authenticated by: ANDREI ESCOBAR Date: 2021-11-21 07:26[facility]_PA Bautista [id number] ABD FLAT UP_PA CHEXAM: XR ABD FLAT UP_PA CH HISTORY: ABDOMINAL [...] Electronically authenticated by: JERSEY GUADALUPE Date: 2021-11-21 04:56[facility] 07-16-2020 Specimen: [id number] Received: 07/16/20 Status: BERNICE Bajwa Num: [id number] Spec Type: Surgical Subm Dr: Rayo Farmer Jr, DO Tissues: A Colon Biopsy (RANDOM COLON BX) Procedures: HE Stain/2, Gross/Micro L4 Patient Age/Sex Location Account Attending Physician [place]/F [id number] Rayo Farmer Jr, DO SPEC NUM: [id number] RECD: 07/16/20 STATUS: BERNICE BAJWA NUM: [id number] JUDITH: 07/16/20- DR: Rayo Farmer Jr, DO ENTERED: 07/16/20-[address] [facility] [address]: PARAM TYPE: Surgical DEPT: S [...] microscopic findings support the above pathologic diagnosis. [id number] Specimen: [id number] Received: 07/16/20-1235 Status: BERNICE Bajwa Num: [id number] Spec Type: Surgical Subm Dr: Rayo Farmer Jr, DO Tissues: A Colon Biopsy (RANDOM COLON BX) Procedures: HE Stain/2, Gross/Micro L4 Patient: Lay Wayne [id number] (Continued) Signed (signature on file) Amy Allen MD 07/17/20 1027 [facility] CampusCOVID-19 Antigenon [id number]-19 AntigenHealthcare Worker?: N Karen Reference Karen Reference Negative [...] its performance Karen Disclaimer characteristic determined by [employer] and Karen Disclaimer validated at [facility]. This Karen Disclaimer test has not been [...] Emergency Use Authorization for Coronavirus Karen Disclaimer is during the Public Health Emergency) Karen Disclaimer [...] is terminated or revoked sooner. PERFORMED BY: [place] [id number] PATHOLOGIST MACHINE BANDER AND CELLOPHANER AMY ALLEN M.D.[facility] CampusComment on above: Performed By: #### SOFIANEG, COVID-19 KAREN #### [place] [id number] USASofia Ag Negativeon 97-04-4365Ksoyk Ag NegativeNegative NormalNegativeFirelands Regional Medical Center South CampusComment on above:Result Comment: This is a duplicate test result based off of the Karen SARS Antigen (THANIA) test performed within the Microbiology department. PERFORMED BY: [place] [address] PATHOLOGIST MACHINE BANDER AND CELLOPHANER AMY ALLEN M.D.Performed By: #### SOFIANEG, COVID-19 KAREN #### [address] [address] USAC-Reactive Proteinon 38-15-7895A-Reactive Protein1.2 mg/dL High0.0-1.0[facility] CampusComment on above:Result Comment: PERFORMED BY: [address] [address] PATHOLOGIST MACHINE BANDER AND CELLOPHANER AMY ALLEN M.D.Performed By: #### CRP #### [facility] [address] [place], [place] [id number] USACT abdomen pelvis w conon [id number] abdomen pelvis w [facility] [address] [place], [place] [id number] CT Scan Report Signed Patient: Lay Wayne MR#: [id number] : 1950 Acct:[id number] Age/Sex: 69 / F ADM Date: 06/10/20 Loc: ER Room: Type: [facility] ER Attending Dr: Ordering Provider: Clayton [...] portion of the rectum. This may be commercial representative of inflammatory or infectious etiology. This also may represent component of underdistention. No abscess. Impression dictated by: Antoine Dutta M.D.06/10/2020 6:40 PM Dictation Location: [place] [address] Transcribed By: [facility] 06/10/201839 Dictated By: Antoine Dutta DO 06/10/20 183 Signed By: 06/10/201839[facility] CampusComplete Blood Count Auto Diffon [id number] (Bld) [#/Vol]0.0 10*3/uLNormal0.0-0.2FUK HealthcareComment on above:Result Comment: PERFORMED BY: [place] [address] PATHOLOGIST MACHINE BANDER AND CELLOPHANER AMY ALLEN M.D.Performed By: #### CMP, LIPASE, TROP, CBC #### [place] [address] USABasophils/100 WBC (Bld)0.8 %Normal.[facility] CampusComment on above:Performed By: #### CMP, LIPASE, TROP, CBC #### [place] [address] USAEosinophils (Bld) [#/Vol]0.0 10*3/uLNormal0.0-0.45 [facility] CampusComselect specialty hospital on above:Performed By: #### CMP, LIPASE, TROP, CBC #### [place] [address] USAEosinophils/100 WBC (Bld)0.2 %Normal.[facility] CampusComment on above:Performed By: #### CMP, LIPASE, TROP, CBC #### [place] [address] USAErythrocyte distribution width (RBC) [Ratio]12.8 %Normal 11.9-15.3FUK HealthcareComment on above:Performed By: #### CMP, LIPASE, TROP, CBC #### [place] [address] USAHematocrit (Bld) [Volume fraction]45.1 %Twgzrf07.0-46.4 [facility] CampusComment on above:Performed By: #### CMP, LIPASE, TROP, CBC #### [place] [address] USAHemoglobin (Bld) [Mass/Vol]15.7 g/cWVmsd27.8-15.4FUK HealthcareComment on above:Performed By: #### CMP, LIPASE, TROP, CBC #### [place] [address] USALymphocytes (Bld) [#/Vol]1.5 10*3/uLNormal1.00-4.8 [facility] CampusComment on above:Performed By: #### CMP, LIPASE, TROP, CBC #### [facility] [address] [place] [address] USALymphocytes/100 WBC (Bld)25.2 %Normal.[facility] CampusComment on above:Performed By: #### CMP, LIPASE, TROP, CBC #### [facility] [address] StreetH (RBC) [Entitic mass]33.5 rzNtujhb61.7-34.3FUK HealthcareComment on above:Performed By: #### CMP, LIPASE, TROP, CBC #### [facility] [address]V (RBC) [Entitic vol]96.6 zLSzyxld39-655LpugrkpqsFirelands Regional Medical Center South CampusComment on above:Performed By: #### CMP, LIPASE, TROP, CBC #### [facility] [address] [place] [address] USAMean Corpuscular HGB Conc34.7 g/cHCvsafn28.0-35.0[facility] CampusComment on above:Performed By: #### CMP, LIPASE, TROP, CBC #### [place] [address] USAMonocytes (Bld) [#/Vol]0.3 10*3/uLNormal0.0-0.8[facility] CampusComselect specialty hospital on above:Performed By: #### CMP, LIPASE, TROP, CBC #### [facility] [address] [place] [address] USAMonocytes/100 WBC (Bld)5.6 %Normal.[facility] CampusComment on above:Performed By: #### CMP, LIPASE, TROP, CBC #### [place] [address] USANeutrophils (Bld) [#/Vol]4.2 10*3/uLNormal1.8-7.7FUK HealthcareComment on above:Performed By: #### CMP, LIPASE, TROP, CBC #### [facility] [address] [place] [address] USANeutrophils/100 WBC (Bld)68.2 %Normal.[facility] CampusComment on above:Performed By: #### CMP, LIPASE, TROP, CBC #### [facility] [address] [place] [address] USANucleated RBC/100 WBC (Bld) [Ratio]0.1 %Normal0-0.5 [facility] CampusComment on above:Performed By: #### CMP, LIPASE, TROP, CBC #### [place] [address] USAPlatelet mean volume (Bld) [Entitic vol]7.8 fLNormal 6.3-10.7FUK HealthcareComment on above:Performed By: #### CMP, LIPASE, TROP, CBC #### [facility] [address] [place] [address] USAPlatelets (Bld) [#/Vol]268 10*3/hZYsigfm954-325DuutfnfbfFirelands Regional Medical Center South CampusComment on above:Performed By: #### CMP, LIPASE, TROP, CBC #### [place] [address] USARBC (Bld) [#/Vol]4.67 10*6/uLNormal3.60-5.00[facility] CampusComment on above:Performed By: #### CMP, LIPASE, TROP, CBC #### [place] [address] USAWBC (Bld) [#/Vol]6.1 10*3/uLNormal4.5-11.0[facility] CampusComment on above:Performed By: #### CMP, LIPASE, TROP, CBC #### [place] [address] USAComprehensive Metabolic Panelon 18-84-6330Zyxtguw [Mass/Vol]3.9 g/dLNormal3.2-5.5FUK HealthcareComment on above:Performed By: #### CMP, LIPASE, TROP, CBC #### [facility] [address] [place] [id number] USAAlbumin/Globulin [Mass ratio]1.0 {ratio}NormalFirelands Regional Medical Center South CampusComment on above:Performed By: #### CMP, LIPASE, TROP, CBC #### [facility] [address] [place] [address] USAALP [Catalytic activity/Vol]302 U/AOsvc28-93MvgllezwlFirelands Regional Medical Center South CampusComment on above:Performed By: #### CMP, LIPASE, TROP, CBC #### [facility] [address] [place] [id number] USAALT [Catalytic activity/Vol]43 U/YUohcif56-04WlvomnrgaFirelands Regional Medical Center South CampusComment on above:Performed By: #### CMP, LIPASE, TROP, CBC #### [facility] [address] [place] [id number] USAAST [Catalytic activity/Vol]36 U/ENymjzp80-32XssddzqlwFirelands Regional Medical Center South CampusComment on above:Performed By: #### CMP, LIPASE, TROP, CBC #### [facility] [address] [place] [address] USABilirubin [Mass/Vol]0.8 mg/dLNormal0.3-1.2FUK HealthcareComment on above:Performed By: #### CMP, LIPASE, TROP, CBC #### [facility] [address] [place] [address] USACalcium [Mass/Vol]9.5 mg/dLNormal8.2-10.2FUK HealthcareComment on above:Performed By: #### CMP, LIPASE, TROP, CBC #### [facility] [address] [place] [id number] USAChloride [Moles/Vol]103 mmol/PYstjto10-740CfarydkluFirelands Regional Medical Center South CampusComment on above:Performed By: #### CMP, LIPASE, TROP, CBC #### [facility] [address] [place] [address] USACO2 [Moles/Vol]22.4 mmol/ESdahdk46.0-30.0[facility] CampusComment on above:Performed By: #### CMP, LIPASE, TROP, CBC #### [facility] [address] [place] [address] USACreatinine [Mass/Vol]0.77 mg/dLNormal0.44-1.03[facility] CampusComment on above:Performed By: #### CMP, LIPASE, TROP, CBC #### [facility] [address] [place] [address] USACreatinine Clr Calc Fvdesber35.82NoParkview Health Montpelier HospitalComment on above:Performed By: #### CMP, LIPASE, TROP, CBC #### [place] [address] USAEstimated GFR ( Xochitl> 60NoParkview Health Montpelier HospitalComment on above:Result Comment: GFR estimated reference range: According to KDOQI guidelines, <60 ml/min/1.73m2 is sufficient to diagnose a patient with chronic kidney disease.Performed By: #### CMP, LIPASE, TROP, CBC #### [place] [address] USAEstimated GFR (Non- Am> 60NoParkview Health Montpelier HospitalComment on above:Performed By: #### CMP, LIPASE, TROP, CBC #### [place] [address] USAGlobulin (S) [Mass/Vol]4.1 g/dLNoParkview Health Montpelier HospitalComment on above:Performed By: #### CMP, LIPASE, TROP, CBC #### [place] [address] USAGlucose [Mass/Vol]99 mg/cSYewmfe19-259MwllkvjnxFirelands Regional Medical Center South CampusComment on above:Result Comment: Random Glucose Reference Range is dependent on time and content of last meal. Glucose of more than 200 mg/dL in a nonstressed, ambulatory subject supports the diagnosis of Diabetes Mellitus. ADA recommended reference rangePerformed By: #### CMP, LIPASE, TROP, CBC #### [address] [place] [address] USAPotassium [Moles/Vol]3.7 mmol/LNormal3.5-5.1FUK HealthcareComment on above:Performed By: #### CMP, LIPASE, TROP, CBC #### [facility] [address] [place] [address] USAProtein [Mass/Vol]8.0 g/dLHigh6.1-7.9[facility] CampusComment on above:Performed By: #### CMP, LIPASE, TROP, CBC #### [facility] [address] [place] [address] USASodium [Moles/Vol]137 mmol/YBpvglb755-789AehamqkriFirelands Regional Medical Center South CampusComment on above:Performed By: #### CMP, LIPASE, TROP, CBC #### [place] [address] USAUrea nitrogen [Mass/Vol]13 mg/dLNormal9-23[facility] CampusComment on above:Performed By: #### CMP, LIPASE, TROP, CBC #### [facility] [address] [place] [address] USADipstick and Microscopicon 36-79-9104Jkjziferfv (U)Clear NormalCleAshtabula General HospitalComment on above:Order Comment: Name Collection Type:: Clean-Voided MidstreamPerformed By: #### ADDONUAPLUS #### [place] [address] USABacteria,UrineRareHighNone SeenFirelands Regional Medical Center South CampusComment on above:Order Comment: Name Collection Type:: Clean-Voided MidstreamPerformed By: #### ADDONUAPLUS #### [place] [address] USABilirubin,UrineNegativeNormalNegativeFirelands Regional Medical Center South CampusComment on above:Order Comment: Name Collection Type:: Clean- Voided MidstreamPerformed By: #### ADDONUAPLUS #### [place] [address] USAColor (U)YellowNormalYellowFirelands Regional Medical Center South CampusComment on above:Order Comment: Name Collection Type:: Clean-Voided MidstreamPerformed By: #### ADDONUAPLUS #### [facility] [address] [place], [place] [id number] USAGlucose Ql (U)NormalNormalNormalFirelands Regional Medical Center South CampusComment on above:Order Comment: Name Collection Type:: Clean-Voided MidstreamPerformed By: #### ADDONUAPLUS #### [facility] [address] [place] [address] USAKetones Ql (U)2+HighNegativeFirelands Regional Medical Center South CampusComment on above:Order Comment: Name Collection Type:: Clean-Voided MidstreamPerformed By: #### ADDONUAPLUS #### [place] [id number] USALeukocyte esterase Test strip Ql (U)1+HighNegative [facility] CampusComment on above:Order Comment: Name Collection Type:: Clean-Voided MidstreamPerformed By: #### ADDONUAPLUS #### [place] [address] USAMucus,Urine3+Critically abnormalFirelands Regional Medical Center South CampusComment on above:Order Comment: Name Collection Type:: Clean-Voided MidstreamResult Comment: PERFORMED BY: [place] [address] PATHOLOGIST MACH[employer] AND CELLOPHANER AMY ALLEN M.D.Performed By: #### ADDONUAPLUS #### [facility] [address] [place] [address] USANitrite,UrineNegativeNormalNegativeFirelands Regional Medical Center South CampusComment on above:Order Comment: Name Collection Type:: Clean- Voided MidstreamPerformed By: #### ADDONUAPLUS #### [place] [id number] USAOccult Blood,UrineTraceHighNegativeFirelands Regional Medical Center South CampusComment on above:Order Comment: Name Collection Type:: Clean- Voided MidstreamResult Comment: PERFORMED BY: [address] [address] PATHOLOGIST MACH[employer] CELLOPH[employer]ER AMY ALLEN M.D.Performed By: #### ADDONUAPLUS #### [place] [address] USApH (U)5.5 [pH]Normal5.0-9.0[facility] CampusComment on above:Order Comment: Name Collection Type:: Clean-Voided MidstreamPerformed By: #### ADDONUAPLUS #### [place] [address] USAProtein (U) [Mass/Vol]30 mg/dLHighNegativeFirelands Regional Medical Center South CampusComment on above:Order Comment: Name Collection Type:: Clean-Voided MidstreamPerformed By: #### ADDONUAPLUS #### [place] [address] USARBC LM.HPF (Urine sed) [#/Area]0 /[HPF]Normal0-4FUK HealthcareComment on above:Order Comment: Name Collection Type:: Clean-Voided MidstreamPerformed By: #### ADDONUAPLUS #### [place] [address] USASpecificy [place],Urine1.411Wcoccd0.001-1.030[facility] CampusComment on above:Order Comment: Name Collection Type:: Clean-Voided MidstreamPerformed By: #### ADDONUAPLUS #### [place] [address] USASquamous Epithelial Cell,Oegdv1-0Vhxodu2-6MyndqnzmpUK HealthcareComment on above:Order Comment: Name Collection Type:: Clean-Voided MidstreamPerformed By: #### ADDONUAPLUS #### [place] [address] USAUrobilinogen,UrineNormalNormalNormalFirelands Regional Medical Center South CampusComment on above:Order Comment: Name Collection Type:: Clean- Voided MidstreamPerformed By: #### ADDONUAPLUS #### [place] [address] USAWBC,Ibmdx6-0Nmuuho2-3SetilafpvUK Healthcare Comment on above:Order Comment: Name Collection Type:: Clean-Voided Midstream Performed By: #### ADDONUAPLUS #### [place] [address] USALipaseon 10-10-7367Ncphqm [Catalytic activity/Vol]30.0 U/L Iqdeex44-91VefdjgyqbFirelands Regional Medical Center South CampusComment on above:Result Comment: PERFORMED BY: [place] [address] PATHOLOGIST MACHINE [employer] CELLOPH[employer]ER AMY ALLEN M.D.Performed By: #### CMP, LIPASE, TROP, CBC #### [place] [address] USATroponin I(TnI)on 10-23-1498Mpsolifs I.cardiac [Mass/Vol] 0.02 ng/mLNormal0-0.02Fire[facility] CampusComment on above:Result Comment: [place] Cut off value > or equal to 0.03 ng/mL in conjunction with clinical conditions of myocardial infarction. (www.escardio.org/guidelines) PERFORMED BY: [place] [address] PATHOLOGIST MACHINE [employer] AND CELLOPHANER AMY ALLEN M.D.Performed By: #### CMP, LIPASE, TROP, CBC #### [place] [address] USAUrine Cultureon 48-61-2248Bytekhsl identified Cx Nom (U) 25,000 colonies/ml mixed bacterial skin contaminants 2 Days PERFORMED BY: [place] [address] PATHOLOGIST MACHINE [employer] AND CELLOPHANER AMY ALLEN M.D.[facility] Barberton CampusComment on above: Performed By: #### CUU #### [place] [address] [place] Encounters Encounter DateEncounter TypeCare ProviderFacilityStart: 09-09-2022 End: 71-45-1528byxvwejqaxMV NATALIIA VALONEFacility:F6Dvtdj: 11-21-2021 End: 35-31-1204cuydsmuccdJG MERRITT Carroll SMITHFacility:S4Ftpmd: 11-21-2021 End: 04-36-4037wfvcfeuuffSU HALEY STRATTON .Facility: [facility] DatePayer CategoryPayerPolicy [id number] [id number] Summary Purpose Family History No Family History Records FoundNo Family History Records Found Advance Directives No Advanced Directives Records FoundNo Advanced Directives Records Found Additional Source Comments INFORMATION SOURCE (unrecogn ized section and content) DATE CREATED AUTHOR 06/10/2021 [facility] DATE CREATED AUTHOR AUTHOR'S ORGANIZ ATION 09/12/2022 [facility] FOR RECORDS PERTAINING TO PATIENTS WHO ARE [...] BE BASED ON THE PRIMARY CLINICAL RECORDS. [facility]. provides no warranty or guarantee of the accuracy or completeness of information in this document.
[2025-03-13 15:08] LABS: Glucose Urine UA NEGATIVE (NEGATIVE)
[2025-03-13 15:34] LABS: Hematocrit 40.8 % (36.0-48.0); Hemoglobin 13.4 g/dL (12.0-16.0); Immature Granulocytes Abs Auto 0.01 10^3/uL (0.00-0.03); Immature Granulocytes Pct Auto 0.3 % (0.0-0.5); Lymphocytes Absolute Auto 0.8 10^3/uL (1.2-3.8); Mean Corpuscular HGB Conc 32.8 g/dL (29.9-35.2); Mean Corpuscular Hemoglobin 34.1 pg (26.7-34.0); Mean Corpuscular Volume 103.8 fL (81.0-99.0); Platelet Count 195 10^3/uL (150-450); Red Blood Count 3.93 10^6/uL (4.20-5.40); White Blood Count 3.0 10^3/uL (4.0-11.0)
[2025-03-13 16:13] LABS: Cast Seen? NONE SEEN #/LPF (NONE SEEN); Crystals Seen? None Seen #/HPF (None Seen); Urine Culture Indicated NO
[2025-03-13 16:19] LABS: Alanine Aminotransferase 147 U/L (14-59); Albumin Globulin Ratio 0.7; Albumin Level 3.0 g/dL (3.4-5.0); Alkaline Phosphatase 870 U/L (46-116); Anion Gap 12.1; Aspartate Amino Transferase 105 U/L (15-37); Blood Urea Nitrogen 16.0 mg/dL (7.0-18.0); Carbon Dioxide 26.6 mmol/L (21.0-32.0); Chloride 106 mmol/L (98-107); Estimated GFR (African America >60 (>=60 mL/min/1.73m^2); Estimated GFR (Non-African Ame >60 (>=60 mL/min/1.73m^2); Globulin 4.6 g/dL; NT Pro B Type Natriuretic Pept 260.0 pg/mL (<=900.0); Potassium 3.7 mmol/L (3.5-5.1); Sodium 141 mmol/L (136-145); Thyroid Stimulating Hormone 1.158 uIU/mL (0.358-3.740); Total Protein 7.6 g/dL (6.4-8.2)
== END 2025-03-13 13:32 | disposition home or self-care (01) ==
LOC: LAB 13:36
PROVIDERS: PCP Internal Medicine; Visit Provider Internal Medicine
DX: Z79.899 Other long term (current) drug therapy (principal); R53.83 Other fatigue; R63.4 Abnormal weight loss; R06.02 Shortness of breath; N39.0 Urinary tract infection, site not specified
CPT/HCPCS: 36415; 80051; 80076; 81001; 81003; 82565; 83036; 83880; 84443; 84520; 85025; 85652

== ENCOUNTER 2025-05-11 13:39 | Outpatient (OUT) | payer MEDICARE, SELFPAY ==
--- OUTSIDE RECORDS SUMMARY | 2025-05-11 13:44 | XMS_ITS | CCD ---
Author Organization [facility] Care Team Providers Care Project Planner Name Role Phone VIRAL ., DR HALEY [...] of OnsetReaction(s) Facility (1 source)Adhesive bandageDrug allergy (disorder)16-16-2364[facility] (1 source)CodeineDrug Vyryzqt59-47-8510Gfl [facility] Repository (1 source)DextroamphetamineDrug Qoqmabr50-88-9360Ltm [facility] Repository (1 source)PenicillinsDrug allergy (disorder)66-67-5894Yym [facility] Repository Problems Active Problems Problem ClassificationProblemDateDocumented DateEpisodic/ChronicAbdominal pain (4 sources)Unspecified abdominal pain; Translations: [UNSPECIFIED ABDOMINAL PAIN]Onset: 36-66-2881JrxsdhomPtcnomd disorders (1 source)Generalized anxiety disorder; Translations: [GENERALIZED ANXIETY DISORDER]Onset: 93-72-2243RpgkbqtYihjujg obstructive pulmonary disease and bronchiectasis (1 source)Chronic obstructive pulmonary disease, unspecified; Translations: [COPD UNSPECIFIED]Onset: 49-71-7382ZnubppqPqgohofxo of lipid metabolism (1 source)Pure hypercholesterolemia, unspecified; Translations: [PURE HYPERCHOLESTEROLEMIA UNSPEC]Onset: 40-59-9358LucdlbnRmecuqajnk disorders (1 source)Gastro-esophageal reflux disease without esophagitis; Translations: [GERD WITHOUT ESOPHAGITIS]Onset: 12-54-8314NalcbgaRedbcbmuftl deficiencies (1 source)Moderate protein-calorie malnutrition; Translations: [MODERATE PROTEIN-CALORIE MLNUTRIT]Onset: 67-75-9405OdlruiaMmwck aftercare (1 source)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 project 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; Translations: [OTH [facility] CURRENT DRUG THERAPY]Onset: 82-43-0890FznftssfSunpx gastrointestinal disorders (1 source)Irritable bowel syndrome without diarrhea; Translations: [IRRITABLE BOWEL SYND W/O DIARRHEA]Onset: 79-03-9263IvbfsyiXcwmh gastrointestinal disorders (1 source)Irritable bowel syndrome with constipation; Translations: [IRRITABLE BOWEL SYND W/CONSTIPATION]Onset: 18-38-0557HbpwyygJuyet lower respiratory disease (4 sources)Shortness of breath; Translations: [SHORTNESS OF BREATH]Onset: 65-65-4748VnycnfhfUdhcz nutritional; endocrine; and metabolic disorders (1 source)Abnormal weight loss; Translations: [ABNORMAL WEIGHT LOSS]Onset: 40-28-1473LekepjjgDlauffbbv-related disorders (1 source)Nicotine dependence, cigarettes, uncomplicated; Translations: [NICOTINE DEPEND CIGARETTES UNCOMP]Onset: 59-49-1177ThyqijwOxwkvrbgides (1 source)CONTACT W/AND (SUSP) EXPOS COVID-19; Translations: [CONTACT W/AND (SUSP) EXPOS COVID-19]Onset: 11-26-2021 Past or Other Problems Problem ClassificationProblemDateDocumented DateEpisodic/ChronicNausea and vomiting (5 sources)Nausea with vomiting, unspecified; Translations: [NAUSEA WITH VOMITING UNSPECIFIED]Onset: 56-23-5648TemdtwyxPdvva nutritional; endocrine; and metabolic disorders (1 source)Anorexia; Translations: [ANOREXIA]Onset: 21-13-2933WlehjivoHnfqi nutritional; endocrine; and metabolic disorders (1 source)Body mass index (BMI) 19.9 or less, adult; Translations: [BODY MASS INDEX 19.9 OR LESS ADULT]Onset: 41-41-9748Odbyunbv Results Test NameValueInterpretationReference RangeFacilityBNPon 00-75-3073Hffmwqmflak peptide B (Bld) [Mass/Vol]87.0 pg/mLNormal<=900.0The [facility] CenterComment on above:Performed By: #### LIVER, BNP, CREA, ELEC, LIPID, GLUC, BUN, TSH #### [facility] [address] [address] [address] Reece Edouard 92-70-4996Hbiv nitrogen [Mass/Vol]20.0 mg/dLCritically high 7.0-18.0The [facility] CenterComment on above:Performed By: #### LIVER, BNP, CREA, ELEC, LIPID, GLUC, BUN, TSH ####[facility] [address] [address]Dr. Reece Sheppard AUTO DIFFon 23-88-9758DFZK #0.1 103/ulNormal0.0-0.1The [facility] CenterComment on above:Performed By: #### CBC #### [facility] [address] [place] [address] Dr. Reece GroverBasophils/100 WBC (Bld)1.0 %Normal0.2-2.0The [facility] Comment on above:Performed By: #### CBC #### [facility] [address] [place] [address] Dr. Reece Cortez #0.0 103/ulNormal0.0-0.7The [facility] CenterComment on above: Performed By: #### CBC #### [facility] [address] [place] [address] Dr. Reece Juneosinophils/100 WBC (Bld)0.8 %Critically low0.9-7.0The [facility] CenterComment on above:Performed By: #### CBC #### [facility] [address] [place] [address] Dr. Reece Junerythrocyte distribution width (RBC) [Ratio]13.0 %Rebjfj03.0-15.0 The [facility] CenterComment on above:Performed By: #### CBC #### [facility] [address] [place] [address] Dr. Reece GroverHematocrit (Bld) [Volume fraction]42.9 %Nvyfec92.0-48.0The [facility] CenterComment on above:Performed By: #### CBC #### [facility] [address] [place] [address] Dr. Reece Hongoglobin (Bld) [Mass/Vol]13.9 g/sZLzznsw22.0-16.0The [facility] CenterComment on above:Performed By: #### CBC #### [facility] [address] [place] [address] Dr. Reece GroverIG #0.01 10e3/ulNormal0.00-0.03The [facility] CenterComment on above:Performed By: #### CBC #### [facility] [address] [place] [address] Dr. Reece Caldera %0.2 %Normal0.0-0.5The [facility] CenterComment on above: Performed By: #### CBC #### [facility] [address] [place] [address] Dr. Reece Saul #1.1 103/ulCritically low1.2-3.8The [facility] Comment on above:Performed By: #### CBC #### [facility] [address] [place] [address] Dr. Reece Montañomphocytes/100 WBC (Bld)22.1 %Pmqquy27.5-60.0The [facility] CenterComment on above:Performed By: #### CBC #### [facility] [address] [place] [address] Dr. Reece JimenezUAL DIFF REQNONormalThe [facility] CenterComment on above: Performed By: #### CBC #### [facility] [address] [place] [address] Dr. Reece Otero (RBC) [Entitic mass]32.4 waWkkegf75.7-34.0The [facility] CenterComment on above:Performed By: #### CBC #### [facility] [address] [place] [address] Dr. Reece Otero (RBC) [Mass/Vol]32.4 g/kJAxdkia64.9-35.2The [facility] CenterComment on above:Performed By: #### CBC #### [facility] [address] [place] [address] Dr. Reece OteroV (RBC) [Entitic vol]100.0 fLCritically high81.0-99.0The [facility] CenterComment on above:Performed By: #### CBC #### [facility] [address] [place] [address] Dr. Reece Clark #0.3 103/ulNormal0.3-0.8The [facility] CenterComment on above:Performed By: #### CBC #### [facility] [address] [place] [address] Dr. Reece Perezocytes/100 WBC (Bld)5.6 %Normal1.7-12.0The [facility] Comment on above:Performed By: #### CBC #### [facility] [address] [place] [address] Dr. Reece Rivas #3.5 103/ulNormal1.4-6.5The [facility] CenterComment on above:Performed By: #### CBC #### [facility] [address] [place] [address] Dr. Reece Pradhanutrophils/100 WBC (Bld)70.3 %Eaerjf14.0-75.0The [facility] CenterComment on above:Performed By: #### CBC #### [facility] [address] [place] [address] Dr. Reece Herringlet mean volume (Bld) [Entitic vol]9.7 fLNormal9.5-13.5The [facility] CenterComment on above:Performed By: #### CBC #### [facility] [address] [place] [address] Dr. Reece GroverPLT190 103/zbJjxluo032-736Kys [facility] CenterComment on above: Performed By: #### CBC #### [facility] [address] [place] [address] Dr. Reece GroverRBC4.29 106/ulNormal4.20-5.40The [facility] Centerment on above:Performed By: #### CBC #### [facility] [address] [place] [address] Dr. Reece GroverWBC5.0 103/ulNormal4.0-11.0The [facility] on above: Performed By: #### CBC #### [facility] [address] [place] [address] Dr. Reece GroverCREATININEon 00-88-7478Qzfphllhyp [Mass/Vol]0.81 mg/dLNormal 0.55-1.02The [facility] CenterComment on above:Performed By: #### LIVER, BNP, CREA, ELEC, LIPID, GLUC, BUN, TSH #### [facility] [address] [place] [address] Dr. Reece JuneGFR-AF UZBEK>60Normal>=60The [facility] CenterComment on above:Performed By: #### LIVER, BNP, CREA, ELEC, LIPID, GLUC, BUN, TSH #### [facility] [address] [place] [address] Dr. Reece JuneGFR-NON AF UZBEK>60Normal>=60The [facility] Centerment on above:Performed By: #### LIVER, BNP, CREA, ELEC, LIPID, GLUC, BUN, TSH #### [facility] [address] [place] [address] Dr. Reece JuneLECTROLYTESon 67-44-9934Nesdq gap [Moles/Vol]12.6 mmol/LNormal The [facility] CenterCombeaumont hospital on above:Performed By: #### LIVER, BNP, CREA, ELEC, LIPID, GLUC, BUN, TSH #### [facility] [address] [place] [address] Dr. Reece GroverChloride [Moles/Vol]105 mmol/UHepfua12-774Hqg [facility] Comment on above:Performed By: #### LIVER, BNP, CREA, ELEC, LIPID, GLUC, BUN, TSH #### [facility] [address] [place] [address] Dr. Reece GroverCO2 [Moles/Vol]28.6 mmol/XHyptwd52.0-32.0[facility] Comment on above:Performed By: #### LIVER, BNP, CREA, ELEC, LIPID, GLUC, BUN, TSH #### [facility] [address] [place] [address] Dr. Reece GroverPotassium [Moles/Vol]4.2 mmol/LNormal3.5-5.1[facility] Comment on above:Performed By: #### LIVER, BNP, CREA, ELEC, LIPID, GLUC, BUN, TSH #### [facility] [address] [place] [address] Dr. Reece GroverSodium [Moles/Vol]142 mmol/RRnillw806-374RtdKeenan Private Hospital Comment on above:Performed By: #### LIVER, BNP, CREA, ELEC, LIPID, GLUC, BUN, TSH #### [facility] [address] [place] [address] Dr. Reece GroverGLUCOSE BLOODon 16-33-6024Edzariq [Mass/Vol]105 mg/aHSpkgzt67-655 [facility] HospitalComment on above:Performed By: #### LIVER, BNP, CREA, ELEC, LIPID, GLUC, BUN, TSH #### [facility] [address] [place] [address] Dr. Reece GroverLIPID PROFILEon 06-79-5904WDTC-HDL RATIO NORMSSelect Medical Cleveland Clinic Rehabilitation Hospital, BeachwoodComment on above:Result Comment: 3.3 - 4.4 LOW RISK 4.4 - 7.1 AVERAGE RISK 7.1 - 11.0 MODERATE RISK >11.0 HIGH RISKPerformed By: #### LIVER, BNP, CREA, ELEC, LIPID, GLUC, BUN, TSH #### [facility] [address] [place] [address] Dr. Reece GroverCholesterol [Mass/Vol]249 mg/dLCritically high<=200The [facility] CenterComment on above:Performed By: #### LIVER, BNP, CREA, ELEC, LIPID, GLUC, BUN, TSH #### [facility] [address] [place] [address] Dr. Reece Valenciaesterol in HDL [Mass/Vol]93 mg/dLCritically fbnf90-61HotSelect Medical [facility] on above:Performed By: #### LIVER, BNP, CREA, ELEC, LIPID, GLUC, BUN, TSH #### [facility] [address] [place] [address] Dr. Reece Valenciaesterol in LDL [Mass/Vol]142.0 mg/dLNoTriHealth Bethesda North HospitalComment on above:Performed By: #### LIVER, BNP, CREA, ELEC, LIPID, GLUC, BUN, TSH #### [facility] [address] [place] [address] Dr. Reece Correa.total/Cholesterol in HDL [Mass ratio]2.7 {ratio} NormalKeenan Private HospitalCombeaumont hospital on above:Performed By: #### LIVER, BNP, CREA, ELEC, LIPID, GLUC, BUN, TSH #### [facility] [address] [place] [address] Dr. Reece GroverHDTammy NORMAL> or = 60 mg/dl - LOW CARDIOVASCULAR RISK <40 mg/dl - HIGH CARDIOVASCULAR RISKProMedica Fostoria Community HospitalComment on above:Performed By: #### LIVER, BNP, CREA, ELEC, LIPID, GLUC, BUN, TSH #### [facility] [address] [place] [address] Dr. Reece GroverLDL CALC NORMALSEE BELOWNoTriHealth Bethesda North HospitalComment on above:Result Comment: <100 mg/dl OPTIMAL 100 - 129 mg/dl NEAR OR ABOVE OPTIMAL 130 - 159 mg/dl BORDERLINE HIGH 160 - 189 mg/dl HIGH >190 mg/dl VERY HIGH Performed By: #### LIVER, BNP, CREA, ELEC, LIPID, GLUC, BUN, TSH #### [facility] [address] [place] [address] Dr. Reece GroverTriglyceride [Mass/Vol]70 mg/dLNormal<=150[facility] Comment on above:Performed By: #### LIVER, BNP, CREA, ELEC, LIPID, GLUC, BUN, TSH #### [facility] [address] [place] [address] Dr. Reece IrwinLDL CALC14.0 mg/dLNormalThe [facility] on above: Performed By: #### LIVER, BNP, CREA, ELEC, LIPID, GLUC, BUN, TSH #### [facility] [address] [place] [address] Dr. Reece Noland PROFILEon 66-13-7687Tfgczto [Mass/Vol]3.6 g/dLNormal3.4-5.0 The [facility] on above:Performed By: #### LIVER, BNP, CREA, ELEC, LIPID, GLUC, BUN, TSH #### [facility] [address] [place] [address] Dr. Reece GroverAlbumin/Globulin [Mass ratio]0.8 {ratio}NormalThe [facility] on above:Performed By: #### LIVER, BNP, CREA, ELEC, LIPID, GLUC, BUN, TSH #### [facility] [address] [place] [address] Dr. Reece Gallardo [Catalytic activity/Vol]324 U/LCritically wssy33-007Xai [facility] on above:Performed By: #### LIVER, BNP, CREA, ELEC, LIPID, GLUC, BUN, TSH #### [facility] [address] [place] [address] Dr. Reece Patel [Catalytic activity/Vol]61 U/LCritically ouom38-36Amh [facility] on above:Performed By: #### LIVER, BNP, CREA, ELEC, LIPID, GLUC, BUN, TSH #### [facility] [address] [place] [address] Dr. Reece Thomas [Catalytic activity/Vol]50 U/LCritically czkn73-37Qbe [facility] on above:Performed By: #### LIVER, BNP, CREA, ELEC, LIPID, GLUC, BUN, TSH #### [facility] [address] [place] [address] Dr. Reece Bateman, CONJUGATED0.1 mg/dLNormal0.0-0.2The [facility] Comment on above:Performed By: #### LIVER, BNP, CREA, ELEC, LIPID, GLUC, BUN, TSH #### [facility] [address] [place] [address] Dr. Reece GroverBilirubin [Mass/Vol]0.3 mg/dLNormal0.2-1.0The [facility] Comment on above:Performed By: #### LIVER, BNP, CREA, ELEC, LIPID, GLUC, BUN, TSH #### [facility] [address] [place] [address] Dr. Reece GroverGlobulin (S) [Mass/Vol]4.8 g/dLNormalThe [facility] CenterComment on above:Performed By: #### LIVER, BNP, CREA, ELEC, LIPID, GLUC, BUN, TSH #### [facility] [address] [place] [address] Dr. Reece GroverProtein [Mass/Vol]8.4 g/dLCritically high6.4-8.2The [facility] CenterComment on above:Performed By: #### LIVER, BNP, CREA, ELEC, LIPID, GLUC, BUN, TSH #### [facility] [address] [place] [address] Dr. Reece RedmondHojohny 67-16-0103JXD4.698 uIU/mLNormal0.358-3.740The [facility] CenterComment on above:Performed By: #### LIVER, BNP, CREA, ELEC, LIPID, GLUC, BUN, TSH ####[facility] [address] [address]Dr. Reece GroverAMYLASEon 73-70-3848Yukcngr [Catalytic activity/Vol]93 U/L Fahbfh06-487Frm [facility] CenterComment on above:Performed By: #### KAREN, CMP, LIPA ####[facility] [address] [address]Dr. Reece MosleyC AUTO DIFFon 44-42-4445KKSU #0.0 103/ulNormal0.0-0.1The [facility] CenterComment on above:Performed By: #### CBC ####[facility] [address] [place], [place] [address]Dr.Yilan ChangBasophils/100 WBC (Bld)0.4 %Normal0.2-2.0The [facility] CenterComment on above:Performed By: #### CBC ####[facility] Gj[address]iex[address] [place], [place] [address]Dr.Yilan ChangEO #0.0 103/ulNormal0.0-0.7The [facility] CenterComment on above:Performed By: #### CBC ####[facility] [address] [place], [place] [address]Dr.Yilan ChangEosinophils/100 WBC (Bld)0.4 %Critically low0.9-7.0The [facility] CenterComment on above:Performed By: #### CBC ####[facility] [address] [place], [place] [address]Dr. Yilan ChangErythrocyte distribution width (RBC) [Ratio]12.7 %Nmogen04.0-15.0The [facility] CenterComment on above:Performed By: #### CBC ####[facility] Owv[address]uc[address] [place], [place] [address]Dr.Reece ChangHematocrit (Bld) [Volume fraction]40.1 %Svsqft44.0-48.0The [facility] CenterComment on above:Performed By: #### CBC ####[facility] X[address] [place], [place] [address]Dr.Yilan ChangHemoglobin (Bld) [Mass/Vol]13.7 g/dL Ypxlip26.0-16.0The [facility] CenterComment on above:Performed By: #### CBC ####[facility] [address] [place], [place] [address]Dr. Yilan ChangIG #0.03 10e3/ulNormal0.00-0.03The [facility] CenterComment on above: Performed By: #### CBC ####[facility] [address] [place], [place] [address]Dr.Yilan ChangIG %0.4 %Normal0.0-0.5The [facility] CenterComment on above:Performed By: #### CBC ####[facility] [address] [place], [place] [address]Dr.Reece GroverMPH #0.9 103/ulCritically low1.2-3.8The [facility] CenterComment on above:Performed By: #### CBC ####[facility] [address] [place], [place] [address]Dr.Reece GroverLymphocytes/100 WBC (Bld)10.9 %Critically low20.5-60.0The [facility] CenterComment on above:Performed By: #### CBC ####[facility] [address] [place], [place] [address]Dr.Reece GroverMANUAL DIFF REQ NONormalThe [facility] CenterComment on above:Performed By: #### CBC ####[facility] [address] [place], [place] [address]Dr. Reece GroverNEWY[facility] (RBC) [Entitic mass]33.4 ghEqqlhx98.7-34.0The [facility] Comment on above:Performed By: #### CBC ####[facility] Benhhsp[address] [place], [place] [address]Dr.Reece GroverBR[facility]LYN [facility] (RBC) [Mass/Vol]34.2 g/dL Ylzjvz97.9-35.2The [facility] CenterComment on above:Performed By: #### CBC ####[facility] Xckui[address]mat[address] [place], [place] [address]Dr. Reece GroverV (RBC) [Entitic vol]97.8 bVOscdqw05.0-99.0The [facility] Comment on above:Performed By: #### CBC ####[facility] [address] [place], [place] [address]Dr.Reece GroverSAINT FRANCIS MEDICAL CENTERO #0.4 103/ulNormal0.3-0.8 The [facility] CenterComment on above:Performed By: #### CBC ####[facility] X[address]mlgxup[address] [place], [place] [address]Dr.Reece Grover Monocytes/100 WBC (Bld)4.6 %Normal1.7-12.0The [facility] CenterComment on above: Performed By: #### CBC ####[facility] [address] [address]Dr.Reece GroverNEUT #7.0 103/ulCritically high1.4-6.5 The [facility] CenterComment on above:Performed By: #### CBC ####[facility] [address] [address]Dr.Reece Grover Neutrophils/100 WBC (Bld)83.3 %Critically high43.0-75.0The [facility] Comment on above:Performed By: #### CBC ####[facility] [address] [address]Dr.Reece GroverPlatelet mean volume (Bld) [Entitic vol]10.0 fLNormal9.5-13.5The [facility] CenterComment on above: Performed By: #### CBC ####[facility] [address] [address]Dr.Reece PlbexVDH537 103/drVzlwvc515-481Ylc [facility] CenterComment on above:Performed By: #### CBC ####[facility] [address]zdxps[address] [place], [place] [address]Dr.Reece ChangRBC4.10 106/ul Critically low4.20-5.40The [facility] CenterComment on above:Performed By: #### CBC ####[facility] [address] [address]Dr. Reece ChangWBC8.4 103/ulNormal4.0-11.0The [facility] CenterComment on above: Performed By: #### CBC ####[facility] [address] [place], [place] [address]Dr.Reece ChangBASO #0.1 103/ulNormal0.0-0.1The [facility] CenterComment on above:Performed By: #### CBC ####[facility] [address] [place], [place] [address]Dr.Yilan ChangBasophils/100 WBC (Bld)1.0 %Normal0.2-2.0The [facility] CenterComment on above:Performed By: #### CBC ####[facility] [address]cqcru[address] [place], [place] [address]Dr.Yilan ChangEO #0.1 103/ulNormal0.0-0.7The [facility] CenterComment on above:Performed By: #### CBC ####[facility] [address] [place], [place] [address]Dr.Yilan ChangEosinophils/100 WBC (Bld)2.1 %Normal 0.9-7.0The [facility] CenterComment on above:Performed By: #### CBC ####[facility] [address] [place], [place] [address]Dr.Darlingrich Grover Erythrocyte distribution width (RBC) [Ratio]12.8 %Fesuej79.0-15.0The [facility] CenterComment on above:Performed By: #### CBC ####[facility] Axmhfreufx[address] [place], [place] [address]Dr.Reece ChangHematocrit (Bld) [Volume fraction]40.6 %Tiwjge58.0-48.0The [facility] CenterComment on above:Performed By: #### CBC ####[facility] [address] [place], [place] [address]Dr.Reece ChangHemoglobin (Bld) [Mass/Vol]13.3 g/dL Cpduht93.0-16.0The [facility] CenterComment on above:Performed By: #### CBC ####[facility] [address]gzkbcq[address] [place], [place] [address]Dr. Yilan ChangIG #0.02 10e3/ulNormal0.00-0.03The [facility] CenterComment on above: Performed By: #### CBC ####[facility] [address] [place], [place] [address]Dr.Yilan ChangIG %0.4 %Normal0.0-0.5The [facility] CenterComment on above:Performed By: #### CBC ####[facility] [address] [address]Dr.Reece GroverLYMPH #1.6 103/ulNormal1.2-3.8The [facility] CenterComment on above:Performed By: #### CBC ####[facility] [address] [address]Dr. Reece GroverLymphocytes/100 WBC (Bld)31.6 %Wxeobl26.5-60.0[facility] Comment on above:Performed By: #### CBC ####[facility] Bzff[address] [place], [place] [address]Dr.Reece GroverMANUAL DIFF REQNONormalThe [facility] CenterComment on above:Performed By: #### CBC ####[facility] Thpxrvsvga[address] [place], [place] [address]Dr.Darlingrich GroverMCH (RBC) [Entitic mass]33.0 naNbokbz22.7-34.0The [facility] CenterComment on above: Performed By: #### CBC ####[facility] Qvmvotayne[address] [place], [place] [address]Dr.Reece GroverMCHC (RBC) [Mass/Vol]32.8 g/dLNormal 29.9-35.2The [facility] CenterComment on above:Performed By: #### CBC ####[facility] Cvixkmvynr[address] [place], [place] [address]Dr. Darlingrich GroverMCV (RBC) [Entitic vol]100.7 fLCritically high81.0-99.0The [facility] CenterComment on above:Performed By: #### CBC ####[facility] Rporgjiail[address] [place], [place] [address]Dr.Reece GroverMONO #0.4 103/ulNormal0.3-0.8The [facility] CenterComment on above:Performed By: #### CBC ####[facility] Pumbcpkeuc[address] [place], [place] [address]Dr. Reece ChangMonocytes/100 WBC (Bld)7.1 %Normal1.7-12.0[facility] Comment on above:Performed By: #### CBC ####[facility] [address] [place] [address]Dr.Reece GroverNEUT #3.0 103/ulNormal1.4-6.5 The [facility] CenterComment on above:Performed By: #### CBC ####[facility] [address]qrrwc[address] [place] [address]Dr.Reece Grover Neutrophils/100 WBC (Bld)57.8 %Geonqi83.0-75.0The [facility] CenterComment on above:Performed By: #### CBC ####[facility] Armeodrreo[address] [place], [place] [address]Dr.Reece GroverPlatelet mean volume (Bld) [Entitic vol] 9.7 fLNormal9.5-13.5The [facility] CenterComment on above:Performed By: #### CBC ####[facility] Erwzfdrsmv94[address] [place], [place] [address]Dr. Reece GroverPLT239 103/vsUzvtgt509-898Olu [facility] CenterComment on above: Performed By: #### CBC ####[facility] Rettgoikrv[address] [place], [place] [address]Dr.Reece GroverRBC4.03 106/ulCritically low4.20-5.40The [facility] CenterComment on above:Performed By: #### CBC ####[facility] Mjtiwrnzwt9[address] [place], [place] [address]Dr.Reece ReillyWBC5.2 103/ul Normal4.0-11.0The [facility] CenterComment on above:Performed By: #### CBC ####[facility] Gtgoaxxqyx[address] [place], [place] [address]Dr. Darlingrich GroverCT ABD/PELV W CONon 50-99-6899UH ABD/PELV W CONEXAMINATION: CT ABD/PELV W CON [...] Electronically authenticated by: CARI MORA Date: 2021-11-21 02:42NoTriHealth Bethes[facility] North HospitalCovid-19 PCR (CVDTBH)on 65-25-5284GUOK-CoV-2 (COVID-19) RNA THOM+probe Ql (Unsp spec)Not detectedNormalNOT DETECTEDThe [facility] Comment on above:Result Comment: When diagnostic testing [...] for this test is supported by the Machine Wedger of Health and Human Service's declaration that [...] no longer be used).Performed By: #### CVDTBH ####[facility] [address] [place], [place] [address]Su. Yilan ChangLIPASEon 43-45-2251Ultqvk [Catalytic activity/Vol]106.0 U/L Gkstjr54.0-393.0The [facility] CenterComment on above:Performed By: #### KAREN, CMP, LIPA ####[facility] Suhtbahxqs[address] [place], [place] [address]Dr. Yilan ChangPROF 14(COMP METB)on 88-94-4099Wlrsjdw [Mass/Vol]3.6 g/dL Normal3.4-5.0The [facility] CenterComment on above:Performed By: #### CMP ####[facility] Bwoblnhrsa[address] [place], [place] [address]Dr. Yilan ChangAlbumin/Globulin [Mass ratio]0.9 {ratio}NormalThe [facility] Comment on above:Performed By: #### CMP ####[facility] Opqwhypwjs4056[address] [place], [place] [address]Dr.Yilan ChangALP [Catalytic activity/Vol] 299 U/LCritically mwvd74-683Nxh [facility] CenterComment on above:Performed By: #### CMP ####[facility] Gauvvjomvl[address] [place], [place] [address]Dr.Yilan ChangALT [Catalytic activity/Vol]53 U/RVbyvdm77-81Mkx [facility] CenterComment on above:Performed By: #### CMP ####[facility] Pqjxuaqbby[address] [place], [place] [address]Dr.Yilan ChangAnion gap [Moles/Vol]12.2 mmol/LNormalThe [facility] CenterComment on above:Performed By: #### CMP ####[facility] Ahpejzjoyf4[address] [place], [place] [address]Dr.Yilan ChangAST [Catalytic activity/Vol]41 U/LCritically pqta96-30Jns [facility] CenterComment on above:Performed By: #### CMP ####[facility] Nqzfghmumm7424[address] [place], [place] [address]Dr.Yilan ChangBilirubin [Mass/Vol]0.8 mg/dLNormal0.2-1.0The [facility] CenterComment on above:Performed By: #### CMP ####[facility] Tnqpmxtkfa8[address] [place], [place] [address]Dr.Yilan ChangCalcium [Mass/Vol]9.6 mg/dLNormal8.5-10.1The [facility] CenterComment on above:Performed By: #### CMP ####[facility] Hlzizrqzty[address] [place], [place] [address]Dr.Yilan ChangChloride [Moles/Vol]101 mmol/XPyltuw07-245Qxs [facility] CenterComment on above:Performed By: #### CMP ####[facility] Rdyhuskhpt[address] [place], [place] [address]Dr.Yilan ChangCO2 [Moles/Vol]26.3 mmol/GIloccr25.0-32.0The [facility] CenterComment on above:Performed By: #### CMP ####[facility] Fnchllhibs[address] [place], [place] [address]Dr.Yilan ChangCreatinine [Mass/Vol]0.63 mg/dLNormal0.55-1.02The [facility] CenterComment on above: Performed By: #### CMP ####[facility] Gykyozjdmo[address] [place], [place] [address]Dr.Yilan ChangEGFR-AF UZBEK>60Normal>=60The [facility] CenterComment on above:Performed By: #### CMP ####[facility] Aqliaevgur8124[address] [place], [place] [address]Dr.Yilan ChangEGFR-NON AF UZBEK>60Normal>=60The [facility] CenterComment on above:Performed By: #### CMP ####[facility] Mlwbugjlet2256[address] [place], [place] [address]Dr. Yilan ChangGlobulin (S) [Mass/Vol]4.2 g/dLNormalThe [facility] CenterComment on above:Performed By: #### CMP ####[facility] Grbzkejwxh6627[address] [place], [place] [address]Dr.Yilan ChangGlucose [Mass/Vol]120 mg/dLCritically wpxs71-465Jbs [facility] CenterComment on above:Performed By: #### CMP ####[facility] Hjljoiqauz[address] [place], [place] [address]Dr. Yilan ChangPotassium [Moles/Vol]4.5 mmol/LNormal3.5-5.1The [facility] Comment on above:Performed By: #### CMP ####[facility] Sbzfrdybjq52[address] [place], [place] [address]Dr.Reece ChangProtein [Mass/Vol]7.8 g/dL Normal6.4-8.2The [facility] CenterComment on above:Performed By: #### CMP ####[facility] Efpndanybu5[address] [place], [place] [address]Dr. Yilan ChangSodium [Moles/Vol]135 mmol/LCritically lqw381-373Rcp [facility] CenterComment on above:Performed By: #### CMP ####[facility] Qhhaihqdea4[address] [place], [place] [address]Dr.Yilan ChangUrea nitrogen [Mass/Vol]19.0 mg/dLCritically high7.0-18.0The [facility] CenterComment on above:Performed By: #### CMP ####[facility] Uqufizpvqy8[address] [place], [place] [address]Dr.Yilan ChangUrea nitrogen/Creatinine [Mass ratio] 30.2 mg/mgNormalThe [facility] CenterComment on above:Performed By: #### CMP ####[facility] Qxkvyficps[address] [place], [place] [address]Dr. Yirich ChangAlbumin [Mass/Vol]3.2 g/dLCritically low3.4-5.0[facility] Comment on above:Performed By: #### KAREN, CMP, LIPA ####[facility] Adlfubyyfm[address] [place], [place] [address]Dr. Darlinglan Grover Albumin/Globulin [Mass ratio]0.8 {ratio}NormalThe [facility] CenterComment on above:Performed By: #### KAREN, CMP, LIPA ####[facility] Elwdbdkywg[address] [place], [place] [address]Dr. Darlinglan ChangALP [Catalytic activity/Vol] 296 U/LCritically pgmy71-577Fku [facility] CenterComment on above:Performed By: #### KAREN, CMP, LIPA ####[facility] [address]dsqi[address] [place] [address]Dr. Yilan ChangALT [Catalytic activity/Vol]49 U/L Qghcyy27-74Bqe [facility] CenterComment on above:Performed By: #### KAREN, CMP, LIPA ####[facility] Rziidvlpnj[address] [place] [address]Dr. Yilan ChangAnion gap [Moles/Vol]8.7 mmol/LNormalThe [facility] Comment on above:Performed By: #### KAREN, CMP, LIPA ####[facility] [address]osrjaibr[address] [place] [address]Dr. Yilan ChangAST [Catalytic activity/Vol]34 U/PCsvucb60-69Vec [facility] CenterComment on above:Performed By: #### KAREN, CMP, LIPA ####[facility] Jeszhnouus[address] [place] [address]Dr. Yilan ChangBilirubin [Mass/Vol]0.3 mg/dLNormal 0.2-1.0The [facility] CenterComment on above:Performed By: #### KAREN, CMP, LIPA ####[facility] J[address]uwsmwysi[address] [place] [address]Dr. Yilan ChangCalcium [Mass/Vol]9.2 mg/dLNormal8.5-10.1The [facility] CenterComment on above:Performed By: #### KAREN, CMP, LIPA ####[facility] [address]zicjuaf[address] [place] [address]Dr. Yilan ChangChloride [Moles/Vol]105 mmol/XAmwnkk94-241Gbu [facility] CenterComment on above:Performed By: #### KAREN, CMP, LIPA ####[facility] Gp[address]uoehqi79[address] [place] [address]Dr. Yilan ChangCO2 [Moles/Vol]29.2 mmol/XXmdipb52.0-32.0The [facility] CenterComment on above:Performed By: #### KAREN, CMP, LIPA ####[facility] Auidygkfsu[address] [place], [place] [address]Dr. Yilan ChangCreatinine [Mass/Vol]0.84 mg/dLNormal0.55-1.02The [facility] CenterComment on above: Performed By: #### KAREN, CMP, LIPA ####[facility] [address]xwcjbf[address] [place] [address]Dr. Yilan ChangEGFR-AF UZBEK>60Normal>=60The [facility] CenterComment on above:Performed By: #### KAREN, CMP, LIPA ####[facility] F[address]vvkuege[address] [place] [address]Dr. Yilan Grover EGFR-NON AF UZBEK>60Normal>=60The [facility] CenterComment on above:Performed By: #### KAREN, CMP, LIPA ####[facility] Cftfdhmadj[address] [place], [place] [address]Dr. Yilan ChangGlobulin (S) [Mass/Vol]4.0 g/dLNormal The [facility] CenterComment on above:Performed By: #### KAREN, CMP, LIPA ####[facility] Wruirmrzcw[address] [place], [place] [address]Dr. Yilan ChangGlucose [Mass/Vol]98 mg/kCQytlhz98-783Vrm [facility] CenterComment on above:Performed By: #### KAREN, CMP, LIPA ####[facility] Odpsevckfn[address] [place], [place] [address]Dr. Yilan ChangPotassium [Moles/Vol]3.9 mmol/LNormal3.5-5.1The [facility] CenterComment on above:Performed By: #### KAREN, CMP, LIPA ####[facility] Zmtybuemxa[address] [place], [place] [address]Dr. Yilan ChangProtein [Mass/Vol]7.2 g/dLNormal6.4-8.2The [facility] Comment on above:Performed By: #### KAREN, CMP, LIPA ####[facility] Iylspdhccb[address] [place], [place] [address]Dr. Yilan ChangSodium [Moles/Vol]139 mmol/DFartbj623-803Nrq [facility] CenterComment on above: Performed By: #### KAREN, CMP, LIPA ####[facility] [address] [place], [place] [address]Iz. Reece ChangUrea nitrogen [Mass/Vol]25.0 mg/dL Critically high7.0-18.0The [facility] CenterComment on above:Performed By: #### KAREN, CMP, LIPA ####[facility] [address] [place], [place] [address]Oc. Reece ChangUrea nitrogen/Creatinine [Mass ratio]29.8 mg/mgNormal The [facility] CenterComment on above:Performed By: #### KAREN, CMP, LIPA ####[facility] [address] [place], [place] [address]Po. Reece GroverUS SINGLE QUAD RT UPPERon 70-69-1689FN SINGLE QUAD RT UPPER EXAMINATION: US SINGLE [...] Electronically authenticated by: ANDREI ESCOBAR Date: 2021-11-21 07:26[facility]_PA Bautista 45-58-1341MC ABD FLAT UP_PA CHEXAM: XR ABD FLAT [...] Electronically authenticated by: JERSEY GUADALUPE Date: 2021-11-21 04:56[facility] 07-16-2020 Specimen: [id number] Received: 07/16/20 Status: BERNICE Bajwa Num: [id number] Spec Type: Surgical Subm Dr: Rayo Farmer Jr, DO Tissues: A Colon Biopsy (RANDOM COLON BX) Procedures: HE Stain/2, Gross/Micro L4 Patient Age/Sex Location Account Attending Physician Lay Wayne/F [id number] Rayo Farmer Jr, DO SPEC NUM: [id number] RECD: 07/16/20 STATUS: BERNICE BAJWA NUM: [id number] JUDITH: 07/16/20- DR: Rayo Farmer Jr, DO ENTERED: 07/16/20-[address] [facility] [address]: PARAM TYPE: Surgical DEPT: S ORDERED: [...] microscopic findings support the above pathologic diagnosis. [id number] Specimen: [id number] Received: 07/16/20-1235 Status: BERNICE Bajwa Num: [id number] Spec Type: Surgical Subm Dr: Rayo Farmer Jr, DO Tissues: A Colon Biopsy (RANDOM COLON BX) Procedures: HE Stain/2, Gross/Micro L4 Patient: Lay Wayne [id number] (Continued) Signed (signature on file) Amy Allen MD 07/17/20 0633 [facility] CenterCOVID-19 Antigenon 22-33-0459ZCSCQ-19 AntigenHealthcare Worker?: N Karen Reference Karen Reference [...] its performance Karen Disclaimer characteristic determined by [employer] and Karen Disclaimer validated at [facility]. This Karen Disclaimer test has not [...] is terminated or revoked sooner. PERFORMED BY: [place] [id number] PATHOLOGIST SLOOP CAPTAIN AMY ALLEN M.D.[facility] Medical CenterComment on above: Performed By: #### SOFIANEG, COVID-19 KAREN #### [place] [id number] USASofia Ag Negativeon 46-06-8471Bykxv Ag NegativeNegative NormalNegativeMarymount HospitalComment on above:Result Comment: This is a duplicate test result based off of the Karen SARS Antigen (THANIA) test performed within the Microbiology department. PERFORMED BY: [place] [address] PATHOLOGIST SLOOP CAPTAIN AMY ALLEN M.D.Performed By: #### SOFIANEG, COVID-19 KAREN #### [address] [address] USAC-Reactive Proteinon 75-23-3839D-Reactive Protein1.2 mg/dL High0.0-1.0[facility] HospitalComment on above:Result Comment: PERFORMED BY: [address] [address] PATHOLOGIST SLOOP CAPTAIN AMY ALLEN M.D.Performed By: #### CRP #### [facility] [address] [place], [place] [address] USACT abdomen pelvis w conon 37-90-0244UM abdomen pelvis w [facility] [place] [address] [place], [place] [address] CT Scan Report Signed Patient: Lay Wayne MR#: [id number] : 1950 Acct:[id number] Age/Sex: 69 / F ADM Date: 06/10/20 Loc: ER Room: Type: [facility] ER Attending Dr: Ordering Provider: Clayton [...] of the rectum. This may be sales representative raw fibers of inflammatory or infectious etiology. This also may represent component of underdistention. No abscess. Impression dictated by: Antoine Dutta M.D.06/10/2020 6:40 PM Dictation Location: [place] [address] Transcribed By: [facility] 06/10/201839 Dictated By: Antoine Dutta DO 06/10/20 183 Signed By: 06/10/201839[facility] CenterComplete Blood Count Auto Diffon 03-71-7809Kjljyuvba (Bld) [#/Vol]0.0 10*3/uLNormal0.0-0.2FBluffton HospitalComment on above:Result Comment: PERFORMED BY: [place] [address] PATHOLOGIST SLOOP CAPTAIN AMY ALLEN M.D.Performed By: #### CMP, LIPASE, TROP, CBC #### [place] [address] USABasophils/100 WBC (Bld)0.8 %Normal.[facility] HospitalComment on above:Performed By: #### CMP, LIPASE, TROP, CBC #### [place] [address] USAEosinophils (Bld) [#/Vol]0.0 10*3/uLNormal0.0-0.45 [facility] HospitalCombeaumont hospital on above:Performed By: #### CMP, LIPASE, TROP, CBC #### [place] [address] USAEosinophils/100 WBC (Bld)0.2 %Normal.[facility] HospitalComment on above:Performed By: #### CMP, LIPASE, TROP, CBC #### [place] [address] USAErythrocyte distribution width (RBC) [Ratio]12.8 %Normal 11.9-15.3FBluffton HospitalComment on above:Performed By: #### CMP, LIPASE, TROP, CBC #### [place] [address] USAHematocrit (Bld) [Volume fraction]45.1 %Vgvtic82.0-46.4 [facility] HospitalComment on above:Performed By: #### CMP, LIPASE, TROP, CBC #### [place] [address] USAHemoglobin (Bld) [Mass/Vol]15.7 g/vXStwd94.8-15.4FBluffton HospitalComment on above:Performed By: #### CMP, LIPASE, TROP, CBC #### [place] [address] USALymphocytes (Bld) [#/Vol]1.5 10*3/uLNormal1.00-4.8 [facility] HospitalComment on above:Performed By: #### CMP, LIPASE, TROP, CBC #### [facility] [address] [place] [address] USALymphocytes/100 WBC (Bld)25.2 %Normal.[facility] HospitalComment on above:Performed By: #### CMP, LIPASE, TROP, CBC #### [facility] [address]H (RBC) [Entitic mass]33.5 hbMhkozo34.7-34.3FBluffton HospitalComment on above:Performed By: #### CMP, LIPASE, TROP, CBC #### [facility] [address]V (RBC) [Entitic vol]96.6 pYVoaile84-610TgwomvusvMarymount HospitalComment on above:Performed By: #### CMP, LIPASE, TROP, CBC #### [facility] [address] [place] [address] USAMean Corpuscular HGB Conc34.7 g/hFUdodvs98.0-35.0[facility] HospitalComment on above:Performed By: #### CMP, LIPASE, TROP, CBC #### [place] [address] USAMonocytes (Bld) [#/Vol]0.3 10*3/uLNormal0.0-0.8[facility] HospitalCombeaumont hospital on above:Performed By: #### CMP, LIPASE, TROP, CBC #### [facility] [address] [place] [address] USAMonocytes/100 WBC (Bld)5.6 %Normal.[facility] HospitalComment on above:Performed By: #### CMP, LIPASE, TROP, CBC #### [place] [address] USANeutrophils (Bld) [#/Vol]4.2 10*3/uLNormal1.8-7.7FBluffton HospitalComment on above:Performed By: #### CMP, LIPASE, TROP, CBC #### [facility] [address] [place] [address] USANeutrophils/100 WBC (Bld)68.2 %Normal.[facility] HospitalComment on above:Performed By: #### CMP, LIPASE, TROP, CBC #### [facility] [address] [place] [address] USANucleated RBC/100 WBC (Bld) [Ratio]0.1 %Normal0-0.5 [facility] HospitalComment on above:Performed By: #### CMP, LIPASE, TROP, CBC #### [place] [address] USAPlatelet mean volume (Bld) [Entitic vol]7.8 fLNormal 6.3-10.7FBluffton HospitalComment on above:Performed By: #### CMP, LIPASE, TROP, CBC #### [facility] [address] [place] [address] USAPlatelets (Bld) [#/Vol]268 10*3/kWCdauah828-719FdpfzjfwyMarymount HospitalComment on above:Performed By: #### CMP, LIPASE, TROP, CBC #### [place] [address] USARBC (Bld) [#/Vol]4.67 10*6/uLNormal3.60-5.00[facility] HospitalComment on above:Performed By: #### CMP, LIPASE, TROP, CBC #### [place] [address] USAWBC (Bld) [#/Vol]6.1 10*3/uLNormal4.5-11.0[facility] HospitalComment on above:Performed By: #### CMP, LIPASE, TROP, CBC #### [place] [address] USAComprehensive Metabolic Panelon 95-21-7979Cyaradj [Mass/Vol]3.9 g/dLNormal3.2-5.5FBluffton HospitalComment on above:Performed By: #### CMP, LIPASE, TROP, CBC #### [facility] [address] [place] [id number] USAAlbumin/Globulin [Mass ratio]1.0 {ratio}NormalMarymount HospitalComment on above:Performed By: #### CMP, LIPASE, TROP, CBC #### [facility] [address] [place] [address] USAALP [Catalytic activity/Vol]302 U/XSrdv26-71SwincqbrbMarymount HospitalComment on above:Performed By: #### CMP, LIPASE, TROP, CBC #### [facility] [address] [place] [id number] USAALT [Catalytic activity/Vol]43 U/TFotsue84-11UugvzroveMarymount HospitalComment on above:Performed By: #### CMP, LIPASE, TROP, CBC #### [facility] [address] [place] [address] USAAST [Catalytic activity/Vol]36 U/KXwscvh30-93ZskksvapbMarymount HospitalComment on above:Performed By: #### CMP, LIPASE, TROP, CBC #### [facility] [address] [place] [id number] USABilirubin [Mass/Vol]0.8 mg/dLNormal0.3-1.2FBluffton HospitalComment on above:Performed By: #### CMP, LIPASE, TROP, CBC #### [facility] [address] [place] [address] USACalcium [Mass/Vol]9.5 mg/dLNormal8.2-10.2FBluffton HospitalComment on above:Performed By: #### CMP, LIPASE, TROP, CBC #### [facility] [address] [place] [address] USAChloride [Moles/Vol]103 mmol/MShmgcl01-413DomrythkiMarymount HospitalComment on above:Performed By: #### CMP, LIPASE, TROP, CBC #### [facility] [address] [place] [address] USACO2 [Moles/Vol]22.4 mmol/ABnkrwo19.0-30.0[facility] HospitalComment on above:Performed By: #### CMP, LIPASE, TROP, CBC #### [facility] [address] [place] [address] USACreatinine [Mass/Vol]0.77 mg/dLNormal0.44-1.03[facility] HospitalComment on above:Performed By: #### CMP, LIPASE, TROP, CBC #### [facility] [address] [place] [address] USACreatinine Clr Calc Mwzutrjo36.82NoTriHealth Good Samaritan HospitalComment on above:Performed By: #### CMP, LIPASE, TROP, CBC #### [place] [address] USAEstimated GFR ( Xochitl> 60NoTriHealth Good Samaritan HospitalComment on above:Result Comment: GFR estimated reference range: According to KDOQI guidelines, <60 ml/min/1.73m2 is sufficient to diagnose a patient with chronic kidney disease.Performed By: #### CMP, LIPASE, TROP, CBC #### [place] [address] USAEstimated GFR (Non- Am> 60NoTriHealth Good Samaritan HospitalComment on above:Performed By: #### CMP, LIPASE, TROP, CBC #### [place] [address] USAGlobulin (S) [Mass/Vol]4.1 g/dLNoTriHealth Good Samaritan HospitalComment on above:Performed By: #### CMP, LIPASE, TROP, CBC #### [place] [address] USAGlucose [Mass/Vol]99 mg/mZEloxce15-465MdeggnckcMarymount HospitalComment on above:Result Comment: Random Glucose Reference Range is dependent on time and content of last meal. Glucose of more than 200 mg/dL in a nonstressed, ambulatory subject supports the diagnosis of Diabetes Mellitus. ADA recommended reference rangePerformed By: #### CMP, LIPASE, TROP, CBC #### [address] [place] [address] USAPotassium [Moles/Vol]3.7 mmol/LNormal3.5-5.1FBluffton HospitalComment on above:Performed By: #### CMP, LIPASE, TROP, CBC #### [facility] [address] [place] [address] USAProtein [Mass/Vol]8.0 g/dLHigh6.1-7.9[facility] HospitalComment on above:Performed By: #### CMP, LIPASE, TROP, CBC #### [facility] [address] [place] [address] USASodium [Moles/Vol]137 mmol/OTpyomo884-910FnxiexnxkMarymount HospitalComment on above:Performed By: #### CMP, LIPASE, TROP, CBC #### [place] [address] USAUrea nitrogen [Mass/Vol]13 mg/dLNormal9-23[facility] HospitalComment on above:Performed By: #### CMP, LIPASE, TROP, CBC #### [facility] [address] [place] [address] USADipstick and Microscopicon 55-39-9916Hsmmfxiwwi (U)Clear NormalCleMercy Health Clermont HospitalComment on above:Order Comment: Name Collection Type:: Clean-Voided MidstreamPerformed By: #### ADDONUAPLUS #### [place] [address] USABacteria,UrineRareHighNone SeenMarymount HospitalComment on above:Order Comment: Name Collection Type:: Clean-Voided MidstreamPerformed By: #### ADDONUAPLUS #### [place] [address] USABilirubin,UrineNegativeNormalNegativeMarymount HospitalComment on above:Order Comment: Name Collection Type:: Clean- Voided MidstreamPerformed By: #### ADDONUAPLUS #### [place] [address] USAColor (U)YellowNormalYellowMarymount HospitalComment on above:Order Comment: Name Collection Type:: Clean-Voided MidstreamPerformed By: #### ADDONUAPLUS #### [facility] [address] [place], [place] [id number] USAGlucose Ql (U)NormalNormalNormalMarymount HospitalComment on above:Order Comment: Name Collection Type:: Clean-Voided MidstreamPerformed By: #### ADDONUAPLUS #### [facility] [address] [place] [address] USAKetones Ql (U)2+HighNegativeMarymount HospitalComment on above:Order Comment: Name Collection Type:: Clean-Voided MidstreamPerformed By: #### ADDONUAPLUS #### [place] [id number] USALeukocyte esterase Test strip Ql (U)1+HighNegative Marymount HospitalComment on above:Order Comment: Name Collection Type:: Clean-Voided MidstreamPerformed By: #### ADDONUAPLUS #### [place] [address] USAMucus,Urine3+Critically abnormalMarymount HospitalComment on above:Order Comment: Name Collection Type:: Clean-Voided MidstreamResult Comment: PERFORMED BY: [place] [address] PATHOLOGIST SLOOP CAPTAIN AMY ALLEN M.D.Performed By: #### ADDONUAPLUS #### [facility] [address] [place] [address] USANitrite,UrineNegativeNormalNegativeMarymount HospitalComment on above:Order Comment: Name Collection Type:: Clean- Voided MidstreamPerformed By: #### ADDONUAPLUS #### [place] [id number] USAOccult Blood,UrineTraceHighNegativeMarymount HospitalComment on above:Order Comment: Name Collection Type:: Clean- Voided MidstreamResult Comment: PERFORMED BY: [address] [address] PATHOLOGIST SLOOP CAPTAIN AMY ALLEN M.D.Performed By: #### ADDONUAPLUS #### [place] [address] USApH (U)5.5 [pH]Normal5.0-9.0Marymount HospitalComment on above:Order Comment: Name Collection Type:: Clean-Voided MidstreamPerformed By: #### ADDONUAPLUS #### [place] [address] USAProtein (U) [Mass/Vol]30 mg/dLHighNegativeMarymount HospitalComment on above:Order Comment: Name Collection Type:: Clean-Voided MidstreamPerformed By: #### ADDONUAPLUS #### [place] [address] USARBC LM.HPF (Urine sed) [#/Area]0 /[HPF]Normal0-4FBluffton HospitalComment on above:Order Comment: Name Collection Type:: Clean-Voided MidstreamPerformed By: #### ADDONUAPLUS #### [place] [address] USASpecificy [place],Urine1.460Yoxxdg8.001-1.030Marymount HospitalComment on above:Order Comment: Name Collection Type:: Clean-Voided MidstreamPerformed By: #### ADDONUAPLUS #### [place] [address] USASquamous Epithelial Cell,Wdoaf8-4Gsbumu4-1JqhfndissBluffton HospitalComment on above:Order Comment: Name Collection Type:: Clean-Voided MidstreamPerformed By: #### ADDONUAPLUS #### [place] [address] USAUrobilinogen,UrineNormalNormalNormalMarymount HospitalComment on above:Order Comment: Name Collection Type:: Clean- Voided MidstreamPerformed By: #### ADDONUAPLUS #### [place] [address] USAWBC,Tudih3-5Molbaq6-5OtysjwfeoBluffton Hospital Comment on above:Order Comment: Name Collection Type:: Clean-Voided Midstream Performed By: #### ADDONUAPLUS #### [place] [address] USALipaseon 66-72-0579Cpgxhm [Catalytic activity/Vol]30.0 U/L Hbzvwy16-00YyplrjbcuMarymount HospitalComment on above:Result Comment: PERFORMED BY: [place] [address] PATHOLOGIST SLOOP CAPTAIN AMY ALLEN M.D.Performed By: #### CMP, LIPASE, TROP, CBC #### [place] [address] USATroponin I(TnI)on 35-61-4259Azrqzuof I.cardiac [Mass/Vol] 0.02 ng/mLNormal0-0.02Marymount HospitalComment on above:Result Comment: TYLER HI Cut off value > or equal to 0.03 ng/mL in conjunction with clinical conditions of myocardial infarction. (www.escardio.org/guidelines) PERFORMED BY: [place] [address] PATHOLOGIST SLOOP CAPTAIN AMY ALLEN M.D.Performed By: #### CMP, LIPASE, TROP, CBC #### [place] [address] USAUrine Cultureon 92-08-0465Txenirjq identified Cx Nom (U) 25,000 colonies/ml mixed bacterial skin contaminants 2 Days PERFORMED BY: [place] [address] PATHOLOGIST SLOOP CAPTAIN AMY ALLEN M.D.[facility] CenterComment on above: Performed By: #### CUU #### [place] [address] [place] Encounters Encounter DateEncounter TypeCare ProviderFacilityStart: 09-09-2022 End: 62-31-7881vimpobxamzHN NATALIIA VALONEFacility:F8Pgihk: 11-21-2021 End: 83-76-3086dvczhyvqyhQW MERRITT Carroll SMITHFacility:J7Ppkzv: 11-21-2021 End: 47-15-7805sibzrudlryMW HALEY STRATTON .[facility]: [facility] DatePayer CategoryPayerPolicy [id number] [id number] Summary Purpose Family History No Family History Records FoundNo Family History Records Found Advance Directives No Advanced Directives Records FoundNo Advanced Directives Records Found Additional Source Comments INFORMATION SOURCE (unrecogn ized section and content) DATE CREATED AUTHOR 06/10/2021 [facility] DATE CREATED AUTHOR AUTHOR'S ORGANIZ ATION 09/12/2022 [facility] FOR RECORDS PERTAINING TO PATIENTS WHO ARE [...] BE BASED ON THE PRIMARY CLINICAL RECORDS. [facility]. provides no warranty or guarantee of the accuracy or completeness of information in this document.
--- OUTSIDE RECORDS SUMMARY | 2025-05-11 13:45 | XMS_ITS | Clinical Summary ---
Author Organization [facility] tem Address [id number] [address] [place] [address] Care Team Providers Care Licensed Esthetician Name Role Phone Arsalan Sutton DO, Charles L Primary Care Provider Allergies Active AllergyReactionsCriticalityNoted QapwVchtpzynGfzbbmoJeiwzizb24/02/2020 QasvfzfixdhHxbmu75/02/2020 Medications MedicationSigDispense QuantityRefillsLast FilledStart DateEnd DateStatus amitriptyline [...] Social History Tobacco UseTypesPacks/DayYears UsedDateSmoking Tobacco: Every FmbKhialoqams950 Started: 05/17/1974Smokeless Tobacco: NeverAlcohol UseStandard Drinks/Week CommentsNever0 (1 standard drink = 0.6 oz pure alcohol)AUDIT-CAnswerDate RecordedQ1: How often do you have a drink containing alcohol?Never03/18/2020 Average Number of DrinksNot on file03/18/2020Frequency of Binge DrinkingNot on file03/18/2020ChildcareAnswerDate UinycqgdAqarmjcprXzdowzm98/12/2019Employment AnswerDate DxormpudOupclolearYtjocls40/12/2019Purpose - LifeAnswerDate Recorded Purpose and direction in qqzkIohnkdv40/11/2021CommentsUnknownSex and Gender InformationValueDate RecordedSex Assigned at BirthNot on fileLegal Sex Nclwyl8212/20/2014 11:33 AM EDTGender IdentityNot on fileSexual OrientationNot on file Last Filed Vital Signs Vital SignReadingTime TakenCommentsBlood Ueorkyky974/8803/18/2020 1:58 PM EST Pulse--Rqgnvonntbw46.7 ??C (98 ??F)03/18/2020 1:58 PM ESTRespiratory Rate-- Oxygen Saturation--Inhaled Oxygen Concentration--Syygcj93.9 kg (99 lb)03/18/2020 1:58 PM PWCEalpev462.9 cm (5' 1 )03/18/2020 1:58 PM ESTBody Mass Index18.71 03/18/2020 1:58 PM EST Plan of Treatment Health MaintenanceDue DateLast DoneCommentsDepression Sfyohpmvv08/29/1964Tobacco Xevgocpmd16/29/1964Adult BMI Npttwxket13/29/1970DTaP,Tdap and Td Vaccines (1 - Tdap)1970Zoster (Shingles) Vaccine (1 of 2)2001Fall Risk Screening 2016Influenza Zlmumsq4501/15/2025RSV ( or age 60+ yrs) (1 - 1-dose 75+ series)2026 Medical Devices Not on file Insurance Care Teams Team MemberRelationshipSpecialtyStart DateEnd Date Keaton Arriaza Jr., [address] [place] [address] PCP - GeneralInternal Evmatbxu71/5/20
--- OUTSIDE RECORDS SUMMARY | 2025-05-11 13:45 | XMS_ITS | Clinical Summary ---
Author Organization [facility] Address [address] [place], [place] [address] Care Team Providers Care Accountant Tax Name Role Phone Arsalan Sutton DO, Charles Lewis Primary Care Provi madan Darian Sutton DO, David L Unavailable [phone] Social History Tobacco UseTypesPacks/DayYears UsedDateSmoking Tobacco: Never Assessed CommentsUnknownSex and Gender InformationValueDate RecordedSex Assigned at Not on fileLegal QpuVxoafg61/28/2020 8:06 AM ESTGender IdentityNot on fileSexual OrientationNot on file Plan of Treatment Health MaintenanceDue DateLast DoneCommentsAnxiety Gaqqjiaxt41/29/1970Depression Yjrjchkwy12/29/1970Hepatitis C Uczkimdvm77/29/1970DTaP,Tdap,Td Vaccine (1 - Tdap)1970Mammogram Mpnkcyozb83/29/1992CT Yquqpvissfbz96/29/1997Cologuard (FIT-DNA)06/14/19962728Alhiavjqfcp22/29/1997Colorectal Cancer Afmluyxed61/29/1997 Diabetes Ivysfhher05/29/1997Fecal Occult Blood1996Lipid Screening 06/14/19963698Ydgjrtrwzpeup38/29/1997Pneumococcal Vaccine: 50+ (1 of 1 - PCV) 2001Shingrix Vaccine (1 of 2)2001Bone Density Kjfujdmhy19/29/2017 Advance Directive Gzhsvxmncp93/01/2025ovid-19 Vaccine (1 - 2024-26 season) 2025Influenza Vaccine (#1)2025RSV Vaccine (1 - 1-dose 75+ series) 2026 Insurance Care Teams Team MemberRelationshipSpecialtyStart DateEnd Date Keaton Arriaza Jr., DO [address] [place] [address] PCP - GeneralInternal Hstmepdn24/1/21 Rayo Farmer Jr., DO [address] [address] TfowuxeznTcpnknphvnqtughv27/1/21
[2025-05-11 15:07] LABS: Alanine Aminotransferase 138 U/L (14-59); Albumin Globulin Ratio 0.7; Albumin Level 3.0 g/dL (3.4-5.0); Alkaline Phosphatase 878 U/L (46-116); Aspartate Amino Transferase 106 U/L (15-37); Cholesterol 179 mg/dL (<=200); Globulin 4.4 g/dL; HDL Cholesterol 102 mg/dL (40-60); Total Protein 7.4 g/dL (6.4-8.2); Triglycerides 39 mg/dL (<=150); VLDL CHOLESTEROL 7.8 mg/dL
== END 2025-05-11 13:40 | disposition home or self-care (01) ==
LOC: LAB 13:42
PROVIDERS: PCP Internal Medicine; Visit Provider Internal Medicine
DX: E78.00 Pure hypercholesterolemia, unspecified (principal)
CPT/HCPCS: 36415; 80061; 80076